=== PATIENT | female | born 1955 | race Caucasian/White ===

== ENCOUNTER → 2020-05-19 15:25 | Outpatient (CLI) | payer MEDICARE, SELFPAY ==
[2020-05-19 16:15] LABS: Alanine Aminotransferase 13 U/L (12-78); Albumin Level 3.5 g/dl (3.5-5.0); Albumin/Globulin Ratio 1.2 (1.1-1.8); Alkaline Phosphatase 172 U/L (38-126); Anion Gap 16.7 mEq/L (5-15); Aspartate Amino Transferase 24 U/L (14-36); Bilirubin,Total 0.5 mg/dl (0.2-1.3); Blood Urea Nitrogen 21 mg/dl (7-17); Carbon Dioxide 29 mmol/L (22.0-30.0); Chloride 96 mmol/L (98-107); Chol/HDL Ratio 4.9 (1-3.5); Cholesterol 202 mg/dl (140-200); Estimated Glomerular Filt Rate 63 ml/min (>60); GFR (African American) 76 ML/MIN (>60); Glucose 220 mg/dl (74-100); HDL Cholesterol 41 mg/dl (40-60); Potassium 4.7 mmoL/L (3.5-5.1); Sodium 137 mmol/L (136-145); Total Protein,Serum 6.5 g/dl (6.3-8.2); Triglycerides 362 mg/dl (30-150); VLDL Cholesterol 72 mg/dL (0-40)
[2020-05-19 16:27] LABS: Direct LDL Cholesterol 109.97 mg/dL (100-129)
[2020-05-19 16:34] LABS: T4 (Thyroxine) 10.6 ug/dl (5.53-11.0)
[2020-05-19 17:09] LABS: Hemoglobin A1C 8.4 % (4.0-6.0)
== END ==
PROVIDERS: Visit Provider Family Medicine
DX: E11.9 Type 2 diabetes mellitus without complications (principal); F39 Unspecified mood [affective] disorder; I10 Essential (primary) hypertension; Z79.4 Long term (current) use of insulin
CPT/HCPCS: 80053; 80061; 83036; 84436; 84443

== ENCOUNTER → 2021-08-26 14:24 | Outpatient (CLI) | payer MEDICARE, SELFPAY ==
[2021-08-26 15:02] LABS: Basophils # 0.1 K/mm3 (0-0.2); Eosinophils # 0.1 K/mm3 (0.0-0.4); Eosinophils % 1.1 % (0.1-12.0); Hematocrit 32.3 % (37.0-47.0); Hemoglobin 10.2 g/dL (12.2-16.2); Lymphocytes % 11.4 % (10-50); Mean Corpuscular HGB Conc 31.5 g/dL (31.8-35.4); Mean Corpuscular Hemoglobin 26.2 pg (27.0-31.2); Mean Corpuscular Volume 83.1 fl (81-99); Mean Platelet Volume 8.8 fl (7.4-10.4); Monocytes # 0.5 K/mm3 (0.1-1.0); Monocytes % 5.5 % (1.7-9.3); Neutrophils % 80.9 % (37.0-80.0); Platelet Count 307 K/mm3 (142-424); Red Blood Count 3.89 M/mm3 (4.20-5.40); Red Cell Distribution Width 16.4 % (11.5-17.5); White Blood Count 8.6 K/mm3 (4.8-10.8)
[2021-08-26 15:24] LABS: Alanine Aminotransferase 9 U/L (12-78); Albumin Level 3.5 g/dl (3.5-5.0); Albumin/Globulin Ratio 1.3 (1.1-1.8); Alkaline Phosphatase 148 U/L (38-126); Anion Gap 10.5 mEq/L (5-15); Aspartate Amino Transferase 17 U/L (14-36); Bilirubin,Total 0.4 mg/dl (0.2-1.3); Blood Urea Nitrogen 29 mg/dl (7-17); Calcium 7.9 mg/dl (8.4-10.2); Carbon Dioxide 34 mmol/L (22.0-30.0); Chloride 96 mmol/L (98-107); Chol/HDL Ratio 5.4 (1-3.5); Cholesterol 212 mg/dl (140-200); Estimated Glomerular Filt Rate 50 ml/min (>60); GFR (African American) 60 ML/MIN (>60); Globulin 2.8 g/dL (1.3-3.2); Glucose 231 mg/dl (74-100); HDL Cholesterol 39 mg/dl (40-60); Potassium 4.5 mmoL/L (3.5-5.1); Sodium 136 mmol/L (136-145); Total Protein,Serum 6.3 g/dl (6.3-8.2); Triglycerides 223 mg/dl (30-150); VLDL Cholesterol 45 mg/dL (0-40)
[2021-08-26 15:35] LABS: Direct LDL Cholesterol 140.24 mg/dL (100-129)
[2021-08-26 16:12] LABS: Hemoglobin A1C 8.9 % (4.0-6.0)
== END ==
PROVIDERS: Visit Provider Family Medicine
DX: E11.9 Type 2 diabetes mellitus without complications (principal); Z79.4 Long term (current) use of insulin
CPT/HCPCS: 80053; 80061; 83036; 85025

== ENCOUNTER → 2022-04-26 20:41 | Outpatient (CLI) | payer MEDICARE, SELFPAY ==
[2022-04-26 17:08] LABS: Basophils # 0.1 K/mm3 (0-0.2); Basophils % 0.6 % (0.1-2.0); Eosinophils # 0.1 K/mm3 (0.0-0.4); Eosinophils % 1.4 % (0.1-12.0); Hematocrit 34.3 % (37.0-47.0); Hemoglobin 10.3 g/dL (12.2-16.2); Lymphocytes % 11.7 % (10-50); Mean Corpuscular HGB Conc 30.1 g/dL (31.8-35.4); Mean Corpuscular Volume 83.1 fl (81-99); Mean Platelet Volume 8.6 fl (7.4-10.4); Monocytes # 0.7 K/mm3 (0.1-1.0); Monocytes % 7.8 % (1.7-9.3); Neutrophils # 6.8 K/mm3 (1.8-7.8); Neutrophils % 78.5 % (37.0-80.0); Platelet Count 299 K/mm3 (142-424); Red Blood Count 4.13 M/mm3 (4.20-5.40); Red Cell Distribution Width 16.3 % (11.5-17.5); White Blood Count 8.6 K/mm3 (4.8-10.8)
[2022-04-26 17:13] LABS: Alanine Aminotransferase 14 U/L (12-78); Albumin Level 3.6 g/dl (3.5-5.0); Albumin/Globulin Ratio 1.2 (1.1-1.8); Alkaline Phosphatase 139 U/L (38-126); Anion Gap 11.6 mEq/L (5-15); Aspartate Amino Transferase 19 U/L (14-36); Bilirubin,Total 0.2 mg/dl (0.2-1.3); Blood Urea Nitrogen 30 mg/dl (7-17); Calcium 8.6 mg/dl (8.4-10.2); Carbon Dioxide 31 mmol/L (22.0-30.0); Chloride 98 mmol/L (98-107); Chol/HDL Ratio 6.7 (1-3.5); Cholesterol 236 mg/dl (140-200); Estimated Glomerular Filt Rate 50 ml/min (>60); GFR (African American) 60 ML/MIN (>60); Glucose 190 mg/dl (74-100); HDL Cholesterol 35 mg/dl (40-60); Potassium 4.6 mmoL/L (3.5-5.1); Sodium 136 mmol/L (136-145); Total Protein,Serum 6.6 g/dl (6.3-8.2); Triglycerides 226 mg/dl (30-150); VLDL Cholesterol 45 mg/dL (0-40)
[2022-04-26 17:24] LABS: Direct LDL Cholesterol 141.37 mg/dL (100-129)
[2022-04-26 17:37] LABS: Hemoglobin A1C 7.5 % (4.0-6.0)
[2022-04-26 17:44] LABS: Thyroid Stimulating Hormone 2.07 uIU/mL (0.465-4.68)
== END ==
PROVIDERS: PCP Family Medicine; Visit Provider Family Medicine
DX: Z00.00 Encounter for general adult medical examination without abnormal findings (principal); I10 Essential (primary) hypertension; F39 Unspecified mood [affective] disorder; E11.9 Type 2 diabetes mellitus without complications; Z79.4 Long term (current) use of insulin
CPT/HCPCS: 80053; 80061; 83036; 84443; 85025

== ENCOUNTER 2022-09-14 08:50 | Inpatient (IN) | payer MEDICARE, SELFPAY ==
[2022-09-14] VITALS (13 sets, daily range): BP systolic 152–186; BP diastolic 63–94; PULSE 74–89; RESP 12–31; TEMP 36.4–37.4; O2SAT 93–97; BMI 45.4; BMI 48.1
--- NOTE | 2022-09-14 09:05 | ECG_ITS ---
APPROVED REPORT Exam: Resting ECG HR:74 bpm ECG Measurements Heart Rate 74 AXES NJ 129 P 86 QRSd 173 QRS -69 QT 497 T 104 QTc 524 Conclusion ELECTRONIC VENTRICULAR PACEMAKER ABNORMAL RHYTHM ECG UNCONFIRMED REPORT Electronically signed by : Jesús Vee MD 09/14/2022 21:52:41
[2022-09-14 09:09] LABS: Coronavirus 19, PCR Not Detected (NotDetected); Influenza A, PCR Not Detected (NotDetected); Influenza B, PCR Not Detected (NotDetected)
--- NOTE | 2022-09-14 09:16 | HMH.EDGENADL ---
Discharge Plan Disposition Patient Disposition: Admitted As Inpatient Condition: Good Clinical Impressions Clinical Impression: Acute exacerbation of CHF (congestive heart failure), Acute non-ST elevation myocardial infarction (NSTEMI) Discharge ED Provider: Kimberley Miller Adult HPI General Chief complaint: Weakness Stated complaint: weakness Time Seen by Provider: 09/14/22 09:00 Mode of Arrival: EMS Source of Information: Patient Limitations: No Limitations Description of Symptoms (Recalled from ER Triage Doc. by RN): c/o 2 weeks of weakness. PT states that she had covid back in july and has really been weak since then. Denies any other symptoms at this time History of Present Illness HPI narrative: Miss Mesa is a 67 yo female w/ PMH for CHF, DM, morbid obesity presenting to the ED for generalized weakness and BLE swelling. +diarrhea. Patient reports she was diagnosed w/ COVID in July and ever since she has had weakness but symptoms worsened over the last 2 weeks. She also reports increased fluid on her LE making it difficult for her to ambulate and take care of herself over the last week. She reports cough and fevers have improved. NO chest pain. No residual fevers. No abdominal pain, bowel changes or urinary sx. Appetite reduced in setting of poor mobility. MD complaint: generalized weakness and BLE swelling Onset (ago): week(s) Related Data Home Medications Medication Instructions Recorded Confirmed pantoprazole 40 mg tablet,delayed 40 mg PO DAILY GERD 08/26/22 09/14/22 release albuterol sulfate 90 mcg/actuation 2 puff inhalation Q4HP PRN 09/14/22 09/14/22 aerosol inhaler Shortness Of Breath aspirin 81 mg capsule 81 mg PO DAILY heart health 09/14/22 09/14/22 atorvastatin 80 mg tablet 80 mg PO DAILY Cholesterol 09/14/22 09/14/22 budesonide-formoterol HFA 160 2 puff inhalation BID Breathing 09/14/22 09/14/22 mcg-4.5 mcg/actuation aerosol problems inhaler (Symbicort) furosemide 40 mg tablet 40 mg PO BID Edema 09/14/22 09/14/22 hydralazine 50 mg tablet 50 mg PO TID Hypertension 09/14/22 09/14/22 insulin glargine 100 unit/mL (3 35 unit SQ HS Diabetes 09/14/22 09/14/22 mL) subcutaneous pen (Lantus Solostar U-100 Insulin) isosorbide mononitrate 30 mg 15 mg PO DAILY Hypertension 09/14/22 09/14/22 tablet,extended release 24 hr metoprolol succinate 50 mg 50 mg PO BID Hypertension 09/14/22 09/14/22 tablet,extended release 24 hr paroxetine HCl 20 mg tablet 20 mg PO DAILY mood 09/14/22 09/14/22 sitagliptin phosphate 50 1 tab PO BID Diabetes 09/14/22 09/14/22 mg-metformin 1,000 mg tablet (Janumet) Allergies Allergy/AdvReac Type Severity Reaction Status Date / Time No Known Allergies Allergy Unverified 09/14/22 12:33 [facility] Disclaimer: The information contained in this section may have been updated after the patient was seen, as this information can be updated by other users. Medical History (HFpEF) heart failure with preserved ejection fraction CHF (congestive heart failure) COPD (chronic obstructive pulmonary disease) COVID Diabetes mellitus, type II History of left heart catheterization HTN (hypertension) Hyperlipidemia Pacemaker Pneumonia Surgical History History of cholecystectomy S/P appendectomy Family History Other Cancer Heart attack Stroke Social History Smoking Status: Never smoker alcohol intake: never substance use type: denies use current occupational status: unemployed and disabled Travel in the last 8 weeks: None household members: significant other housing: house lives independently: Yes pets and animals: Yes additional social history: The patient is single and lives with her significant other Jose Luis Keenan. She reports no ch
--- NOTE | 2022-09-14 09:24 | XR_ITS ---
FINAL REPORT CLINICAL HISTORY: weakness, swelling LE FINDINGS: SINGLE VIEW CHEST There is a left subclavian pacemaker. The heart size is enlarged. The mediastinum is within normal limits. There is mild right lung base opacity.. There is no evidence of pneumothorax. The bony thorax is intact. IMPRESSION: Mild right base opacity could represent atelectasis or pneumonia.. Reviewed, Interpreted and Dictated by Kiran Woodall III, MD Transcribed by Archie Chowdary Authenticated and [facility]
--- NOTE | 2022-09-14 09:30 | PC.NURSE ---
BLOOD SENT TO LAB
--- NOTE | 2022-09-14 09:46 | PC.NURSE ---
PT updated about her sister calling to get update on pt. Pt okayed for her sister Rashida to know information about her.
[2022-09-14 10:01] LABS: Chloride 102 mmol/L (98-107); Sodium 139 mmol/L (136-145)
[2022-09-14 10:02] LABS: Alanine Aminotransferase 8 U/L (12-78); Albumin Level 3.3 g/dl (3.5-5.0); Albumin/Globulin Ratio 1.1 (1.1-1.8); Alkaline Phosphatase 160 U/L (38-126); Anion Gap 15.1 mEq/L (5-15); Aspartate Amino Transferase 19 U/L (14-36); Bilirubin,Total 0.4 mg/dl (0.2-1.3); Blood Urea Nitrogen 36 mg/dl (7-17); Carbon Dioxide 24 mmol/L (22.0-30.0); Creatinine Clearance Estimated 16 mL/min (50-200); Estimated Glomerular Filt Rate 16 ml/min (>60); GFR (African American) 19 ML/MIN (>60); Globulin 3.1 g/dL (1.3-3.2); Glucose 140 mg/dl (74-100); Total Protein,Serum 6.4 g/dl (6.3-8.2)
[2022-09-14 10:08] LABS: Calcium 4.4 mg/dl (8.4-10.2); Potassium 2.1 mmoL/L (3.5-5.1)
--- NOTE | 2022-09-14 10:09 | PC.NURSE ---
critical results called from lab reported to
[2022-09-14 10:14] LABS: Basophils % 0.4 % (0.1-2.0); Eosinophils # 0.2 K/mm3 (0.0-0.4); Eosinophils % 1.3 % (0.1-12.0); Hematocrit 29.4 % (37.0-47.0); Hemoglobin 9.5 g/dL (12.2-16.2); Lymphocytes # 0.9 K/mm3 (0.7-4.5); Lymphocytes % 7.6 % (10-50); Mean Corpuscular HGB Conc 32.2 g/dL (31.8-35.4); Mean Corpuscular Hemoglobin 25.5 pg (27.0-31.2); Mean Corpuscular Volume 79.2 fl (81-99); Mean Platelet Volume 8.6 fl (7.4-10.4); Monocytes # 0.7 K/mm3 (0.1-1.0); Monocytes % 6.3 % (1.7-9.3); Neutrophils # 9.7 K/mm3 (1.8-7.8); Neutrophils % 84.4 % (37.0-80.0); Platelet Count 323 K/mm3 (142-424); Red Blood Count 3.71 M/mm3 (4.20-5.40); Red Cell Distribution Width 17.6 % (11.5-17.5); Troponin I 0.07 ng/ml (0.00-0.034); White Blood Count 11.5 K/mm3 (4.8-10.8)
[2022-09-14 10:20] LABS: Microscopic, Urine URINE MICROSCOPIC (MICROSCOPIC)
[2022-09-14 10:22] LABS: Appearance,Urine CLEAR (Clear); Bilirubin,Urine Negative (Negative); Blood, Urine Negative (Negative); Color,Urine YELLOW (Yellow); Glucose,Urine (UA) Negative (Negative); Ketones,Urine Negative (Negative); Leukocyte Esterase,Urine Negative (Negative); Nitrate,Urine Negative (Negative); Protein,Urine 1+ (Negative); Urobilinogen,Urine 0.2 EU/dl (0.2)
[2022-09-14 10:40] LABS: Bacteria,Urine 1+ /lpf; Squamous Epithelial Cell,Urine Occasional #/hpf (0-5)
--- NOTE | 2022-09-14 11:45 | INFXCTL.NOTE ---
pulled pt up in bed
--- NOTE | 2022-09-14 12:02 | PC.NURSE ---
called care management for admit
--- NOTE | 2022-09-14 12:07 | CT_ITS ---
FINAL REPORT TECHNIQUE: Axial images were obtained from the lung apex to the mid abdomen by computed tomography. Coronal reformatted images were obtained. This study was performed with techniques to keep radiation doses as low as reasonably achievable, (ALARA). Individualized dose reduction techniques using automated exposure control or adjustment of mA and/or kV according to the patient''s size were employed. CLINICAL HISTORY: abnormal cxr FINDINGS: A left subclavian pacemaker is present. There is no axillary adenopathy. There is no hilar or mediastinal adenopathy. There is cardiomegaly. 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 There is severe coronary artery calcifications. There is no pericardial or pleural effusion. Limited images of the upper abdomen demonstrate postoperative changes. No suspicious infiltrate or nodule is identified. There is mild bibasilar atelectasis or scarring. IMPRESSION: Mild bibasilar atelectasis or scarring. 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 Reviewed, Interpreted and Dictated by Kiran Woodall III, MD Transcribed by Lillian Dwyer Authenticated and . [facility]
--- NOTE | 2022-09-14 12:32 | HMH.PHAINT1 ---
Pharmacy Intervention Comments: MEDICATION RECONCILIATION COMPLETED ON PATIENT USING EXTERNAL FILL HISTORY FROM PHARMACY AND LIST FROM DR. BRYANT' OFFICE. -PARVEZ SHEPHERDD
[2022-09-14 12:54] LABS: Iron 28 ug/dL (37-170)
[2022-09-14 13:00] LABS: Troponin I 0.06 ng/ml (0.00-0.034)
[2022-09-14 13:03] LABS: Total Iron Binding Capacity 244 ug/dL (265-497)
[2022-09-14 13:38] LABS: Vitamin B12 205 pg/mL (239-931)
--- NOTE | 2022-09-14 13:44 | PC.NURSE ---
report called to Jenifer Muñiz RN
--- NOTE | 2022-09-14 13:45 | PC.NURSE ---
report received from a pari RN at this time.
--- NOTE | 2022-09-14 13:49 | PC.NURSE ---
pt arrived to floor via stretcher
[2022-09-14 16:31] LABS: Potassium 3.3 mmoL/L (3.5-5.1)
[2022-09-14 16:47] LABS: Troponin I 0.07 ng/ml (0.00-0.034)
--- NOTE | 2022-09-14 16:59 | PC.NURSE ---
received critical lab notification of K+ 2.8 on pt. result, name and repeated and verified back to lab. 2187
[2022-09-14 17:00] LABS: Potassium 2.8 mmoL/L (3.5-5.1)
--- NOTE | 2022-09-14 18:39 | EXP.HP ---
History of Present Illness *Admission Date: 09/14/22 *Reason for visit:: Chief complaint: Diarrhea *History of present illness: This is a 67-year-old female that presents to [facility] emergency department with concerns of weakness and diarrhea for 3 weeks. Her past medical history is significant for diabetes, BMI 55, chronic hypoxic respiratory failure on home O2 3 L, HFpEF, hypertension and recent hospitalization at the [facility] for COVID?19. She reports that she was on the vent for 5 days and got extubated and completed courses of antibiotics. She was discharged home and reports intermittent brown watery diarrhea approximately 2-3 episodes per day with no associated tenesmus. She denies associated nausea and vomiting. She reports adequate p.o. intake including her loop diuretic therapy for her HFpEF. She denies melena, hematochezia or hematemesis. She has not identified any fever, chills or confusion. She reports no associated chest pain palpitations or acute dyspnea. In the ED she was evaluated and her blood pressure was 170/73. Her white blood cell count was 11.5, potassium 2.1, creatinine 3.0 and calcium 4.4. She has received fluid resuscitation with potassium supplementation and IV calcium. She reports that she is feeling a little better. [facility] Disclaimer: The information contained in this section may have been updated after the patient was seen, as this information can be updated by other users. Medical History (Updated 09/14/22 @ 19:11 by Wan Rocha MD) (HFpEF) heart failure with preserved ejection fraction History of left heart catheterization Surgical History (Updated 09/14/22 @ 18:46 by Wan Rocha MD) History of cholecystectomy S/P appendectomy Social History (Updated 09/14/22 @ 18:47 by Wan Rocha MD) Smoking Status: Never smoker alcohol intake: never substance use type: denies use current occupational status: unemployed and disabled Travel in the last 8 weeks: None household members: spouse housing: house additional social history: The patient is single and lives with her significant other Jose Luis Keenan. She reports no children. She lives in [place]. She reports smoking 1 pack of cigarettes a day for 30 years and quit several years ago. She denies routine alcohol consumption. She identifies with the Rastafarian isai. She lacks a full CODE STATUS. Review of Systems Review of Systems Review of systems:: pertinent systems reviewed and negative unless documented below ENT Ears, Nose, Mouth, and Throat: Denies dysphagia *Cardiovascular Cardiovascular: Denies chest pain and Reports dyspnea *Respiratory Respiratory: Reports dyspnea *Gastrointestinal Gastrointestinal: Reports diarrhea, Denies dysphagia, Denies hematemesis, Denies nausea and Denies vomiting Meds Home Medications and Allergies Home Medications Medication Instructions Recorded Confirmed Type pantoprazole 40 mg tablet,delayed 40 mg PO DAILY GERD 08/26/22 09/14/22 History release albuterol sulfate 90 mcg/actuation 2 puff inhalation Q4HP PRN 09/14/22 09/14/22 History aerosol inhaler Shortness Of Breath aspirin 81 mg capsule 81 mg PO DAILY heart health 09/14/22 09/14/22 History atorvastatin 80 mg tablet 80 mg PO DAILY Cholesterol 09/14/22 09/14/22 History budesonide-formoterol HFA 160 2 puff inhalation BID Breathing 09/14/22 09/14/22 History mcg-4.5 mcg/actuation aerosol problems inhaler (Symbicort) furosemide 40 mg tablet 40 mg PO BID Edema 09/14/22 09/14/22 History hydralazine 50 mg tablet 50 mg PO TID Hypertension 09/14/22 09/14/22 History insulin glargine 100 unit/mL (3 35 unit SQ HS Diabetes 09/14/22 09/14/22 History mL) subcutaneous pen (Lantus Solostar U-100 Insulin) isosorbide mononitrate 30 mg 15 mg PO DAILY Hypertension 09/14/22 09/14/22 History tablet,extended release 24 hr metoprolol succinate 50 mg 50 mg PO BID Hypertension 09/14/2209/14
[2022-09-14 18:43] LABS: POC Glucose,Bedside 303 (70-110)
[2022-09-14 19:04] LABS: Potassium 2.4 mmoL/L (3.5-5.1)
--- NOTE | 2022-09-14 19:20 | PC.NURSE ---
notified Dr Rocha of pt critical lab value received from Sae Leigh RN (k+ 2.4) 1917
[2022-09-14 20:42] LABS: Potassium 2.2 mmoL/L (3.5-5.1)
--- NOTE | 2022-09-14 21:09 | PC.NURSE ---
patient states that she has not had any diarrhea episodes since arriving at hospital. states last episode was afternoon of 09/13. she had 3 episodes that day.
[2022-09-14 21:13] LABS: POC Glucose,Bedside 153 (70-110)
[2022-09-14 21:34] LABS: Magnesium 0.6 mg/dl (1.6-2.3)
--- NOTE | 2022-09-14 22:08 | PC.NURSE ---
2040 abnormal potassium level 2.2. hospitalist/Heather PIT STEWARD notified. ,orders recieved for additional IV KCL 20 Meq:100 NS. 2nd abnormal lab Mg 0.6 reported by lab at 2132, order for Magnesium 2 gm : in50 ml ordered. 2199 #20 g a.c. placed RW x 1 stick.
[2022-09-14 22:37] LABS: Potassium 2.6 mmoL/L (3.5-5.1)
[2022-09-15] VITALS (7 sets, daily range): BP systolic 130–157; BP diastolic 52–71; PULSE 72–85; RESP 17–20; TEMP 36.9–37.2; O2SAT 93–96; BMI 47.7
--- NOTE | 2022-09-15 03:28 | PC.NURSE ---
PATIENT UNABLE TO TOLERATE BiPAP. 02 SATS 97-98 % ON ROOM AIR. IS NOT USING 02 AT 2LNC. R.T. AWARE AND HOSPITALIST NOTIFIED.
[2022-09-15 05:24] LABS: POC Glucose,Bedside 162 (70-110)
--- NOTE | 2022-09-15 06:18 | PC.NURSE ---
MEDICATED X 1 WITH NORCO 5/325MG FOR LEFT FOOT PAIN. HAS NOT REQUIRED 0XYGEN TONIGHT. F/C TO BSD, URINE CLEAR YELLOW. MEDICATED FOR LOW MAGNESIUM WITH 2 GM:50 ML NS AND FOR LOW POTASSIUJM HAS RECIEVED BOTH IV AND PO POTASSIUM. TELE MONOTORING PACED RHYTHM. LUNGS CTA. NO RESP DISTRESS. NO COUGH. NO C/O SOA.
[2022-09-15 06:53] LABS: Basophils % 0.3 % (0.1-2.0); Eosinophils # 0.2 K/mm3 (0.0-0.4); Eosinophils % 1.7 % (0.1-12.0); Hematocrit 26.9 % (37.0-47.0); Hemoglobin 9.1 g/dL (12.2-16.2); Lymphocytes % 8.3 % (10-50); Mean Corpuscular HGB Conc 33.9 g/dL (31.8-35.4); Mean Corpuscular Hemoglobin 26.5 pg (27.0-31.2); Mean Platelet Volume 8.3 fl (7.4-10.4); Monocytes % 8.5 % (1.7-9.3); Neutrophils # 9.6 K/mm3 (1.8-7.8); Neutrophils % 81.2 % (37.0-80.0); Platelet Count 319 K/mm3 (142-424); Red Blood Count 3.45 M/mm3 (4.20-5.40); Red Cell Distribution Width 17.9 % (11.5-17.5); White Blood Count 11.8 K/mm3 (4.8-10.8)
[2022-09-15 06:57] LABS: Chloride 106 mmol/L (98-107); Sodium 137 mmol/L (136-145)
[2022-09-15 07:00] LABS: Blood Urea Nitrogen 29 mg/dl (7-17); Creatinine Clearance Estimated 20 mL/min (50-200); Estimated Glomerular Filt Rate 20 ml/min (>60); GFR (African American) 24 ML/MIN (>60)
[2022-09-15 07:01] LABS: Carbon Dioxide 22 mmol/L (22.0-30.0); Glucose 131 mg/dl (74-100); Phosphorous 3.9 mg/dl (2.5-4.5)
[2022-09-15 07:03] LABS: INR 1.11 (0.9-1.1); Prothrombin Time 11.9 seconds (10.1-12.5)
[2022-09-15 07:14] LABS: Calcium 4.4 mg/dl (8.4-10.2)
--- NOTE | 2022-09-15 07:49 | PC.NURSE ---
reported critical labs to fermin hoyos-3.0, ca-4.4, mag 1.0.
[2022-09-15 12:01] LABS: POC Glucose,Bedside 235 (70-110)
--- NOTE | 2022-09-15 13:17 | SW/DCPLANNER ---
This patient currently receives home health services through [facility]. I will follow up with patient and home health at time of discharge. Discharge date is unknown at this time.
--- NOTE | 2022-09-15 16:46 | EXP.PN ---
Subjective *Date: 09/15/22 *Time: 16:46 Interval history: Date of service September 15, 2022 I am accompanied by the multidisciplinary rounds team to evaluate the patient. She reports no acute events overnight. She reports not tolerating her CPAP therapy. Nursing staff report that she remains afebrile with stable vital signs and saturating appropriately on room air. We have reviewed and discussed her morning labs including an improved creatinine and potassium. She is tolerating her replacement therapy with no adverse events. Exam Data for Last 24 hours Vital signs and Labs for Last 24 Hours: Temp Pulse Resp BP Pulse Ox FiO2 98.4 F 75 20 140/65 96 30 09/15/22 15:42 09/15/22 15:42 09/15/22 15:42 09/15/22 15:42 09/15/22 15:42 09/14/22 21:45 Laboratory Results - last 24 hr 09/14/22 15:30: Troponin I 0.07 H 09/14/22 16:22: Potassium 2.8 L* 09/14/22 18:15: Potassium 2.4 L* 09/14/22 18:15: Magnesium 0.6 L 09/14/22 18:33: POC Glucose 303 H* 09/14/22 20:00: Potassium 2.2 L* 09/14/22 21:01: POC Glucose 153 H 09/14/22 22:04: Potassium 2.6 L* 09/15/22 05:17: POC Glucose 162 H 09/15/22 06:34: WBC 11.8 H, RBC 3.45 L, Hgb 9.1 L, Hct 26.9 L, MCV 78.0 L, MCH 26.5 L, MCHC 33.9, RDW 17.9 H, Plt Count 319, MPV 8.3, Neut % (Auto) 81.2 H, Lymph % (Auto) 8.3 L, Zapata % (Auto) 8.5, Eos % (Auto) 1.7, Baso % (Auto) 0.3, Neut # (Auto) 9.6 H, Lymph # (Auto) 1.0, Zapata # (Auto) 1.0, Eos # (Auto) 0.2, Baso # (Auto) 0.0 09/15/22 06:34: PT 11.9, INR 1.11 H 09/15/22 06:34: Sodium 137, Potassium 3.0 L, Chloride 106, Carbon Dioxide 22, Anion Gap 12.0, BUN 29 H, Creatinine 2.40 H, Estimated Creat Clear 20, Estimated GFR 20 L, Est GFR ( Amer) 24 L D, Glucose 131 H, Calcium 4.4 L*, Phosphorus 3.9, Magnesium 1.0 L D 09/15/22 11:53: POC Glucose 235 H I & O for Last 24 hours: Intake & Output 09/12/22 09/13/22 09/14/22 09/15/22 23:59 23:59 23:59 23:59 Intake Total 440 / 440 1533 / 1533 Output Total 1200 / 1450 650 / 650 Balance -760 / -1010 883 / 883 Weight 127.261 kg 127 kg Constitutional Constitutional: no acute distress and cooperative *Routine HEENT Exam Head: Present normocephalic Eye: Present EOMI and PERRL ENT: Present mucous membranes moist *Routine Neck Exam Neck: Present supple; Absent lymphadenopathy *Routine Respiratory Exam Respiratory: Present rhonchi, normal respiratory effort and symmetric chest movement *Routine Cardiovascular Exam Cardiovascular: Present RRR; Absent murmur *Routine Abdominal Exam Abdominal: Present soft and normoactive bowel sounds; Absent tenderness *Routine Extremities Exam Extremities: Absent cyanosis, clubbing or edema *Routine Skin Exam Skin: Present warm; Absent rash *Routine Neurological Exam Neurological: Present alert, oriented X3, moving all extremities, vision grossly intact, hearing grossly intact and normal speech; Absent sensory deficit or motor deficit Routine Psychiatric Exam Psychiatric: Present normal affect, normal thought process, cooperative and good insight Assessment and Plan *Assessment and plan (1) Hypokalemia: Status: Acute Category: Medical Code(s): E87.6 - Hypokalemia (2) MATTHEW (acute kidney injury): Status: Acute Category: Medical Code(s): N17.9 - Acute kidney failure, unspecified (3) Diarrhea: Status: Acute Category: Medical Code(s): R19.7 - Diarrhea, unspecified (4) Diabetes: Status: Acute Qualifiers: Diabetes mellitus type: type 2 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
--- NOTE | 2022-09-15 19:29 | PC.NURSE ---
PT HAS DONE WELL THIS SHIFT. SOME IMPROVEMENT IN LABS. ALERT X4, LUNGS CLEAR, BILAT LOWER EDEMA X2 NON PITTING. CB AND PEROSNAL ITEMS WIHTIN REACH, NO CONCERNS AT THIS TIME.
[2022-09-16] VITALS (7 sets, daily range): BP systolic 140–169; BP diastolic 52–94; PULSE 60–83; RESP 18–22; TEMP 36.4–37.4; O2SAT 94–97
--- NOTE | 2022-09-16 05:07 | PC.NURSE ---
Assumed nursing care at 0100. No acute changes.
[2022-09-16 06:05] LABS: POC Glucose,Bedside 193 (70-110)
[2022-09-16 07:10] LABS: Basophils % 0.4 % (0.1-2.0); Eosinophils # 0.2 K/mm3 (0.0-0.4); Eosinophils % 1.7 % (0.1-12.0); Hematocrit 27.2 % (37.0-47.0); Hemoglobin 8.8 g/dL (12.2-16.2); Lymphocytes # 1.1 K/mm3 (0.7-4.5); Mean Corpuscular HGB Conc 32.5 g/dL (31.8-35.4); Mean Platelet Volume 8.1 fl (7.4-10.4); Monocytes # 0.7 K/mm3 (0.1-1.0); Monocytes % 6.1 % (1.7-9.3); Neutrophils # 9.9 K/mm3 (1.8-7.8); Neutrophils % 82.9 % (37.0-80.0); Platelet Count 312 K/mm3 (142-424); Red Cell Distribution Width 18.2 % (11.5-17.5); White Blood Count 11.9 K/mm3 (4.8-10.8)
[2022-09-16 07:15] LABS: Chloride 106 mmol/L (98-107); Potassium 4.5 mmoL/L (3.5-5.1); Sodium 133 mmol/L (136-145)
[2022-09-16 07:18] LABS: Anion Gap 11.5 mEq/L (5-15); Blood Urea Nitrogen 27 mg/dl (7-17); Carbon Dioxide 20 mmol/L (22.0-30.0); Creatinine Clearance Estimated 23 mL/min (50-200); Estimated Glomerular Filt Rate 24 ml/min (>60); GFR (African American) 29 ML/MIN (>60); Glucose 155 mg/dl (74-100); Phosphorous 2.9 mg/dl (2.5-4.5)
[2022-09-16 07:19] LABS: Magnesium 1.4 mg/dl (1.6-2.3)
[2022-09-16 07:25] LABS: Calcium 5.4 mg/dl (8.4-10.2)
--- NOTE | 2022-09-16 09:33 | HMH.OTEV ---
OT Inpatient Evaluation Rehab OT IP Evaluation Start: 09/15/22 16:46 Freq: ONCE Status: Complete Protocol: Document 09/16/22 09:26 [place] (Rec: 09/16/22 09:33 [facility] [id number]) Rehab OT IP Assessment Subjective History Pt oriented x 3 on arrival. Pt agreeable to engage in therapy evaluation. Pt was admitted via ED on 09/14/22 due to diarrhea. Her past medical history is significant for diabetes, BMI 55, chronic hypoxic respiratory failure on home O2 3 L, HFpEF, hypertension and recent hospitalization at the [facility] for COVID?19. Prior to being admitted to [facility], pt was living at home with her fiance. Pt claims she was independent with ADLs such as dressing, feeding, and bathing. Pt reports her and her fiance usually completed IADLs together such as cooking, cleaning, laundry, and grocery shopping. She no longer drove, but her fiance does. She does use a rolling walker during functional transfers. Subjective I do feel weak. Objective Patient Orientation Person,Place,Name Upper Extremity Gross ROM WFL Bed Mobility bed mobility-scooting,bed mobility - supine/sit,bed mobility - rolling Assist Level Minimal x 1 (25% assist) Transfer Training Sit/Stand Transfer Assist Level Minimal x 1 (25% assist) Chair Transfer Ability Minimal x 1 (25% assist) Chair Transfer Technique Sit to/from Ambulatory Rehab OT IP prob,goals,plan Problems Date of Evaluation: 09/16/22 OT IP Problems Bed Mobility,Transfers,Balance ,Self care,Safety Rehab Potential Rehab Potential Good Equipment Needs Assistive Devices Rolling / Wheeled Walker Plan OT intervention Plan Bed Mobility,Transfers,Balance ,Self care,Safety,Therapeutic Exercise OT Plan Frequency BID Duration LOS Discharge Goals
--- NOTE | 2022-09-16 09:46 | SW/DCPLANNER ---
Addendum entered by Roxanne Sandra 09/20/22 09:56: Patient has been approved for admission to [facility] today. Patient has been updated and stated that her family will transport her. Vivi Chang stated that patient does not require a COVID swab prior to discharge. Addendum entered by Roxanne Sandra 09/19/22 09:10: Per Vivi Chagn auth is still pending at this time. I will continue to follow up with [facility]. Patient is medically stable for discharge. Addendum entered by Roxanne Sandra 09/16/22 13:56: [facility] stated that they are in network with patient's insurance and precert will be started today. I will update MD and patient. Original Note: I spoke with this patient regarding discharge plans. Patient stated that she resides at home with her fiance but is interested in SNF level of care at [facility]. Patient stated that if [facility] does not have any beds available she would prefer to return home with her fiance and home health services. Patient information has been faxed to Vivi Chang at this time. Per MD patient could be medically stable for discharge tomorrow pending no setbacks.
--- NOTE | 2022-09-16 12:09 | HMH.PTEV ---
Physical Therapy Evaluation Rehab PT IP Evaluation Start: 09/15/22 16:46 Freq: ONCE Status: Active Protocol: Document 09/16/22 09:00 [place] (Rec: 09/16/22 12:09 [place] [id number]) Subjective/History History History 67 yowf adm to [facility] with MATTHEW after several days of Vomiting and diarrhea. She reports she generally uses a rolator for ambulation, she lives with , no steps to enter the home. is able to assist at home. Subjective Subjective She reports feeling some better overall, but remains weak. Rehab PT IP Eval Objective Appearance Patient Behavior Appropriate Patient Orientation Person,Place,Time Difficulty following instructions none Speech Pattern Clear Ambulation Patient Able to Ambulate Yes Ambulation Observation IP General Gait Pattern Observation Wide Based Gait Ambulation Distance (feet) 20 Ambulation Assistive Device None Ambulation Ability Minimal x 2 (25% assist) Balance Ability to Arise Able, uses arms to help Sitting Balance Steady, safe Standing Balance Steady, wide stance Dynamic Sitting Balance Ability Good Dynamic Standing Balance Ability Fair Transfers Bed Transfer Ability Minimal x 2 (25% assist) Chair Transfer Ability Minimal x 2 (25% assist) Sit to Stand Bed Transfer Ability Minimal x 2 (25% assist) Sit to Stand Chair Transfer Ability Minimal x 2 (25% assist) ROM All Extremities PT ROM Status WFL Rehab PT IP prob,goals,plan Problems Date of Evaluation: 09/16/22 PT IP Problems Bed Mobility,Transfers,Gait Rehab Potential Rehab Potential Good Plan PT Intervention Plan Bed Mobility,Transfers,Gait, Therapeutic Exercise PT Plan Frequency BID Duration LOS Discharge Goals Bed Transfer Ability Contact Guard/Hand Hold Sit to Stand Chair Transfer Ability Contact Guard/Hand Hold Ambulation Assistive Device Rolling Walker Ambulation Distance (feet) 30 Discharge Plan PT Discharge Plan Pt is currently most appropriate for rehab placement, however should her mobility improve she would be appropriate to return home with home health therapy. G -code Required No Eval Complexity Eval Charge Cod
--- NOTE | 2022-09-16 15:32 | EXP.PN ---
Subjective *Date: 09/16/22 *Time: 15:32 Interval history: Date of service September 16, 2022 The patient reports no acute events overnight. She reports that she is able to get up and get to her bedside chair. I am accompanied by several staff from the multidisciplinary rounds team including nursing, pharmacy and case management. Nursing staff report that she remains afebrile with stable vital signs and she is now saturating appropriately on room air. We have reviewed and discussed her morning labs including a downward trend creatinine low magnesium and stable hemoglobin. Case management is assisting with next site of care which is expected to be [facility] with plan discharge on Monday pending insurance authorization. Exam Data for Last 24 hours Vital signs and Labs for Last 24 Hours: Temp Pulse Resp BP Pulse Ox FiO2 98.0 F 72 22 141/52 H 96 30 09/16/22 12:00 09/16/22 14:30 09/16/22 14:30 09/16/22 12:00 09/16/22 12:00 09/14/22 21:45 Laboratory Results - last 24 hr 09/16/22 05:50: POC Glucose 193 H 09/16/22 06:44: WBC 11.9 H, RBC 3.40 L, Hgb 8.8 L, Hct 27.2 L, MCV 80.0 L, MCH 26.0 L, MCHC 32.5, RDW 18.2 H, Plt Count 312, MPV 8.1, Neut % (Auto) 82.9 H, Lymph % (Auto) 9.0 L, Nolan % (Auto) 6.1, Eos % (Auto) 1.7, Baso % (Auto) 0.4, Neut # (Auto) 9.9 H, Lymph # (Auto) 1.1, Nolan # (Auto) 0.7, Eos # (Auto) 0.2, Baso # (Auto) 0.0 09/16/22 06:44: Sodium 133 L, Potassium 4.5 D, Chloride 106, Carbon Dioxide 20 L, Anion Gap 11.5, BUN 27 H, Creatinine 2.10 H, Estimated Creat Clear 23, Estimated GFR 24 L, Est GFR ( Amer) 29 L D, Glucose 155 H, Calcium 5.4 L D, Phosphorus 2.9 D, Magnesium 1.4 L D, Procalcitonin 0.500 I & O for Last 24 hours: Intake & Output 09/13/22 09/14/22 09/15/22 09/16/22 23:59 23:59 23:59 23:59 Intake Total 440 / 440 2012 1412 / 1412 Output Total 1200 / 1450 650 / 850 500 / 500 Balance -760 / -1010 1363 / 1163 912 / 912 Weight 127.261 kg 127 kg Constitutional Constitutional: no acute distress and cooperative *Routine HEENT Exam Head: Present normocephalic Eye: Present EOMI and PERRL ENT: Present mucous membranes moist *Routine Neck Exam Neck: Present supple; Absent lymphadenopathy *Routine Respiratory Exam Respiratory: Present rhonchi, normal respiratory effort and symmetric chest movement *Routine Cardiovascular Exam Cardiovascular: Present RRR; Absent murmur *Routine Abdominal Exam Abdominal: Present soft and normoactive bowel sounds; Absent tenderness *Routine Extremities Exam Extremities: Absent cyanosis, clubbing or edema *Routine Skin Exam Skin: Present warm; Absent rash *Routine Neurological Exam Neurological: Present alert, oriented X3, moving all extremities, vision grossly intact, hearing grossly intact and normal speech; Absent sensory deficit or motor deficit Routine Psychiatric Exam Psychiatric: Present normal affect, normal thought process, cooperative and good insight Assessment and Plan *Assessment and plan (1) Hypokalemia: Status: Acute Category: Medical Code(s): E87.6 - Hypokalemia (2) MATTHEW (acute kidney injury): Status: Acute Category: Medical Code(s): N17.9 - Acute kidney failure, unspecified (3) Diarrhea: Status: Acute Category: Medical Code(s): R19.7 - Diarrhea, unspecified (4) Diabetes: Status: Acute Qualifiers: Diabetes mellitus type: type 2 Diabetes mellitus rn long term care insulin use: with rn long term care use Diabetes mellitus complication status: without complication Qualified Code(s): E11.9 - Type 2 diabetes mellitus without complications; Z79.4 - shelter (current) use of insulin Category: Medical Code(s): E11.9 - Type 2 diabetes mellitus without complications (5) Essential hypertension: Status: Acute Category: Medical Code(s): I10 - Essential (primary) hypertension (6) Pacemaker: Status: Acute Category: Medical
--- NOTE | 2022-09-16 15:45 | PC.NURSE ---
PT IS RESTING IN BED. TOLERATED SITTING UP IN THE CHAIR SEVERAL HOURS THIS SHIFT. ALERT AND ORIENTED X4. O2 SATURATION HAS MAINTAINED 90-95% ON ROOM AIR. PT IS A 2 ASSIST TO GET OOB. LUNG SOUNDS DIMINISHED. ABDOMEN SOFT/OBESE WITH HYPOACTIVE BOWEL SOUNDS. 2+ PITTING EDEMA NOTED TO RLE. 3+ PITTING EDEMA NOTED TO LLE. BATH AND LINEN CHANGED THIS SHIFT. WILL CONTINUE TO MONITOR.
[2022-09-16 18:04] LABS: Calcium, Ionized <3.0 mg/dL (4.5-5.6)
[2022-09-16 19:38] LABS: Adenovirus F 40/41, stool Not Detected (NotDetected); Astrovirus Not Detected (NotDetected); Campylobacter Not Detected (NotDetected); Clostridium Difficile A/B, PCR Not Detected (NotDetected); Cryptosporidium Not Detected (NotDetected); Cyclospora Cayetanesis Not Detected (NotDetected); Entamoeba histolytica Not Detected (NotDetected); Enteroaggregative E coli Not Detected (NotDetected); Enteropathogenic E coli Not Detected (NotDetected); Enterotoxigenic E coli Not Detected (NotDetected); Giardia lamblia Not Detected (NotDetected); Norovirus Not Detected (NotDetected); Plesimonas Shigalloides, PCR Not Detected (NotDetected); Rotavirus A Not Detected (NotDetected); Salmonella, PCR Not Detected (NotDetected); Sapovirus Not Detected (NotDetected); Shiga-like toxin E coli Not Detected (NotDetected); Shigella Enterovasive E coli Not Detected (NotDetected); Vibrio Cholerae Not Detected (NotDetected); Vibrio, PCR Not Detected (NotDetected); Yersinia Entercolitica, PCR Not Detected (NotDetected)
[2022-09-17] VITALS (7 sets, daily range): BP systolic 141–163; BP diastolic 70–77; PULSE 60–73; RESP 18–22; TEMP 36.6–37.1; O2SAT 94–97; BMI 50.6
--- NOTE | 2022-09-17 04:42 | PC.NURSE ---
Pt has had no complaints this shift. No changes since previous assessment. Continues to tolerate RA. V-Paced on telemetry. Redness and excoriation noted under right breast, under abdominal folds, and groin area. +2 pitting edema noted to RLE and +3 pitting edema noted to LLE. Lugo catheter in place draining clear/yellow urine. She has used the BSC once this shift with 2 assist, had medium size dark BM.
[2022-09-17 05:48] LABS: POC Glucose,Bedside 189 (70-110)
[2022-09-17 07:50] LABS: Basophils % 0.3 % (0.1-2.0); Eosinophils # 0.2 K/mm3 (0.0-0.4); Eosinophils % 1.7 % (0.1-12.0); Hematocrit 26.2 % (37.0-47.0); Hemoglobin 8.9 g/dL (12.2-16.2); Lymphocytes # 0.8 K/mm3 (0.7-4.5); Lymphocytes % 8.8 % (10-50); Mean Corpuscular Hemoglobin 26.6 pg (27.0-31.2); Mean Corpuscular Volume 78.1 fl (81-99); Mean Platelet Volume 8.6 fl (7.4-10.4); Monocytes # 0.6 K/mm3 (0.1-1.0); Monocytes % 5.9 % (1.7-9.3); Neutrophils % 83.3 % (37.0-80.0); Platelet Count 303 K/mm3 (142-424); Red Blood Count 3.36 M/mm3 (4.20-5.40); Red Cell Distribution Width 18.1 % (11.5-17.5); White Blood Count 9.6 K/mm3 (4.8-10.8)
[2022-09-17 07:56] LABS: Chloride 105 mmol/L (98-107); Potassium 4.5 mmoL/L (3.5-5.1); Sodium 135 mmol/L (136-145)
[2022-09-17 07:58] LABS: Blood Urea Nitrogen 25 mg/dl (7-17); Creatinine Clearance Estimated 27 mL/min (50-200); Estimated Glomerular Filt Rate 28 ml/min (>60); GFR (African American) 34 ML/MIN (>60)
[2022-09-17 07:59] LABS: Anion Gap 12.5 mEq/L (5-15); Calcium 6.3 mg/dl (8.4-10.2); Carbon Dioxide 22 mmol/L (22.0-30.0); Glucose 160 mg/dl (74-100); Phosphorous 3.4 mg/dl (2.5-4.5)
[2022-09-17 08:00] LABS: Magnesium 1.7 mg/dl (1.6-2.3)
[2022-09-17 11:32] LABS: POC Glucose,Bedside 265 (70-110)
--- NOTE | 2022-09-17 11:34 | EXP.PN ---
Subjective *Date: 09/17/22 *Time: 11:34 Interval history: Date of service 09/17/2022 The patient reports no acute events overnight. The patient reports no further diarrhea and a normal bowel movement yesterday. Nursing staff report that she remains afebrile with stable vital signs and saturating appropriately on room air. We have reviewed and discussed her morning labs including an ongoing downward trend of her creatinine which is 1.8 today (baseline 1.1). She is tolerating her therapy with no adverse events. We continue to replace her magnesium and calcium. Physical therapy has evaluated the patient. Case management is assisting with transition of care and [facility] has accepted the patient we are awaiting insurance approval. Exam Data for Last 24 hours Vital signs and Labs for Last 24 Hours: Temp Pulse Resp BP Pulse Ox FiO2 98.4 F 68 22 163/74 H 94 L 30 09/17/22 08:00 09/17/22 08:00 09/17/22 08:00 09/17/22 08:00 09/17/22 08:00 09/14/22 21:45 Laboratory Results - last 24 hr 09/14/22 18:15: Ionized Calcium <3.0 L 09/16/22 19:30: Stl Aeromonas (PCR) Not detected, Stl C. cayetanensis PCR Not detected, Stool Rotavirus (PCR) Not detected, Stl Adenov F 40/41 PCR Not detected, Stool Astrovirus (PCR) Not detected, Stool Campylobacter PCR Not detected, Stl C.difficile Tox PCR Not detected, Stool Cryptosporidium PCR Not detected, Stl E.coli Shiga Tox PCR Not detected, Stool E coli O157 PCR Not detected, Stl Enterotoxigenic E PCR Not detected, Stool EPEC (PCR) Not detected, Stool EAEC (PCR) Not detected, Stl E. histolytica PCR Not detected, Stool Giardia Lamblia PCR Not detected, Stool Salmonella PCR Not detected, Stool Sapovirus (PCR) Not detected, Stl P. shigelloides PCR Not detected, Stl Shigella/EIEC PCR Not detected, St Y.enterocolitica PCR Not detected, Stool Vibrio (PCR) Not detected, Stl Vibrio cholerae PCR Not detected, Stl Norovirus GI/GII PCR Not detected 09/17/22 05:41: POC Glucose 189 H 09/17/22 07:22: WBC 9.6, RBC 3.36 L, Hgb 8.9 L, Hct 26.2 L, MCV 78.1 L, MCH 26.6 L, MCHC 34.0, RDW 18.1 H, Plt Count 303, MPV 8.6, Neut % (Auto) 83.3 H, Lymph % (Auto) 8.8 L, York % (Auto) 5.9, Eos % (Auto) 1.7, Baso % (Auto) 0.3, Neut # (Auto) 8.0 H, Lymph # (Auto) 0.8, York # (Auto) 0.6, Eos # (Auto) 0.2, Baso # (Auto) 0.0 09/17/22 07:22: Sodium 135 L, Potassium 4.5, Chloride 105, Carbon Dioxide 22, Anion Gap 12.5, BUN 25 H, Creatinine 1.80 H, Estimated Creat Clear 27, Estimated GFR 28 L, Est GFR ( Amer) 34 L, Glucose 160 H, Calcium 6.3 L, Phosphorus 3.4, Magnesium 1.7 D 09/17/22 11:17: POC Glucose 265 H I & O for Last 24 hours: Intake & Output 09/14/22 09/15/22 09/16/22 09/17/22 23:59 23:59 23:59 23:59 Intake Total 440 / 440 2012 2611 / 2611 720 / 720 Output Total 1200 / 1450 650 / 850 1275 / 1275 450 / 450 Balance -760 / -1010 1363 / 1163 1336 / 1336 270 / 270 Weight 127.261 kg 127 kg 134.581 kg Constitutional Constitutional: no acute distress and cooperative *Routine HEENT Exam Head: Present normocephalic Eye: Present EOMI and PERRL ENT: Present mucous membranes moist *Routine Neck Exam Neck: Present supple; Absent lymphadenopathy *Routine Respiratory Exam Respiratory: Present rhonchi, normal respiratory effort and symmetric chest movement *Routine Cardiovascular Exam Cardiovascular: Present RRR; Absent murmur *Routine Abdominal Exam Abdominal: Present soft and normoactive bowel sounds; Absent tenderness *Routine Extremities Exam Extremities: Absent cyanosis, clubbing or edema *Routine Skin Exam Skin: Present warm; Absent rash *Routine Neurological Exam Neurological: Present alert, oriented X3, moving all extremities, vision grossly intact, hearing grossly intact and normal speech; Absent sensory deficit or motor deficit Routine Psychiatric Exam Psychiatric: Present normal affect, normal thought process, cooperative and good insight Assessment and Plan *Assessment and plan
--- NOTE | 2022-09-17 15:27 | PC.NURSE ---
PT IS RESTING IN BED. PT STATED SHE WOULD SIT IN THE CHAIR FOR SUPPER. 2 ASSIST TO GET UP TO THE BSC. EATING AND DRINKING WELL. REDNESS NOTED UNDER BREAST AND ABDOMINAL FOLDS. BATH AND LINEN CHANGE THIS SHIFT. SWELLING NOTED TO BLE. LUNG SOUNDS DIMINISHED. ABDOMEN SOFT/NON TENDER/OBESE WITH ACTIVE BOWEL SOUNDS. WILL CONTINUE TO MONITOR.
[2022-09-17 15:48] LABS: POC Glucose,Bedside 212 (70-110)
[2022-09-17 17:09] LABS: POC Glucose,Bedside 245 (70-110)
[2022-09-17 17:09] LABS: POC Glucose,Bedside 269 (70-110)
[2022-09-17 17:09] LABS: POC Glucose,Bedside 266 (70-110)
[2022-09-17 17:09] LABS: POC Glucose,Bedside 191 (70-110)
[2022-09-17 17:09] LABS: POC Glucose,Bedside 242 (70-110)
[2022-09-17 17:09] LABS: POC Glucose,Bedside 290 (70-110)
[2022-09-17 22:16] LABS: POC Glucose,Bedside 191 (70-110)
[2022-09-18] VITALS: BP 148/72; PULSE 69; PULSE 70; RESP 18; TEMP 36.8; O2SAT 94
[2022-09-18 04:00] VITALS: BP 149/73; PULSE 60; PULSE 93; RESP 18; TEMP 36.8; O2SAT 93
[2022-09-18 05:00] VITALS: BMI 49.8
--- NOTE | 2022-09-18 05:05 | PC.NURSE ---
No acute changes this shift. Pt c/o discomfort to feet. Medicated per mar. No additional complaints stated. F/C draining to bedside with cloudy, dark yellow to gerald urine. Pt is paced on telemetry. VSS. Has remained on RA. Call light within reach.
[2022-09-18 05:41] LABS: POC Glucose,Bedside 143 (70-110)
[2022-09-18 08:00] VITALS: BP 166/76; PULSE 72; PULSE 75; RESP 16; TEMP 36.9; O2SAT 92
[2022-09-18 10:15] LABS: Chloride 106 mmol/L (98-107); Potassium 5.3 mmoL/L (3.5-5.1); Sodium 135 mmol/L (136-145)
[2022-09-18 10:18] LABS: Anion Gap 13.3 mEq/L (5-15); Blood Urea Nitrogen 23 mg/dl (7-17); Carbon Dioxide 21 mmol/L (22.0-30.0); Creatinine Clearance Estimated 32 mL/min (50-200); Estimated Glomerular Filt Rate 35 ml/min (>60); GFR (African American) 42 ML/MIN (>60); Glucose 258 mg/dl (74-100); Magnesium 1.7 mg/dl (1.6-2.3)
[2022-09-18 11:31] LABS: POC Glucose,Bedside 245 (70-110)
[2022-09-18 12:00] VITALS: BP 167/68; PULSE 65; PULSE 66; RESP 16; TEMP 36.9; O2SAT 94
--- NOTE | 2022-09-18 15:45 | EXP.PN ---
Subjective *Date: 09/18/22 *Time: 15:45 Interval history: Date of service 09/18/2022 The patient reports no acute events overnight. Nursing staff report that she remains afebrile with stable vital signs and saturating appropriately on room air. Her morning labs have been reviewed and discussed including ongoing correction of her creatinine. Exam Data for Last 24 hours Vital signs and Labs for Last 24 Hours: Temp Pulse Resp BP Pulse Ox FiO2 98.5 F 66 16 167/68 H 94 L 30 09/18/22 12:00 09/18/22 12:00 09/18/22 12:00 09/18/22 12:00 09/18/22 12:00 09/14/22 21:45 Laboratory Results - last 24 hr 09/15/22 17:22: POC Glucose 242 H 09/15/22 21:09: POC Glucose 266 H 09/16/22 11:09: POC Glucose 245 H 09/16/22 16:45: POC Glucose 290 H 09/16/22 20:43: POC Glucose 269 H 09/17/22 03:55: POC Glucose 191 H 09/17/22 15:39: POC Glucose 212 H 09/17/22 21:18: POC Glucose 191 H 09/18/22 05:28: POC Glucose 143 H 09/18/22 09:25: Sodium 135 L, Potassium 5.3 H, Chloride 106, Carbon Dioxide 21 L, Anion Gap 13.3, BUN 23 H, Creatinine 1.50 H, Estimated Creat Clear 32, Estimated GFR 35 L, Est GFR ( Amer) 42 L D, Glucose 258 H, Calcium 7.0 L, Magnesium 1.7 09/18/22 11:13: POC Glucose 245 H I & O for Last 24 hours: Intake & Output 09/15/22 09/16/22 09/17/22 09/18/22 23:59 23:59 23:59 23:59 Intake Total 2012 2611 / 2611 1728 / 1728 840 / 840 Output Total 650 / 850 1275 / 1275 1300 / 1300 675 / 675 Balance 1363 / 1163 1336 / 1336 428 / 428 165 / 165 Weight 127 kg 134.581 kg 132.54 kg Constitutional Constitutional: no acute distress and cooperative *Routine HEENT Exam Head: Present normocephalic Eye: Present EOMI and PERRL ENT: Present mucous membranes moist *Routine Neck Exam Neck: Present supple; Absent lymphadenopathy *Routine Respiratory Exam Respiratory: Present rhonchi, normal respiratory effort and symmetric chest movement *Routine Cardiovascular Exam Cardiovascular: Present RRR; Absent murmur *Routine Abdominal Exam Abdominal: Present soft and normoactive bowel sounds; Absent tenderness *Routine Extremities Exam Extremities: Absent cyanosis, clubbing or edema *Routine Skin Exam Skin: Present warm; Absent rash *Routine Neurological Exam Neurological: Present alert, oriented X3, moving all extremities, vision grossly intact, hearing grossly intact and normal speech; Absent sensory deficit or motor deficit Routine Psychiatric Exam Psychiatric: Present normal affect, normal thought process, cooperative and good insight Assessment and Plan *Assessment and plan (1) Hypokalemia: Status: Acute Category: Medical Code(s): E87.6 - Hypokalemia (2) MATTHEW (acute kidney injury): Status: Acute Category: Medical Code(s): N17.9 - Acute kidney failure, unspecified (3) Diarrhea: Status: Acute Category: Medical Code(s): R19.7 - Diarrhea, unspecified (4) Diabetes: Status: Acute Qualifiers: Diabetes mellitus type: type 2 Diabetes mellitus terminal supervisor insulin use: with retirement use Diabetes mellitus complication status: without complication Qualified Code(s): E11.9 - Type 2 diabetes mellitus without complications; Z79.4 - long term (current) use of insulin Category: Medical Code(s): E11.9 - Type 2 diabetes mellitus without complications (5) Essential hypertension: Status: Acute Category: Medical Code(s): I10 - Essential (primary) hypertension (6) Pacemaker: Status: Acute Category: Medical Code(s): Z95.0 - Presence of cardiac pacemaker (7) BMI 50.0-59.9, adult: Status: Acute Category: Medical Code(s): Z68.43 - Body mass index [BMI] 50.0-59.9, adult Plan Severe hypokalemia?resolved, secondary to GI and renal losses from loop diuretic therapy. Oral fluid resuscitation with routine potassium evaluations and supplementation provided. Telemetry monitoring with ED ECG review
[2022-09-18 16:00] VITALS: BP 163/75; PULSE 61; RESP 18; TEMP 36.9; O2SAT 95
[2022-09-18 16:30] LABS: POC Glucose,Bedside 153 (70-110)
--- NOTE | 2022-09-18 17:11 | PC.NURSE ---
PT IS SITTING UP IN THE CHAIR. ALERT AND ORIENTED X4. EATING AND DRINKING WELL. PT PARTICIPATED WITH PHYSICAL THERAPY WELL TODAY. EDEMA NOTED TO BLE. LUNG SOUNDS DIMINISHED. ABDOMEN SOFT/NON TENDER/OBESE WITH ACTIVE BOWEL SOUNDS. LARGE BM THIS SHIFT. WILL CONTINUE TO MONITOR.
[2022-09-18 20:00] VITALS: BP 135/71; PULSE 112; RESP 18; TEMP 36.9; O2SAT 95
[2022-09-19 02:49] LABS: POC Glucose,Bedside 170 (70-110)
[2022-09-19 04:00] VITALS: BP 157/67; PULSE 65; RESP 18; TEMP 37.1; O2SAT 95
--- NOTE | 2022-09-19 04:34 | PC.NURSE ---
Pt has had no complaints, and rested well this shift. remains on RA. gupta catheter in place draining clear/yello urine. SSI admin per dec.
[2022-09-19 05:00] VITALS: BMI 49.1
[2022-09-19 05:45] LABS: POC Glucose,Bedside 145 (70-110)
[2022-09-19 07:27] LABS: Chloride 104 mmol/L (98-107); Potassium 4.4 mmoL/L (3.5-5.1); Sodium 136 mmol/L (136-145)
[2022-09-19 07:30] LABS: Anion Gap 9.4 mEq/L (5-15); Blood Urea Nitrogen 21 mg/dl (7-17); Calcium 7.8 mg/dl (8.4-10.2); Carbon Dioxide 27 mmol/L (22.0-30.0); Creatinine Clearance Estimated 32 mL/min (50-200); Estimated Glomerular Filt Rate 35 ml/min (>60); GFR (African American) 42 ML/MIN (>60); Glucose 135 mg/dl (74-100)
[2022-09-19 08:00] VITALS: BP 158/70; PULSE 68; RESP 18; TEMP 36.5; O2SAT 94
--- NOTE | 2022-09-19 09:10 | PC.NURSE ---
pt sitting up in bed watching tv at this time
--- NOTE | 2022-09-19 10:53 | PC.NURSE ---
lab called and reported ionized calcium level to be less than 3. lab was drawn on the . this was immediately reported to
[2022-09-19 12:33] LABS: POC Glucose,Bedside 224 (70-110)
--- NOTE | 2022-09-19 13:52 | PC.NURSE ---
sitting up in chair awake watching tv
--- NOTE | 2022-09-19 15:53 | EXP.PN ---
Subjective *Date: 09/19/22 *Time: 15:53 Interval history: Date of service September 19, 2022 I am accompanied by several members of the MDR team to evaluate the patient. She reports no acute events overnight. Nursing staff report that she remains afebrile with stable vital signs and saturating appropriately on room air. We have reviewed her echocardiogram identified an ejection fraction of 50 to 55% with right ventricular systolic pressure 50 to 70 mmHg. I have encouraged her to be compliant with her NIPPV therapy. We have restarted her loop diuretic therapy and we will continue to trend her electrolytes and creatinine. Exam Data for Last 24 hours Vital signs and Labs for Last 24 Hours: Temp Pulse Resp BP Pulse Ox FiO2 97.7 F 68 18 158/70 H 94 L 30 09/19/22 08:00 09/19/22 08:00 09/19/22 08:00 09/19/22 08:00 09/19/22 08:00 09/14/22 21:45 Laboratory Results - last 24 hr 09/18/22 16:22: POC Glucose 153 H 09/18/22 21:10: POC Glucose 170 H 09/19/22 05:36: POC Glucose 145 H 09/19/22 06:36: Sodium 136, Potassium 4.4, Chloride 104, Carbon Dioxide 27, Anion Gap 9.4, BUN 21 H, Creatinine 1.50 H, Estimated Creat Clear 32, Estimated GFR 35 L, Est GFR ( Amer) 42 L, Glucose 135 H D, Calcium 7.8 L 09/19/22 12:24: POC Glucose 224 H I & O for Last 24 hours: Intake & Output 09/16/22 09/17/22 09/18/22 09/19/22 23:59 23:59 23:59 23:59 Intake Total 2611 / 2611 1728 / 1728 1200 / 1200 720 / 720 Output Total 1275 / 1275 1300 / 1300 1500 / 2800 1620 / 1620 Balance 1336 / 1336 428 / 428 -300 / -1600 -900 / -900 Weight 134.581 kg 132.54 kg 130.725 kg Constitutional Constitutional: no acute distress and cooperative *Routine HEENT Exam Head: Present normocephalic Eye: Present EOMI and PERRL ENT: Present mucous membranes moist *Routine Neck Exam Neck: Present supple; Absent lymphadenopathy *Routine Respiratory Exam Respiratory: Present rhonchi, normal respiratory effort and symmetric chest movement *Routine Cardiovascular Exam Cardiovascular: Present RRR; Absent murmur *Routine Abdominal Exam Abdominal: Present soft and normoactive bowel sounds; Absent tenderness *Routine Extremities Exam Extremities: Absent cyanosis, clubbing or edema *Routine Skin Exam Skin: Present warm; Absent rash *Routine Neurological Exam Neurological: Present alert, oriented X3, moving all extremities, vision grossly intact, hearing grossly intact and normal speech; Absent sensory deficit or motor deficit Routine Psychiatric Exam Psychiatric: Present normal affect, normal thought process, cooperative and good insight Assessment and Plan *Assessment and plan (1) Hypokalemia: Status: Acute Category: Medical Code(s): E87.6 - Hypokalemia (2) MATTHEW (acute kidney injury): Status: Acute Category: Medical Code(s): N17.9 - Acute kidney failure, unspecified (3) Diarrhea: Status: Acute Category: Medical Code(s): R19.7 - Diarrhea, unspecified (4) Diabetes: Status: Acute Qualifiers: Diabetes mellitus type: type 2 Diabetes mellitus machine long goods helper insulin use: with machine long goods helper use Diabetes mellitus complication status: without complication Qualified Code(s): E11.9 - Type 2 diabetes mellitus without complications; Z79.4 - manager long term care (current) use of insulin Category: Medical Code(s): E11.9 - Type 2 diabetes mellitus without complications (5) Essential hypertension: Status: Acute Category: Medical Code(s): I10 - Essential (primary) hypertension (6) Pacemaker: Status: Acute Category: Medical Code(s): Z95.0 - Presence of cardiac pacemaker (7) BMI 50.0-59.9, adult: Status: Acute Category: Medical Code(s): Z68.43 - Body mass index [BMI] 50.0-59.9, adult Plan Severe hypokalemia?resolved, secondary to GI and renal losses from loop diuretic therapy. Oral fluid resuscitation with routine potassium evaluations an
[2022-09-19 16:00] VITALS: BP 170/69; PULSE 61; RESP 20; TEMP 36.8; O2SAT 95
[2022-09-19 16:57] LABS: POC Glucose,Bedside 195 (70-110)
--- NOTE | 2022-09-19 19:29 | PC.NURSE ---
Pt is A/Ox4. She has tolerated diet today. She has not complained of pain this shift. She was up to the chair for a few hours today. I took out candy per Dr. Rocha's order. She has been RA all day. She is waiting on placement and PA from insurance for [facility].
[2022-09-19 20:00] VITALS: BP 143/59; PULSE 69; RESP 22; TEMP 36.8; O2SAT 94
[2022-09-20 00:03] LABS: POC Glucose,Bedside 266 (70-110)
[2022-09-20 04:00] VITALS: BP 142/48; PULSE 66; RESP 18; TEMP 36.6; O2SAT 93
[2022-09-20 04:04] VITALS: BMI 48.9
--- NOTE | 2022-09-20 04:12 | PC.NURSE ---
no changes since previous assessment. Pt has had no complaints. She remains on room air. Pt has slept most of the night.
[2022-09-20 06:28] LABS: POC Glucose,Bedside 161 (70-110)
[2022-09-20 06:55] LABS: Basophils % 0.4 % (0.1-2.0); Eosinophils # 0.2 K/mm3 (0.0-0.4); Eosinophils % 3.1 % (0.1-12.0); Hemoglobin 8.6 g/dL (12.2-16.2); Lymphocytes # 0.8 K/mm3 (0.7-4.5); Lymphocytes % 14.2 % (10-50); Mean Corpuscular HGB Conc 31.9 g/dL (31.8-35.4); Mean Corpuscular Hemoglobin 25.7 pg (27.0-31.2); Mean Corpuscular Volume 80.8 fl (81-99); Monocytes # 0.5 K/mm3 (0.1-1.0); Neutrophils # 4.3 K/mm3 (1.8-7.8); Neutrophils % 73.3 % (37.0-80.0); Platelet Count 331 K/mm3 (142-424); Red Blood Count 3.34 M/mm3 (4.20-5.40); Red Cell Distribution Width 18.2 % (11.5-17.5); White Blood Count 5.9 K/mm3 (4.8-10.8)
[2022-09-20 07:33] LABS: Chloride 104 mmol/L (98-107)
[2022-09-20 07:34] LABS: Potassium 4.4 mmoL/L (3.5-5.1); Sodium 138 mmol/L (136-145)
[2022-09-20 07:36] LABS: Blood Urea Nitrogen 21 mg/dl (7-17); Creatinine Clearance Estimated 37 mL/min (50-200); Estimated Glomerular Filt Rate 41 ml/min (>60); GFR (African American) 50 ML/MIN (>60)
[2022-09-20 07:37] LABS: Anion Gap 12.4 mEq/L (5-15); Calcium 7.8 mg/dl (8.4-10.2); Carbon Dioxide 26 mmol/L (22.0-30.0); Glucose 150 mg/dl (74-100); Magnesium 1.4 mg/dl (1.6-2.3)
[2022-09-20 08:00] VITALS: BP 161/51; PULSE 63; RESP 21; TEMP 36.8; O2SAT 95
[2022-09-20 11:33] LABS: POC Glucose,Bedside 217 (70-110)
--- NOTE | 2022-09-20 12:28 | EXP.DC.SUM ---
General Admission date:: 09/14/22 Discharge date: 09/20/22 HPI HPI HPI: This is a 67-year-old female that presents to [facility] emergency department with concerns of weakness and diarrhea for 3 weeks. Her past medical history is significant for diabetes, BMI 55, chronic hypoxic respiratory failure on home O2 3 L, HFpEF, hypertension and recent hospitalization at the [facility] for COVID?19. She reports that she was on the vent for 5 days and got extubated and completed courses of antibiotics. She was discharged home and reports intermittent brown watery diarrhea approximately 2-3 episodes per day with no associated tenesmus. She denies associated nausea and vomiting. She reports adequate p.o. intake including her loop diuretic therapy for her HFpEF. She denies melena, hematochezia or hematemesis. She has not identified any fever, chills or confusion. She reports no associated chest pain palpitations or acute dyspnea. In the ED she was evaluated and her blood pressure was 170/73. Her white blood cell count was 11.5, potassium 2.1, creatinine 3.0 and calcium 4.4. She has received fluid resuscitation with potassium supplementation and IV calcium. She reports that she is feeling a little better. Hospital Course Hospital Course Hospital Course: 67-year-old female admitted for dehydration, MATTHEW, diarrhea, electrolyte disturbances. Has responded well to repletion and fluid resuscitation. Reports she had COVID over a month ago and has not felt right since. Tolerating p.o. intake. Stools normalized. Tolerating p.o. fluids. Meeting criteria for discharge to care home for further therapy and monitoring. Problems addressed during hospitalization as follows Severe hypokalemia?resolved Hypocalcemia Diarrhea -Presented with significant diarrhea. GI PCR negative for viral etiology. Had gradual improvement during hospitalization with resolution. Labs monitored through hospitalization with improvement in electrolyte levels. Electrolyte disturbances felt secondary to GI and renal losses from loop diuretic therapy.? Oral fluid resuscitation with routine potassium evaluations and supplementation provided.? Telemetry monitoring with ED ECG reviewed identifying paced rhythm. Acute kidney injury - Resolved. Baseline creatinine 1.1. Presented with prerenal status secondary to dehydration from above. - Restarted loop diuretic therapy (09/19), transitioned IV to oral fluid resuscitation with routine electrolyte and creatinine evaluation.? Avoid NSAID therapy. Diabetes - routine blood sugar monitoring, sliding scale insulin therapy, carbohydrate controlled diet Hypertension - routine blood pressure monitoring, beta-jose therapy, peripheral vasodilator therapy, long-acting nitrate therapy. Continued home therapy Patient has iron deficient anemia. Recommend continuing oral iron supplementation. Iron studies show significant deficiency. Anemia stable during admission Medically stable for discharge to nursing facility for continued rehab. Rehab complicated by her morbid obesity. Would benefit from nutrition consult at facility and continued PT/OT Exam Data for Last 24 hours Vital signs and Labs for Last 24 Hours: Temp Pulse Resp BP Pulse Ox FiO2 98.2 F 63 21 161/51 H 95 30 09/20/22 08:00 09/20/22 08:00 09/20/22 08:00 09/20/22 08:00 09/20/22 08:00 09/14/22 21:45 Laboratory Results - last 24 hr 09/19/22 12:24: POC Glucose 224 H 09/19/22 16:50: POC Glucose 195 H 09/19/22 20:25: POC Glucose 266 H 09/20/22 05:54: POC Glucose 161 H 09/20/22 06:42: WBC 5.9 D, RBC 3.34 L, Hgb 8.6 L, Hct 27.0 L, MCV 80.8 L, MCH 25.7 L, MCHC 31.9, RDW 18.2 H, Plt Count 331, MPV 9.0, Neut % (Auto) 73.3, Lymph % (Auto) 14.2, Parke % (Auto) 9.0, Eos % (Auto) 3.1, Baso % (Auto) 0.4, Neut # (Auto) 4.3, Lymph # (Auto) 0.8, Parke # (Auto) 0.5, Eos # (Auto) 0.2, Baso # (Auto) 0.0 09/20/22 06:42: Sodium 138, Potassium 4.4, Chl
--- NOTE | 2022-09-21 13:11 | CARE MANAGER ---
Spoke with patient nurse at [facility], and that the patient is doing well and has no issues at this time.
== END 2022-09-20 13:34 | DRG 641 ==
LOC: ER 09:19 → 2ND 14:34
PROVIDERS: Nurse Practitioner Acute Care; Admitting Provider Family Medicine; Emergency Provider Student in an Organized Health Care Education/Training Program; PCP Family Medicine; Visit Provider Internal Medicine Adolescent Medicine
DX: E87.6 Hypokalemia (principal); Z68.42 Body mass index [BMI] 45.0-49.9, adult; J96.11 Chronic respiratory failure with hypoxia; I50.32 Chronic diastolic (congestive) heart failure; N17.9 Acute kidney failure, unspecified; E11.9 Type 2 diabetes mellitus without complications; Z79.4 Long term (current) use of insulin; Z95.0 Presence of cardiac pacemaker; E66.01 Morbid (severe) obesity due to excess calories; I11.0 Hypertensive heart disease with heart failure; J44.9 Chronic obstructive pulmonary disease, unspecified; E78.5 Hyperlipidemia, unspecified; Z86.16 Personal history of COVID-19; Z99.81 Dependence on supplemental oxygen; Z87.891 Personal history of nicotine dependence; E83.51 Hypocalcemia; R19.7 Diarrhea, unspecified; Z91.199 Patient's noncompliance with other medical treatment and regimen due to unspecified reason; D50.9 Iron deficiency anemia, unspecified; G47.33 Obstructive sleep apnea (adult) (pediatric)
CPT/HCPCS: 36415; 51702; 71045; 71250; 80048; 80053; 81001; 82330; 82607; 82962; 83540; 83550; 83735; 84100; 84132; 84145; 84484; 85025; 85610; 87045; 87507; 93005; 93306; 94660; 97110; 97116; 97162; 97166; 97530; 99285; C9803; J0696; J3475; U0003; U0005

== ENCOUNTER → 2022-10-18 16:00 | Outpatient (CLI) | payer MEDICARE, SELFPAY ==
[2022-10-18 18:35] LABS: Alanine Aminotransferase 13 U/L (12-78); Albumin Level 3.3 g/dl (3.5-5.0); Albumin/Globulin Ratio 1.2 (1.1-1.8); Alkaline Phosphatase 137 U/L (38-126); Anion Gap 13.6 mEq/L (5-15); Aspartate Amino Transferase 20 U/L (14-36); Bilirubin,Total 0.8 mg/dl (0.2-1.3); Blood Urea Nitrogen 23 mg/dl (7-17); Calcium 7.1 mg/dl (8.4-10.2); Carbon Dioxide 30 mmol/L (22.0-30.0); Chloride 97 mmol/L (98-107); Estimated Glomerular Filt Rate 41 ml/min (>60); GFR (African American) 50 ML/MIN (>60); Globulin 2.8 g/dL (1.3-3.2); Glucose 150 mg/dl (74-100); Potassium 3.6 mmoL/L (3.5-5.1); Sodium 137 mmol/L (136-145); Total Protein,Serum 6.1 g/dl (6.3-8.2)
== END ==
PROVIDERS: PCP Family Medicine; Visit Provider Family Medicine
DX: I10 Essential (primary) hypertension (principal)
CPT/HCPCS: 80053

== ENCOUNTER → 2022-11-18 15:17 | Outpatient (CLI) | payer MEDICARE, SELFPAY ==
[2022-11-18 15:14] LABS: Anion Gap 13.2 mEq/L (5-15); Blood Urea Nitrogen 23 mg/dl (7-17); Calcium 7.8 mg/dl (8.4-10.2); Carbon Dioxide 32 mmol/L (22.0-30.0); Chloride 98 mmol/L (98-107); Estimated Glomerular Filt Rate 38 ml/min (>60); GFR (African American) 46 ML/MIN (>60); Glucose 154 mg/dl (74-100); Potassium 4.2 mmoL/L (3.5-5.1); Sodium 139 mmol/L (136-145)
[2022-11-18 16:36] LABS: Hemoglobin A1C 6.6 % (4.0-6.0)
== END ==
PROVIDERS: PCP Family Medicine; Visit Provider Family Medicine
DX: E11.9 Type 2 diabetes mellitus without complications (principal); Z79.4 Long term (current) use of insulin
CPT/HCPCS: 80048; 83036

== ENCOUNTER → 2022-12-09 23:33 | Outpatient (CLI) | payer MEDICARE, SELFPAY ==
[2022-12-09 18:38] LABS: Basophils % 0.2 % (0.1-2.0); Eosinophils # 0.1 K/mm3 (0.0-0.4); Eosinophils % 0.7 % (0.1-12.0); Hematocrit 31.2 % (37.0-47.0); Hemoglobin 9.9 g/dL (12.2-16.2); Lymphocytes # 1.3 K/mm3 (0.7-4.5); Lymphocytes % 12.2 % (10-50); Mean Corpuscular HGB Conc 31.8 g/dL (31.8-35.4); Mean Corpuscular Hemoglobin 26.3 pg (27.0-31.2); Mean Corpuscular Volume 82.7 fl (81-99); Mean Platelet Volume 9.2 fl (7.4-10.4); Monocytes # 0.7 K/mm3 (0.1-1.0); Neutrophils # 8.2 K/mm3 (1.8-7.8); Neutrophils % 79.8 % (37.0-80.0); Platelet Count 327 K/mm3 (142-424); Red Blood Count 3.78 M/mm3 (4.20-5.40); Red Cell Distribution Width 16.4 % (11.5-17.5); White Blood Count 10.3 K/mm3 (4.8-10.8)
[2022-12-09 19:42] LABS: Iron 29 ug/dL (37-170)
[2022-12-09 19:51] LABS: Total Iron Binding Capacity 356 ug/dL (265-497)
== END ==
PROVIDERS: PCP Family Medicine; Visit Provider Family Medicine
DX: Z01.89 Encounter for other specified special examinations (principal); Z86.39 Personal history of other endocrine, nutritional and metabolic disease
CPT/HCPCS: 83540; 83550; 85025

== ENCOUNTER → 2023-01-09 13:52 | Outpatient (CLI) | payer MEDICARE, SELFPAY ==
[2023-01-09 15:03] LABS: Basophils % 0.3 % (0.1-2.0); Eosinophils # 0.1 K/mm3 (0.0-0.4); Eosinophils % 0.8 % (0.1-12.0); Hematocrit 30.9 % (37.0-47.0); Hemoglobin 9.2 g/dL (12.2-16.2); Lymphocytes # 0.9 K/mm3 (0.7-4.5); Lymphocytes % 9.2 % (10-50); Mean Corpuscular HGB Conc 29.9 g/dL (31.8-35.4); Mean Corpuscular Hemoglobin 25.1 pg (27.0-31.2); Mean Corpuscular Volume 83.9 fl (81-99); Mean Platelet Volume 8.2 fl (7.4-10.4); Monocytes # 0.7 K/mm3 (0.1-1.0); Monocytes % 6.6 % (1.7-9.3); Neutrophils # 8.4 K/mm3 (1.8-7.8); Neutrophils % 83.2 % (37.0-80.0); Platelet Count 239 K/mm3 (142-424); Red Blood Count 3.68 M/mm3 (4.20-5.40); Red Cell Distribution Width 16.6 % (11.5-17.5)
== END ==
PROVIDERS: PCP Family Medicine; Visit Provider Family Medicine
DX: E11.9 Type 2 diabetes mellitus without complications (principal); Z79.4 Long term (current) use of insulin
CPT/HCPCS: 85025

== ENCOUNTER 2023-02-15 08:22 | Day surgery (SDC) | payer MEDICARE, SELFPAY ==
[2023-02-13 08:33] VITALS: BMI 102.9
[2023-02-15] VITALS (14 sets, daily range): BP systolic 155–183; BP diastolic 60–87; PULSE 60–67; RESP 18–22; TEMP 36.1–36.6; O2SAT 90–99
--- NOTE | 2023-02-15 08:53 | EXP.ANES.CKL ---
[facility] Disclaimer: The information contained in this section may have been updated after the patient was seen, as this information can be updated by other users. Medical History (HFpEF) heart failure with preserved ejection fraction CHF (congestive heart failure) COPD (chronic obstructive pulmonary disease) COVID Diabetes mellitus, type II History of left heart catheterization HTN (hypertension) Hyperlipidemia Pacemaker Pneumonia Surgical History History of cholecystectomy S/P appendectomy Family History Other Cancer Heart attack Stroke Social History Smoking Status: Former smoker alcohol intake: never substance use type: denies use current occupational status: disabled Travel in the last 8 weeks: None household members: significant other housing: house lives independently: Yes marital status: single education level: high school service: No pets and animals: Yes special isai needs: No do you feel safe at home: Yes victim of physical abuse: No victim of emotional abuse: No victim of sexual abuse: No would you like helpful sources: No [facility] Anesthesia Checklist Patient Identification Patient Identification: Arm Band and Verbal (Name & ) Structural Data Admitted From: Home Planned Operative Procedure/s: EGD/Colonoscopy Consent for Planned Operative Procedure(s) Verified: Yes NPO Status Verified Time NPO: 00:00 Airway Assessment C-Spine Mobility Assessed: Yes TMJ Mobility Assessed: Yes Dentition: Edentulous Neurological Assessment Level of Consciousness: Awake Hx Seizures: No Numbness or tingling in extremities: No Anesthesia Plan Anesthesia Risk discussed: Yes Anesthesia Plan: Verified ASA Class: III Anesthesia Type: MAC
--- NOTE | 2023-02-15 09:52 | HMH.SCOPE ---
Procedure: Date: 02/15/23 Patient Date of :: 1955 Procedure Performed:: EGD Indications:: The patient is a 67 year old who presents for EGD evaluation of anemia. She has a history of CHF and CKD Performing Provider:: Jasper Lorenz MD Referring Provider:: Boogie Burger MD Sedation:: See RN records Procedure:: The gastroscope was gently passed through the incisoral orifice into the oral cavity and under direct visualization the esophagus was intubated. The endoscope was passed down the esophagus, and into the stomach. The patient experienced persistent oxygen desaturation during the procedure and the EGD was aborted Findings:: Brief EGD with normal apearance of esophagus and stomach. Procedure was aborted Recommendations:: Will monitor the patient in PACU Recommend consultation with cardiology and pulmonology Complications:: procedure aborted due to oxygen desaturations Estimated blood obtained (mL): 0
--- NOTE | 2023-02-15 09:56 | XR_ITS ---
FINAL REPORT CLINICAL HISTORY: hypoxia post op COMPARISON: 09/14/2022 FINDINGS: Increasing bilateral airspace opacities right greater than left, favor pneumonia over edema. Cyst new small right pleural effusion. Left-sided pacemaker is noted. No pneumothorax. Mediastinum is unremarkable. Heart size is normal. IMPRESSION: Interval development bibasilar opacities likely due to pneumonia over edema. Reviewed, Interpreted and Dictated by Dennise Trammell MD Transcribed by Maddie Em Authenticated and [facility]
--- NOTE | 2023-02-15 10:03 | ECG_ITS ---
APPROVED REPORT Exam: Resting ECG HR:68 bpm ECG Measurements Heart Rate 68 AXES OR 135 P 94 QRSd 171 QRS -64 QT 488 T 106 QTc 506 Conclusion ELECTRONIC VENTRICULAR PACEMAKER ABNORMAL RHYTHM ECG UNCONFIRMED REPORT Electronically signed by : Jesús Vee MD 02/15/2023 21:15:52
[2023-02-15 10:46] LABS: POC Glucose,Bedside 124 (70-110)
--- NOTE | 2023-02-15 10:52 | SUR.PHASEI ---
1045- detailed report called to vandana deutsch in post op 1046- pt left in stable conditon at pt baseline in post op with vandana burrows. Pt VSS at baseline.
--- NOTE | 2023-02-15 10:53 | SUR.PHASEI ---
late entry 0956- pt in pacu from the scope room after O2 sats decreased during procedure. lucia Jimenez ordered pt to be observed in pacu and a CXR and EKG be obtained. requested to come check pt in pacu 1005- [facility] and 12 lead ekg. 1008- Saurabh at bedside. Dr. plata verbal order for 40mg lasix ivp once and duoneb breathing treatment. Mike said if pt returned to baseline then pt was ok to go home at this time. 1015-respiratory at bedside to give duoneb treatment.
--- NOTE | 2023-02-15 11:27 | SUR.PHASEI ---
1045- pt at baseline from preop. Pt weaned to 2L of O2 which is what is worn at home also.
--- NOTE | 2023-02-15 14:10 | SUR.PHASEII ---
Pt transported to post op via stretcher by Ayaan Stone RN. Upon assessment pt is A/Ox4, HR regular, lungs w/ fine crackles throughout, abd soft, large, non-tender. BLE w/ 3+ pitting edema. Cap refill <3 sec. No complaints voiced by pt. Pt assisted w/ ambulation to bathroom, voiding 800 mls of clear yellow urine. Pt did report that she does typically become SOA w/ exertion. Once sitting down in recliner, sat obtained and holding 80% on 2 L. After 5 minutes pt did recover to 90-91%. Pt states she does not feel this is any worse than her baseline at home where she is O2 dependent on 2L. Sig other at bedside. 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 Hsu at [facility] 1125 - spoke w/ Dr. Wiley at this time about pt's condition, made aware of pt desatting and her recovery. MD wishes for her to be seen by PCP (Anny) tomorrow and him in 2 weeks F/u's made w/ Dr. Mccormick for 02/16/23 @ [address] Wiley on 03/02/23 @ 1500. Reviewed DC instruction's w/ pt and made aware of f/u's. Pt transported to car via w/c in stable condition @ 1150.
== END 2023-02-15 11:50 | disposition home or self-care (01) ==
PROVIDERS: PCP Family Medicine; Visit Provider Internal Medicine
PROC: 0DJ08ZZ Inspection of Upper Intestinal Tract, Via Natural or Artificial Opening Endoscopic (ICD-10-PCS; CPT 43235; principal; 2023-02-15 09:30)
DX: D64.9 Anemia, unspecified (principal); Z53.09 Procedure and treatment not carried out because of other contraindication; R09.02 Hypoxemia; I50.9 Heart failure, unspecified; Z79.899 Other long term (current) drug therapy
CPT/HCPCS: 43235; 71045; 82962; 93005; 94640

== ENCOUNTER 2023-02-16 12:28 | Observation (INO) | payer MEDICARE, SELFPAY ==
[2023-02-16] VITALS (13 sets, daily range): BP systolic 124–180; BP diastolic 46–113; PULSE 59–87; RESP 17–22; TEMP 36.6–37; O2SAT 87–99; BMI 46.3
--- NOTE | 2023-02-16 12:30 | XR_ITS ---
FINAL REPORT CLINICAL HISTORY: Shortness of breath COMPARISON: 02/15/2023 FINDINGS: Lungs are severely hypoinflated. There are moderate bilateral pleural effusions, slightly worse on the right and stable on the left. There is improved pulmonary edema. Stable atelectasis is noted. Mediastinum is unremarkable. Heart size is enlarged, stable. Left-sided pacemaker is noted. IMPRESSION: Moderate bilateral pleural effusions greater on the right, mildly increased. Resolved pulmonary edema. Reviewed, Interpreted and Dictated by Dennise Trammell MD Transcribed by Maddie Em Authenticated and [facility]
[2023-02-16 12:52] LABS: Basophils % 0.1 % (0.1-2.0); Eosinophils # 0.1 K/mm3 (0.0-0.4); Eosinophils % 0.6 % (0.1-12.0); Hemoglobin 9.7 g/dL (12.2-16.2); Lymphocytes # 0.9 K/mm3 (0.7-4.5); Lymphocytes % 11.2 % (10-50); Mean Corpuscular HGB Conc 31.5 g/dL (31.8-35.4); Mean Corpuscular Hemoglobin 26.2 pg (27.0-31.2); Mean Corpuscular Volume 83.2 fl (81-99); Mean Platelet Volume 8.5 fl (7.4-10.4); Monocytes # 0.5 K/mm3 (0.1-1.0); Monocytes % 6.4 % (1.7-9.3); Neutrophils # 6.6 K/mm3 (1.8-7.8); Neutrophils % 81.7 % (37.0-80.0); Platelet Count 278 K/mm3 (142-424); Red Blood Count 3.72 M/mm3 (4.20-5.40); Red Cell Distribution Width 16.9 % (11.5-17.5); White Blood Count 8.1 K/mm3 (4.8-10.8)
[2023-02-16 12:55] LABS: Chloride 89 mmol/L (98-107); Potassium 3.5 mmoL/L (3.5-5.1); Sodium 138 mmol/L (136-145)
[2023-02-16 12:58] LABS: Alanine Aminotransferase 17 U/L (12-78); Albumin Level 3.7 g/dl (3.5-5.0); Albumin/Globulin Ratio 1.2 (1.1-1.8); Alkaline Phosphatase 113 U/L (38-126); Anion Gap 15.5 mEq/L (5-15); Aspartate Amino Transferase 24 U/L (14-36); Bilirubin,Total 0.5 mg/dl (0.2-1.3); Blood Urea Nitrogen 21 mg/dl (7-17); Calcium 8.1 mg/dl (8.4-10.2); Carbon Dioxide 37 mmol/L (22.0-30.0); Creatinine Clearance Estimated 34 mL/min (50-200); Estimated Glomerular Filt Rate 38 ml/min (>60); GFR (African American) 46 ML/MIN (>60); Globulin 3.1 g/dL (1.3-3.2); Glucose 147 mg/dl (74-100); Total Protein,Serum 6.8 g/dl (6.3-8.2)
[2023-02-16 12:59] LABS: VBG Base Excess 7.4 mmol/L (-2.4-2.3); VBG HCO3 32.2 mmol/L (23-30); VBG Oxygen Saturation 93.3 % (50-70); VBG PO2 72.3 mmol/L (28-40); VBG Total CO2 33.8 mmol/L (23-27)
[2023-02-16 13:03] LABS: VBG PCO2 53.3 mmol/L (35-51)
--- NOTE | 2023-02-16 13:06 | PC.NURSE ---
RT called with vbg results- notified ER
[2023-02-16 13:08] LABS: NT Pro Brain Natriuretic Pep. 6320 pg/mL (0-125)
--- NOTE | 2023-02-16 13:12 | HMH.EDGENADL ---
Discharge Plan Disposition Patient Disposition: Admitted As Inpatient Chief Complaint: Shortness of Breath/Dyspnea Prescriptions Prescriptions: No Action rosuvastatin 20 mg tablet 20 mg PO DAILY budesonide-formoterol [Symbicort] 160-4.5 mcg/actuation HFA aerosol inhaler 2 puff INHALATION BID Qty: 10.2 3RF Janumet 50-1,000 mg tablet 1 tab PO BID Qty: 60 3RF albuterol sulfate 90 mcg/actuation HFA aerosol inhaler 2 puff INHALATION Q4HP PRN (Reason: Shortness Of Breath) Qty: 8.5 2RF paroxetine HCl 20 mg tablet 20 mg PO DAILY Qty: 30 3RF aspirin 81 mg capsule 81 mg PO DAILY Qty: 30 3RF polysaccharide iron complex 150 mg iron capsule See Rx Instructions .ROUTE .COMPLEX Rx Instructions: TAKE 1 CAPSULE ORALLY TWICE A DAY furosemide 40 mg tablet See Rx Instructions .ROUTE .COMPLEX Rx Instructions: TAKE 1 TABLET BY MOUTH EVERY DAY metoprolol succinate 50 mg tablet extended release 24 hr See Rx Instructions .ROUTE .COMPLEX Rx Instructions: TAKE 1 TABLET ORALLY DAILY FOR HYPERTENSION isosorbide mononitrate 30 mg tablet extended release 24 hr See Rx Instructions .ROUTE .COMPLEX Rx Instructions: TAKE 1/2 TABLET BY MOUTH DAILY FOR HYPERTENSION hydralazine 25 mg tablet See Rx Instructions .ROUTE .COMPLEX Rx Instructions: TAKE 1 TABLET ORALLY THREE TIMES A DAY (DME) Advanced Gluc Meter Test Strip Strip See Rx Instructions .Route Rx Instructions: test 4x daily or as directed. magnesium oxide 400 mg (241.3 mg magnesium) tablet See Rx Instructions .ROUTE .COMPLEX Rx Instructions: TAKE 1 TABLET ORALLY TWICE A DAY pantoprazole 40 mg tablet,delayed release (DR/EC) See Rx Instructions .ROUTE .COMPLEX Rx Instructions: TAKE 1 TABLET BY MOUTH EVERY DAY calcium carbonate [Tums] 200 mg calcium (500 mg) tablet,chewable 500 mg PO QID nystatin 100,000 unit/gram powder 1 applic topical QID insulin glargine [Lantus Solostar U-100 Insulin] 100 unit/mL (3 mL) insulin pen 10 unit SQ HS Referrals Follow up/Referrals: Boogie Mccormick MD [Primary Care Provider] - See instructions Clinical Impressions Clinical Impression: Acute exacerbation of CHF (congestive heart failure) Discharge ED Provider: Mitchell Coffey General Adult HPI General Chief complaint: Shortness of Breath/Dyspnea Stated complaint: SOB Time Seen by Provider: 02/16/23 12:30 Mode of Arrival: EMS Limitations: No Limitations Description of Symptoms (Recalled from ER Triage Doc. by RN): pt to ED via [facility] with SOB on exertion for the last 24hrs. pt stated she was also supposed to have a colonoscopy and endoscopy yesterday but they canceled her procedure due to HTN. pt denies any new cough or recent fever. pt does wear 2L of oxygen at home at all times History of Present Illness HPI narrative: 67-year-old female presents with CHF COPD presents with generalized weakness and shortness of air. She says she was supposed to have a colonoscopy and endoscopy yesterday but they canceled the procedure due to hypertension. No new cough or recent fever. She is stable on her home O2. She has felt generally weak and has had worsening shortness of air. No chest pain or abdominal pain. She did do the colon prep and before that was feeling better. Related Data Home Medications Medication Instructions Recorded Confirmed rosuvastatin 20 mg tablet 20 mg PO DAILY Cholesterol 01/09/23 02/15/23 blood sugar diagnostic (Advanced 02/15/23 02/15/23 Glucose Meter Test Strips) calcium carbonate 200 mg calcium 500 mg PO QID Supplement 02/15/23 02/15/23 (500 mg) chewable tablet (Tums) furosemide 40 mg tablet See Rx Instructions .Route 02/15/23 02/15/23 .COMPLEX Fluid hydralazine 25 mg tablet See Rx Instructions .Route 02/15/23 02/15/23 .COMPLEX High blood pressure insulin glargine 100 unit/mL (3 10 unit SQ HS Diabetes
[2023-02-16 13:17] LABS: Troponin I 0.02 ng/ml (0.00-0.034)
[2023-02-16 13:20] LABS: Magnesium 1.4 mg/dl (1.6-2.3)
--- NOTE | 2023-02-16 13:57 | PC.NURSE ---
[facility]
[2023-02-16 14:06] LABS: Coronavirus 19, PCR Not Detected (NotDetected); Influenza A, PCR Not Detected (NotDetected); Influenza B, PCR Not Detected (NotDetected)
--- NOTE | 2023-02-16 15:22 | HMH.PHAINT1 ---
Pharmacy Intervention Comments: home medicaiton list verified using list from outpatient pharmacy
--- NOTE | 2023-02-16 15:29 | PC.NURSE ---
arrived to floor by stretcher from ED
--- NOTE | 2023-02-16 16:23 | EXP.HP ---
History of Present Illness *Admission Date: 02/16/23 *Reason for visit:: Chief complaint: Shortness of air *History of present illness: This is a 67-year-old female that presents to [facility] emergency department with concerns of shortness of air over the past week. Her past medical history is significant for heart failure with preserved ejection fraction, JODIE/OHS, anemia, diabetes, hypertension and BMI of 46. She reports that she was recently evaluated for her anemia and colonoscopy and EGD were recommended. She was in the process of going through the prep when she identified increasing shortness of air with no associated retrosternal chest pain, palpitations or syncopal episodes. She normally ambulates with a walker and reports no falls. She presented to the ED and her BNP was elevated and her chest ray x-ray was consistent with pulmonary edema. She received IV loop diuretic therapy with improved symptomatology and her chest x-ray identified improvement. [facility] Disclaimer: The information contained in this section may have been updated after the patient was seen, as this information can be updated by other users. Medical History (Updated 02/16/23 @ 16:31 by Wan Rocha MD) (HFpEF) heart failure with preserved ejection fraction BMI 45.0-49.9, adult Chronic anemia Diabetes mellitus, type II History of COVID-19 HTN (hypertension) Hyperlipidemia Obesity hypoventilation syndrome JODIE (obstructive sleep apnea) Pacemaker Surgical History (Updated 02/16/23 @ 16:31 by Wan Rocha MD) History of cholecystectomy History of left heart catheterization S/P appendectomy Family History Other Cancer Heart attack Stroke Social History Smoking Status: Former smoker alcohol intake: never substance use type: denies use current occupational status: disabled Travel in the last 8 weeks: None household members: significant other housing: house lives independently: Yes marital status: single education level: high school service: No pets and animals: Yes special isai needs: No do you feel safe at home: Yes victim of physical abuse: No victim of emotional abuse: No victim of sexual abuse: No would you like helpful sources: No Review of Systems Review of Systems Review of systems:: pertinent systems reviewed and negative unless documented below Constitutional Constitutional: Denies headache(s) ENT Ears, Nose, Mouth, and Throat: Denies headache(s) *Cardiovascular Cardiovascular: Denies chest pain, Denies chest pain at rest, Reports dyspnea and Reports dyspnea on exertion *Respiratory Respiratory: Reports dyspnea and Reports dyspnea on exertion *Neurologic Neurologic: Denies headache(s) Meds Home Medications and Allergies Home Medications Medication Instructions Recorded Confirmed Type aspirin 81 mg capsule 81 mg PO DAILY heart health #30 09/30/22 02/16/23 Rx caps paroxetine HCl 20 mg tablet 20 mg PO DAILY mood #30 tabs 09/30/22 02/16/23 Rx sitagliptin phosphate 50 1 tab PO BID Diabetes #60 tabs 09/30/22 02/16/23 Rx mg-metformin 1,000 mg tablet (Janumet) rosuvastatin 20 mg tablet 20 mg PO DAILY Cholesterol 01/09/23 02/16/23 History blood sugar diagnostic (Advanced 02/15/23 02/16/23 History Glucose Meter Test Strips) calcium carbonate 200 mg calcium 500 mg PO QID 02/15/23 02/16/23 History (500 mg) chewable tablet (Tums) Supplement/indigestion furosemide 40 mg tablet 40 mg PO BID Fluid 02/15/23 02/16/23 History insulin glargine 100 unit/mL (3 10 unit SQ HS Diabetes 02/15/23 02/16/23 History mL) subcutaneous pen (Lantus Solostar U-100 Insulin) isosorbide mononitrate 30 mg 15 mg PO DAILY High blood pressure 02/15/23 02/16/23 History tablet,extended release 24 hr magnesium oxide 400 mg (241.3 mg 400 mg PO BID Supplement 02/15/23
[2023-02-16 16:53] LABS: Troponin I 0.02 ng/ml (0.00-0.034)
--- NOTE | 2023-02-16 18:20 | PC.NURSE ---
pt came to floor at 1529 with c/o soa r/t CHF. left sided pacemaker. 2L NC. diabetic diet. a&o x 4. call light within reach.
[2023-02-16 19:41] LABS: Troponin I 0.02 ng/ml (0.00-0.034)
[2023-02-16 19:51] LABS: POC Glucose,Bedside 160 (70-110)
[2023-02-16 22:02] LABS: Microscopic, Urine URINE MICROSCOPIC (MICROSCOPIC)
[2023-02-16 22:55] LABS: Appearance,Urine CLEAR (Clear); Bilirubin,Urine Negative (Negative); Blood, Urine Negative (Negative); Color,Urine YELLOW (Yellow); Glucose,Urine (UA) Negative (Negative); Ketones,Urine Negative (Negative); Leukocyte Esterase,Urine 1+ (Negative); Nitrate,Urine Negative (Negative); PH,Urine 5.5 (5.0-8.5); Protein,Urine Negative (Negative); Specific Gravity, Urine 1.025 (1.005-1.030); Urobilinogen,Urine 0.2 EU/dl (0.2)
[2023-02-16 23:55] LABS: Squamous Epithelial Cell,Urine Occasional #/hpf (0-5); WBC,Urine Occasional #/hpf (0-3)
[2023-02-17] VITALS (14 sets, daily range): BP systolic 125–136; BP diastolic 50–68; PULSE 60–77; RESP 17–22; TEMP 36.6–36.9; O2SAT 91–99; BMI 43.8; BMI 43.7
[2023-02-17 00:02] LABS: POC Glucose,Bedside 114 (70-110)
[2023-02-17 05:56] LABS: POC Glucose,Bedside 117 (70-110)
[2023-02-17 06:48] LABS: Basophils % 0.5 % (0.1-2.0); Eosinophils # 0.1 K/mm3 (0.0-0.4); Eosinophils % 1.2 % (0.1-12.0); Hemoglobin 8.9 g/dL (12.2-16.2); Lymphocytes % 15.6 % (10-50); Mean Corpuscular HGB Conc 33.1 g/dL (31.8-35.4); Mean Corpuscular Hemoglobin 27.1 pg (27.0-31.2); Mean Corpuscular Volume 81.9 fl (81-99); Mean Platelet Volume 8.5 fl (7.4-10.4); Monocytes # 0.5 K/mm3 (0.1-1.0); Monocytes % 6.9 % (1.7-9.3); Neutrophils # 4.9 K/mm3 (1.8-7.8); Neutrophils % 75.7 % (37.0-80.0); Platelet Count 243 K/mm3 (142-424); Red Cell Distribution Width 16.8 % (11.5-17.5); White Blood Count 6.5 K/mm3 (4.8-10.8)
[2023-02-17 06:58] LABS: Anion Gap 13.2 mEq/L (5-15); Blood Urea Nitrogen 21 mg/dl (7-17); Calcium 7.8 mg/dl (8.4-10.2); Carbon Dioxide 39 mmol/L (22.0-30.0); Chloride 89 mmol/L (98-107); Creatinine Clearance Estimated 32 mL/min (50-200); Estimated Glomerular Filt Rate 35 ml/min (>60); GFR (African American) 42 ML/MIN (>60); Glucose 117 mg/dl (74-100); INR 1.01 (0.9-1.1); Magnesium 1.8 mg/dl (1.6-2.3); Potassium 3.2 mmoL/L (3.5-5.1); Prothrombin Time 10.9 seconds (10.1-12.5); Sodium 138 mmol/L (136-145)
--- NOTE | 2023-02-17 10:48 | HMH.OTEV ---
OT Inpatient Evaluation Rehab OT IP Evaluation Start: 02/17/23 10:11 Freq: ONCE Status: Active Protocol: Document 02/17/23 10:43 [facility] (Rec: 02/17/23 10:48 [facility] [id number]) Rehab OT IP Assessment Subjective History Pt oriented x 3 on arrival. Pt agreeable to engage in therapy evaluation. Pt admitted on 02/16/23 due to SOB and CHF. Pt reports prior to being in the hospital, she lived at home with her boyfriends. Pt claims she is normally independent with all ADLs and IADLs. She does use a rollator during functional tranfers and she has O2 at all times. She no longer drives, but her boyfriend does and he does the grocery shopping. Pt has a past medical history of: (HFpEF) heart failure with preserved ejection fraction BMI 45.0-49.9, adult Chronic anemia Diabetes mellitus, type II History of COVID-19 HTN (hypertension) Hyperlipidemia Obesity hypoventilation syndrome JODIE (obstructive sleep apnea) Pacemaker Subjective I normally do fine. Objective Patient Orientation Person,Place,Birthday Upper Extremity Gross ROM WFL Bed Mobility bed mobility-scooting,bed mobility - supine/sit,bed mobility - rolling Assist Level Supervision/Stand by Transfer Training Sit/Stand Transfer Assist Level Supervision/Stand by Chair Transfer Ability Supervision/Stand by Chair Transfer Technique Sit to/from Ambulatory Chair Transfer Assistive Devices Rolling Walker Lower Body Dressing Ability Standby Assistance Overall Commode/Toilet Transfer Ability Standby Assistance Commode/Toilet Transfer Technique Sit to/from Ambulatory Rehab OT IP prob,goals,plan Problems Date of Evaluation: 02/17/23 Rehab Potential Rehab Potential Innapropriate for Skilled Therapy Discharge Plan OT Discharge Plan Pt appears to be at her
--- NOTE | 2023-02-17 10:57 | HMH.PTEV ---
Physical Therapy Evaluation Rehab PT IP Evaluation Start: 02/17/23 10:10 Freq: ONCE Status: Active Protocol: Document 02/17/23 10:51 [facility] (Rec: 02/17/23 10:57 [facility] [id number]) Subjective/History History History Pt is a 67 year old female that presented to [facility] ED on 08/2023 with concerns of shortness of air over the past week. Pt was in the process of going through the prep for colonoscopy and EGD when she identified increasing shortness of air with no associated retrosternal chest pain, palpitations or syncopal episodes. She normally ambulates with a walker and reports no falls. While in ED , her BNP was elevated and her chest ray x-ray was consistent with pulmonary edema. She received IV loop diuretic therapy with improved symptomatology and her chest x-ray identified improvement. PMH: heart failure with preserved ejection fraction, JODIE/OHS, anemia, diabetes, hypertension and BMI of 46 Subjective Subjective Pt presents seated in bedside chair, pleasant and agreeable to therapy evaluation. Pt denies reports of pain at rest . Pt states that she lives at home with her SO in a [facility] with 1 NAY. Pt reports that she uses a rollator at baseline. Rehab PT IP Eval Objective Appearance Patient Behavior Appropriate Patient Orientation Person,Place,Name,Situation Difficulty following instructions none Speech Pattern Clear,Appropriate Ambulation Patient Able to Ambulate Yes Ambulation Observation IP General Gait Pattern Observation No Deviations/Normal Ambulation Distance (feet) 30 Ambulation Assistive Device Rolling Walker Ambulation Ability Independent Balance Ability to Arise Able, uses arms to help Sitting Balance Steady, safe Standing Balance Steady, wide stance Dynamic Sitting Balance Ability Good Dynamic Standing Balance Ability Good Transfers
--- NOTE | 2023-02-17 11:42 | PC.NURSE ---
discussed bipap with patient.. she stated she would not wear that machine. she has tried before and could not wear it.
[2023-02-17 11:48] LABS: POC Glucose,Bedside 173 (70-110)
--- NOTE | 2023-02-17 12:30 | EXP.PN ---
Subjective *Date: 02/17/23 *Time: 12:30 Interval history: Date of service February 17, 2023 The patient reports no acute events overnight. She has identified improvement. PT and OT are due to see the patient for evaluation. Nursing staff report that she remains afebrile with stable vital signs and saturating appropriately on 2 L of oxygen via nasal cannula. I have personally reviewed, discussed and personally interpreted her morning labs as follows: Her CBC identifies a normal white blood cell count with stable hemoglobin and platelet count. Her INR is normal. Her morning electrolytes identify potassium 3.2 which is being replaced. Her BUN is 21 and her creatinine is 1.5. Her glucose trend is under 175. Her magnesium is 1.8. Exam Data for Last 24 hours Vital signs and Labs for Last 24 Hours: Temp Pulse Resp BP Pulse Ox 97.9 F 66 18 125/51 L 95 02/17/23 11:39 02/17/23 11:39 02/17/23 11:39 02/17/23 11:39 02/17/23 11:39 Laboratory Results - last 24 hr 02/16/23 12:30: VBG pH 7.40, VBG pCO2 53.3 H, VBG pO2 72.3 H, VBG HCO3 32.2 H, VBG Total CO2 33.8 H, VBG O2 Saturation 93.3 H, VBG Base Excess 7.4 H 02/16/23 12:44: WBC 8.1, RBC 3.72 L, Hgb 9.7 L, Hct 31.0 L, MCV 83.2, MCH 26.2 L, MCHC 31.5 L, RDW 16.9, Plt Count 278, MPV 8.5, Neut % (Auto) 81.7 H, Lymph % (Auto) 11.2, [place] % (Auto) 6.4, Eos % (Auto) 0.6, Baso % (Auto) 0.1, Neut # (Auto) 6.6, Lymph # (Auto) 0.9, [place] # (Auto) 0.5, Eos # (Auto) 0.1, Baso # (Auto) 0.0 02/16/23 12:44: Sodium 138, Potassium 3.5, Chloride 89 L, Carbon Dioxide 37 H, Anion Gap 15.5 H, BUN 21 H, Creatinine 1.40 H, Estimated Creat Clear 34, Estimated GFR 38 L, Est GFR ( Amer) 46 L, Glucose 147 H, Calcium 8.1 L, Total Bilirubin 0.5, AST 24, ALT 17, Alkaline Phosphatase 113, Troponin I 0.02, NT-Pro-B Natriuret Pep 6320 H, Total Protein 6.8, Albumin 3.7, Globulin 3.1, Albumin/Globulin Ratio 1.2 02/16/23 12:44: Magnesium 1.4 L 02/16/23 14:01: SARS-CoV-2 (PCR) Not detected, Influenza A Untype (PCR) Not detected, Influenza Type B (PCR) Not detected 02/16/23 16:20: Troponin I 0.02 02/16/23 16:51: POC Glucose 114 H 02/16/23 18:40: Troponin I 0.02 02/16/23 19:44: POC Glucose 160 H 02/16/23 21:50: Urine Color Yellow, Urine Appearance Clear, Urine pH 5.5, Ur Specific [place] 1.025, Urine Protein Negative, Urine Glucose (UA) Negative, Urine Ketones Negative, Urine Blood Negative, Urine Nitrate Negative, Urine Bilirubin Negative, Urine Urobilinogen 0.2, Ur Leukocyte Esterase 1+ A, Urine RBC None, Urine WBC Occasional, Ur Squamous Epith Cells Occasional, Urine Bacteria None 02/17/23 05:49: POC Glucose 117 H 02/17/23 06:20: WBC 6.5, RBC 3.30 L, Hgb 8.9 L, Hct 27.0 L, MCV 81.9, MCH 27.1, MCHC 33.1, RDW 16.8, Plt Count 243, MPV 8.5, Neut % (Auto) 75.7, Lymph % (Auto) 15.6, [place] % (Auto) 6.9, Eos % (Auto) 1.2, Baso % (Auto) 0.5, Neut # (Auto) 4.9, Lymph # (Auto) 1.0, [place] # (Auto) 0.5, Eos # (Auto) 0.1, Baso # (Auto) 0.0 02/17/23 06:20: PT 10.9, INR 1.01 02/17/23 06:20: Sodium 138, Potassium 3.2 L, Chloride 89 L, Carbon Dioxide 39 H, Anion Gap 13.2, BUN 21 H, Creatinine 1.50 H, Estimated Creat Clear 32, Estimated GFR 35 L, Est GFR ( Amer) 42 L, Glucose 117 H D, Calcium 7.8 L, Magnesium 1.8 D 02/17/23 11:29: POC Glucose 173 H I & O for Last 24 hours: Intake & Output 02/14/23 02/15/23 02/16/23 02/17/23 23:59 23:59 23:59 23:59 Intake Total 120 / 120 240 / 240 Output Total 1500 / 1500 400 / 400 Balance -1380 / -1380 -160 / -160 Weight 122.47 kg 116 kg Constitutional Constitutional: no acute distress and cooperative *Routine HEENT Exam Head: Present normocephalic Eye: Present EOMI and PERRL ENT: Present mucous membranes moist *Routine Neck Exam Neck: Present supple; Absent lymphadenopathy *Routine Respiratory Exam Respiratory: Present rhonchi, normal respiratory effort and symmetric chest movement *Routine Cardiovascular Exam Cardiovascular: Present RRR; Absent murmur *Routine Abdominal Exam Abdomin
[2023-02-17 17:24] LABS: POC Glucose,Bedside 189 (70-110)
[2023-02-17 21:50] LABS: POC Glucose,Bedside 218 (70-110)
[2023-02-18] VITALS: BP 124/66; PULSE 60; PULSE 66; RESP 17; TEMP 36.8; O2SAT 94
[2023-02-18 04:00] VITALS: BP 120/53; PULSE 74; PULSE 76; RESP 19; TEMP 36.7; O2SAT 91; BMI 44.4
--- NOTE | 2023-02-18 05:10 | PC.NURSE ---
NO ACUTE CHANGES THIS SHIFT. REMAINS ON 2L NASAL CANNULA AND IS TOLERATING WELL. AMBULATING WITH X1 ASSIST WITH WALKER. FINE CRACKLES IN BILATERAL LUNGS. REMAINS PACES ON TELE. VSS. NO C/O N/V/D OR PAIN THIS SHIFT. CALL AN WITHIN REACH.
[2023-02-18 06:12] LABS: POC Glucose,Bedside 154 (70-110)
[2023-02-18 07:51] VITALS: BP 158/66; PULSE 68; RESP 18; TEMP 36.8; O2SAT 93
[2023-02-18 08:00] VITALS: PULSE 70; O2SAT 93
--- NOTE | 2023-02-18 09:21 | EXP.DC.SUM ---
General Admission date:: 02/16/23 Discharge date: 02/18/23 HPI HPI HPI: This is a 67-year-old female that presents to [facility] emergency department with concerns of shortness of air over the past week. Her past medical history is significant for heart failure with preserved ejection fraction, JODIE/OHS, anemia, diabetes, hypertension and BMI of 46. She reports that she was recently evaluated for her anemia and colonoscopy and EGD were recommended. She was in the process of going through the prep when she identified increasing shortness of air with no associated retrosternal chest pain, palpitations or syncopal episodes. She normally ambulates with a walker and reports no falls. She presented to the ED and her BNP was elevated and her chest ray x-ray was consistent with pulmonary edema. She received IV loop diuretic therapy with improved symptomatology and her chest x-ray identified improvement. Hospital Course Hospital Course Hospital Course: The patient was admitted to the medical floor with telemetry and pulse oximetry monitoring. IV diuresing was provided with routine electrolyte and creatinine evaluation. Her loop diuretic was transitioned to p.o. Potassium supplementation was provided. Nursing staff identified that she remained afebrile with improved heart rates and blood pressures and diuresed appropriately. The patient identified improvement. Physical therapy and Occupational Therapy evaluated the patient and identified encouraging results. The patient was provided education on congestive heart failure with routine weighing, diet recommendations concerning fluid and sodium restriction and encouragement on weight loss. Her laboratory studies identified improvement and stability. Her follow-up chest x-ray identified improved pulmonary edema. She will be discharged home to follow-up with her PCP in 1 week. I have recommended that she also follow-up with a local counter former. I spent 35 minutes in [id number] time with the patient and nursing staff concerning the discharge process. We discussed the admitting diagnoses and hospital course. We discussed identified improvement and the patient's desire to be discharged. We reviewed inpatient studies and imaging. The patient voiced understanding on the importance of follow-up with her primary care provider and counter former. The patient plans to be compliant with the medication regimen prescribed and follow-up appointments. She understands that she can return to the emergency department with any sudden changes or concerns. Exam Data for Last 24 hours Vital signs and Labs for Last 24 Hours: Temp Pulse Resp BP Pulse Ox 98.3 F 70 18 158/66 H 93 L 02/18/23 07:51 02/18/23 08:00 02/18/23 07:51 02/18/23 07:51 02/18/23 07:51 Laboratory Results - last 24 hr 02/17/23 11:29: POC Glucose 173 H 02/17/23 16:55: POC Glucose 189 H 02/17/23 21:35: POC Glucose 218 H 02/18/23 06:00: POC Glucose 154 H I & O for Last 24 hours: Intake & Output 02/15/23 02/16/23 02/17/23 02/18/23 23:59 23:59 23:59 23:59 Intake Total 120 / 120 840 / 840 480 / 480 Output Total 1500 / 1500 400 / 400 0 / 0 Balance -1380 / -1380 440 / 440 480 / 480 Weight 122.47 kg 116 kg 118.025 kg Microbiology Reports for the Last 24 Hours: Microbiology 02/16/23 21:50 Urine,Clean Catch Urine Culture - Preliminary NO GROWTH AFTER 24 HOURS Constitutional Constitutional: no acute distress and cooperative *Routine HEENT Exam Head: Present normocephalic Eye: Present EOMI and PERRL ENT: Present mucous membranes moist *Routine Neck Exam Neck: Present supple; Absent lymphadenopathy *Routine Respiratory Exam Respiratory: Present rhonchi, normal respiratory effort and symmetric chest movement *Routine Cardiovascular Exam Cardiovascular: Present RRR; Absent murmur *Routine Abdominal Exam Abdominal: Present soft and normoactive bowel sounds; Absent tenderne
--- NOTE | 2023-02-18 11:06 | PC.NURSE ---
pt awaiting son for d/c.
--- NOTE | 2023-02-20 13:15 | CARE MANAGER ---
Spoke with patient for post-discharge phone interview, no issues noted.
== END 2023-02-18 11:27 | disposition home or self-care (01) ==
LOC: ER 14:01 → 2ND 14:33
PROVIDERS: Admitting Provider Family Medicine; Emergency Provider Emergency Medicine; PCP Family Medicine; Visit Provider Family Medicine
DX: I50.33 Acute on chronic diastolic (congestive) heart failure (principal); D64.9 Anemia, unspecified; E11.9 Type 2 diabetes mellitus without complications; Z79.4 Long term (current) use of insulin; G47.33 Obstructive sleep apnea (adult) (pediatric); I11.0 Hypertensive heart disease with heart failure; Z86.16 Personal history of COVID-19; Z95.0 Presence of cardiac pacemaker; Z79.899 Other long term (current) drug therapy; E66.2 Morbid (severe) obesity with alveolar hypoventilation; Z68.41 Body mass index [BMI] 40.0-44.9, adult; Z20.822 Contact with and (suspected) exposure to COVID-19
CPT/HCPCS: G0378; 36415; 71045; 80048; 80053; 81001; 82803; 82962; 83735; 83880; 84484; 85025; 85610; 87086; 94640; 94760; 97161; 97165; 99285; C9803; J3475; U0003; U0005

== ENCOUNTER → 2023-03-02 23:30 | Outpatient (CLI) | payer MEDICARE, SELFPAY ==
[2023-03-02 18:20] LABS: Chloride 94 mmol/L (98-107); Potassium 5.2 mmoL/L (3.5-5.1); Sodium 136 mmol/L (136-145)
[2023-03-02 18:22] LABS: Alanine Aminotransferase 16 U/L (12-78); Aspartate Amino Transferase 24 U/L (14-36); Blood Urea Nitrogen 32 mg/dl (7-17); Estimated Glomerular Filt Rate 38 ml/min (>60); GFR (African American) 45 ML/MIN (>60)
[2023-03-02 18:23] LABS: Albumin Level 3.3 g/dl (3.5-5.0); Albumin/Globulin Ratio 1.2 (1.1-1.8); Alkaline Phosphatase 130 U/L (38-126); Anion Gap 16.2 mEq/L (5-15); Bilirubin,Total 0.3 mg/dl (0.2-1.3); Calcium 8.2 mg/dl (8.4-10.2); Carbon Dioxide 31 mmol/L (22.0-30.0); Globulin 2.7 g/dL (1.3-3.2); Glucose 189 mg/dl (74-100); Magnesium 1.8 mg/dl (1.6-2.3)
[2023-03-02 18:39] LABS: Basophils % 0.2 % (0.1-2.0); Eosinophils # 0.1 K/mm3 (0.0-0.4); Eosinophils % 0.9 % (0.1-12.0); Hematocrit 30.5 % (37.0-47.0); Hemoglobin 9.3 g/dL (12.2-16.2); Lymphocytes # 0.7 K/mm3 (0.7-4.5); Lymphocytes % 8.7 % (10-50); Mean Corpuscular HGB Conc 30.6 g/dL (31.8-35.4); Mean Corpuscular Hemoglobin 27.2 pg (27.0-31.2); Mean Platelet Volume 8.5 fl (7.4-10.4); Monocytes # 0.5 K/mm3 (0.1-1.0); Monocytes % 5.9 % (1.7-9.3); Neutrophils # 6.5 K/mm3 (1.8-7.8); Neutrophils % 84.3 % (37.0-80.0); Platelet Count 185 K/mm3 (142-424); Red Blood Count 3.43 M/mm3 (4.20-5.40); Red Cell Distribution Width 15.8 % (11.5-17.5); White Blood Count 7.7 K/mm3 (4.8-10.8)
== END ==
PROVIDERS: PCP Family Medicine; Visit Provider Family Medicine
DX: R06.89 Other abnormalities of breathing (principal)
CPT/HCPCS: 80053; 83735; 85025

== ENCOUNTER 2023-03-16 11:00 | Observation (INO) | payer MEDICARE, SELFPAY ==
[2023-03-16] VITALS (10 sets, daily range): BP systolic 147–174; BP diastolic 69–87; PULSE 60–68; RESP 18–24; TEMP 36.6–36.7; O2SAT 91–96; BMI 42.9; BMI 44.6
--- NOTE | 2023-03-16 11:00 | ECG_ITS ---
APPROVED REPORT Exam: Resting ECG HR:70 bpm ECG Measurements Heart Rate 70 AXES WI 128 P 54 QRSd 178 QRS -74 QT 491 T 109 QTc 511 Conclusion ELECTRONIC VENTRICULAR PACEMAKER ABNORMAL RHYTHM ECG UNCONFIRMED REPORT Electronically signed by : Jesús Vee MD 03/16/2023 13:29:39
--- NOTE | 2023-03-16 11:00 | PC.NURSE ---
DR CORNEJO AT BEDSIDE
--- NOTE | 2023-03-16 11:03 | HMH.EDSOB ---
Discharge Plan Disposition Patient Disposition: Admitted Condition: Fair Clinical Impressions Clinical Impression: Congestive heart failure, Pulmonary edema, Volume overload, Chronic renal insufficiency Discharge ED Provider: Blair Murphy/DONY BINGHAM General Chief Complaint: Shortness of Breath/Dyspnea Stated Complaint: SOA Time Seen by Provider: 03/16/23 11:03 Mode of Arrival: EMS Source of Information: Patient and EMS History of Present Illness The patient presents to the emergency department complaining of shortness of breath since yesterday. She has a known history of COPD. She also takes Lasix. She has a pacemaker. She is on oxygen at home at 3 L/min at baseline. She received 1 DuoNeb nebulizer in route by EMS. EMS states that her respiratory rate has improved since then. She denies any chest pain. Related Data Home Medications Medication Instructions Recorded Confirmed rosuvastatin 20 mg tablet 20 mg PO DAILY Cholesterol 01/09/23 03/02/23 blood sugar diagnostic (Advanced 02/15/23 03/02/23 Glucose Meter Test Strips) calcium carbonate 200 mg calcium 500 mg PO QID 02/15/23 03/02/23 (500 mg) chewable tablet (Tums) Supplement/indigestion furosemide 40 mg tablet 40 mg PO BID Fluid 02/15/23 03/02/23 insulin glargine 100 unit/mL (3 10 unit SQ HS Diabetes 02/15/23 03/02/23 mL) subcutaneous pen (Lantus Solostar U-100 Insulin) isosorbide mononitrate 30 mg 15 mg PO DAILY High blood pressure 02/15/23 03/02/23 tablet,extended release 24 hr magnesium oxide 400 mg (241.3 mg 400 mg PO BID Supplement 02/15/23 03/02/23 magnesium) tablet metoprolol succinate 50 mg 50 mg PO BID High blood pressure 02/15/23 03/02/23 tablet,extended release 24 hr pantoprazole 40 mg tablet,delayed 40 mg PO DAILY Acid reflux 02/15/23 03/02/23 release polysaccharide iron complex 150 mg 150 mg PO BID iron supplement 02/15/23 03/02/23 iron capsule hydralazine 50 mg tablet 50 mg PO TID High blood pressure 02/16/23 03/02/23 Previous Rx's Medication Instructions Recorded aspirin 81 mg capsule 81 mg PO DAILY heart [place] #30 12/23/22 caps paroxetine HCl 20 mg tablet 20 mg PO DAILY mood #30 tabs 09/30/22 sitagliptin phosphate 50 1 tab PO BID Diabetes #60 tabs 09/30/22 mg-metformin 1,000 mg tablet (Janumet) potassium chloride 10 mEq 10 meq PO DAILY #30 caps 03/02/23 capsule,extended release Allergies Allergy/AdvReac Type Severity Reaction Status Date / Time No Known Allergies Allergy Verified 03/02/23 11:14 [facility] Disclaimer: The information contained in this section may have been updated after the patient was seen, as this information can be updated by other users. Medical History (HFpEF) heart failure with preserved ejection fraction BMI 45.0-49.9, adult Chronic anemia Diabetes mellitus, type II History of COVID-19 HTN (hypertension) Hyperlipidemia Obesity hypoventilation syndrome JODIE (obstructive sleep apnea) Pacemaker Surgical History History of cholecystectomy History of left heart catheterization S/P appendectomy Family History Other Cancer Heart attack Stroke Social History Smoking Status: Former smoker alcohol intake: never substance use type: denies use current occupational status: disabled Travel in the last 8 weeks: None household members: significant other housing: house lives independently: Yes marital status: single education level: high school service: No pets and animals: Yes special isai needs: No do you feel safe at home: Yes victim of physical abuse: No victim of emotional abuse: No victim of sexual abuse: No would you like helpful sources: No ROS Obtained: Yes All systems revi
--- NOTE | 2023-03-16 11:09 | XR_ITS ---
FINAL REPORT CLINICAL HISTORY: Shortness of breath COMPARISON: 02/16/2023 FINDINGS: Bibasilar opacities may represent edema or pneumonia without atelectasis noted. Severe hypoinflation. Moderate right and small left pleural effusions. There is no evidence of pneumothorax. Mediastinum is unremarkable. Left-sided pacer is present. Heart size is normal. IMPRESSION: Bibasilar opacities could be due to CHF or pneumonia. Reviewed, Interpreted and Dictated by Dennise Trammell MD Transcribed by Maddie Em Authenticated and [facility]
[2023-03-16 11:15] LABS: Coronavirus 19, PCR Not Detected (NotDetected); Influenza A, PCR Not Detected (NotDetected); Influenza B, PCR Not Detected (NotDetected)
[2023-03-16 11:25] LABS: Chloride 97 mmol/L (98-107); Potassium 4.6 mmoL/L (3.5-5.1); Sodium 138 mmol/L (136-145)
[2023-03-16 11:26] LABS: Basophils % 0.2 % (0.1-2.0); Eosinophils # 0.1 K/mm3 (0.0-0.4); Eosinophils % 1.1 % (0.1-12.0); Hematocrit 30.7 % (37.0-47.0); Hemoglobin 9.5 g/dL (12.2-16.2); Lymphocytes # 1.1 K/mm3 (0.7-4.5); Lymphocytes % 15.5 % (10-50); Mean Corpuscular HGB Conc 30.8 g/dL (31.8-35.4); Mean Corpuscular Hemoglobin 25.5 pg (27.0-31.2); Mean Corpuscular Volume 82.8 fl (81-99); Mean Platelet Volume 9.5 fl (7.4-10.4); Monocytes # 0.5 K/mm3 (0.1-1.0); Monocytes % 6.5 % (1.7-9.3); Neutrophils # 5.3 K/mm3 (1.8-7.8); Neutrophils % 76.7 % (37.0-80.0); Platelet Count 206 K/mm3 (142-424); Red Cell Distribution Width 16.5 % (11.5-17.5)
[2023-03-16 11:27] LABS: Blood Urea Nitrogen 38 mg/dl (7-17); Creatinine Clearance Estimated 24 mL/min (50-200); Estimated Glomerular Filt Rate 25 ml/min (>60); GFR (African American) 30 ML/MIN (>60)
[2023-03-16 11:28] LABS: Alanine Aminotransferase 14 U/L (12-78); Albumin Level 3.8 g/dl (3.5-5.0); Albumin/Globulin Ratio 1.3 (1.1-1.8); Alkaline Phosphatase 131 U/L (38-126); Anion Gap 13.6 mEq/L (5-15); Aspartate Amino Transferase 21 U/L (14-36); Bilirubin,Total 0.6 mg/dl (0.2-1.3); Calcium 8.3 mg/dl (8.4-10.2); Carbon Dioxide 32 mmol/L (22.0-30.0); Globulin 2.9 g/dL (1.3-3.2); Glucose 216 mg/dl (74-100); Total Protein,Serum 6.7 g/dl (6.3-8.2)
[2023-03-16 11:29] LABS: Lactic Acid 1.7 mmol/L (0.7-2.1)
[2023-03-16 11:38] LABS: NT Pro Brain Natriuretic Pep. 11800 pg/mL (0-125)
[2023-03-16 11:40] LABS: Troponin I 0.07 ng/ml (0.00-0.034)
--- NOTE | 2023-03-16 12:01 | PC.NURSE ---
PATIENT PLACED ON BEDPAN, URINE SAMPLE COLLECTED AND SENT TO LAB. PATIENT REPOSITIONED IN BED AND AIR WICK IN PLACE AND EXPLAINED TO PATIENT HOW IT WORKS
--- NOTE | 2023-03-16 12:37 | PC.NURSE ---
ROUNDED ON PT, ICE CHIPS PROVIDED. CALL LIGHT WITHIN REACH, NO NEEDS AT THIS TIME
--- NOTE | 2023-03-16 13:03 | PC.NURSE ---
DR CORNEJO AT BEDSIDE TO REEVALUATE PT
--- NOTE | 2023-03-16 13:19 | PC.NURSE ---
DR CORNEJO SPEAKING WITH DR WARNER FOR ADMISSION
--- NOTE | 2023-03-16 13:23 | PC.NURSE ---
MERT WITH CARE MANAGEMENT NOTIFIED OF ADMISSION
--- NOTE | 2023-03-16 13:47 | PC.NURSE ---
report given to Caitlin APARICIO
--- NOTE | 2023-03-16 13:56 | PC.NURSE ---
pt getting echo in ER room and then transferred to the floor.
--- NOTE | 2023-03-16 14:40 | PC.NURSE ---
vascular at bedside
[2023-03-16 15:32] LABS: Troponin I 0.09 ng/ml (0.00-0.034)
--- NOTE | 2023-03-16 16:48 | PC.NURSE ---
pt arrived to the unit at 1457 from ED with c/o soa for 2 days. BNP elevated 24052. Cr elevated 2.0. troponin elevated 0.09. 20g LAC SL. 3L NC. on tele. purewic in place, but pt also uses a walker assist 1 [place] [facility] stated last BM was 03/15. a&ox4. intact redness under bilateral breast, belly fold, and sacrum.
--- NOTE | 2023-03-16 17:52 | EXP.HP ---
History of Present Illness *Admission Date: 03/16/23 *Reason for visit:: Shortness of air *History of present illness: Ms. Gonzales is a 67-year-old female that presents to [facility] emergency department with concerns of shortness of air over the past 2 to 3 days with increased swelling in her legs for the past 1 to 2 weeks. Her past medical history is significant for heart failure with preserved ejection fraction, JODIE/OHS, anemia, diabetes, hypertension and BMI of 44. She was recently admitted 1 month ago for similar symptoms. States she has been taking her diuretic daily (Lasix 20 mg) but has not seen improvement in her leg swelling or significant urine output. Denies any syncope, chest pain, nausea, vomiting. BNP elevated and chest x-ray consistent with pulmonary edema. Treated with a nebulizer and diuretics in the ER. Medicine consulted for admission. On arrival to the floor she has had 600 cc out with urine. Stable on 4 L oxygen. Denies any nausea or vomiting. Still appears in mild distress. [facility] Disclaimer: The information contained in this section may have been updated after the patient was seen, as this information can be updated by other users. Medical History (HFpEF) heart failure with preserved ejection fraction BMI 45.0-49.9, adult Chronic anemia Diabetes mellitus, type II History of COVID-19 HTN (hypertension) Hyperlipidemia Obesity hypoventilation syndrome JODIE (obstructive sleep apnea) Pacemaker Surgical History History of cholecystectomy History of left heart catheterization S/P appendectomy Family History Heart attack Cancer Stroke Social History Smoking Status: Former smoker alcohol intake: never substance use type: denies use current occupational status: disabled Travel in the last 8 weeks: None household members: significant other housing: house lives independently: Yes marital status: single education level: high school service: No pets and animals: Yes special isai needs: No do you feel safe at home: Yes victim of physical abuse: No victim of emotional abuse: No victim of sexual abuse: No would you like helpful sources: No Meds Home Medications and Allergies Home Medications Medication Instructions Recorded Confirmed Type aspirin 81 mg capsule 81 mg PO DAILY heart health #30 09/30/22 03/16/23 Rx caps paroxetine HCl 20 mg tablet 20 mg PO DAILY mood #30 tabs 09/30/22 03/16/23 Rx sitagliptin phosphate 50 1 tab PO BID Diabetes #60 tabs 09/30/22 03/16/23 Rx mg-metformin 1,000 mg tablet (Janumet) rosuvastatin 20 mg tablet 20 mg PO DAILY Cholesterol 01/09/23 03/16/23 History blood sugar diagnostic (Advanced 02/15/23 03/16/23 History Glucose Meter Test Strips) furosemide 40 mg tablet 40 mg PO BID Fluid 02/15/23 03/16/23 History insulin glargine 100 unit/mL (3 10 unit SQ HS Diabetes 02/15/23 03/16/23 History mL) subcutaneous pen (Lantus Solostar U-100 Insulin) isosorbide mononitrate 30 mg 15 mg PO DAILY High blood pressure 02/15/23 03/16/23 History tablet,extended release 24 hr magnesium oxide 400 mg (241.3 mg 400 mg PO BID Supplement 02/15/23 03/16/23 History magnesium) tablet metoprolol succinate 50 mg 50 mg PO BID High blood pressure 02/15/23 03/16/23 History tablet,extended release 24 hr pantoprazole 40 mg tablet,delayed 40 mg PO DAILY Acid reflux 02/15/23 03/16/23 History release polysaccharide iron complex 150 mg 150 mg PO BID iron supplement 02/15/23 03/16/23 History iron capsule hydralazine 50 mg tablet 50 mg PO TID High blood pressure 02/16/23 03/16/23 History potassium chloride 10 mEq 10 meq PO DAILY Supplement 03/16/23 03/16/23 History capsule,extended release New Prescr
[2023-03-16 18:25] LABS: Troponin I 0.11 ng/ml (0.00-0.034)
--- NOTE | 2023-03-16 18:47 | PC.NURSE ---
MD Benson notified of troponin level.
[2023-03-16 20:57] LABS: POC Glucose,Bedside 237 (70-110)
[2023-03-17] VITALS (7 sets, daily range): BP systolic 112–151; BP diastolic 41–73; PULSE 60–66; RESP 18–24; TEMP 36.3–36.7; O2SAT 90–96; BMI 44.5; BMI 44.2
[2023-03-17 05:34] LABS: POC Glucose,Bedside 139 (70-110)
[2023-03-17 06:43] LABS: Basophils % 0.2 % (0.1-2.0); Eosinophils # 0.1 K/mm3 (0.0-0.4); Eosinophils % 0.9 % (0.1-12.0); Hematocrit 30.9 % (37.0-47.0); Hemoglobin 9.7 g/dL (12.2-16.2); Lymphocytes # 1.1 K/mm3 (0.7-4.5); Lymphocytes % 14.9 % (10-50); Mean Corpuscular HGB Conc 31.3 g/dL (31.8-35.4); Mean Corpuscular Hemoglobin 25.7 pg (27.0-31.2); Mean Platelet Volume 9.9 fl (7.4-10.4); Monocytes # 0.6 K/mm3 (0.1-1.0); Monocytes % 8.1 % (1.7-9.3); Neutrophils # 5.4 K/mm3 (1.8-7.8); Neutrophils % 75.9 % (37.0-80.0); Platelet Count 200 K/mm3 (142-424); Red Blood Count 3.77 M/mm3 (4.20-5.40); Red Cell Distribution Width 16.5 % (11.5-17.5); White Blood Count 7.1 K/mm3 (4.8-10.8)
[2023-03-17 07:06] LABS: Chloride 94 mmol/L (98-107); Potassium 3.9 mmoL/L (3.5-5.1); Sodium 138 mmol/L (136-145)
[2023-03-17 07:08] LABS: Alanine Aminotransferase 12 U/L (12-78); Aspartate Amino Transferase 22 U/L (14-36); Blood Urea Nitrogen 39 mg/dl (7-17); Creatinine Clearance Estimated 29 mL/min (50-200); Estimated Glomerular Filt Rate 32 ml/min (>60); GFR (African American) 39 ML/MIN (>60); Magnesium 1.8 mg/dl (1.6-2.3)
[2023-03-17 07:09] LABS: Albumin Level 3.7 g/dl (3.5-5.0); Albumin/Globulin Ratio 1.2 (1.1-1.8); Alkaline Phosphatase 106 U/L (38-126); Anion Gap 14.9 mEq/L (5-15); Bilirubin,Total 0.6 mg/dl (0.2-1.3); Calcium 8.2 mg/dl (8.4-10.2); Carbon Dioxide 33 mmol/L (22.0-30.0); Glucose 138 mg/dl (74-100); Total Protein,Serum 6.7 g/dl (6.3-8.2)
--- NOTE | 2023-03-17 08:01 | HMH.PHAINT1 ---
Pharmacy Intervention Comments: home medication list verified using list from outpatient pharmacy
--- NOTE | 2023-03-17 09:10 | PC.NURSE ---
COURTESY TECH NOTE; ROUNDED ON PT 0800, PT DENIED NEED FOR DRINK AND NEED TO REPOSITION. ASSISTED PT TO BEDSIDE COMMODE X1 ASSIST. ACTIVITY TOLERATED WELL, OUTPUT OF 100 ML, SMALL BM TYPE 6. PT C/O BLEEDING IN HER NOSE, NOTIFIED NURSE. CALL LIGHT WITHIN REACH, NO FURTHER REQUESTS AT THIS TIME Sae COLES, SRNA
--- NOTE | 2023-03-17 10:15 | EXP.PN ---
Subjective *Date: 03/17/23 *Time: 17:09 Interval history: No acute events overnight. Less dyspnea Less swelling Exam Data for Last 24 hours Vital signs and Labs for Last 24 Hours: Temp Pulse Resp BP Pulse Ox 97.5 F L 64 22 148/67 H 90 L 03/17/23 08:00 03/17/23 08:00 03/17/23 08:00 03/17/23 08:00 03/17/23 08:00 Laboratory Results - last 24 hr 03/16/23 11:05: WBC 7.0, RBC 3.70 L, Hgb 9.5 L, Hct 30.7 L, MCV 82.8, MCH 25.5 L, MCHC 30.8 L, RDW 16.5, Plt Count 206, MPV 9.5, Neut % (Auto) 76.7, Lymph % (Auto) 15.5, Eaton % (Auto) 6.5, Eos % (Auto) 1.1, Baso % (Auto) 0.2, Neut # (Auto) 5.3, Lymph # (Auto) 1.1, Eaton # (Auto) 0.5, Eos # (Auto) 0.1, Baso # (Auto) 0.0 03/16/23 11:05: Sodium 138, Potassium 4.6, Chloride 97 L, Carbon Dioxide 32 H, Anion Gap 13.6, BUN 38 H, Creatinine 2.00 H, Estimated Creat Clear 24, Estimated GFR 25 L, Est GFR ( Amer) 30 L, Glucose 216 H, Calcium 8.3 L, Total Bilirubin 0.6, AST 21, ALT 14, Alkaline Phosphatase 131 H, Troponin I 0.07 H, NT-Pro-B Natriuret Pep 84027 H, Total Protein 6.7, Albumin 3.8, Globulin 2.9, Albumin/Globulin Ratio 1.3 03/16/23 11:05: Lactate 1.7 03/16/23 11:10: SARS-CoV-2 (PCR) Not detected, Influenza A Untype (PCR) Not detected, Influenza Type B (PCR) Not detected 03/16/23 14:49: Troponin I 0.09 H 03/16/23 17:55: Troponin I 0.11 H 03/16/23 20:50: POC Glucose 237 H 03/17/23 05:23: POC Glucose 139 H 03/17/23 05:34: Sodium 138, Potassium 3.9, Chloride 94 L, Carbon Dioxide 33 H, Anion Gap 14.9, BUN 39 H, Creatinine 1.60 H, Estimated Creat Clear 29, Estimated GFR 32 L, Est GFR ( Amer) 39 L D, Glucose 138 H D, Calcium 8.2 L, Total Bilirubin 0.6, AST 22, ALT 12, Alkaline Phosphatase 106, Total Protein 6.7, Albumin 3.7, Globulin 3.0, Albumin/Globulin Ratio 1.2 03/17/23 05:34: Magnesium 1.8 03/17/23 05:34: WBC 7.1, RBC 3.77 L, Hgb 9.7 L, Hct 30.9 L, MCV 82.0, MCH 25.7 L, MCHC 31.3 L, RDW 16.5, Plt Count 200, MPV 9.9, Neut % (Auto) 75.9, Lymph % (Auto) 14.9, Eaton % (Auto) 8.1, Eos % (Auto) 0.9, Baso % (Auto) 0.2, Neut # (Auto) 5.4, Lymph # (Auto) 1.1, Eaton # (Auto) 0.6, Eos # (Auto) 0.1, Baso # (Auto) 0.0 I & O for Last 24 hours: Intake & Output 03/14/23 03/15/23 03/16/23 03/17/23 23:59 23:59 23:59 23:59 Intake Total 480 / 480 60 / 60 Output Total 1450 / 2100 1750 / 1750 Balance -970 / -1620 -1690 / -1690 Weight 119.805 kg 119.805 kg Constitutional Constitutional: no acute distress *Routine HEENT Exam Head: Present normocephalic Eye: Present EOMI and PERRL ENT: Present mucous membranes moist *Routine Neck Exam Neck: Present supple; Absent lymphadenopathy *Routine Respiratory Exam Respiratory: Present accessory muscle use and symmetric chest movement; Absent wheezes *Routine Cardiovascular Exam Cardiovascular: Present RRR *Routine Abdominal Exam Abdominal: Present soft and normoactive bowel sounds; Absent tenderness *Routine Extremities Exam Extremities: Absent cyanosis, clubbing or edema *Routine Skin Exam Skin: Present warm; Absent rash *Routine Neurological Exam Neurological: Present alert and oriented X3 Assessment and Plan *Assessment and plan (1) Acute on chronic heart failure with preserved ejection fraction (HFpEF): Status: Acute Category: Medical Code(s): I50.33 - Acute on chronic diastolic (congestive) heart failure (2) BMI 45.0-49.9, adult: Status: Acute Category: Medical Code(s): Z68.42 - Body mass index [BMI] 45.0-49.9, adult (3) Pulmonary hypertension: Status: Acute Category: Medical Code(s): I27.20 - Pulmonary hypertension, unspecified (4) JODIE (obstructive sleep apnea): Status: Acute Category: Medical Code(s): G47.33 - Obstructive sleep apnea (adult) (pediatric) (5) MATTHEW (acute kidney injury): Status: Acute Category: Medical Code(s): N17.9 - Acute kidney failure, unspecified Plan Helga Gonzales is a 68 year old female with a past medic
[2023-03-17 11:04] LABS: POC Glucose,Bedside 278 (70-110)
--- NOTE | 2023-03-17 11:12 | EXP.CARD.CON ---
History of Present Illness History of Present Illness Consult date: 03/17/23 Requesting physician: Yayo Benson Consult reason: chest pain and congestive heart failure Chief complaint: chest pain, SOA, Edema Additional Medical History:: 1. Medtronic pacemaker placed approximately 10 years ago for history of syncope A. Dr. Gerardo Jha, [facility], [facility] 2. Remote history of tobacco use for less than 5 years. A. Stopped 25 years ago 3. Obesity A. BMI of greater than 45 4. CKD A. Stage IIIb with GFR 36-39, 03/2023 B. Chronic anemia (between 9-10), with iron deficiency/replacement 5. HFpEF A. Echo, 09/2022 showed inferolateral akinesis with an EF of 50-55%. RVSP estimated at 50 to 70 mmHg B. Echo, 03/16/2023 6. Diabetes mellitus A. Insulin requiring 7. Hyperlipidemia A. Statin therapy 8. CAD A. CT of the chest showed severe three-vessel disease, 09/2022 B. Non-STEMI, 03/16/2023 9. Pulmonary hypertension/right heart failure/JODIE/OHS History of present illness: Ms. Gonzales is a 67-year-old female that presents to [facility] emergency department with concerns of shortness of air over the past 2 to 3 days with increased swelling in her legs for the past 1 to 2 weeks.? Her past medical history is significant for heart failure with preserved ejection fraction, JODIE/OHS, anemia, diabetes, hypertension and BMI of 44.? She was recently admitted 1 month ago for similar symptoms.? States she has been taking her diuretic daily (Lasix 20 mg) but has not seen improvement in her leg swelling or significant urine output.? Denies any syncope, chest pain, nausea, vomiting.? BNP elevated and chest x-ray consistent with pulmonary edema.? Treated with a nebulizer and diuretics in the ER.? Medicine consulted for admission. On arrival to the floor she has had 600 cc out with urine.? Stable on 4 L oxygen.? Denies any nausea or vomiting.? Still appears in mild distress. The above per Dr. Benson Events as noted above confirmed with the patient. She has had some chest heaviness with minimal exertion. CT of the chest 09/2022 showed severe three-vessel coronary artery calcification. Patient relates seeing cardiology at [facility] in [facility] with prior stress test greater than 5 years ago. She has a pacemaker implanted about 10 years ago for history of syncope. She denies any knowledge of prior cardiac events and even relates a cardiac cath greater than 10 years ago without need for intervention. Troponins this admission are 0.07, 0.09 and 0.11 respectively. Preliminary echo is pending but does show increased right heart pressure with RVSP greater than 70 mmHg Longtime diabetic and on insulin Remote history of brief tobacco use greater than 25 years ago Long-term hypertensive Long-term treatment for hyperlipidemia [facility] Disclaimer: The information contained in this section may have been updated after the patient was seen, as this information can be updated by other users. Medical History (HFpEF) heart failure with preserved ejection fraction BMI 45.0-49.9, adult Chronic anemia Diabetes mellitus, type II History of COVID-19 HTN (hypertension) Hyperlipidemia Obesity hypoventilation syndrome JODIE (obstructive sleep apnea) Pacemaker Surgical History History of cholecystectomy History of left heart catheterization S/P appendectomy Family History Heart attack Cancer Stroke Social History Smoking Status: Former smoker alcohol intake: never substance use type: denies use current occupational status: disabled Travel in the last 8 weeks: None household members: significant other housing: house lives independently: Yes marital status: single educatio
--- NOTE | 2023-03-17 12:29 | EXP.PULM.CON ---
History of Present Illness History of present illness: Ms. Gonzales is a 68-year-old female current 5-pack-year smoking history when she was in teenage, no other significant smoke exposure history of CAD, heart failure, COVID-19 pneumonia needing mechanical ventilation discharged home on room air to rehab previously has multiple admissions recently for shortness of breath and heart failure exacerbation admitted to the hospital again with worsening respiratory distress and pulmonary was consulted to evaluate for possible pulmonary hypertension. [facility] Disclaimer: The information contained in this section may have been updated after the patient was seen, as this information can be updated by other users. Medical History (Updated 03/17/23 @ 12:29 by Ro Wiley MD) (HFpEF) heart failure with preserved ejection fraction BMI 45.0-49.9, adult Chronic anemia Chronic respiratory failure with hypoxia Diabetes mellitus, type II History of COVID-19 HTN (hypertension) Hyperlipidemia Obesity hypoventilation syndrome JODIE (obstructive sleep apnea) Pacemaker Pulmonary hypertension Surgical History History of cholecystectomy History of left heart catheterization S/P appendectomy Family History Heart attack Cancer Stroke Social History Smoking Status: Former smoker alcohol intake: never substance use type: denies use current occupational status: disabled Travel in the last 8 weeks: None household members: significant other housing: house lives independently: Yes marital status: single education level: high school service: No pets and animals: Yes special isai needs: No do you feel safe at home: Yes victim of physical abuse: No victim of emotional abuse: No victim of sexual abuse: No would you like helpful sources: No Review of Systems Constitutional Constitutional: Reports anorexia, Reports body ache(s) and Reports fatigue Eyes Eyes: Denies eye discharge, Denies dry eyes, Denies irritation and Denies itchy eyes ENT Ears, Nose, Mouth, and Throat: Reports epistaxis, Denies facial pain, Denies lip swelling and Denies throat swelling *Cardiovascular Cardiovascular: Reports dyspnea, Reports dyspnea on exertion, Reports irregular heart rhythm, Reports leg edema, Reports lightheadedness and Reports orthopnea *Respiratory Respiratory: Reports chest congestion, Reports cough, Reports dyspnea, Reports dyspnea on exertion, Denies excessive phlegm production, Denies hemoptysis, Denies pain on inspiration, Denies pain with cough and Denies wheezing *Gastrointestinal Gastrointestinal: Denies abdominal pain, Denies belching and Denies cramping *Musculoskeletal Musculoskeletal: Reports back pain, Reports myalgias and Reports other (No small joint swelling or Pain) Psychiatric Psychiatric: Denies homicidal ideation and Denies suicidal ideation Endocrine Endocrine: Reports fatigue and Denies heat intolerance Hematologic/Lymphatic Hematologic/Lymphatic: Denies easy bleeding and Denies lymphadenopathy Allergic/Immunologic Allergic/Immunologic: Denies itchy eyes, Denies lip swelling, Denies throat swelling and Denies wheezing Pulmonology Exam Inpatient Vital signs and Labs for Last 24 Hours: Temp Pulse Resp BP Pulse Ox 97.4 F L 66 18 122/54 L 90 L 03/17/23 12:00 03/17/23 12:00 03/17/23 12:00 03/17/23 12:00 03/17/23 08:00 Laboratory Results - last 24 hr 03/16/23 14:49: Troponin I 0.09 H 03/16/23 17:55: Troponin I 0.11 H 03/16/23 20:50: POC Glucose 237 H 03/17/23 05:23: POC Glucose 139 H 03/17/23 05:34: Sodium 138, Potassium 3.9, Chloride 94 L, Carbon Dioxide 33 H, Anion Gap 14.9, BUN 39 H, Creatinine 1.60 H, Estimated Creat Clear 29, Estimated GFR 32 L, Est GFR ( Amer) 39 L D, Glucose 138 H D, Calcium 8.2 L, Total Bilirubin 0.6, AST
[2023-03-17 12:37] LABS: Cholesterol 87 mg/dl (140-200); HDL Cholesterol 29 mg/dl (40-60); Triglycerides 240 mg/dl (30-150); VLDL Cholesterol 48 mg/dL (0-40)
[2023-03-17 12:47] LABS: Direct LDL Cholesterol 32.92 mg/dL (100-129)
--- NOTE | 2023-03-17 14:37 | PC.NURSE ---
COURTESY TECH NOTE; ROUNDED ON PT, PT DENIED NEED FOR ASSISTANCE WITH RESTROOM, DRINK, OR THE NEED TO REPOSITION. CALL LIGHT WITHIN REACH, NO FURTHER REQUESTS AT THIS TIME ALDO GARVIN
--- NOTE | 2023-03-17 16:25 | PC.NURSE ---
A&OX4. TOLERATING 3LNC WELL-WHICH SHE WEARS AT HOME. O2 SAT MID 90S. PT HAS BEEN UP TO CHAIR MAJORITY OF SHIFT. X1 ASSIST TO BEDSIDE COMMODE. MEASURING I&OS. PT WAS SUPPOSED TO HAVE RIGHT AND LEFT HEART CATH TODAY, HOWEVER PT REFUSED AND STATED SHE DIDN'T FEEL RIGHT DOING IT TODAY. PT NOSE WAS BLEEDING THIS AM, HUMIDIFICATION ADDED TO O2. NO OTHER NEEDS OR C/O NOTED. VSS.
[2023-03-17 16:26] LABS: POC Glucose,Bedside 224 (70-110)
[2023-03-17 20:25] LABS: POC Glucose,Bedside 197 (70-110)
[2023-03-18] VITALS (8 sets, daily range): BP systolic 118–135; BP diastolic 55–72; PULSE 60–64; RESP 18–20; TEMP 36.4–37; O2SAT 90–97; BMI 43.7
--- NOTE | 2023-03-18 01:25 | PC.NURSE ---
Spoke with Dr. Diaz concerning pt havi ng 10 beat run of V-tach. No new orders received.
--- NOTE | 2023-03-18 04:22 | ECG_ITS ---
APPROVED REPORT Exam: Resting ECG HR:64 bpm ECG Measurements Heart Rate 64 AXES ID 129 P 58 QRSd 162 QRS -67 QT 482 T 111 QTc 492 Conclusion ELECTRONIC VENTRICULAR PACEMAKER ABNORMAL RHYTHM ECG UNCONFIRMED REPORT Electronically signed by : Jesús Vee MD 03/18/2023 10:37:23
[2023-03-18 05:49] LABS: POC Glucose,Bedside 212 (70-110)
[2023-03-18 07:10] LABS: Basophils % 0.4 % (0.1-2.0); Eosinophils # 0.2 K/mm3 (0.0-0.4); Eosinophils % 1.9 % (0.1-12.0); Hemoglobin 9.3 g/dL (12.2-16.2); Lymphocytes # 0.8 K/mm3 (0.7-4.5); Lymphocytes % 10.4 % (10-50); Mean Corpuscular Hemoglobin 25.6 pg (27.0-31.2); Mean Corpuscular Volume 82.5 fl (81-99); Mean Platelet Volume 9.3 fl (7.4-10.4); Monocytes # 0.7 K/mm3 (0.1-1.0); Monocytes % 9.2 % (1.7-9.3); Neutrophils # 6.1 K/mm3 (1.8-7.8); Platelet Count 188 K/mm3 (142-424); Red Blood Count 3.64 M/mm3 (4.20-5.40); Red Cell Distribution Width 16.4 % (11.5-17.5); White Blood Count 7.8 K/mm3 (4.8-10.8)
[2023-03-18 07:24] LABS: Chloride 92 mmol/L (98-107); Potassium 3.6 mmoL/L (3.5-5.1); Sodium 139 mmol/L (136-145)
[2023-03-18 07:27] LABS: Blood Urea Nitrogen 35 mg/dl (7-17); Creatinine Clearance Estimated 26 mL/min (50-200); Estimated Glomerular Filt Rate 28 ml/min (>60); GFR (African American) 34 ML/MIN (>60)
[2023-03-18 07:28] LABS: Anion Gap 13.6 mEq/L (5-15); Calcium 8.2 mg/dl (8.4-10.2); Carbon Dioxide 37 mmol/L (22.0-30.0); Glucose 170 mg/dl (74-100)
--- NOTE | 2023-03-18 09:26 | EXP.PN ---
Subjective *Date: 03/18/23 *Time: 11:20 Interval history: This morning the patient is saturating 93% on 3L NC. I/O +720/-2350 mL. net -1630mL Cr is 1.8, increased from 1.6 (Cr was 1.4-1.5 in 02/2023). She has less dyspnea and swelling. She denies chest pain. Exam Data for Last 24 hours Vital signs and Labs for Last 24 Hours: Temp Pulse Resp BP Pulse Ox 98.0 F 63 18 131/72 93 L 03/18/23 07:31 03/18/23 07:31 03/18/23 07:31 03/18/23 07:31 03/18/23 07:31 Laboratory Results - last 24 hr 03/17/23 06:18: Triglycerides 240 H, Cholesterol 87 L, LDL Cholesterol Direct 32.92 L, VLDL Cholesterol 48 H, HDL Cholesterol 29 L, Cholesterol/HDL Ratio 3.0 03/17/23 10:54: POC Glucose 278 H 03/17/23 15:53: POC Glucose 224 H 03/17/23 20:18: POC Glucose 197 H 03/18/23 05:42: POC Glucose 212 H 03/18/23 06:55: WBC 7.8, RBC 3.64 L, Hgb 9.3 L, Hct 30.0 L, MCV 82.5, MCH 25.6 L, MCHC 31.0 L, RDW 16.4, Plt Count 188, MPV 9.3, Neut % (Auto) 78.0, Lymph % (Auto) 10.4, [place] % (Auto) 9.2, Eos % (Auto) 1.9, Baso % (Auto) 0.4, Neut # (Auto) 6.1, Lymph # (Auto) 0.8, [place] # (Auto) 0.7, Eos # (Auto) 0.2, Baso # (Auto) 0.0 03/18/23 06:55: Sodium 139, Potassium 3.6, Chloride 92 L, Carbon Dioxide 37 H, Anion Gap 13.6, BUN 35 H, Creatinine 1.80 H, Estimated Creat Clear 26, Estimated GFR 28 L, Est GFR ( Amer) 34 L, Glucose 170 H, Calcium 8.2 L I & O for Last 24 hours: Intake & Output 03/15/23 03/16/23 03/17/23 03/18/23 23:59 23:59 23:59 23:59 Intake Total 480 / 480 180 / 420 600 / 600 Output Total 1450 / 2100 3300 / 3300 800 / 800 Balance -970 / -1620 -3120 / -2880 -200 / -200 Weight 119.805 kg 119 kg 117.48 kg Constitutional Constitutional: no acute distress *Routine HEENT Exam Head: Present normocephalic Eye: Present EOMI and PERRL ENT: Present mucous membranes moist *Routine Neck Exam Neck: Present supple; Absent lymphadenopathy *Routine Respiratory Exam Respiratory: Present CTA bilaterally and symmetric chest movement; Absent wheezes *Routine Cardiovascular Exam Cardiovascular: Present RRR *Routine Abdominal Exam Abdominal: Present soft and normoactive bowel sounds; Absent tenderness *Routine Extremities Exam Extremities: Absent cyanosis, clubbing or edema *Routine Skin Exam Skin: Present warm; Absent rash *Routine Neurological Exam Neurological: Present alert and oriented X3 Assessment and Plan *Assessment and plan (1) Acute on chronic heart failure with preserved ejection fraction (HFpEF): Status: Acute Category: Medical Code(s): I50.33 - Acute on chronic diastolic (congestive) heart failure (2) BMI 45.0-49.9, adult: Status: Acute Category: Medical Code(s): Z68.42 - Body mass index [BMI] 45.0-49.9, adult (3) Pulmonary hypertension: Status: Acute Category: Medical Code(s): I27.20 - Pulmonary hypertension, unspecified (4) JODIE (obstructive sleep apnea): Status: Acute Category: Medical Code(s): G47.33 - Obstructive sleep apnea (adult) (pediatric) (5) MATTHEW (acute kidney injury): Status: Acute Category: Medical Code(s): N17.9 - Acute kidney failure, unspecified Plan Helga Gonzales is a 68 year old female with a past medical history of CAD, HFpEF, pacemaker placement for history of syncope, JODIE/OHS, chronic hypoxic respiratory failure on 2-3L NC continuously at baseline, CKD stage 3b, anemia, diabetes mellitus, hyperlipidemia, hypertension and morbid obesity. She presented with 1-2 weeks of shortness of breath and swelling and admitted on 03/16 with CHF exacerbation, matthew and acute hypoxic respiratory failure. The patient's echocardiogram from 09/2022 revealed RVSP 50-70 so Pulmonology was consulted for possible pulmonary hypertension; right heart catheterization was recommended. #CHF exacerbation #acute on chronic hypoxic respiratory failure #MATTHEW on CKD #NSTEMI The patient received a dose of Lasix IV 80mg this morning. I will
[2023-03-18 11:42] LABS: POC Glucose,Bedside 211 (70-110)
[2023-03-18 18:46] LABS: POC Glucose,Bedside 246 (70-110)
--- NOTE | 2023-03-18 18:49 | PC.NURSE ---
Per Dr Perez progress note pt is to be on fluid restriction. no orders or amount entered. clarified with at 1845. pt to be on 1500ml fluid restriction. notified xu ross and krystal barros of new orders from
[2023-03-18 20:36] LABS: POC Glucose,Bedside 193 (70-110)
[2023-03-19] VITALS (9 sets, daily range): BP systolic 124–144; BP diastolic 59–67; PULSE 60–110; RESP 18–20; TEMP 36.5–36.8; O2SAT 91–96; BMI 43.6
[2023-03-19 05:49] LABS: POC Glucose,Bedside 179 (70-110)
[2023-03-19 07:06] LABS: Chloride 91 mmol/L (98-107); Potassium 3.6 mmoL/L (3.5-5.1); Sodium 140 mmol/L (136-145)
[2023-03-19 07:08] LABS: Blood Urea Nitrogen 36 mg/dl (7-17); Creatinine Clearance Estimated 29 mL/min (50-200); Estimated Glomerular Filt Rate 32 ml/min (>60); GFR (African American) 39 ML/MIN (>60)
[2023-03-19 07:09] LABS: Anion Gap 12.6 mEq/L (5-15); Calcium 8.1 mg/dl (8.4-10.2); Carbon Dioxide 40 mmol/L (22.0-30.0); Glucose 174 mg/dl (74-100); Magnesium 1.7 mg/dl (1.6-2.3)
--- NOTE | 2023-03-19 08:25 | EXP.PN ---
Subjective *Date: 03/19/23 *Time: 09:55 Interval history: No acute events overnight. Less dyspnea. No chest pain. Less swelling. She has been ambulating within the room. Exam Data for Last 24 hours Vital signs and Labs for Last 24 Hours: Temp Pulse Resp BP Pulse Ox 97.9 F 60 18 133/59 L 92 L 03/19/23 07:19 03/19/23 07:19 03/19/23 07:19 03/19/23 07:19 03/19/23 07:19 Laboratory Results - last 24 hr 03/18/23 11:13: POC Glucose 211 H 03/18/23 16:16: POC Glucose 246 H 03/18/23 20:29: POC Glucose 193 H 03/19/23 05:42: POC Glucose 179 H 03/19/23 06:47: Sodium 140, Potassium 3.6, Chloride 91 L, Carbon Dioxide 40 H, Anion Gap 12.6, BUN 36 H, Creatinine 1.60 H, Estimated Creat Clear 29, Estimated GFR 32 L, Est GFR ( Amer) 39 L, Glucose 174 H, Calcium 8.1 L, Magnesium 1.7 I & O for Last 24 hours: Intake & Output 03/16/23 03/17/23 03/18/23 03/19/23 23:59 23:59 23:59 23:59 Intake Total 480 / 480 180 / 420 1200 / 1320 360 / 360 Output Total 1450 / 2100 3300 / 3300 3400 / 3700 550 / 550 Balance -970 / -1620 -3120 / -2880 -2200 / -2380 -190 / -190 Weight 119.805 kg 119 kg 117.48 kg 117.4 kg Constitutional Constitutional: no acute distress *Routine HEENT Exam Head: Present normocephalic Eye: Present EOMI and PERRL ENT: Present mucous membranes moist *Routine Neck Exam Neck: Present supple; Absent lymphadenopathy *Routine Respiratory Exam Respiratory: Present CTA bilaterally and symmetric chest movement; Absent wheezes *Routine Cardiovascular Exam Cardiovascular: Present RRR *Routine Abdominal Exam Abdominal: Present soft and normoactive bowel sounds; Absent tenderness *Routine Extremities Exam Extremities: Present edema (2+ up to the knees); Absent cyanosis or clubbing *Routine Skin Exam Skin: Present warm *Routine Neurological Exam Neurological: Present alert and oriented X3 Assessment and Plan *Assessment and plan (1) Acute on chronic heart failure with preserved ejection fraction (HFpEF): Status: Acute Category: Medical Code(s): I50.33 - Acute on chronic diastolic (congestive) heart failure (2) BMI 45.0-49.9, adult: Status: Acute Category: Medical Code(s): Z68.42 - Body mass index [BMI] 45.0-49.9, adult (3) Pulmonary hypertension: Status: Acute Category: Medical Code(s): I27.20 - Pulmonary hypertension, unspecified (4) JODIE (obstructive sleep apnea): Status: Acute Category: Medical Code(s): G47.33 - Obstructive sleep apnea (adult) (pediatric) (5) MATTHEW (acute kidney injury): Status: Acute Category: Medical Code(s): N17.9 - Acute kidney failure, unspecified Plan Helga Gonzales is a 68 year old female with a past medical history of CAD, HFpEF, pacemaker placement for history of syncope, JODIE/OHS, chronic hypoxic respiratory failure on 2-3L NC continuously at baseline, CKD stage 3b, anemia, diabetes mellitus, hyperlipidemia, hypertension and morbid obesity. She presented with 1-2 weeks of shortness of breath and swelling and admitted on 03/16 with CHF exacerbation, matthew and acute hypoxic respiratory failure. The patient's echocardiogram from 09/2022 revealed RVSP 50-70 so Pulmonology was consulted for possible pulmonary hypertension; right heart catheterization was recommended. #CHF exacerbation #acute on chronic hypoxic respiratory failure #MATTHEW on CKD, resolving #NSTEMI #hypomagnesemia I/O +960/ - 3150 net -2190mL. Goal daily net fluid balance of -1 to -1.5L. BMP with Cr 1.6, decreased from 1.8 yesterday. Magnesium level is 1.7. I will decrease IV lasix from 60mg BID to 40mg BID. Continue strict i/o, daily weights, 2g salt and 1.5L fluid restriction. Will give magnesium sulfate IV 2g and potassium chloride po 40meq. I will order CBC, BMP and a magnesium level for tomorrow morning. Cardiology plans to perform left and right heart catheterization. Cardiac diet. dvt ppx: heparin subcu Full code
--- NOTE | 2023-03-19 11:02 | PC.NURSE ---
courtesy tech note: pt is sitting up in chair with no further requests at this time.
[2023-03-19 14:37] LABS: POC Glucose,Bedside 264 (70-110)
[2023-03-19 20:25] LABS: POC Glucose,Bedside 199 (70-110)
[2023-03-20] VITALS (8 sets, daily range): BP systolic 130–186; BP diastolic 52–82; PULSE 60–63; RESP 18–24; TEMP 36.4–36.8; O2SAT 2–97; BMI 43.2
[2023-03-20 01:56] LABS: POC Glucose,Bedside 227 (70-110)
[2023-03-20 05:31] LABS: POC Glucose,Bedside 192 (70-110)
[2023-03-20 06:14] LABS: Basophils % 0.3 % (0.1-2.0); Eosinophils # 0.1 K/mm3 (0.0-0.4); Hematocrit 30.5 % (37.0-47.0); Hemoglobin 9.2 g/dL (12.2-16.2); Lymphocytes # 0.9 K/mm3 (0.7-4.5); Lymphocytes % 13.4 % (10-50); Mean Corpuscular HGB Conc 30.3 g/dL (31.8-35.4); Mean Corpuscular Hemoglobin 25.3 pg (27.0-31.2); Mean Corpuscular Volume 83.4 fl (81-99); Mean Platelet Volume 9.3 fl (7.4-10.4); Monocytes # 0.7 K/mm3 (0.1-1.0); Monocytes % 10.1 % (1.7-9.3); Neutrophils # 4.9 K/mm3 (1.8-7.8); Neutrophils % 74.2 % (37.0-80.0); Platelet Count 181 K/mm3 (142-424); Red Blood Count 3.66 M/mm3 (4.20-5.40); Red Cell Distribution Width 16.5 % (11.5-17.5); White Blood Count 6.6 K/mm3 (4.8-10.8)
[2023-03-20 06:18] LABS: Chloride 92 mmol/L (98-107); Potassium 3.9 mmoL/L (3.5-5.1); Sodium 139 mmol/L (136-145)
[2023-03-20 06:21] LABS: Anion Gap 12.9 mEq/L (5-15); Blood Urea Nitrogen 38 mg/dl (7-17); Calcium 8.2 mg/dl (8.4-10.2); Carbon Dioxide 38 mmol/L (22.0-30.0); Creatinine Clearance Estimated 29 mL/min (50-200); Estimated Glomerular Filt Rate 32 ml/min (>60); GFR (African American) 39 ML/MIN (>60); Glucose 171 mg/dl (74-100)
--- NOTE | 2023-03-20 07:34 | EXP.CARD.PN ---
Subjective Subjective Date: 03/20/23 Time: 07:34 Principal diagnosis: NSTEMI, CHF, Pulmonary HTN Interval history: 68-year-old white female sitting in bedside chair no acute distress. She states she is breathing much better now. I's and O's noted on the chart show a net negative of greater than 7 L. Denies chest discomfort over the weekend. Agreeable to proceed with right and left heart catheterization today. Exam Data for Last 24 hours Vital signs and Labs for Last 24 Hours: Temp Pulse Resp BP Pulse Ox 97.8 F 60 20 130/59 L 97 03/20/23 04:00 03/20/23 04:00 03/20/23 04:00 03/20/23 04:00 03/20/23 04:00 Laboratory Results - last 24 hr 03/19/23 11:24: POC Glucose 264 H 03/19/23 15:37: POC Glucose 227 H 03/19/23 20:15: POC Glucose 199 H 03/20/23 05:25: POC Glucose 192 H 03/20/23 05:33: WBC 6.6, RBC 3.66 L, Hgb 9.2 L, Hct 30.5 L, MCV 83.4, MCH 25.3 L, MCHC 30.3 L, RDW 16.5, Plt Count 181, MPV 9.3, Neut % (Auto) 74.2, Lymph % (Auto) 13.4, [place] % (Auto) 10.1 H, Eos % (Auto) 2.0, Baso % (Auto) 0.3, Neut # (Auto) 4.9, Lymph # (Auto) 0.9, [place] # (Auto) 0.7, Eos # (Auto) 0.1, Baso # (Auto) 0.0 03/20/23 05:33: Sodium 139, Potassium 3.9, Chloride 92 L, Carbon Dioxide 38 H, Anion Gap 12.9, BUN 38 H, Creatinine 1.60 H, Estimated Creat Clear 29, Estimated GFR 32 L, Est GFR ( Amer) 39 L, Glucose 171 H, Calcium 8.2 L, Magnesium 2.0 D I & O for Last 24 hours: Intake & Output 03/17/23 03/18/23 03/19/23 03/20/23 11:59 11:59 11:59 11:59 Intake Total 540 / 540 720 / 720 960 / 960 720 / 720 Output Total 3300 / 3300 3550 / 3550 2500 / 2500 1450 / 1450 Balance -2760 / -2760 -2830 / -2830 -1540 / -1540 -730 / -730 Weight 264 lb 1.997 oz 259 lb 258 lb 13.163 oz 256 lb 2 oz Constitutional Constitutional: no acute distress *Routine Respiratory Exam Respiratory: Present decreased breath sounds; Absent stridor, wheezes or crackles *Routine Cardiovascular Exam Cardiovascular: Present RRR *Routine Extremities Exam Extremities: Present edema; Absent cyanosis or clubbing *Routine Neurological Exam Neurological: Present alert, oriented X3 and CN II-XII intact Progress Note: A&P Assessment and plan (1) Acute on chronic heart failure with preserved ejection fraction (HFpEF): Status: Acute (2) BMI 45.0-49.9, adult: Status: Acute (3) Pulmonary hypertension: Status: Acute (4) JODIE (obstructive sleep apnea): Status: Acute (5) MATTHEW (acute kidney injury): Status: Acute Assessment and Plan Assessment and Plan for All Diagnoses:: 1.? Right heart failure with RVSP in the 70 mmHg range on echo JODIE/OHS Pulmonary consulted and following Right heart catheterization today LE edema improved but still present 2.? HFrEF with ejection fraction 40-50% Echo this admit, EF 40-50%, grade 2 DD, moderate RV dilatation with RVSP 73 mmHg.? No significant valve disease. Continue IV Lasix and supplemental potassium add spironolactone but watch renal functions and potassium closely. 3.? Extensive coronary artery disease noted on CT of the chest 2021 now with elevated troponins consistent with non-STEMI Proceed with left heart catheterization today Continue aspirin, statin and beta-jose therapy 4.? Morbid obesity Complicates all aspects of care 5.? 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 Diabetes mellitus Insulin requiring 7.? CKD with chronic anemia Stage IIIb with hemoglobin 9-10 Continue iron replacement Cr 1.6 with GFR 39, stable. Holding RDE/ARB/Entresto until after cath. 8.? Hypertension Continue metoprolol Discontinue hydralazine 9.? Hyperlipidemia Continue statin therapy Check lipids further recommendations pending above results.
--- NOTE | 2023-03-20 09:47 | EXP.PULM.PN ---
Subjective *Date: 03/20/23 *Time: 10:53 Interval history: No acute respiratory vents over the weekend. Patient remained on stable oxygen requirements. Denies any new respiratory complaints. Pulmonology Exam Inpatient Vital signs and Labs for Last 24 Hours: Temp Pulse Resp BP Pulse Ox 97.9 F 63 18 142/52 H 2 L 03/20/23 08:00 03/20/23 08:00 03/20/23 08:00 03/20/23 08:00 03/20/23 08:00 Laboratory Results - last 24 hr 03/19/23 11:24: POC Glucose 264 H 03/19/23 15:37: POC Glucose 227 H 03/19/23 20:15: POC Glucose 199 H 03/20/23 05:25: POC Glucose 192 H 03/20/23 05:33: WBC 6.6, RBC 3.66 L, Hgb 9.2 L, Hct 30.5 L, MCV 83.4, MCH 25.3 L, MCHC 30.3 L, RDW 16.5, Plt Count 181, MPV 9.3, Neut % (Auto) 74.2, Lymph % (Auto) 13.4, [place] % (Auto) 10.1 H, Eos % (Auto) 2.0, Baso % (Auto) 0.3, Neut # (Auto) 4.9, Lymph # (Auto) 0.9, [place] # (Auto) 0.7, Eos # (Auto) 0.1, Baso # (Auto) 0.0 03/20/23 05:33: Sodium 139, Potassium 3.9, Chloride 92 L, Carbon Dioxide 38 H, Anion Gap 12.9, BUN 38 H, Creatinine 1.60 H, Estimated Creat Clear 29, Estimated GFR 32 L, Est GFR ( Amer) 39 L, Glucose 171 H, Calcium 8.2 L, Magnesium 2.0 D I & O for Labs for Last 24 Hours: Intake & Output 03/17/23 03/18/23 03/19/23 03/20/23 23:59 23:59 23:59 23:59 Intake Total 180 / 420 1200 / 1320 840 / 840 240 / 240 Output Total 3300 / 3300 3400 / 3700 2400 / 2400 250 / 250 Balance -3120 / -2880 -2200 / -2380 -1560 / -1560 -10 / -10 Weight 262 lb 5.601 oz 259 lb 258 lb 13.163 oz 256 lb 2 oz Constitutional: Present severe distress Head: Present normocephalic and atraumatic ENT: Present normal exam, normal oropharynx and mucous membranes moist Neck: Present normal inspection and full ROM Respiratory: Present respiratory distress and crackles; Absent wheezes or able to speak in complete sentences Cardiac: Present Tachycardia and radial pulses present; Absent S1/S2 GI: Present soft and distention; Absent tenderness or guarding Rectal (female): Present deferred (female): Present deferred Skin: Present intact and rash; Absent cyanosis or jaundice Neuro: Present alert, awake and oriented x 3 Extremities: Present normal inspection and edema; Absent clubbing or cyanosis Psychiatric: Present normal affect and cooperative Assessment and Plan *Assessment and plan (1) Chronic respiratory failure with hypoxia: Status: Acute Category: Medical Code(s): J96.11 - Chronic respiratory failure with hypoxia (2) Pulmonary hypertension: Status: Acute Category: Medical Code(s): I27.20 - Pulmonary hypertension, unspecified Plan Ms. Gonzales is a 68-year-old female current 5-pack-year smoking history when she was in teenage, no other significant smoke exposure history of CAD, heart failure, COVID-19 pneumonia needing mechanical ventilation discharged home on room air to rehab previously has multiple admissions recently for shortness of breath and heart failure exacerbation admitted to the hospital again with worsening respiratory distress and pulmonary was consulted to evaluate for possible pulmonary hypertension. Her other issues during his hospital admission including CKD, nasal bleeding, NSTEMI Patient denied any other significant family history of respiratory complaints. Significant family history of CAD. Denies any personal history of allergies or asthma. CT chest from September 2020 did not show any pulmonary parenchymal abnormalities/interstitial changes. Dilated pulmonary artery noted. No suspicious pulmonary nodules. Echocardiogram September 2022 diastolic heart failure. Pulmonary hypertension with RVSP at 50-70. Elevated filling pressures. ILD review of systems negative. Patient did not have any obvious risk factors and history pointing towards either type I or type III pulmonary hypertension with pulmonary parenchymal pathology. She does have other risk factors of type III including possible chronic hypoxia and possible sleep apnea which ne
--- NOTE | 2023-03-20 11:29 | IR_ITS ---
APPROVED REPORT Patient Location: Inpatient Sales Service Assistant: ANDRY Murphy RT (R) PROCEDURES Right heart catheterization Selective coronary angiogram INDICATION Unstable angina Informed consent was obtained prior to the procedure. COMPLICATIONS None Estimated Blood Loss: Less than 10 mls TECHNIQUE One percent lidocaine was used to anesthetize the right anterior aspect of the right wrist. The right radial artery was accessed via the Seldinger technique and a 6 [place] hydrophilic sheath was placed in the right radial artery. Following this one percent lidocaine was used to anesthetize the right anterior aspect of the right neck. The right internal jugular vein was accessed via the Seldinger technique and a 7 [place] sheath was placed in the right internal jugular vein. Following this an arterial cocktail was administered using 5000U heparin, 2.5 mg verapamil, 1mg Lidocaine and 800mcg nitroglycerin into the right radial sheath. A papa catheter was used to perform left heart catheterization left ventriculogram and selective coronary angiography while a [place] catheter was used to perform right heart catheterization. Saturations were obtained in the pulmonary artery and right atrium. At the end of the procedure the arterial sheath was removed good hemostasis was achieved using Traclet band. Patient was transferred to the postop holding area in stable condition for venous sheath removal. ANGIOGRAPHIC RESULTS The left main artery Has a critical distal 90% stenosis The left anterior descending artery Has proximal tandem 90% stenosis The circumflex artery Is nondominant and has a proximal 40% followed by mid vessel concentric 90% stenosis The right coronary artery Is dominant and has proximal 40% followed by an additional proximal eccentric 80% followed by a concentric 80 to 90% stenosis Right atrial pressure 10 mmHg Pulmonary artery pressure 55/40 mmHg Pulmonary occlusion pressure 30 mmHg Right atrial saturation 51% Pulmonary saturation 38% IMPRESSION Critical coronary disease as described above Moderate pulmonary hypertension Greater than 7% disparity between atrial sat and pulmonary sat likely technical air PLAN 1. Urgent/emergent transfer to the [facility] for bypass surgery soon as possible 2. Maintain right internal jugular sheath for perioperative access 3. At this point I do not plan on repeating the right heart cath due to the critical nature of the coronary artery disease. I do not want to precipitate an arrhythmia with a right heart cath given the critical nature of the coronary artery disease 4. Continue heparin drip Electronically signed by : Kyler Diaz MD 03/20/2023 13:20:46
--- NOTE | 2023-03-20 12:52 | HMH.PTEV ---
Physical Therapy Evaluation Rehab PT IP Evaluation Start: 03/20/23 09:47 Freq: ONCE Status: Active Protocol: Document 03/20/23 12:40 [email or web address] (Rec: 03/20/23 12:52 MOISÉSADE [id number]) Subjective/History History History Pt is a 68 year old female that presented to [facility] ED on 03/16/2023 with concerns of shortness of air over the past 2-3 days as well as increased swelling in her legs over the past 1-2 weeks. Pt had a recent admission ~1 month ago with similar symptoms. Pt stated she has been taking her diuretic daily (Lasix 20 mg) but has not seen improvement in her leg swelling or significant urine output. Denies any syncope, chest pain , nausea, vomiting. BNP elevated and chest x-ray consistent with pulmonary edema. Treated with a nebulizer and diuretics in the ER. Medicine consulted for admission. Subjective Subjective Pt presents seated in bedside chair upon PT arrival, pleasant and agreeable to initial evaluation. Pt denies reports of pain at rest. Pt reports that she lives at home with SO in a [facility] with 1 NAY. Pt reports she uses a rollator at baseline. Rehab PT IP Eval Objective Appearance Patient Behavior Appropriate Patient Orientation Person,Place,Time,Situation Difficulty following instructions none Speech Pattern Clear,Appropriate Ambulation Patient Able to Ambulate Yes Ambulation Observation IP General Gait Pattern Observation Wide Based Gait Ambulation Distance (feet) 20 Ambulation Assistive Device None Ambulation Ability Contact Guard/Hand Hold Balance Ability to Arise Able, uses arms to help Sitting Balance Steady, safe Standing Balance Steady, wide stance Dynamic Sitting Balance Ability Good Dynamic Standing Balance Ability Fair Transfers Chair Transfer Ability Contact Guard/Hand Hold Sit to Stand Bed Transfer Ability Contact Guard/Hand Hold Sit to Stand Chair Transfer Ability Con
--- NOTE | 2023-03-20 13:37 | EXP.DC.SUM ---
General Admission date:: 03/16/23 Discharge date: 03/20/23 HPI HPI HPI: Ms. Gonzales is a 67-year-old female that presents to [facility] emergency department with concerns of shortness of air over the past 2 to 3 days with increased swelling in her legs for the past 1 to 2 weeks. Her past medical history is significant for heart failure with preserved ejection fraction, JODIE/OHS, anemia, diabetes, hypertension and BMI of 44. She was recently admitted 1 month ago for similar symptoms. States she has been taking her diuretic daily (Lasix 20 mg) but has not seen improvement in her leg swelling or significant urine output. Denies any syncope, chest pain, nausea, vomiting. BNP elevated and chest x-ray consistent with pulmonary edema. Treated with a nebulizer and diuretics in the ER. Medicine consulted for admission. On arrival to the floor she has had 600 cc out with urine. Stable on 4 L oxygen. Denies any nausea or vomiting. Still appears in mild distress. Hospital Course Hospital Course Hospital Course: Helga Gonzales is a 68 year old female with a past medical history of CAD, HFpEF, pacemaker placement for history of syncope, JODIE/OHS, chronic hypoxic respiratory failure on 2-3L NC continuously at baseline, CKD stage 3b, anemia, diabetes mellitus, hyperlipidemia, hypertension and morbid obesity. She presented with 1-2 weeks of shortness of breath and swelling and admitted on 03/16 with CHF exacerbation, matthew and acute hypoxic respiratory failure. The patient's echocardiogram from 09/2022 revealed RVSP 50-70 so Pulmonology was consulted for possible pulmonary hypertension; right heart catheterization was recommended. Taken for catheterization today on 03/20. Found to have critical stenoses in the left main and LAD. Recommended CABG. Patient accepted by for further management. Problems addressed as follows: #CHF exacerbation #acute on chronic hypoxic respiratory failure #MATTHEW on CKD, resolving #NSTEMI #hypomagnesemia #Pacemaker Aggressive diuresis begun after admission. Patient is -7.8 L since hospitalization. Has overall been doing well. Creatinine improved from 2.0 to 1.6. Have monitored electrolytes and replaced as needed. Stable on 3 L nasal cannula for the past 72 hours. Cardiology and pulmonology were consulted during admission. Cardiology recommended right and left heart cath. Taken today (03/20) for further evaluation. Found to have critical left main disease and critical stenoses in her LAD. Transfer was initiated to for further management as patient meets criteria for CABG. Graciously excepted by Dr. Petit at . Will transfer for further management at this time. Treated with DuoNebs and oxygen for her respiratory disease. Goal saturations were greater than 92% during hospitalization. No indication for antibiotics for respiratory illness Diabetes treated with sliding scale and basal insulin. Continued patient's home regimen of 10 units of glargine nightly. Patient in serious condition. Will transfer immediately for further management. High risk of decompensation. Exam Data for Last 24 hours Vital signs and Labs for Last 24 Hours: Temp Pulse Resp BP Pulse Ox 97.6 F 62 24 186/64 H 97 03/20/23 12:00 03/20/23 12:00 03/20/23 12:00 03/20/23 12:00 03/20/23 12:00 Laboratory Results - last 24 hr 03/19/23 11:24: POC Glucose 264 H 03/19/23 15:37: POC Glucose 227 H 03/19/23 20:15: POC Glucose 199 H 03/20/23 05:25: POC Glucose 192 H 03/20/23 05:33: WBC 6.6, RBC 3.66 L, Hgb 9.2 L, Hct 30.5 L, MCV 83.4, MCH 25.3 L, MCHC 30.3 L, RDW 16.5, Plt Count 181, MPV 9.3, Neut % (Auto) 74.2, Lymph % (Auto) 13.4, [place] % (Auto) 10.1 H, Eos % (Auto) 2.0, Baso % (Auto) 0.3, Neut # (Auto) 4.9, Lymph # (Auto) 0.9, [place] # (Auto) 0.7, Eos # (Auto) 0.1, Baso # (Auto) 0.0 03/20/23 05:33: Sodium 139, Potassium 3.9, Chloride 92 L, Carbon Dioxide 38 H, Anion Gap 12.9, BUN 38 H, Creatinine 1.60 H, Estimated Creat
--- NOTE | 2023-03-20 15:45 | PC.NURSE ---
Called report to MARKUS Kelly. Patient going to [address] [place] [address] Room 676. Patient being transferred with a #22 in Left wrist. 7 [place] IJ line. No drugs infusing at this time. Right radial TR band in place wiht stabilizer and 13ms of air.
== END 2023-03-20 15:50 | disposition short-term general hospital (02) ==
LOC: ER 13:25 → 2ND 13:35
PROVIDERS: Internal Medicine; Physician Assistant; Admitting Provider Internal Medicine Adolescent Medicine; Emergency Provider Emergency Medicine; PCP Family Medicine; Visit Provider Internal Medicine Adolescent Medicine
DX: I50.33 Acute on chronic diastolic (congestive) heart failure (principal); N17.9 Acute kidney failure, unspecified; J96.11 Chronic respiratory failure with hypoxia; D64.9 Anemia, unspecified; N18.32 Chronic kidney disease, stage 3b; E11.22 Type 2 diabetes mellitus with diabetic chronic kidney disease; I13.0 Hypertensive heart and chronic kidney disease with heart failure and stage 1 through stage 4 chronic kidney disease, or unspecified chronic kidney disease; I25.118 Atherosclerotic heart disease of native coronary artery with other forms of angina pectoris; I27.20 Pulmonary hypertension, unspecified; G47.33 Obstructive sleep apnea (adult) (pediatric); I21.4 Non-ST elevation (NSTEMI) myocardial infarction; Z79.4 Long term (current) use of insulin; Z95.0 Presence of cardiac pacemaker; Z79.899 Other long term (current) drug therapy
CPT/HCPCS: G0378; 36415; 71045; 80048; 80053; 80061; 82810; 82962; 83605; 83735; 83880; 84484; 85025; 87636; 93005; 93306; 93451; 97162; 99152; 99153; 99285; C1725; C1769; C1894; C9803; J1644; J3475; Q9967; U0003; U0005

== ENCOUNTER → 2023-05-04 23:31 | Outpatient (CLI) | payer MEDICARE, SELFPAY ==
[2023-05-04 18:33] LABS: Basophils % 0.5 % (0.1-2.0); Eosinophils # 0.1 K/mm3 (0.0-0.4); Eosinophils % 1.4 % (0.1-12.0); Hematocrit 31.9 % (37.0-47.0); Hemoglobin 9.9 g/dL (12.2-16.2); Lymphocytes # 1.1 K/mm3 (0.7-4.5); Lymphocytes % 17.3 % (10-50); Mean Corpuscular HGB Conc 31.1 g/dL (31.8-35.4); Mean Corpuscular Volume 86.6 fl (81-99); Mean Platelet Volume 9.1 fl (7.4-10.4); Monocytes # 0.7 K/mm3 (0.1-1.0); Monocytes % 10.4 % (1.7-9.3); Neutrophils # 4.5 K/mm3 (1.8-7.8); Neutrophils % 70.4 % (37.0-80.0); Platelet Count 240 K/mm3 (142-424); Red Blood Count 3.68 M/mm3 (4.20-5.40); Red Cell Distribution Width 17.7 % (11.5-17.5); White Blood Count 6.4 K/mm3 (4.8-10.8)
[2023-05-04 18:41] LABS: Alanine Aminotransferase 13 U/L (12-78); Albumin Level 3.8 g/dl (3.5-5.0); Albumin/Globulin Ratio 1.3 (1.1-1.8); Alkaline Phosphatase 153 U/L (38-126); Anion Gap 14.9 mEq/L (5-15); Aspartate Amino Transferase 23 U/L (14-36); Bilirubin,Total 0.5 mg/dl (0.2-1.3); Blood Urea Nitrogen 45 mg/dl (7-17); Carbon Dioxide 31 mmol/L (22.0-30.0); Chloride 97 mmol/L (98-107); Estimated Glomerular Filt Rate 35 ml/min (>60); GFR (African American) 42 ML/MIN (>60); Glucose 167 mg/dl (74-100); Potassium 4.9 mmoL/L (3.5-5.1); Sodium 138 mmol/L (136-145); Total Protein,Serum 6.8 g/dl (6.3-8.2)
== END ==
PROVIDERS: PCP Family Medicine; Visit Provider Family Medicine
DX: Z09 Encounter for follow-up examination after completed treatment for conditions other than malignant neoplasm (principal); I10 Essential (primary) hypertension
CPT/HCPCS: 80053; 85025

== ENCOUNTER 2023-05-30 10:24 | Observation (INO) | payer MEDICARE, SELFPAY ==
[2023-05-30] VITALS (18 sets, daily range): BP systolic 123–154; BP diastolic 50–93; PULSE 60–63; RESP 16–22; TEMP 36.7–37; O2SAT 97–100; BMI 47.8; BMI 48.1
--- NOTE | 2023-05-30 07:15 | IR_ITS ---
APPROVED REPORT Patient Location: Outpatient Emergency Doctor: ANDRY uMrphy RT (R) PROCEDURES Drug-eluting stent deployment to the ostial proximal left main artery Drug-eluting stent deployment to the distal left main artery extending into the proximal LAD Drug-eluting stent deployment to the second obtuse marginal artery Drug-eluting stent deployment to the distal left main artery extending into the proximal circumflex artery INDICATION Ischemic cardiomyopathy, Patient deemed a nonsurgical candidate due to multiple comorbidities Informed consent was obtained prior to the procedure. COMPLICATIONS NONE Estimated Blood Loss: LESS THAN 10 ML TECHNIQUE 1% lidocaine used anesthetize the right anterior aspect of the right wrist the right radial artery was accessed via the Salinger technique and a 6 Cook Islander hydrophilic sheath was placed in the right radial artery. Therapeutic heparin was administered giving a therapeutic ACT and the guide catheter was placed in the left main artery followed by choice PT extra-support wire being placed in the circumflex artery and into the LAD. 3 mm x 15 mm balloons were used to dilate the distal left main artery extending into the circumflex artery as well as predilatation of the distal left main artery extending into the proximal LAD. An additional 4 mm balloon was used to predilate the ostial LAD as well as the ostial circumflex artery and distal left main artery. A 3 mm x 15 mm balloon was used to dilate the proximal LAD and mid LAD. A 3 mm x 34 mm [place] frontier stent was deployed at 18 jeannie in the proximal to mid LAD reducing the critical stenosis. Following this a 2.5 mm x 12 mm [place] frontier stent was placed into the mid circumflex artery extending into the second obtuse marginal artery and deployed at 18 jeannie reducing the severe stenosis to 0%. A 3.5 mm x 12 mm [place] frontier stent was placed in the proximal circumflex artery and deployed at 20 jeannie reducing the severe stenosis to 0%. A 4 mm x 18 mm Robert frontier stent was placed in the distal left main artery extending into the ostial proximal circumflex artery which overlapped the 3.5 mm stent. The LAD wire was pulled back in the stent was deployed at 20 jeannie. A Choice PT extra-support wire was then placed into the distal left main artery extending back into the LAD and a 3 mm noncompliant balloon was used to open the struts going into the LAD. A 4 mm x 26 mm [place] frontier stent was then placed in the distal left main artery extending into the proximal LAD which overlapped the 3 mm proximal LAD stent and then deployed at 20 jeannie. A 3.5 x 12 mm noncompliant balloon was then deployed in the proximal portion of the 3 mm x 34 mm [place] frontier stent and deployed at 20 jeannie to post dilate. A 3 mm noncompliant balloon was then placed into the distal left main artery extending into the proximal circumflex artery and the struts were opened into the circumflex artery. A 4 mm x 15 mm noncompliant balloon was placed in the distal left main artery extending the circumflex artery and deployed at 24 jeannie. A 3.25 x 12 mm noncompliant balloon was then deployed in the mid LAD and deployed at 20 and 24 jeannie. This failed to reduce the stenosis therefore 3.5 x 8 mm noncompliant balloon was deployed at 20 jeannie which open the struts and completely reduced the mid LAD stenosis to 0%. A 5 mm x 12 mm Robert frontier stent was then placed in the ostial proximal LAD which overlapped both of the 4 mm stents and then deployed at 16 jeannie reducing the stenosis and providing excellent inline flow. After achieving excellent angiographic results the apparatus was removed the sheath was removed and hemostasis was achieved using TR banding patient was transferred to the postop putting in stable condition IMPRESSION Succes
[2023-05-30 08:40] LABS: Basophils % 0.3 % (0.1-2.0); Eosinophils # 0.1 K/mm3 (0.0-0.4); Eosinophils % 1.3 % (0.1-12.0); Hematocrit 32.6 % (37.0-47.0); Hemoglobin 10.6 g/dL (12.2-16.2); Lymphocytes # 1.2 K/mm3 (0.7-4.5); Lymphocytes % 11.8 % (10-50); Mean Corpuscular HGB Conc 32.4 g/dL (31.8-35.4); Mean Corpuscular Hemoglobin 28.1 pg (27.0-31.2); Mean Corpuscular Volume 86.8 fl (81-99); Mean Platelet Volume 9.7 fl (7.4-10.4); Monocytes # 0.7 K/mm3 (0.1-1.0); Monocytes % 6.9 % (1.7-9.3); Neutrophils % 79.6 % (37.0-80.0); Platelet Count 231 K/mm3 (142-424); Red Blood Count 3.76 M/mm3 (4.20-5.40); Red Cell Distribution Width 17.2 % (11.5-17.5)
[2023-05-30 08:48] LABS: Chloride 99 mmol/L (98-107); Potassium 4.2 mmoL/L (3.5-5.1); Sodium 138 mmol/L (136-145)
[2023-05-30 08:51] LABS: Anion Gap 14.2 mEq/L (5-15); Blood Urea Nitrogen 41 mg/dl (7-17); Carbon Dioxide 29 mmol/L (22.0-30.0); Creatinine Clearance Estimated 22 mL/min (50-200); Estimated Glomerular Filt Rate 28 ml/min (>60); GFR (African American) 34 ML/MIN (>60); Glucose 142 mg/dl (74-100)
[2023-05-30 11:45] LABS: CATHL Activated Clotting Time > 400 SEC (74-125)
[2023-05-30 11:46] LABS: CATHL Activated Clotting Time 290 SEC (74-125)
--- NOTE | 2023-05-30 12:19 | HMH.PHAINT1 ---
Pharmacy Intervention Comments: Medication history complete, medications verified with fill history, patient and rx bottles. Of note, patient should be taking a maintenance inhaler (prescribed incruse ellipta and symbicort) for COPD but cannot afford her inhaler, instead she is using her albuterol each morning. - Luz Cummins, PharmD Candidate 2023
--- NOTE | 2023-05-30 12:34 | SW/DCPLANNER ---
PT/OT evaluated patient and recommended home w/ home health services. I spoke with patient regarding home health: she is agreeable to services and has used [facility] in the past. Patient also stated that she has home O2. Patient information/[facility] once medically stable for discharge. Patient is expected to discharge tomorrow pending no setbacks.
--- NOTE | 2023-05-30 16:11 | PC.NURSE ---
in room to see Pt
--- NOTE | 2023-05-30 16:47 | PC.NURSE ---
Pt is alert and oriented x4, Pt tolerating 2 L of oxygen and continues to sat in high 90s. Pt offers no complaints and denies pain, Pt seems to rest well. Pt right radial cath insertion site is clean dry intact with small amount of blood on dressing. V/S remain stable.
--- NOTE | 2023-05-30 17:48 | EXP.HP ---
History of Present Illness *Admission Date: 05/30/23 *Reason for visit:: Atypical angina, CAD *History of present illness: Ms. Gonzales is a 67-year-old female that presented to [facility] for elective heart cath today. She had previously been having shortness of breath with recent admissions through the ER for worsening shortness of breath and increased welling in her legs. She has previously been taken for heart cath and found to have multivessel disease. Was transferred to for evaluation of CABG. Patient was deemed to not be a candidate for CABG. She was brought back electively as an outpatient today for left heart cath and stenting of her multivessel disease. Patient tolerated the procedure well with good results (see catheter report below). Additional comorbidities include medical history significant for heart failure with preserved ejection fraction, JODIE/OHS, anemia, diabetes, hypertension and BMI of 44. She is taking her medications as prescribed. Denies any side effects. Denies any syncope, chest pain, nausea, vomiting. Medicine was consulted for admission after heart cath to monitor overnight given the extent of stenting. Patient is hemodynamically stable at this time. Stable on her 2 L nasal cannula oxygen. Denies any chest pain, headache, weakness. IMPRESSION Successful reconstruction of the critically diseased distal left main artery critical greater than 90% stenosis reduced to 0% with bifurcating stents in the distal left main artery extending into the proximal LAD and proximal circumflex artery Successful stenting of a critically diseased ostial LAD reduced to 0% as described above Successful stenting of a critically diseased ostial codominant circumflex artery critical disease reduced to 0% as described above Successful stenting of the mid circumflex artery extending the second obtuse marginal artery severe disease reduced to 0% with 1 drug-eluting stent Successful stenting of the proximal to mid LAD critical disease reduced to 0% as described above Persistent severe disease throughout the codominant right coronary artery [facility] Disclaimer: The information contained in this section may have been updated after the patient was seen, as this information can be updated by other users. Medical History (HFpEF) heart failure with preserved ejection fraction Atypical angina BMI 45.0-49.9, adult Cardiomyopathy Chronic anemia Chronic respiratory failure with hypoxia Diabetes mellitus, type II History of COVID-19 HTN (hypertension) Hyperlipidemia Obesity hypoventilation syndrome JODIE (obstructive sleep apnea) Pacemaker Pulmonary hypertension Surgical History History of cholecystectomy History of left heart catheterization S/P appendectomy Family History Heart attack Cancer Stroke Social History Smoking Status: Former smoker alcohol intake: never substance use type: denies use current occupational status: disabled Travel in the last 8 weeks: None household members: significant other housing: house lives independently: Yes marital status: single education level: high school service: No pets and animals: Yes special isai needs: No do you feel safe at home: Yes victim of physical abuse: No victim of emotional abuse: No victim of sexual abuse: No would you like helpful sources: No Review of Systems Review of Systems Review of systems (narrative): 14 point review of systems performed, pertinent positives and negatives as per HPI Meds Home Medications and Allergies Home Medications Medication Instructions Recorded Confirmed Type blood sugar diagnostic (Advanced 02/15/23 05/30/23 History Glucose Meter Test Strips) insulin glargine 100
[2023-05-31] VITALS: BP 137/54; PULSE 60; RESP 19; TEMP 36.7; O2SAT 96
[2023-05-31 04:00] VITALS: BP 156/58; PULSE 61; RESP 20; TEMP 36.8; O2SAT 96; BMI 48.2
[2023-05-31 06:08] LABS: Eosinophils # 0.1 K/mm3 (0.0-0.4); Lymphocytes # 1.3 K/mm3 (0.7-4.5); Monocytes # 0.6 K/mm3 (0.1-1.0); Red Cell Distribution Width 17.4 % (11.5-17.5); White Blood Count 7.6 K/mm3 (4.8-10.8)
[2023-05-31 06:17] LABS: Chloride 101 mmol/L (98-107); Sodium 136 mmol/L (136-145)
[2023-05-31 06:18] LABS: Potassium 4.5 mmoL/L (3.5-5.1)
[2023-05-31 06:20] LABS: Alanine Aminotransferase 13 U/L (12-78); Albumin Level 2.9 g/dl (3.5-5.0); Alkaline Phosphatase 131 U/L (38-126); Anion Gap 11.5 mEq/L (5-15); Aspartate Amino Transferase 19 U/L (14-36); Bilirubin,Total 0.3 mg/dl (0.2-1.3); Blood Urea Nitrogen 38 mg/dl (7-17); Carbon Dioxide 28 mmol/L (22.0-30.0); Creatinine Clearance Estimated 22 mL/min (50-200); Estimated Glomerular Filt Rate 30 ml/min (>60); GFR (African American) 36 ML/MIN (>60); Globulin 2.9 g/dL (1.3-3.2); Total Protein,Serum 5.8 g/dl (6.3-8.2)
[2023-05-31 06:21] LABS: Calcium 8.7 mg/dl (8.4-10.2); Glucose 147 mg/dl (74-100)
[2023-05-31 06:30] LABS: Basophils % 0.4 % (0.1-2.0); Eosinophils % 1.2 % (0.1-12.0); Hematocrit 28.1 % (37.0-47.0); Lymphocytes % 17.2 % (10-50); Mean Corpuscular HGB Conc 32.2 g/dL (31.8-35.4); Mean Corpuscular Hemoglobin 28.1 pg (27.0-31.2); Mean Corpuscular Volume 87.3 fl (81-99); Mean Platelet Volume 8.6 fl (7.4-10.4); Monocytes % 7.4 % (1.7-9.3); Neutrophils # 5.6 K/mm3 (1.8-7.8); Neutrophils % 73.8 % (37.0-80.0); Platelet Count 215 K/mm3 (142-424); Red Blood Count 3.22 M/mm3 (4.20-5.40)
[2023-05-31 07:46] VITALS: BP 119/42; PULSE 60; RESP 20; TEMP 36.7; O2SAT 96
--- NOTE | 2023-05-31 08:09 | SW/DCPLANNER ---
Addendum entered by Roxanne Sandra 06/01/23 13:09: Patient is currently establish with [facility]: patient information has been faxed. Original Note: This patient does NOT currently resides at [facility] per Yvette rick/ [facility].
--- NOTE | 2023-05-31 08:12 | EXP.DC.SUM ---
General Admission date:: 05/30/23 Discharge date: 05/31/23 HPI HPI HPI: Ms. Gonzales is a 67-year-old female that presented to [facility] for elective heart cath today. She had previously been having shortness of breath with recent admissions through the ER for worsening shortness of breath and increased welling in her legs. She has previously been taken for heart cath and found to have multivessel disease. Was transferred to for evaluation of CABG. Patient was deemed to not be a candidate for CABG. She was brought back electively as an outpatient today for left heart cath and stenting of her multivessel disease. Patient tolerated the procedure well with good results (see catheter report below). Additional comorbidities include medical history significant for heart failure with preserved ejection fraction, JODIE/OHS, anemia, diabetes, hypertension and BMI of 44. She is taking her medications as prescribed. Denies any side effects. Denies any syncope, chest pain, nausea, vomiting. Medicine was consulted for admission after heart cath to monitor overnight given the extent of stenting. Patient is hemodynamically stable at this time. Stable on her 2 L nasal cannula oxygen. Denies any chest pain, headache, weakness. IMPRESSION Successful reconstruction of the critically diseased distal left main artery critical greater than 90% stenosis reduced to 0% with bifurcating stents in the distal left main artery extending into the proximal LAD and proximal circumflex artery Successful stenting of a critically diseased ostial LAD reduced to 0% as described above Successful stenting of a critically diseased ostial codominant circumflex artery critical disease reduced to 0% as described above Successful stenting of the mid circumflex artery extending the second obtuse marginal artery severe disease reduced to 0% with 1 drug-eluting stent Successful stenting of the proximal to mid LAD critical disease reduced to 0% as described above Persistent severe disease throughout the codominant right coronary artery Hospital Course Hospital Course Hospital Course: 68-year-old female brought in for elective heart cath for multivessel disease. Status post stenting. See cath report for full details. Discussed case with cardiology, requested admission for observation overnight given extent of disease and need for repeat labs to monitor kidney function. Patient stable on 2 L nasal cannula oxygen which is her baseline. Stable overnight. Remained asymptomatic. Stable for discharge home. Problems addressed as follows: Chronic heart failure with preserved ejection fraction CAD Hypertension -Status post left heart cath with multiple stents deployed. Continue with dual antiplatelet therapy, Brilinta 90 mg twice daily plus aspirin 81 mg daily. Continue home regimen for blood pressure heart for her loading carvedilol 25 mg twice daily, Lasix 40 mg twice daily, isosorbide mononitrate 30 mg daily, Crestor 20 mg nightly, spironolactone 25 mg twice daily and valsartan 40 mg daily. Patient remained stable on telemetry overnight. Plan to return to cardiology in 2 weeks for staged revascularization of right coronary artery. Diabetes -Continued home on glargine 20 units nightly. Treated with sliding scale insulin during admission. Continue Farxiga 10 mg daily. COPD Chronic hypoxemic respiratory failure -Continue breathing treatments with albuterol 2 puffs as needed. Chronically on oxygen at home. Continue supplemental oxygen at 2 L for goal saturation greater than 88% Stable for discharge home. Close follow-up with cardiology for continued care. Exam Data for Last 24 hours Vital signs and Labs for Last 24 Hours: Temp Pulse Resp BP Pulse Ox O2 Del Method O2 Flow Rate 98.2 F 61 20 156/58 H 96 Nasal Cannula 2 05/31/23 04:00 05/31/23 04:00 05/31/23 04:00 05/31/23 04:00 05/31/23 04:00 05/31/23 06:45 05/31/23 06:45 FiO2 28 05/10
[2023-05-31 09:00] VITALS: BMI 48.2
--- NOTE | 2023-05-31 11:43 | HMH.PHACL ---
PHA Instructional Technology Coach Discharge Med End Maker: Helga Gonzales has received discharge medication counseling on the following medications: -ASPIRIN -BRILINTA -VALSARTAN -CARVEDILOL -ROSUVASTATIN PATIENT VERBALIZED NO QUESTIONS AT THIS TIME.
[2023-06-01 07:19] LABS: POC Glucose,Bedside 260 (70-110)
[2023-06-01 07:19] LABS: POC Glucose,Bedside 166 (70-110)
[2023-06-01 07:19] LABS: POC Glucose,Bedside 218 (70-110)
[2023-06-01 07:19] LABS: POC Glucose,Bedside 308 (70-110)
--- NOTE | 2023-06-01 14:55 | CARE MANAGER ---
Called and spoke with patient regarding recent discharge. Patient stated that she is doing well. No questions or concerns at time of call.
== END 2023-05-31 12:30 | disposition home health service (06) ==
LOC: ICU 10:24
PROVIDERS: Internal Medicine; Admitting Provider Internal Medicine Adolescent Medicine; PCP Family Medicine; Visit Provider Internal Medicine Adolescent Medicine
DX: D64.9 Anemia, unspecified (principal); E11.9 Type 2 diabetes mellitus without complications; E87.70 Fluid overload, unspecified; G47.33 Obstructive sleep apnea (adult) (pediatric); I27.20 Pulmonary hypertension, unspecified; I50.33 Acute on chronic diastolic (congestive) heart failure; J81.1 Chronic pulmonary edema; J96.11 Chronic respiratory failure with hypoxia; N17.9 Acute kidney failure, unspecified; N18.9 Chronic kidney disease, unspecified; Z68.42 Body mass index [BMI] 45.0-49.9, adult; Z95.0 Presence of cardiac pacemaker; I25.5 Ischemic cardiomyopathy; Z79.4 Long term (current) use of insulin; I25.118 Atherosclerotic heart disease of native coronary artery with other forms of angina pectoris; E11.22 Type 2 diabetes mellitus with diabetic chronic kidney disease; I13.0 Hypertensive heart and chronic kidney disease with heart failure and stage 1 through stage 4 chronic kidney disease, or unspecified chronic kidney disease; Z79.899 Other long term (current) drug therapy
CPT/HCPCS: 36415; 80048; 80053; 82962; 83036; 83735; 85025; 85347; 92928; 94640; 94760; 99152; 99153; C1725; C1769; C1876; C9600; G0378; J1644; Q9967

== ENCOUNTER → 2023-06-08 13:01 | Outpatient (CLI) | payer MEDICARE, SELFPAY ==
[2023-06-08 13:37] LABS: Basophils % 0.4 % (0.1-2.0); Eosinophils # 0.2 K/mm3 (0.0-0.4); Eosinophils % 1.6 % (0.1-12.0); Hematocrit 34.8 % (37.0-47.0); Hemoglobin 11.3 g/dL (12.2-16.2); Lymphocytes # 1.3 K/mm3 (0.7-4.5); Lymphocytes % 13.8 % (10-50); Mean Corpuscular HGB Conc 32.4 g/dL (31.8-35.4); Mean Corpuscular Hemoglobin 28.2 pg (27.0-31.2); Mean Corpuscular Volume 87.2 fl (81-99); Mean Platelet Volume 8.8 fl (7.4-10.4); Monocytes # 0.7 K/mm3 (0.1-1.0); Monocytes % 6.9 % (1.7-9.3); Neutrophils # 7.5 K/mm3 (1.8-7.8); Neutrophils % 77.4 % (37.0-80.0); Platelet Count 274 K/mm3 (142-424); Red Blood Count 3.99 M/mm3 (4.20-5.40); Red Cell Distribution Width 16.7 % (11.5-17.5); White Blood Count 9.7 K/mm3 (4.8-10.8)
[2023-06-08 16:21] LABS: Chloride 98 mmol/L (98-107); Sodium 137 mmol/L (136-145)
[2023-06-08 16:22] LABS: Potassium 4.4 mmoL/L (3.5-5.1)
[2023-06-08 16:24] LABS: Blood Urea Nitrogen 33 mg/dl (7-17); Estimated Glomerular Filt Rate 30 ml/min (>60); GFR (African American) 36 ML/MIN (>60)
[2023-06-08 16:25] LABS: Anion Gap 14.4 mEq/L (5-15); Calcium 9.4 mg/dl (8.4-10.2); Carbon Dioxide 29 mmol/L (22.0-30.0); Glucose 113 mg/dl (74-100)
== END ==
PROVIDERS: PCP Family Medicine; Visit Provider Internal Medicine
DX: I25.10 Atherosclerotic heart disease of native coronary artery without angina pectoris (principal); Z95.5 Presence of coronary angioplasty implant and graft
CPT/HCPCS: 36415; 80048; 85025

== ENCOUNTER → 2023-06-26 09:35 | Outpatient (CLI) | payer MEDICARE, SELFPAY ==
[2023-06-26 10:20] VITALS: PULSE 60
== END ==
PROVIDERS: PCP Family Medicine; Visit Provider Family Medicine
DX: R06.09 Other forms of dyspnea (principal)
CPT/HCPCS: 94060; 94640; 94727; 94729

== ENCOUNTER 2023-06-29 11:06 | Observation (INO) | payer MEDICARE, SELFPAY ==
[2023-06-20 12:45] VITALS: BP 136/59; PULSE 60; RESP 16; TEMP 36.5; O2SAT 94
[2023-06-23 15:53] VITALS: BP 125/68; PULSE 60; RESP 16; TEMP 36.6; O2SAT 98
[2023-06-29] VITALS (20 sets, daily range): BP systolic 125–159; BP diastolic 49–110; PULSE 60–75; RESP 16–20; TEMP 36.5–36.8; O2SAT 91–98; BMI 42.0; BMI 43.1
--- NOTE | 2023-06-29 07:17 | IR_ITS ---
APPROVED REPORT Patient Location: Outpatient PROCEDURES Eluting stent deployment to the proximal mid and distal co-dominant right coronary artery in a contiguous manner INDICATION Ischemic cardiomyopathy, Nonsurgical candidate for bypass surgery, Coronary artery disease Informed consent was obtained prior to the procedure. COMPLICATIONS NONE Estimated Blood Loss: LESS THAN 10 ML TECHNIQUE One percent lidocaine used to anesthetize the right anterior aspect of the wrist. The right radial artery was accessed via the Seldinger technique. A 6 [place] sheath was placed in the right radial artery. 2.5 mg of Verapamil, 800 mcg of nitroglycerin, 1mg Lidocaine and 5000 U Heparin were given through the arterial sheath. Therapeutic heparin was administered given therapeutic ACT and the [place] catheter was used to intubate the right coronary artery. A Choice PT extra-support wire was placed distally and two 3 mm x 38 mm [place] frontier stents were deployed at 20 jeannie in the proximal and mid segment yet still overlapping 1 another reducing the stenoses. An additional 2.75 x 22 mm [place] frontier stent was placed distal to the second stent yet still overlapping it and deployed at 18 jeannie reducing the stenosis to 0%. 25 cc of contrast was used for the entire diagnostic procedure. NELY-3 flow was present before and after the procedure. At the end of procedure the apparatus was removed the sheath was removed and hemostasis achieved using TR banding patient was transferred to the postop holding in stable condition IMPRESSION Severe disease throughout the codominant right coronary Successful reconstruction of the proximal mid and distal right coronary artery severe disease reduced to 0% with 3 contiguous drug-eluting stents PLAN 1. Admit overnight due to CKD with a baseline creatinine of 2 2. Gentle IV fluids 3. Check chemistry panel in the morning given LV dysfunction and renal insufficiency Electronically signed by : Kyler Diaz MD 06/29/2023 10:58:16
[2023-06-29 08:14] LABS: Basophils % 0.4 % (0.1-2.0); Eosinophils # 0.2 K/mm3 (0.0-0.4); Eosinophils % 1.7 % (0.1-12.0); Hematocrit 37.5 % (37.0-47.0); Hemoglobin 11.6 g/dL (12.2-16.2); Lymphocytes # 1.3 K/mm3 (0.7-4.5); Lymphocytes % 15.2 % (10-50); Mean Corpuscular HGB Conc 30.9 g/dL (31.8-35.4); Mean Corpuscular Hemoglobin 26.8 pg (27.0-31.2); Mean Corpuscular Volume 86.6 fl (81-99); Mean Platelet Volume 8.4 fl (7.4-10.4); Monocytes # 0.6 K/mm3 (0.1-1.0); Monocytes % 7.4 % (1.7-9.3); Neutrophils # 6.4 K/mm3 (1.8-7.8); Neutrophils % 75.2 % (37.0-80.0); Platelet Count 242 K/mm3 (142-424); Red Blood Count 4.34 M/mm3 (4.20-5.40); Red Cell Distribution Width 15.8 % (11.5-17.5); White Blood Count 8.6 K/mm3 (4.8-10.8)
[2023-06-29 08:19] LABS: Anion Gap 17.4 mEq/L (5-15); Blood Urea Nitrogen 46 mg/dl (7-17); Calcium 8.9 mg/dl (8.4-10.2); Carbon Dioxide 25 mmol/L (22.0-30.0); Chloride 98 mmol/L (98-107); Creatinine Clearance Estimated 24 mL/min (50-200); Estimated Glomerular Filt Rate 25 ml/min (>60); GFR (African American) 30 ML/MIN (>60); Glucose 398 mg/dl (74-100); Potassium 5.4 mmoL/L (3.5-5.1); Sodium 135 mmol/L (136-145)
--- NOTE | 2023-06-29 11:15 | HMH.PHAINT1 ---
Pharmacy Intervention Comments: MEDICATION RECONCILIATION COMPLETED ON PATIENT USING EXTERNAL FILL HISTORY FROM PHARMACY. -CHAVEZ SHERWOOD, PARVEZD
--- NOTE | 2023-06-29 12:49 | EXP.HP ---
History of Present Illness *Admission Date: 06/29/23 *Reason for visit:: Atypical angina, CAD *History of present illness: Ms. Gonzales is a 67-year-old female that presented to [facility] for elective heart cath today. She had previously been having shortness of breath with recent admissions through the ER for worsening shortness of breath and increased welling in her legs. She has previously been taken for heart cath and found to have multivessel disease. Was transferred to for evaluation of CABG. Patient was deemed to not be a candidate for CABG. She was brought back electively as an outpatient today for left heart cath and stenting of her multivessel disease. Patient tolerated the procedure well with good results (see catheter report below). Additional comorbidities include medical history significant for heart failure with preserved ejection fraction, JODIE/OHS, anemia, diabetes, hypertension and BMI of 44. She is taking her medications as prescribed. Denies any side effects. Denies any syncope, chest pain, nausea, vomiting. Medicine was consulted for admission after heart cath to monitor overnight given the extent of stenting. Patient is hemodynamically stable at this time. Stable on her 2 L nasal cannula oxygen. Denies any chest pain, headache, weakness. Previous admission to go for for stage of stenting with focus on LAD and circumflex. Today's focus was right coronary artery. Patient necessitating admission for monitoring overnight given severity of disease and chronic kidney disease along with contrast load. Serial labs to monitor kidney function. IMPRESSION Severe disease throughout the codominant right coronary Successful reconstruction of the proximal mid and distal right coronary artery severe disease reduced to 0% with 3 contiguous drug-eluting stents [facility] Disclaimer: The information contained in this section may have been updated after the patient was seen, as this information can be updated by other users. Medical History (HFpEF) heart failure with preserved ejection fraction Atypical angina BMI 45.0-49.9, adult Cardiomyopathy Chronic anemia Chronic respiratory failure with hypoxia Diabetes mellitus, type II History of COVID-19 HTN (hypertension) Hyperlipidemia Obesity hypoventilation syndrome JODIE (obstructive sleep apnea) Pacemaker Pulmonary hypertension Surgical History History of cholecystectomy History of left heart catheterization S/P appendectomy Family History Heart attack Cancer Stroke Social History Smoking Status: Former smoker alcohol intake: never substance use type: denies use current occupational status: disabled Travel in the last 8 weeks: Inside the [place] household members: significant other housing: house lives independently: Yes marital status: single education level: high school service: No pets and animals: Yes special isai needs: No do you feel safe at home: Yes victim of physical abuse: No victim of emotional abuse: No victim of sexual abuse: No would you like helpful sources: No Review of Systems Review of Systems Review of systems (narrative): 14 point review of systems performed, pertinent positives and negatives as per HPI Meds Home Medications and Allergies Home Medications Medication Instructions Recorded Confirmed Type blood sugar diagnostic (Advanced 02/15/23 06/29/23 History Glucose Meter Test Strips) insulin glargine 100 unit/mL (3 20 unit SQ HS Diabetes 02/15/23 06/29/23 History mL) subcutaneous pen (Lantus Solostar U-100 Insulin) potassium chloride 10 mEq 10 meq PO DAILY potassium 03/16/23 06/29/23 History capsule,extended release replacement aspirin 81 mg
--- NOTE | 2023-06-29 13:58 | PC.NURSE ---
Some bleeding noted and 2 ml of air instilled to right wristband.
[2023-06-29 13:59] LABS: CATHL Activated Clotting Time 324 SEC (74-125)
--- NOTE | 2023-06-29 14:42 | PC.NURSE ---
right arm band removed and 2x2 tegaderm placed c/d/i.
[2023-06-29 16:30] LABS: POC Glucose,Bedside 260 (70-110)
[2023-06-29 18:23] LABS: Chloride 104 mmol/L (98-107); Potassium 4.9 mmoL/L (3.5-5.1); Sodium 136 mmol/L (136-145)
[2023-06-29 18:26] LABS: Anion Gap 13.9 mEq/L (5-15); Blood Urea Nitrogen 41 mg/dl (7-17); Carbon Dioxide 23 mmol/L (22.0-30.0); Creatinine Clearance Estimated 25 mL/min (50-200); Estimated Glomerular Filt Rate 26 ml/min (>60); GFR (African American) 32 ML/MIN (>60)
[2023-06-29 18:27] LABS: Calcium 8.3 mg/dl (8.4-10.2); Glucose 291 mg/dl (74-100)
[2023-06-29 19:55] LABS: POC Glucose,Bedside 340 (70-110)
[2023-06-30] VITALS: PULSE 60
[2023-06-30 04:00] VITALS: BP 137/65; PULSE 60; RESP 16; TEMP 36.7; O2SAT 93; BMI 43.0
[2023-06-30 05:32] LABS: POC Glucose,Bedside 186 (70-110)
--- NOTE | 2023-06-30 05:44 | PC.NURSE ---
denies soa, chest pain to shift. right radial dsg had scant amount of dried red drainage from 06/30, changed dsg with 4x4 and tegaderm. 22 g CHRIS. 2+/3+ edema to bilateral extremities.
[2023-06-30 06:28] LABS: Basophils % 0.3 % (0.1-2.0); Eosinophils # 0.2 K/mm3 (0.0-0.4); Eosinophils % 1.8 % (0.1-12.0); Hematocrit 33.3 % (37.0-47.0); Lymphocytes # 1.5 K/mm3 (0.7-4.5); Lymphocytes % 18.4 % (10-50); Mean Corpuscular HGB Conc 31.1 g/dL (31.8-35.4); Mean Platelet Volume 8.5 fl (7.4-10.4); Monocytes # 0.6 K/mm3 (0.1-1.0); Monocytes % 7.4 % (1.7-9.3); Neutrophils # 5.7 K/mm3 (1.8-7.8); Neutrophils % 72.1 % (37.0-80.0); Platelet Count 215 K/mm3 (142-424); Red Blood Count 3.83 M/mm3 (4.20-5.40); Red Cell Distribution Width 16.1 % (11.5-17.5)
[2023-06-30 06:37] LABS: Anion Gap 10.7 mEq/L (5-15); Blood Urea Nitrogen 38 mg/dl (7-17); Calcium 8.4 mg/dl (8.4-10.2); Carbon Dioxide 26 mmol/L (22.0-30.0); Chloride 104 mmol/L (98-107); Creatinine Clearance Estimated 25 mL/min (50-200); Estimated Glomerular Filt Rate 26 ml/min (>60); GFR (African American) 32 ML/MIN (>60); Glucose 188 mg/dl (74-100); Potassium 4.7 mmoL/L (3.5-5.1); Sodium 136 mmol/L (136-145)
[2023-06-30 06:39] LABS: Hemoglobin 10.4 g/dL (12.2-16.2)
[2023-06-30 07:26] VITALS: BP 138/67; PULSE 60; RESP 18; TEMP 36.8; O2SAT 97
--- NOTE | 2023-06-30 07:27 | EXP.DC.SUM ---
General Admission date:: 06/29/23 Discharge date: 06/30/23 HPI HPI HPI: Ms. Gonzales is a 67-year-old female that presented to [facility] for elective heart cath today. She had previously been having shortness of breath with recent admissions through the ER for worsening shortness of breath and increased welling in her legs. She has previously been taken for heart cath and found to have multivessel disease. Was transferred to for evaluation of CABG. Patient was deemed to not be a candidate for CABG. She was brought back electively as an outpatient today for left heart cath and stenting of her multivessel disease. Patient tolerated the procedure well with good results (see catheter report below). Additional comorbidities include medical history significant for heart failure with preserved ejection fraction, JODIE/OHS, anemia, diabetes, hypertension and BMI of 44. She is taking her medications as prescribed. Denies any side effects. Denies any syncope, chest pain, nausea, vomiting. Medicine was consulted for admission after heart cath to monitor overnight given the extent of stenting. Patient is hemodynamically stable at this time. Stable on her 2 L nasal cannula oxygen. Denies any chest pain, headache, weakness. Previous admission to go for for stage of stenting with focus on LAD and circumflex. Today's focus was right coronary artery. Patient necessitating admission for monitoring overnight given severity of disease and chronic kidney disease along with contrast load. Serial labs to monitor kidney function. IMPRESSION Severe disease throughout the codominant right coronary Successful reconstruction of the proximal mid and distal right coronary artery severe disease reduced to 0% with 3 contiguous drug-eluting stents Hospital Course Hospital Course Hospital Course: 68-year-old female brought in for elective heart cath for multivessel disease. Status post stenting. See cath report for full details. Discussed case with cardiology, requested admission for observation overnight given extent of disease and need for repeat labs to monitor kidney function. Patient stable on room air overnight. Remained asymptomatic. Stable for discharge home. Problems addressed as follows: Chronic heart failure with preserved ejection fraction CAD Hypertension -Status post left heart cath with multiple stents deployed in RCA. Continue with dual antiplatelet therapy, Brilinta 90 mg twice daily plus aspirin 81 mg daily. Continue home regimen for blood pressure carvedilol 25 mg twice daily, Lasix 40 mg twice daily, isosorbide mononitrate 30 mg daily, Crestor 20 mg nightly, spironolactone 25 mg twice daily and valsartan 40 mg daily. Patient remained stable on telemetry overnight. Diabetes -Continued home on glargine 20 units nightly. Treated with sliding scale insulin during admission. Continue Farxiga 10 mg daily. COPD Chronic hypoxemic respiratory failure -Continue breathing treatments with albuterol 2 puffs as needed. Chronically on oxygen at home. Continue supplemental oxygen as needed for goal saturation greater than 88% Stable for discharge home. Close follow-up with cardiology for continued care. Exam Data for Last 24 hours Vital signs and Labs for Last 24 Hours: Temp Pulse Resp BP Pulse Ox O2 Del Method O2 Flow Rate 98.0 F 60 16 137/65 93 L Room Air 95 06/30/23 04:00 06/30/23 04:00 06/30/23 04:00 06/30/23 04:00 06/30/23 04:00 06/30/23 06:08 06/29/23 12:02 Laboratory Results - last 24 hr 06/29/23 08:00: WBC 8.6, RBC 4.34, Hgb 11.6 L, Hct 37.5, MCV 86.6, MCH 26.8 L, MCHC 30.9 L, RDW 15.8, Plt Count 242, MPV 8.4, Neut % (Auto) 75.2, Lymph % (Auto) 15.2, Emmons % (Auto) 7.4, Eos % (Auto) 1.7, Baso % (Auto) 0.4, Neut # (Auto) 6.4, Lymph # (Auto) 1.3, Emmons # (Auto) 0.6, Eos # (Auto) 0.2, Baso # (Auto) 0.0, Sodium 135 L, Potassium 5.4 H, Chloride 98, Carbon Dioxide 25, Anion Gap 17.4 H, BUN 46 H, Creatinin
[2023-06-30 08:00] VITALS: PULSE 60
--- NOTE | 2023-06-30 09:15 | EXP.CARD.PN ---
Subjective Subjective Date: 06/30/23 Time: 09:15 Principal diagnosis: CAD, CKD Interval history: 68-year-old white female with known three-vessel coronary artery disease and staged stenting after being rejected for coronary bypass grafting was admitted post cath yesterday due to contrast use. Patient has done well overnight with a.m. creatinine 1.9 (stable). Patient has no chest pain. Exam Data for Last 24 hours Vital signs and Labs for Last 24 Hours: Temp Pulse Resp BP Pulse Ox O2 Del Method O2 Flow Rate 98.3 F 60 18 138/67 97 Room Air 95 06/30/23 07:06/30/23 07:06/30/23 07:06/30/23 07:06/30/23 07:06/30/23 07:06/29/23 12:02 Laboratory Results - last 24 hr 06/29/23 10:32: Activated Clotting Time 324 H* 06/29/23 16:23: POC Glucose 260 H 06/29/23 18:00: Sodium 136, Potassium 4.9, Chloride 104, Carbon Dioxide 23, Anion Gap 13.9, BUN 41 H, Creatinine 1.90 H, Estimated Creat Clear 25, Estimated GFR 26 L, Est GFR ( Amer) 32 L, Glucose 291 H D, Calcium 8.3 L 06/29/23 19:43: POC Glucose 340 H* 06/30/23 05:24: POC Glucose 186 H 06/30/23 06:04: WBC 8.0, RBC 3.83 L, Hgb 10.4 L D, Hct 33.3 L, MCV 87.0, MCH 27.0, MCHC 31.1 L, RDW 16.1, Plt Count 215, MPV 8.5, Neut % (Auto) 72.1, Lymph % (Auto) 18.4, Winston % (Auto) 7.4, Eos % (Auto) 1.8, Baso % (Auto) 0.3, Neut # (Auto) 5.7, Lymph # (Auto) 1.5, Winston # (Auto) 0.6, Eos # (Auto) 0.2, Baso # (Auto) 0.0, Sodium 136, Potassium 4.7, Chloride 104, Carbon Dioxide 26, Anion Gap 10.7, BUN 38 H, Creatinine 1.90 H, Estimated Creat Clear 25, Estimated GFR 26 L, Est GFR ( Amer) 32 L, Glucose 188 H D, Calcium 8.4 I & O for Last 24 hours: Intake & Output 06/27/23 06/28/23 06/29/23 06/30/23 11:59 11:59 11:59 11:59 Intake Total 1666 / 1666 Output Total 2300 / 2300 Balance -634 / -634 Weight 251 lb 6 oz 252 lb 2 oz Constitutional Constitutional: no acute distress *Routine Respiratory Exam Respiratory: Present CTA bilaterally *Routine Cardiovascular Exam Cardiovascular: Present RRR Progress Note: A&P Assessment and plan (1) CAD (coronary artery disease): Status: Acute (2) Cardiomyopathy: Status: Acute (3) Pulmonary hypertension: Status: Acute (4) Chronic respiratory failure with hypoxia: Status: Acute (5) BMI 40.0-44.9, adult: Status: Acute (6) HTN (hypertension): Status: Acute (7) Pacemaker: Status: Acute (8) Diabetes: Status: Acute (9) JODIE (obstructive sleep apnea): Status: Acute Assessment and Plan Assessment and Plan for All Diagnoses:: 1. CAD status post drug-eluting stent placement to RCA yesterday. Patient is stable and ready for discharge home. She will continue DAPT therapy with aspirin and Brilinta 2. CKD, stage III. Stable post contrast use. 3. Pulmonary hypertension 4. Hyperlipidemia, continue statin therapy 5. Hypertension, controlled Clinically stable from a cardiac standpoint for discharge home. Resume home medications: Aspirin 81 mg daily Coreg 25 mg twice daily Farxiga 10 mg daily Furosemide 40 mg twice daily Potassium 10 mill equivalents daily Isosorbide mononitrate 30 mg daily Magnesium oxide 40 mg twice daily Pantoprazole 40 mg daily Rosuvastatin for 20 milligrams daily Spironolactone 25 mg twice daily Brilinta 90 mg twice daily Valsartan 40 mg daily Follow-up in our office in 1 to 2 weeks
--- NOTE | 2023-06-30 10:31 | HMH.PHACL ---
PHA Operations Analyst Discharge Med Tile Setter Supervisor: Helga Gonzales has received discharge medication counseling on the following medications: -ASPIRIN -CARVEDILOL -ROSUVASTATIN -BRILINTA -VALSARTAN
== END 2023-06-30 11:20 | disposition home or self-care (01) ==
LOC: 2ND 11:07
PROVIDERS: Internal Medicine; Admitting Provider Internal Medicine Adolescent Medicine; PCP Family Medicine; Visit Provider Internal Medicine Adolescent Medicine
DX: E11.22 Type 2 diabetes mellitus with diabetic chronic kidney disease (principal); G47.33 Obstructive sleep apnea (adult) (pediatric); I25.118 Atherosclerotic heart disease of native coronary artery with other forms of angina pectoris; I27.20 Pulmonary hypertension, unspecified; J96.11 Chronic respiratory failure with hypoxia; R60.9 Edema, unspecified; Z68.41 Body mass index [BMI] 40.0-44.9, adult; Z95.0 Presence of cardiac pacemaker; I25.5 Ischemic cardiomyopathy; I13.0 Hypertensive heart and chronic kidney disease with heart failure and stage 1 through stage 4 chronic kidney disease, or unspecified chronic kidney disease; Z79.4 Long term (current) use of insulin; N18.9 Chronic kidney disease, unspecified; Z79.899 Other long term (current) drug therapy
CPT/HCPCS: 36415; 80048; 82962; 85025; 85347; 92928; 99152; C1725; C1760; C1769; C1874; C1876; C9600; G0378; J1644; Q9967

== ENCOUNTER → 2023-07-10 09:18 | Outpatient (CLI) | payer MEDICARE, SELFPAY ==
[2023-07-10 10:18] LABS: Blood Urea Nitrogen 51 mg/dl (7-17); Estimated Glomerular Filt Rate 26 ml/min (>60); GFR (African American) 32 ML/MIN (>60)
[2023-07-10 13:42] LABS: Hematocrit 33.8 % (37.0-47.0); Hemoglobin 10.9 g/dL (12.2-16.2)
== END ==
PROVIDERS: PCP Family Medicine; Visit Provider Internal Medicine
DX: I25.10 Atherosclerotic heart disease of native coronary artery without angina pectoris (principal); I27.20 Pulmonary hypertension, unspecified; J96.11 Chronic respiratory failure with hypoxia; Z95.0 Presence of cardiac pacemaker; E11.9 Type 2 diabetes mellitus without complications; Z79.4 Long term (current) use of insulin; Z87.891 Personal history of nicotine dependence; I10 Essential (primary) hypertension
CPT/HCPCS: 36415; 82565; 84520; 85014; 85018

== ENCOUNTER 2023-10-19 19:36 | Outpatient (CLI) | payer MEDICARE, SELFPAY ==
[2023-10-19 19:58] LABS: Basophils % 0.3 % (0.1-2.0); Eosinophils # 0.1 K/mm3 (0.0-0.4); Eosinophils % 1.1 % (0.1-12.0); Hemoglobin 11.1 g/dL (12.2-16.2); Lymphocytes # 1.4 K/mm3 (0.7-4.5); Lymphocytes % 15.1 % (10-50); Mean Corpuscular HGB Conc 32.6 g/dL (31.8-35.4); Mean Corpuscular Hemoglobin 29.1 pg (27.0-31.2); Mean Corpuscular Volume 89.2 fl (81-99); Mean Platelet Volume 9.2 fl (7.4-10.4); Monocytes # 0.7 K/mm3 (0.1-1.0); Monocytes % 7.4 % (1.7-9.3); Neutrophils # 7.1 K/mm3 (1.8-7.8); Neutrophils % 76.1 % (37.0-80.0); Platelet Count 247 K/mm3 (142-424); Red Blood Count 3.82 M/mm3 (4.20-5.40); Red Cell Distribution Width 14.7 % (11.5-17.5); White Blood Count 9.3 K/mm3 (4.8-10.8)
[2023-10-19 20:11] LABS: Chloride 99 mmol/L (98-107); Sodium 136 mmol/L (136-145)
[2023-10-19 20:13] LABS: Blood Urea Nitrogen 43 mg/dl (7-17); Estimated Glomerular Filt Rate 25 ml/min (>60); GFR (African American) 30 ML/MIN (>60)
[2023-10-19 20:14] LABS: Alanine Aminotransferase 13 U/L (12-78); Albumin Level 3.5 g/dl (3.5-5.0); Albumin/Globulin Ratio 1.3 (1.1-1.8); Alkaline Phosphatase 218 U/L (38-126); Aspartate Amino Transferase 20 U/L (14-36); Bilirubin,Total 0.5 mg/dl (0.2-1.3); Calcium 8.3 mg/dl (8.4-10.2); Carbon Dioxide 26 mmol/L (22.0-30.0); Cholesterol 154 mg/dl (140-200); Globulin 2.8 g/dL (1.3-3.2); Glucose 169 mg/dl (74-100); Total Protein,Serum 6.3 g/dl (6.3-8.2); Triglycerides 171 mg/dl (30-150); VLDL Cholesterol 34 mg/dL (0-40)
[2023-10-19 20:15] LABS: Chol/HDL Ratio 4.7 (1-3.5); HDL Cholesterol 33 mg/dl (40-60)
[2023-10-19 20:26] LABS: Direct LDL Cholesterol 83.96 mg/dL (100-129)
[2023-10-19 20:45] LABS: Thyroid Stimulating Hormone 1.57 uIU/mL (0.465-4.68)
[2023-10-19 21:23] LABS: Hemoglobin A1C 10.6 % (4.0-6.0)
== END 2023-10-19 23:59 ==
LOC: LAB.DROPOF 19:37
PROVIDERS: PCP Family Medicine; Visit Provider Family Medicine
DX: E11.9 Type 2 diabetes mellitus without complications (principal); I10 Essential (primary) hypertension; Z79.4 Long term (current) use of insulin; Z79.899 Other long term (current) drug therapy
CPT/HCPCS: 80053; 80061; 83036; 84443; 85025

== ENCOUNTER 2023-11-14 12:55 | Outpatient (CLI) | payer MEDICARE, SELFPAY ==
--- NOTE | 2023-11-14 12:58 | CA_ITS ---
APPROVED REPORT EXAM: Comprehensive 2D, Doppler, and color-flow Echocardiogram [employer] Lawyer: Hailey Cleveland RT(R) Ht: 5 ft 4 in Wt: 252lbs BSA: 2.16 BP: 130/58 mmHg Indications: CM, ex smoker, HTN, DM, hyperlipidemia, PHTN, JODIE, CAD, EF 40-50% on echo 03/16/23 2D Dimensions LVEF (Rodriguez's) 57.40 % F: 54 - 74 LV Volume 118.00 mL F: 46 - 106 LV Volume Index 54.6 mL/m2 F: 29 - 61 LA Volume 63.70 mL LA Volume Index 29.49 mL/m2 (M/F) 16-34 EF AP4 52.50 % EF AP2 61.2 % EF BP 57.4 % GL Strain -12.7 % M-Mode Dimensions RVDd 2.72 cm (0.9-2.6) LA Diam 4.44 cm (1.9-4.0) LVDd 4.91 cm (3.5-5.7) LVDs 3.66 cm (3.5-5.7) IVSd 0.89 cm (0.6-1.1) PWd 1.03 cm (0.6-1.1) EF (Teich) 50.10% FS 25.50% EDV (Teich) 113.40 mL ESV (Teich) 56.60 mL LV Diastology E Decel Time 250 (160-240 msec) E/A Ratio 1.4 Mitral Valve MV E Max Antione. 92.0 (40-130 cm/s) MV A Velocity 68.0 (40-130 cm/s) E/A Ratio 1.35 MV PHT 73.0 ms Tricuspid Valve TR P. Velocity 295.00 cm/s RAP Estimate 10.00 mmHg RVSP 44.80 mmHg Left Ventricle The left ventricle is normal size. The left ventricular systolic function is normal. The left ventricular ejection fraction is within the normal range. There is increased LV wall thickness. There is normal LV segmental wall motion. The left ventricular diastolic function is normal. LVEF is 55%. Right Ventricle The right ventricle is mildly dilated. The right ventricular systolic function is normal. There is a device lead present in the right ventricle. Atria The left atrium is mildly dilated. The right atrium size is normal. There is no Doppler evidence of interatrial shunt. Aortic Valve The aortic valve is mildly thickened. Aortic sclerosis is present, but no evidence of aortic stenosis. Trace aortic regurgitation. Mitral Valve There is mild mitral annular calcification. The mitral valve leaflets are mildly thickened. No evidence of mitral valve stenosis. Trace mitral regurgitation. Tricuspid Valve The tricuspid valve leaflets are thin and pliable. Mild tricuspid regurgitation. RVSP is 30-35 mmHg. Pulmonic Valve The pulmonary valve is normal in structure. Trace pulmonic regurgitation. Great Vessels The aortic root is normal in size. The ascending aorta is normal in size. IVC is normal in size and collapses >50% with inspiration. Pericardium There is no pericardial effusion. Other Information Study Quality: Fair Conclusion Normal biventricular systolic function. Mild RV dilation. Mild TR. RVSP 30-35 mmHg. Electronically signed by : Mayte Rodriguez MD 11/18/2023 22:40:33
[2023-11-14 13:59] LABS: Basophils % 0.5 % (0.1-2.0); Eosinophils # 0.1 K/mm3 (0.0-0.4); Eosinophils % 1.2 % (0.1-12.0); Hematocrit 38.2 % (37.0-47.0); Hemoglobin 12.3 g/dL (12.2-16.2); Lymphocytes # 1.6 K/mm3 (0.7-4.5); Lymphocytes % 19.8 % (10-50); Mean Corpuscular HGB Conc 32.2 g/dL (31.8-35.4); Mean Corpuscular Hemoglobin 28.2 pg (27.0-31.2); Mean Corpuscular Volume 87.4 fl (81-99); Mean Platelet Volume 8.8 fl (7.4-10.4); Monocytes # 0.4 K/mm3 (0.1-1.0); Monocytes % 5.6 % (1.7-9.3); Neutrophils # 5.7 K/mm3 (1.8-7.8); Neutrophils % 72.9 % (37.0-80.0); Platelet Count 244 K/mm3 (142-424); Red Blood Count 4.36 M/mm3 (4.20-5.40); White Blood Count 7.9 K/mm3 (4.8-10.8)
[2023-11-14 14:51] LABS: Chloride 97 mmol/L (98-107)
[2023-11-14 14:52] LABS: Potassium 4.5 mmoL/L (3.5-5.1); Sodium 131 mmol/L (136-145)
[2023-11-14 14:54] LABS: Alanine Aminotransferase 16 U/L (12-78); Anion Gap 11.5 mEq/L (5-15); Aspartate Amino Transferase 19 U/L (14-36); Bilirubin,Direct 0.3 mg/dl (0.0-0.4); Bilirubin,Indirect 0.3 mg/dL (0.0-0.9); Bilirubin,Total 0.6 mg/dl (0.2-1.3); Bilirubin,Unconjugated 0.3 mg/dL (0.0-1.1); Blood Urea Nitrogen 38 mg/dl (7-17); Carbon Dioxide 27 mmol/L (22.0-30.0); Cholesterol 184 mg/dl (140-200); Estimated Glomerular Filt Rate 26 ml/min (>60); GFR (African American) 32 ML/MIN (>60); Triglycerides 224 mg/dl (30-150); VLDL Cholesterol 45 mg/dL (0-40)
[2023-11-14 14:55] LABS: Albumin Level 3.7 g/dl (3.5-5.0); Alkaline Phosphatase 272 U/L (38-126); Calcium 8.6 mg/dl (8.4-10.2); Chol/HDL Ratio 5.1 (1-3.5); HDL Cholesterol 36 mg/dl (40-60); Total Protein,Serum 6.7 g/dl (6.3-8.2)
[2023-11-14 14:57] LABS: Free T4 (Free Thyroxine) 0.98 ng/dl (0.78-2.19)
[2023-11-14 15:00] LABS: Glucose 444 mg/dl (74-100)
[2023-11-14 15:06] LABS: Direct LDL Cholesterol 99.21 mg/dL (100-129)
[2023-11-14 15:25] LABS: Thyroid Stimulating Hormone 1.24 uIU/mL (0.465-4.68)
== END 2023-11-14 23:59 ==
LOC: RT 12:56
PROVIDERS: PCP Family Medicine; Visit Provider Physician Assistant
DX: E11.9 Type 2 diabetes mellitus without complications (principal); G47.33 Obstructive sleep apnea (adult) (pediatric); I27.20 Pulmonary hypertension, unspecified; J96.11 Chronic respiratory failure with hypoxia; Z68.41 Body mass index [BMI] 40.0-44.9, adult; Z95.0 Presence of cardiac pacemaker; R60.9 Edema, unspecified; I42.8 Other cardiomyopathies; I20.89 Other forms of angina pectoris; E66.9 Obesity, unspecified; Z79.4 Long term (current) use of insulin
CPT/HCPCS: 36415; 80048; 80061; 80076; 83735; 84439; 84443; 85025; 93306

== ENCOUNTER 2024-02-14 10:24 | Outpatient (CLI) | payer MEDICARE, SELFPAY ==
[2024-02-14 19:34] LABS: Alanine Aminotransferase 10 U/L (12-78); Albumin Level 3.8 g/dl (3.5-5.0); Albumin/Globulin Ratio 1.4 (1.1-1.8); Alkaline Phosphatase 223 U/L (38-126); Anion Gap 14.2 mEq/L (5-15); Aspartate Amino Transferase 18 U/L (14-36); Bilirubin,Total 0.5 mg/dl (0.2-1.3); Blood Urea Nitrogen 39 mg/dl (7-17); Carbon Dioxide 29 mmol/L (22.0-30.0); Chloride 99 mmol/L (98-107); Estimated Glomerular Filt Rate 28 ml/min (>60); GFR (African American) 34 ML/MIN (>60); Globulin 2.7 g/dL (1.3-3.2); Glucose 132 mg/dl (74-100); Potassium 4.2 mmoL/L (3.5-5.1); Sodium 138 mmol/L (136-145); Total Protein,Serum 6.5 g/dl (6.3-8.2)
[2024-02-14 19:37] LABS: Hemoglobin A1C 9.3 % (4.0-6.0)
[2024-02-14 20:02] LABS: Thyroid Stimulating Hormone 0.98 uIU/mL (0.465-4.68)
== END 2024-02-14 23:59 | disposition home or self-care (01) ==
PROVIDERS: PCP Family Medicine; Visit Provider Family Medicine
DX: Z95.0 Presence of cardiac pacemaker (principal); E11.9 Type 2 diabetes mellitus without complications; I10 Essential (primary) hypertension; Z79.4 Long term (current) use of insulin; R60.0 Localized edema; Z79.899 Other long term (current) drug therapy
CPT/HCPCS: 80053; 83036; 84443

== ENCOUNTER 2024-03-20 14:52 | Outpatient (CLI) | payer MEDICARE, SELFPAY ==
[2024-03-20 19:34] LABS: Alanine Aminotransferase 12 U/L (12-78); Albumin Level 3.8 g/dl (3.5-5.0); Albumin/Globulin Ratio 1.4 (1.1-1.8); Alkaline Phosphatase 221 U/L (38-126); Anion Gap 15.7 mEq/L (5-15); Aspartate Amino Transferase 19 U/L (14-36); Bilirubin,Total 0.9 mg/dl (0.2-1.3); Blood Urea Nitrogen 35 mg/dl (7-17); Calcium 8.5 mg/dl (8.4-10.2); Carbon Dioxide 27 mmol/L (22.0-30.0); Chloride 97 mmol/L (98-107); Estimated Glomerular Filt Rate 23 ml/min (>60); GFR (African American) 28 ML/MIN (>60); Globulin 2.8 g/dL (1.3-3.2); Glucose 334 mg/dl (74-100); Potassium 4.7 mmoL/L (3.5-5.1); Sodium 135 mmol/L (136-145); Total Protein,Serum 6.6 g/dl (6.3-8.2)
== END 2024-03-20 23:59 | disposition home or self-care (01) ==
LOC: LAB.DROPOF 03-21 14:52
PROVIDERS: PCP Family Medicine; Visit Provider Family Medicine
DX: N18.4 Chronic kidney disease, stage 4 (severe) (principal)
CPT/HCPCS: 80053

== ENCOUNTER 2024-04-19 11:20 | Outpatient (CLI) | payer MEDICARE, SELFPAY ==
[2024-04-19 18:31] LABS: Hemoglobin A1C 8.1 % (4.0-6.0)
[2024-04-19 19:14] LABS: Alanine Aminotransferase 10 U/L (12-78); Albumin/Globulin Ratio 1.4 (1.1-1.8); Alkaline Phosphatase 200 U/L (38-126); Anion Gap 11.2 mEq/L (5-15); Aspartate Amino Transferase 21 U/L (14-36); Bilirubin,Total 0.7 mg/dl (0.2-1.3); Blood Urea Nitrogen 35 mg/dl (7-17); Calcium 8.7 mg/dl (8.4-10.2); Carbon Dioxide 27 mmol/L (22.0-30.0); Chloride 105 mmol/L (98-107); Chol/HDL Ratio 4.4 (1-3.5); Cholesterol 140 mg/dl (140-200); Estimated Glomerular Filt Rate 28 ml/min (>60); GFR (African American) 34 ML/MIN (>60); Globulin 2.9 g/dL (1.3-3.2); Glucose 121 mg/dl (74-100); HDL Cholesterol 32 mg/dl (40-60); Potassium 5.2 mmoL/L (3.5-5.1); Sodium 138 mmol/L (136-145); Total Protein,Serum 6.9 g/dl (6.3-8.2); Triglycerides 229 mg/dl (30-150); VLDL Cholesterol 46 mg/dL (0-40)
[2024-04-19 19:25] LABS: Direct LDL Cholesterol 60.58 mg/dL (100-129)
== END 2024-04-19 23:59 | disposition home or self-care (01) ==
LOC: LAB.DROPOF 04-22 11:21
PROVIDERS: PCP Family Medicine; Visit Provider Family Medicine
DX: E11.9 Type 2 diabetes mellitus without complications (principal); Z79.4 Long term (current) use of insulin; Z79.85 Long-term (current) use of injectable non-insulin antidiabetic drugs
CPT/HCPCS: 80053; 80061; 83036

== ENCOUNTER 2024-11-05 07:48 | Day surgery (SDC) | payer MEDICARE, SELFPAY ==
[2024-11-01 10:52] VITALS: BMI 44.6
[2024-11-05] VITALS (7 sets, daily range): BP systolic 140–176; BP diastolic 51–79; PULSE 60–62; RESP 16–18; TEMP 36.1–36.2; O2SAT 94–98
[2024-11-05] MEDS: CYCLOPENTOLATE 2% OPHTH SOLN 2ML BOTTLE OP ×3 (09:00→09:10)
[2024-11-05] MEDS: PHENYLEPHRINE 2.5% OPHTH SOLN 2ML OP ×3 (09:00→09:10)
[2024-11-05] MEDS: TETRACAINE 0.5% OPTH SOL 15ML OP ×3 (09:00→09:10)
[2024-11-05 09:04] LABS: POC Glucose,Bedside 158 (70-110)
[2024-11-05] MEDS: MIDAZOLAM 2MG/2ML VIAL 1 MG IV (09:55)
[2024-11-05] MEDS: TIMOLOL 0.5% OPTH SOLN 5ML OP (09:55)
[2024-11-05] MEDS: TOBRAMYCIN/DEX OPTH SUSP 2.5ML OP (09:55)
[2024-11-05] MEDS: LIDOCAINE 1% PF 2ML AMPULE 2 ML IJ (09:55)
--- NOTE | 2024-11-05 11:47 | HMH.PROCNOTE ---
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 The patient reports that this interferes with ADLs such as reading, watching TV and/or driving or the vision is like looking through a foggy haze and is very troubling. The patient was examined and found to have a visually significant cataract with best corrected vision of [< or = to 20/400] by refraction and/or glare testing. Treatment options, risks and benefits were explained and the patient elected to have cataract surgery in an attempt to improve their vision. The patient had the eye anesthetized with topical tetracaine, the eye ways prepped and draped in the usual fashion for cataract surgery. A paracentesis and a temporal keratotomy were made. 0.2cc of 1% lidocaine PF was placed into the anterior chamber. And aqueous/viscoelastic exchange was done and a 360 degree capsulorexis was performed. Through hydrodissection and delineation with BSS on a cannula was done. The lens nucleus was phecoemulsified with CDE of [52.16]. Residual cortical material was removed using automated I&A The capsular bag was deepened with viscoelastica and a PCIOL was placed in the capsular bag with good centration and stability. Residual viscoelastic was removed using automated I&A. The keratotomy incision was hydrated with BSS on a cannula. The wound were checked and found to be water tight. IOP was checked digitally and adjusted as needed so as not to be too high. 1 drop of timolol 0.5%, ofloxacin, prednisolone acetate and ketorolac was instilled and eye shield taped over the eye. The patient was taken to recovery in good condition and will be seen postoperatively. Very dense cataract requiring higher energy and longer phaco time.
== END 2024-11-05 10:32 | disposition home or self-care (01) ==
PROVIDERS: PCP Family Medicine; Visit Provider Ophthalmology
PROC: (CPT 66984; principal; 2024-11-05 11:15)
DX: H25.012 Cortical age-related cataract, left eye (principal); E11.9 Type 2 diabetes mellitus without complications; Z79.4 Long term (current) use of insulin
CPT/HCPCS: 66984; 82962; J2250; V2632

== ENCOUNTER 2024-12-11 12:28 | Outpatient (CLI) | payer MEDICARE, SELFPAY ==
[2024-12-11 21:32] LABS: Basophils % 0.5 % (0.1-2.0); Eosinophils # 0.1 K/mm3 (0.0-0.4); Eosinophils % 0.7 % (0.1-12.0); Hematocrit 43.6 % (37.0-47.0); Hemoglobin 13.5 g/dL (12.2-16.2); Lymphocytes # 1.2 K/mm3 (0.7-4.5); Lymphocytes % 15.7 % (10-50); Mean Corpuscular Hemoglobin 27.5 pg (27.0-31.2); Mean Corpuscular Volume 88.8 fl (81-99); Monocytes # 0.6 K/mm3 (0.1-1.0); Monocytes % 7.2 % (1.7-9.3); Neutrophils # 5.8 K/mm3 (1.8-7.8); Neutrophils % 75.6 % (37.0-80.0); Platelet Count 207 K/mm3 (142-424); Red Blood Count 4.91 M/mm3 (4.20-5.40); White Blood Count 7.6 K/mm3 (4.8-10.8)
[2024-12-11 23:46] LABS: HIV Combo NEGATIVE (Negative)
[2024-12-11 23:53] LABS: Hepatitis C Ab Qual. W/ RFX NEGATIVE (Negative)
[2024-12-12 01:16] LABS: Albumin Level 3.9 g/dl (3.5-5.0); Chloride 101 mmol/L (98-107); Sodium 133 mmol/L (136-145)
[2024-12-12 01:19] LABS: Alanine Aminotransferase 15 U/L (12-78); Albumin/Globulin Ratio 1.4 (1.1-1.8); Alkaline Phosphatase 364 U/L (38-126); Aspartate Amino Transferase 22 U/L (14-36); Bilirubin,Total 0.8 mg/dl (0.2-1.3); Blood Urea Nitrogen 30 mg/dl (7-17); Carbon Dioxide 24 mmol/L (22.0-30.0); Estimated Glomerular Filt Rate 32 ml/min (>60); GFR (African American) 39 ML/MIN (>60); Globulin 2.8 g/dL (1.3-3.2); Total Protein,Serum 6.7 g/dl (6.3-8.2)
[2024-12-12 01:20] LABS: Calcium 8.2 mg/dl (8.4-10.2); Glucose 281 mg/dl (74-100)
== END 2024-12-11 23:59 | disposition home or self-care (01) ==
LOC: LAB.DROPOF 12-12 12:36
PROVIDERS: PCP Family Medicine; Visit Provider Family Medicine
DX: Z11.59 Encounter for screening for other viral diseases (principal); E78.5 Hyperlipidemia, unspecified; I25.10 Atherosclerotic heart disease of native coronary artery without angina pectoris; I11.0 Hypertensive heart disease with heart failure; I50.9 Heart failure, unspecified; Z87.891 Personal history of nicotine dependence
CPT/HCPCS: 80053; 85025; 86803; 87389

== ENCOUNTER 2024-12-17 11:56 | Day surgery (SDC) | payer MEDICARE, MEDICAID, SELFPAY ==
[2024-12-13 13:23] VITALS: BMI 46.3
--- NOTE | 2024-12-17 13:00 | SUR.PREOP ---
Pt. arrived approx. 2 hours past her scheduled time to be here. Attempted to call pt multiple times with no answer. Pt. states she was confused about what time to arrive and did not have her phone on her. had already left for the day so her procedure was canceled. Discussed with pt. to call office to reschedule the procedure.
== END 2024-12-17 12:40 | disposition home or self-care (01) ==
LOC: OR 11:58
PROVIDERS: PCP Family Medicine; Visit Provider Ophthalmology
DX: Z53.8 Procedure and treatment not carried out for other reasons (principal)

== ENCOUNTER 2024-12-31 07:51 | Day surgery (SDC) | payer MEDICARE, MEDICAID, SELFPAY ==
[2024-12-27 13:40] VITALS: BMI 44.1
[2024-12-31 09:05] VITALS: BP 171/80; PULSE 61; RESP 16; TEMP 36.1; O2SAT 96
[2024-12-31] MEDS: TETRACAINE 0.5% OPTH SOL 15ML OP ×3 (09:10)
[2024-12-31] MEDS: CYCLOPENTOLATE 2% OPHTH SOLN 2ML BOTTLE OP ×3 (09:11→09:12)
[2024-12-31] MEDS: PHENYLEPHRINE 2.5% OPHTH SOLN 2ML OP ×3 (09:11)
[2024-12-31 09:44] VITALS: BP 191/74; PULSE 62; RESP 18; TEMP 36.6; O2SAT 97
[2024-12-31] MEDS: MIDAZOLAM 2MG/2ML VIAL 1 MG IV (09:44)
[2024-12-31] MEDS: SODIUM CHLORIDE 0.9% 10ML FLUSH SYRINGE 10 ML IV (09:44)
[2024-12-31 09:49] VITALS: BP 169/74; PULSE 62; RESP 18; TEMP 36.6; O2SAT 97
[2024-12-31] MEDS: TIMOLOL 0.5% OPTH SOLN 5ML OP (09:51)
[2024-12-31] MEDS: TOBRAMYCIN/DEX OPTH SUSP 2.5ML OP (09:51)
[2024-12-31] MEDS: LIDOCAINE 1% PF 2ML AMPULE 2 ML IJ (09:52)
[2024-12-31 09:54] VITALS: BP 170/77; PULSE 62; RESP 18; TEMP 36.6; O2SAT 95
[2024-12-31 09:59] VITALS: BP 168/64; PULSE 62; RESP 18; TEMP 36.6; O2SAT 96
[2024-12-31 10:03] VITALS: BP 143/71; PULSE 59; RESP 17; TEMP 36.4; O2SAT 95
--- NOTE | 2024-12-31 11:41 | HMH.PROCNOTE ---
[facility] Procedure Note Date: 12/31/24 Time: 11:41 Procedure Note:: Preoperative Diagnosis: Cataract combined NS Cortical Complex [Right] Eye Postop diagnosis: same Operation: Microscopic phacoemulsification with intraocular lens implant [Right] Eye Specimen: None Blood Loss: None The patient was examined in the office with a complaint of poor vision in the [right] eye. The patient reports that this interferes with ADLs such as reading, watching TV and/or driving or the vision is like looking through a foggy haze and is very troubling. The patient was examined and found to have a visually significant cataract with best corrected vision of [20/400] by refraction and/or glare testing. Treatment options, risks and benefits were explained and the patient elected to have cataract surgery in an attempt to improve their vision. The patient had the eye anesthetized with topical tetracaine, the eye ways prepped and draped in the usual fashion for cataract surgery. A paracentesis and a temporal keratotomy were made. 0.2cc of 1% lidocaine PF was placed into the anterior chamber. And aqueous/viscoelastic exchange was done and a 360 degree capsulorexis was performed. Through hydrodissection and delineation with BSS on a cannula was done. The lens nucleus was phecoemulsified with CDE of [15.49]. Residual cortical material was removed using automated I&A The capsular bag was deepened with viscoelastica and a PCIOL was placed in the capsular bag with good centration and stability. Residual viscoelastic was removed using automated I&A. The keratotomy incision was hydrated with BSS on a cannula. The wound were checked and found to be water tight. IOP was checked digitally and adjusted as needed so as not to be too high. 1 drop of timolol 0.5%, ofloxacin, prednisolone acetate and ketorolac was instilled and eye shield taped over the eye. The patient was taken to recovery in good condition and will be seen postoperatively.
[2025-01-01 06:39] LABS: POC Glucose,Bedside 311 (70-110)
== END 2024-12-31 10:15 | disposition home or self-care (01) ==
PROVIDERS: PCP Family Medicine; Visit Provider Ophthalmology
PROC: (CPT 66984; principal; 2024-12-31 10:00)
DX: H25.011 Cortical age-related cataract, right eye (principal); E11.8 Type 2 diabetes mellitus with unspecified complications; Z79.4 Long term (current) use of insulin
CPT/HCPCS: 66984; 82962; J2250; V2632

== ENCOUNTER 2025-02-24 12:27 | Outpatient (CLI) | payer MEDICARE, MEDICAID, SELFPAY ==
[2025-02-24 18:54] LABS: Basophils % 0.4 % (0.1-2.0); Eosinophils # 0.1 Kmm3 (0.0-0.4); Eosinophils % 0.8 % (0.1-12.0); Hematocrit 44.8 % (37.0-47.0); Hemoglobin 13.9 g/dL (12.2-16.2); Immature Granulocytes # 0.04 10^3uL; Immature Granulocytes % 0.4 %; Lymphocytes # 1.4 K/mm3 (0.7-4.5); Lymphocytes % 14.9 % (10-50); Mean Corpuscular Hemoglobin 28.1 pg (27.0-31.2); Mean Corpuscular Volume 90.7 fl (81-99); Mean Platelet Volume 11.5 fl (7.4-10.4); Monocytes # 0.8 K/mm3 (0.1-1.0); Monocytes % 8.7 % (1.7-9.3); Neutrophils # 6.8 K/mm3 (1.8-7.8); Neutrophils % 74.8 % (37.0-80.0); Nucleated Red Blood Cells # 0 10^3/uL; Nucleated Red Blood Cells % 0 %; Platelet Count 217 K/mm3 (142-424); Red Blood Count 4.94 M/mm3 (4.20-5.40); Red Cell Distribution Width 14.2 % (11.5-17.5); Red Cell Distribution Width-SD 47.2 fL; White Blood Count 9.1 K/mm3 (4.8-10.8)
[2025-02-24 20:00] LABS: Creatinine,Urine Random 34 mg/dL (Not Estab.); Microalbumin/Creatinine Ratio 29.4
[2025-02-24 20:30] LABS: Albumin Level 3.8 g/dl (3.5-5.0); Chloride 102 mmol/L (98-107); Potassium 5.7 mmoL/L (3.5-5.1); Sodium 134 mmol/L (136-145)
[2025-02-24 20:32] LABS: Alanine Aminotransferase 15 U/L (12-78); Blood Urea Nitrogen 31 mg/dl (7-17); Estimated Glomerular Filt Rate 35 ml/min (>60); GFR (African American) 42 ML/MIN (>60)
[2025-02-24 20:33] LABS: Albumin/Globulin Ratio 1.3 (1.1-1.8); Alkaline Phosphatase 322 U/L (38-126); Anion Gap 12.7 mEq/L (5-15); Aspartate Amino Transferase 22 U/L (14-36); Bilirubin,Total 0.8 mg/dl (0.2-1.3); Calcium 8.7 mg/dl (8.4-10.2); Carbon Dioxide 25 mmol/L (22.0-30.0); Chol/HDL Ratio 7.1 (1-3.5); Cholesterol 268 mg/dl (140-200); Glucose 332 mg/dl (74-100); HDL Cholesterol 38 mg/dl (40-60); Iron 93 ug/dL (37-170); Total Protein,Serum 6.8 g/dl (6.3-8.2); Triglycerides 240 mg/dl (30-150); VLDL Cholesterol 48 mg/dL (0-40)
[2025-02-24 20:43] LABS: Total Iron Binding Capacity 319 ug/dL (265-497)
[2025-02-24 20:44] LABS: Direct LDL Cholesterol 170.48 mg/dL (100-129)
--- OUTSIDE RECORDS SUMMARY | 2025-02-24 20:55 | XMS_ITS ---
Author Organization Unknown Encounters Encounter Type Performer Location Encounter Date Encoun ter Notes virtual Data Migration User - [id number] no notes virtual Caitlin Ricci - [id number] no notes virtual Lia Bennett - [id number] Z no notes Patient Care team information Name Category Status Period Participants - - Proposed period not known -
== END 2025-02-24 23:59 | disposition home or self-care (01) ==
LOC: LAB.DROPOF 20:54
PROVIDERS: PCP Family Medicine; Visit Provider Family Medicine
DX: E78.5 Hyperlipidemia, unspecified (principal); I25.5 Ischemic cardiomyopathy; I10 Essential (primary) hypertension; E11.9 Type 2 diabetes mellitus without complications; Z79.4 Long term (current) use of insulin
CPT/HCPCS: 80053; 80061; 82043; 82570; 83540; 83550; 85025

== ENCOUNTER 2025-04-18 10:52 | Outpatient (CLI) | payer MEDICARE, MEDICAID, SELFPAY ==
[2025-04-18 14:23] LABS: Hematocrit 40.7 % (37.0-47.0); Hemoglobin 13.1 g/dL (12.2-16.2); Immature Granulocytes % 0.5 %; Mean Corpuscular HGB Conc 32.2 g/dL (31.8-35.4); Mean Corpuscular Hemoglobin 28.6 pg (27.0-31.2); Mean Corpuscular Volume 88.9 fl (81-99); Nucleated Red Blood Cells % 0 %; Platelet Count 191 K/mm3 (142-424); Red Blood Count 4.58 M/mm3 (4.20-5.40); Red Cell Distribution Width-SD 45.9 fL; White Blood Count 8.4 K/mm3 (4.8-10.8)
[2025-04-18 14:55] LABS: Alanine Aminotransferase 13 U/L (12-78); Albumin Level 3.7 g/dl (3.5-5.0); Albumin/Globulin Ratio 1.4 (1.1-1.8); Alkaline Phosphatase 282 U/L (38-126); Anion Gap 18.2 mEq/L (5-15); Aspartate Amino Transferase 19 U/L (14-36); Bilirubin,Total 0.8 mg/dl (0.2-1.3); Blood Urea Nitrogen 26 mg/dl (7-17); Calcium 8.1 mg/dl (8.4-10.2); Carbon Dioxide 24 mmol/L (22.0-30.0); Chloride 98 mmol/L (98-107); Creatinine,Serum 1.40 mg/dl (0.52-1.04); Estimated Glomerular Filt Rate 37 ml/min (>60); GFR (African American) 45 ML/MIN (>60); Globulin 2.7 g/dL (1.3-3.2); Glucose 347 mg/dl (74-100); Iron 86 ug/dL (37-170); Potassium 5.2 mmoL/L (3.5-5.1); Sodium 135 mmol/L (136-145); Total Protein,Serum 6.4 g/dl (6.3-8.2)
[2025-04-18 15:48] LABS: Total Iron Binding Capacity 322 ug/dL (265-497)
--- OUTSIDE RECORDS SUMMARY | 2025-04-21 10:59 | XMS_ITS | Clinical Summary ---
Author Organization [facility] Address [address] [place] [address] Care Team Providers Care Horse Race Timer Name Role Phone Kyler Diaz MD Unavailable [phone] Boogie Mccormick MD Primary Care Provider [phone] Allergies No known active allergies Medications pantoprazole (Protonix) 40 MG EC tablet Take 1 tablet (40 mg) by mouth 1 (one) time each day. Do not crush, chew, or split. Active PARoxetine (Paxil) 20 MG tablet Take 1 tablet (20 mg) by mouth 1 (one) time each day in the morning. Active rosuvastatin (Crestor) 20 MG tablet Take 1 tablet (20 mg) by mouth every night. Active albuterol 108 (90 Base) MCG/ACT inhaler Inhale 2 puffs 4 (four) times a day if needed. Active budesonide-formoter ol (Symbicort) 160-4.5 MCG/ACT inhaler Inhale 2 puffs 2 (two) times a day. Rinse mouth with water after use to reduce aftertaste and incidence of candidiasis. Do not swallow. Active furosemide (Lasix) 40 MG tablet Take 1 tablet (40 mg) by mouth 1 (one) time each day. May take an additional tablet as needed. Active nystatin (Mycostatin) cream Apply 1 Application topically 2 (two) times a day if needed (to skin folds). Active aspirin 81 MG EC tablet Take 1 tablet (81 mg) by mouth 1 (one) time each day. Active iron polysaccharides (Nu-Iron,Niferex) 150 MG capsule Take 1 capsule (150 mg) by mouth 1 (one) time each day. 04/07/20 Active carvedilol (Coreg) 25 MG tablet Take 1 tablet (25 mg) by mouth 2 (two) times a day. 60 tablet 04/07/20 Active dapagliflozin (Farxiga) 10 MG tabletIndications:L eft Diastolic Heart Failure Take 1 tablet (10 mg) by mouth 1 (one) time each day. 30 tablet 04/07/20 Active valsartan (Diovan) 40 MG tablet Take 1 tablet (40 mg) by mouth 1 (one) time each day. 30 tablet 04/07/20 Active ticagrelor (Brilinta) 90 MG tablet Take 1 tablet (90 mg) by mouth 2 (two) times a day. 60 tablet 04/07/20 Active Additional Information Patient not taking.Reported on 04/21/2023 spironolactone (Aldactone) 25 MG tablet Take 1 tablet (25 mg) by mouth 1 (one) time each day. 30 each 04/07/20 Active nitroglycerin (Nitrostat) 0.[address] 1 tablet (0.4 mg) under the tongue every 5 (five) minutes if needed for chest pain. 25 tablet 3 04/07/20 Active magnesium oxide (Mag-Ox) 400 mg tablet Take 1 tablet (400 mg) by mouth 1 (one) time each day. 04/07/20 Active insulin glargine (Lantus SoloStar, Basaglar) 100 UNIT/ML injection pen Inject 16 Units under the skin every night. 15 mL 3 04/07/20 Active Insulin Lispro (Admelog, HumaLOG) 100 UNIT/ML injection vial Inject 0.07 mL (7 Units) under the skin 3 (three) times a day with meals. 10 mL 04/07/20 Active Tiotropium [place] Monohydrate (Spiriva Respimat) 2.5 MCG/ACT inhaler Inhale 2 puffs 1 (one) time each day. 04/07/20 Active Active Problems Problem Noted Date Diagnosed Date Ischemic cardiomyopathy 04/21/2023 Volume overload 03/22/2023 Pulmonary edema 03/22/2023 Pleural effusion 03/22/2023 NSTEMI (non-ST elevated myocardial infarction) 0 03/21/2023 Family history of premature CAD 03/21/2023 Essential hypertension 03/20/2023 Morbid obesity with BMI of 40.0-44.9, adult 03/09 Arteriosclerotic heart disease (ASHD) 03/20/2023 CAD, multiple vessel 03/20/2023 Pulmonary hypertension 03/20/2023 Gastroesophageal reflux disease without esophagi tis 03/20/2023 Presence of permanent cardiac pacemaker 03/20/20 CKD (chronic kidney disease) 03/20/2023 Limited mobility 03/20/2023 Anemia 03/20/2023 Chronic obstructive pulmonary disease 08/19/2022 03/20/2023 Chronic combined systolic and diastolic hrt fail 10/09/2021 03/20/2023 Observed sleep apnea 07/12/2015 03/20/2023 Type 2 diabetes mellitus with hyperglycemia 01/201503/20/2023 Hyperlipidemia 10/06/2013 03/20/2023 Resolved Problems Problem Noted Date Diagnosed Date Resolved Date Personal history of COVID-19 08/19/2022 03/20/2023 03/20/2023 Personal history of pneumonia (recurrent) 08/19/2022 03/20/2023 03/20/2023 MATTHEW (acute kidney injury) 09/01/2019 03/20/2023 CHB (complete heart block) 07/12/2015 03/20/2023 0 03/20/2023 Ventricular tachycardia, polymorphic 07/12/201503/0903/20/2023 LV dysfunction 06/25/2015 03/20/2023 03/20/2023 Overview (03/20/2023): Jun15 - Echo shows inferior hypokinesis and EF 40-45% Coreg substituted for home atenolol Multiple lacunar infarcts 10/07/2013 03/20/2023 Immunizations Immunization Administration Dates Next Due Influenza, Unspecified 07/06/2015 Influenza, high-dose, quadrivalent 08/26/2021 Influenza, injectable, quadrivalent 09/26/2017 Influenza, injectable, quadrivalent, preservativ e free 07/22/2016 Influenza, recombinant, quad rivalent, injectable, preservative free 08/29/2019 Influenza, seasonal, injectable 08/30/2013 Influenza, seasonal, injectable, preservative fr ee 08/02/2012 Pneumococcal 20-jacquie Conj Vaccine 09/21/2022 Pneumococcal Polysaccharide PPV23 07/06/2015 Pneumococcal, Unspecified 07/06/2015 TD (adult), 2 Lf tetanus tox oid, preservative free, adsorbed 12/13/1996 Tdap 05/15/2018 Social History Tobacco Use Types Packs/Day Years Used Date Smoking Tobacco: Former Cigarettes Smokeless Tobacco: Never Tobacco Cessation:Counseling Given: Not Answered Alcohol Use Standard Drinks/Week Comments Not Currently 0 (1 standard drink = 0.6 oz pur e alcohol) CAGE ASSESSMENT Answer Date Recorded Cage unable to access Not on file 03/20/2023 Cage max number of drinks Not on file 2022 Cage Beverages a week Not on file 03/20/2023 Have you ever felt you should CUT down on your d rinking? 0 03/20/2023 Have you been ANNOYED by people criticizing your drinking? 0 03/20/2023 Have you felt GUILTY about your drinking? 0 03/20/2023 Have you had a drink first t david in the morning ([employer] WORKER) to steady your nerves or to get rid of a hangover? 0 03/20/2023 CAGE Questionnaire Score 0 023 Comments Unknown Sex and Gender Information Value Date Recorded Sex Assigned at Not on file Legal Sex Female 4:34 PM EST Gender Identity Not on file Sexual Orientation Not on file Last Filed Vital Signs Vital Sign Reading Time Taken Comments Blood Pressure 103/68 04/21/2023 11:44 AM EDT Pulse 59 04/21/2023 11:44 AM EDT Temperature 36.9 C (98.5 F) 04/07/2023 10:55 AM EDT Respiratory Rate 19 04/07/2023 10:55 AM EDT Oxygen Saturation 99% 04/21/2023 11:44 AM EDT Inhaled Oxygen Concentration - - Weight 113 kg (249 lb 12.5 oz) 04/21/2023 11:44 AM EDT Height 162.6 cm (5' 4 ) 04/21/2023 11:44 AM EDT Body Mass Index 42.87 04/21/2023 11:44 AM EDT Plan of Treatment Health Maintenance Due Date Last Done Comments [facility]-Bone Density Scan 1955 [facility]-Depression Screening 1955 [facility]-Hepatitis C Screening 1955 [facility]-Medicare Annual Wellness (AWV) 1955 [facility]-/Child/Adol SDOH Screenings 1955 Diabetes: Dental Exam 02/25/1966 [facility]- SDOH Screenings 02/25/1974 [facility]-Adult SDOH Screenings 02/25/1974 CT Colonography 02/25/2001 Colonoscopy 02/25/2001 FIT-DNA 02/25/2001 FIT 02/25/2001 FOBT 02/25/2001 Sigmoidoscopy 02/25/2001 [facility]-Colorectal Cancer Screening 02/25/2001 [facility]-Breast Cancer Screening 02/25/2006 [facility]-Zoster Vaccines (1 of 2) 02/25/2006 [facility]-RSV Vaccine: 60+ Years or (1 - Risk 60-74 years 1-dose series) 2016 [facility]-Diabetes: Hemoglobin A1C 09/17/2023 03/20/2023 [id number] Vaccine (1 - season) 2024 [facility]-Influenza Vaccine (#1) 06/09/202508/26, 08/29/2019, 09/26/2017, Additional history exists [facility]-DTaP,Tdap,and Td Vaccines (2 - Td or Tdap) 05/15/2028 05/15/2018, 12/13/1996 [facility]-Pneumococcal Vaccine: 50+ Years Completed 09/21/2022, 07/06/2015, 07/06/2015 [facility]-Obesity Intervention Completed 04/21/2023 HPV Vaccines Aged Out No longer eligi ble based on patient's age to complete this topic [facility]-HIB Vaccines Aged Out No longer e ligible based on patient's age to complete this topic [facility]-Hepatitis A Vaccines Aged Out No longer eligible based on patient's age to complete this topic [facility]-IPV Vaccines Aged Out No longer e ligible based on patient's age to complete this topic [facility]-Rotavirus Vaccines Aged Out No lo nger eligible based on patient's age to complete this topic Procedures Procedure Name Priority Date/Time Associated Diagnosis Comments HEMOGLOBIN A1C Routine 03/20/2023 5:36 PM EDT from Last 3 Months or Most Recently Relevant to Health Maintenance Results * (ABNORMAL) Hemoglobin A1c (03/20/2023 5:36 PM EDT) Hemoglobin A1c 7.0(H) <5.7 % 03/20/2023 6:18 PM EDT [facility] Blood Venous blood specimen / Unknown Venipuncture / Unknown 03/20/2023 5:36 PM EDT 03/20/2023 5:58 PM EDT Narrative [facility] - 03/20/2023 6:18 PM EDT HA1C Interpretive Data: Diagnosis of Diabetes: Diabetic > or = 6.5% Pre-diabetic 5.7 to 6.4% Non-diabetic < or = 5.6% Glycemic Targets for Type I and Type II Diabetics: Non- Adults <7.0% Adults <6.0% Children and Adolescents <7.5% Source: [place] [employer]. Standards of medical care in diabetes,2017. Diabetes Care.2017:40 (suppl 1):S1-S135. HbA1c assay performed by an ion-exchange chromatography method that is certified traceable to the DCCT. [facility] BLOOD ORDERABLES Final [facility] [address] [place] [address] from Last 3 Months or Most Recently Relevant to Health Maintenance Insurance MEDICARE Advance Directives * Full Code (Latest Code Status on File) Date Activated Date Inactivated Comments 03/31/2023 12:36 PM 04/07/2023 1:59 PM Question Answer Comments Patient has decision-making capacity? Yes * Full Code Date Activated Date Inactivated Comments 03/20/2023 5:14 PM 03/31/2023 12:36 PM Question Answer Comments Patient has decision-making capacity? Yes Care Teams Horse Race Timer Relationship Specialty Start Date End Date Boogie Mccormick MD [address] [address] PCP - General 03/21/22 Kyler Diaz MD [address] [facility] [address] [place] [address] Referring Physician Cardiology 03/20/23
--- OUTSIDE RECORDS SUMMARY | 2025-04-21 10:59 | XMS_ITS ---
Author Organization [facility] Care Team Providers Care Signals Intelligence Analyst Name Role Phone Lewis Dale Unavailable Unavailable Allergies and adverse reactions No Known Allergies Care Team Name Role Address Phone Organization Dates Lewis Dale PCP [address] [place] [address], [facility], [facility] (Office): : [facility] 04/07/2023 - 04/28/2023 Goals Section Goals Description Status Target Date Advanced Directives will be honored through next review Active 07/19/2023 Excoriation will heal by next review. Active 07/19/2023 Maintain stable weight through next review Activ e 07/19/2023 No s/s of hypo/hyperglycemia through next review Active 07/19/2023 Pain will be managed with goal range through nex t review Active 07/19/2023 Prevent wounds and prevent a voidable skin breakdown through next review Active 07/19/2023 Resident will be free from i njury related to side rail use through next review Active 07/19/2023 Resident will maintain a pat ent airway as evidenced by a functional rate and depth of respirations through next review Active 07/19/2023 Resident will remain free fr om s/sx of pacemaker malfunction or failure through the review date Active 07/19/2023 Resident will remain free of complications related to altered hematological status through the review date. Active 07/19/20 23 The resident will be able to resume normal daily activities of daily living by the review date. Active 07/19/2023 The resident will be able to return to the community through next review Active 07/19/2023 The resident will be free fr om discomfort or adverse reactions related to anticoagulant use through the review date. Active 07/19/2023 The resident will be free of any discomfort or adverse side effects of diuretic therapy through the review date. Active 1 Will achieve/maintain maximu m functional mobility through next review Active 07/19/2023 Will attend/participate in a ctivities of choice through next review Active 07/19/2023 Will benefit from medication without adverse effects through next review Active 07/19/2023 Will continue to remain free from falls through next review Active 07/19/2023 Will have needs met by assistance of staff as ngoc whittaker. Active 07/19/2023 Will have no cardiac complications through next review Active 07/19/2023 Will not exhibit an avoidable decline in mood th rough next review Active 07/19/2023 Immunizations Immunization Status Vaccine Details Vaccine Code CodeSystem Date Notes Influenza completed Influenza, high-dose, split virus, quadrivalent, injectable, preservative free 197 CVX created date: 04/08/2023 administer ed date: 08/16/2022 TB 2 Step Mantoux Skin Test completed tuberculin skin test; unspecified formulation lotNumber: [id number] expiry: 06/09/2024 Given 0.1 ml Left Forearm intradermally Step 2 of Multi-step with next step required 98 CVX created date: 04/14/2023 consent date: 04/14/2023 administer ed date: 04/14/2023 given by MARKUS gerardo TB 2 Step Mantoux Skin Test completed tuberculin skin test; unspecified formulation lotNumber: [id number] expiry: 03/08/2024 Mfg: ROMERO Given 0.1 ml Left Forearm intradermally Step 1 of Multi-step with next step required 98 CVX created date: 04/11/2023 consent date: 04/11/2023 administer ed date: 04/07/2023 Educated by MARKUS Steven on 04/07/2023 SARS-COV-2 (COVID-19) cancelled SARS-COV-2 (COVID-19) vaccine, mRNA, spike protein, LNP, bivalent, preservative free, 10 mcg/0.2 mL dose 230 CVX created date: 04/11/2023 consent date: 04/11/2023 Pneumococcal Prevnar 20 completed Pneumococcal conjugate vaccine 20-valent (PCV20), polysaccharide [id number] conjugate, adjuvant, preservative free 216 CVX created date: 04/11/2023 administer ed date: 09/21/2022 Mental Status Section Date Assessment Total Score Description 04/28/2023 BIMS 15 cognitively int act CAM 0 No delirium ind icated PHQ-9 00 04/09/2023 BIMS 15 cognitively int act CAM 0 No delirium ind icated PHQ-9 09 mild depression Problems Problem # Description Date of onset Resolved Date Code CodeSystem Concern Status 1 ACUTE AND CHRONIC RESPIRATORY FAILURE WITH HYPOXIA 04/07/[address] active 2 ACUTE PULMONARY EDEMA 04/07/[address] active 3 ATHEROSCLEROTIC HEART DISEASE OF [place] CORONARY ARTERY WITHOUT ANGINA PECTORIS 04/07/[address] active 4 BODY MASS INDEX [BMI]40.0-44.9, ADULT 04/07/[address] active 5 CHRONIC KIDNEY DISEASE, UNSPECIFIED 04/07/[address] active 6 CHRONIC OBSTRUCTIVE PULMONARY DISEASE, UNSPECIFIED 04/07/[address] active 7 CHRONIC TOTAL OCCLUSION OF CORONARY ARTERY 04/07/[address] active 8 ESSENTIAL (PRIMARY) HYPERTENSION 04/07/[address] active 9 GASTRO-ESOPHAGEAL REFLUX DISEASE WITH ESOPHAGITIS, WITHOUT BLEEDING 04/07/[address] active 10 HYPERLIPIDEMIA, UNSPECIFIED 04/07/[address] active 11 HYPOKALEMIA 04/07/[address] active 12 IRON DEFICIENCY ANEMIA, UNSPECIFIED 04/07/[address] active 13 MAJOR DEPRESSIVE DISORDER, SINGLE EPISODE, UNSPECIFIED 04/07/[address] active 14 MORBID (SEVERE) OBESITY DUE TO EXCESS CALORIES 04/07/[address] active 15 MUSCLE WASTING AND ATROPHY, NOT ELSEWHERE CLASSIFIED, UNSPECIFIED SITE 04/07/[address] active 16 MUSCLE WEAKNESS (GENERALIZED) 04/07/[address] active 17 NON-ST ELEVATION (NSTEMI) MYOCARDIAL INFARCTION 04/07/[address] active 18 OBSTRUCTIVE SLEEP APNEA (ADULT) (PEDIATRIC) 04/07/[address] active 19 PRESENCE OF CARDIAC PACEMAKER 04/07/[address] active 20 PULMONARY HYPERTENSION, UNSPECIFIED 04/07/[address] active 21 TYPE 2 DIABETES MELLITUS WITH HYPERGLYCEMIA 04/07/[address] active 22 UNSPECIFIED ABNORMALITIES OF GAIT AND MOBILITY 04/07/[address] active 23 UNSTEADINESS ON FEET 04/07/[address] active Reason for Referral No Reasons for Referral Entered Social History Social History Observation Description Start Date End Date Code Code System Current Smoking Status Tobacco smoking consumption unknown 361178113 SNOMED CT Sex Assigned At Female 1955 45518-0 [facility] Gender Identity Female 67074977468224 [address] Vital Signs Code Code System Vitals Name Values and Units Timing Information 11365-3 [facility] Pain Level Value=0.0 04/28/2023 2339-0 [facility] Blood Sugar Wcmpw=942.0 Units=mg/dL 04/28/2023 9279-1 [facility] Respiratory Rate Value=18.0 Units=/m in 04/28/2023 8462-4 [facility] Blood Pressure-Diastolic Value=68 Un its=mmHg 04/28/2023 8480-6 [facility] Blood Pressure-Systolic Ufpsi=473 Un its=mmHg 04/28/2023 8310-5 [facility] Body Temperature Value=98.0 Units= F 04/28/2023 8867-4 [facility] Heart rate Value=60.0 Units=/min 26363-4 [facility] O2 % BldC Oximetry Value=98.0 Units= % 04/28/2023 48965-8 [facility] Weight Tzpbb=801.6 Units=Lbs 8302-2 [facility] Height Value=63.0 Units=Inches 04/07/2023
--- OUTSIDE RECORDS SUMMARY | 2025-04-21 10:59 | XMS_ITS | Encounter Summary ---
Author Organization [place] [address] Care Team Providers Care Insurance Underwriter Sales Name Role Phone Boogie Mccormick MD Primary Care Provider Jean Preston MD Unavailable [phone] Estela Hsu APRN Unavailable [phone] Encounter Details Date Type Department Care Team (Late st Contact Info) Description 07/13/2015 Orders Only [facility] [address] [facility] [address] [place] [address] Jean Preston MD [address] [place], [place] [id number] Social History Tobacco Use Types Packs/Day Years Used Date Smoking Tobacco: Former Cigarettes 1 9.1 0 10/09/2000 - 11/23/2009 Smokeless Tobacco: Never Alcohol Use Standard Drinks/Week Comments No 0 (1 standard drink = 0.6 oz pur e alcohol) Comments No Sex and Gender Information Value Date Recorded Sex Assigned at Not on file Legal Sex Female 6:50 PM EDT Gender Identity Not on file Sexual Orientation Not on file documented as of this encounter Functional Status * Is the person deaf or does he/she have serious difficulty hearing? Answer Date of Assessment Author No 06/26/2015 2:21 PM EDT Haley Easley RN * Is the person blind or does he/she have serious difficulty seeing even when wearing glasses? Answer Date of Assessment Author No 06/26/2015 2:21 PM EDT Haley Easley RN * Does this person have serious difficulty walking or climbing stairs? Answer Date of Assessment Author No 06/26/2015 2:21 PM EDT Haley Easley RN * Does this person have difficulty dressing or bathing? Answer Date of Assessment Author No 06/26/2015 2:21 PM EDT Haley Easley RN * Because of a physical, mental or emotional condition, does this person have difficulty doing errands alone such as visiting a doctor's office or shopping? Answer Date of Assessment Author No 06/26/2015 2:21 PM EDT Haley Easley RN documented as of this encounter Mental Status * Because of a physical, mental or emotional condition, does this person have serious difficulty concentrating, remembering or making decisions? Answer Entry Date Author No 06/26/2015 2:21 PM EDT Haley Easley RN documented in this encounter Plan of Treatment Upcoming Encounters Date Type Department Care Team (Late st Contact Info) Description 05/12/2025 3:00 PM EDT Office Visit [facility] [address] [facility] [address] [place] [address] Estela Hsu, VIDEO GAMES STORYWRITER [address] [place], [place] [id number] documented as of this encounter Procedures Procedure Name Priority Date/Time Associated Diagnosis Comments PACEART REPORT Routine 07/13/2015 9:09 PM EDT documented in this encounter Results * PACEART REPORT (07/13/2015 9:09 PM EDT) 07/13/2015 9:09 PM EDT Narrative [facility] - 07/13/2015 1:05 PM EDT implant us Jean Preston MD [facility] CARDIAC CATH ORDERABLE S Final Result [facility] [address] [place] [address] documented in this encounter Visit Diagnoses Not on filedocumented in this encounter Care Teams Insurance Underwriter Sales Relationship Specialty Start Date End Date Boogie Mccormick MD PCP - General 11/28/10 Jean Preston MD [address] [place] [address] Internal Medicine - Clinical Cardiac Electrophysiology 10/31/16 Estela Hsu, VIDEO GAMES STORYWRITER [address] [place] [address] Nurse Practitioner 10/18/17 documented as of this encounter
--- OUTSIDE RECORDS SUMMARY | 2025-04-21 10:59 | XMS_ITS | Clinical Summary ---
Author Organization [facility] Address [address] [place] [id number] Care Team Providers Care Otologist Name Role Phone Boogie Mccormick MD Primary Care Provider [phone] Source Comments This information has been disclosed to you from confidential records protectedfrom disclosure by state law. You shall make no further disclosure of thisinformation without the specific, written, and informed release of theindividual to whom it pertains, or as otherwise permitted by law. A generalauthorization for the release of medical or other information is not sufficientfor the purposes of therelease of HIV test results or diagnoses. [id number] Allergies No known active allergies Medications PARoxetine (PAXIL) 20 MG tablet Take 20 mg by mouth every morning. Active SITagliptin-met formin (JANUMET) 50-1,000 mg per tablet Take 1 tablet by mouth 2 times a day with meals. Active hydrALAZINE (APRESOLINE) 50 MG tablet Take 50 mg by mouth 3 times a day. Active budesonide-form oteroL (SYMBICORT) 160-4.5 mcg/actuation inhaler Inhale 2 puffs into the lungs 2 times a day. 10.2 g 08/19/2022 4:33 PM EST 08/15/20 22 Active albuterol 90 mcg/actuation Inhl inhaler Inhale 2 puffs into the lungs every 6 hours as needed for Wheezing. 8.5 g 08/19/2022 4:33 PM EST 11/07/20 22 Active pantoprazole (PROTONIX) 40 MG tablet Take 1 tablet (40 mg total) by mouth daily. 30 tablet 08/19/2022 4:33 PM EST 08/19/20 Active furosemide (LASIX) 40 MG tablet Take 1 tablet (40 mg total) by mouth daily. 60 tablet 08/20/20 Active metoprolol succinate (TOPROL-XL) 50 MG 24 hr tablet Take 1 tablet (50 mg total) by mouth daily. 30 tablet 08/20/20 Active atorvastatin (LIPITOR) 80 MG tablet Take 1 tablet (80 mg total) by mouth at bedtime. 30 tablet 08/19/2022 4:33 PM EST 08/19/20 Active isosorbide mononitrate (IMDUR) 30 MG 24 hr tablet Take one-half tablet (15 mg total) by mouth daily. 30 tablet 08/19/2022 4:33 PM EST 08/20/20 Active insulin glargine (LANTUS SOLOSTAR) 100 unit/mL (3 mL) InPnIndications :type 2 diabetes mellitus Inject 40 Units subcutaneously at bedtime. 15 mL 3 08/19/2022 4:33 PM EST 08/19/20 Active pen needle, diabetic (TECHLITE PEN NEEDLE) 32 gauge x 5/32 Ndle Use as directed with Lantus pen. 35 each 3 08/19/2022 4:33 PM EST 08/19/20 Active Active Problems Problem Noted Date Diagnosed Date COVID 08/07/2022 Immunizations Immunization Administration Dates Next Due Influenza, Trivalent, Preservative-Free 08/02/2012 Influenza, high-dose, charlie valent, preservative-free 08/17/2022(Deferred: Other - order ) Influenza, high-dose, trival ent, preservative-free 08/26/2021 Influenza, quadrivalent, preservative-free 07/22/2016 Influenza, quadrivalent, wit h preservative 09/26/2017 Influenza, recombinant, quad rivalent, preservative-free 08/29/2019 Influenza, trivalent, with preservative 08/30/2013 Influenza, unspecified 07/06/2015 Pneumococcal, unspecified 07/06/2015 TD PRESERVATIVE FREE 12/13/1996 tdap 05/15/2018, 8(Deferred: Patient Refused) Social History Tobacco Use Types Packs/Day Years Used Date Smoking Tobacco: Never Smokeless Tobacco: Never AUDIT-C Answer Date Recorded Q1: How often do you have a drink containing alc ohol? Patient declined 08/07/2022 Q2: How many drinks containi ng alcohol do you have on a typical day when you are drinking? Patient declined 08/07/2022 Q3: How often do you have si x or more drinks on one occasion? Patient declined 08/07/2022 Comments Unknown Sex and Gender Information Value Date Recorded Sex Assigned at Not on file Legal Sex Female 4:19 PM EST Gender Identity Not on file Sexual Orientation Not on file Last Filed Vital Signs Vital Sign Reading Time Taken Comments Blood Pressure 125/52 08/19/2022 8:12 AM EST Pulse 70 08/19/2022 8:12 AM EST Temperature 36.8 C (98.2 F) 08/19/2022 8:12 AM EST Respiratory Rate 16 08/19/2022 9:45 AM EST Oxygen Saturation 96% 08/19/2022 9:45 AM EST Inhaled Oxygen Concentration 96% 08/19/2022 9 :45 AM EST Weight 123.5 kg (272 lb 4.8 oz) 08/17/2022 5:06 AM EST Height 162.6 cm (5' 4 ) 08/07/2022 4:39 AM EDT Body Mass Index 46.74 08/07/2022 4:39 AM EDT Plan of Treatment Health Maintenance Due Date Last Done Comments Abnormal Colonoscopy Follow Up 1956 Hepatitis C Screening (MyChart) 1955 Depression Screening 02/25/1974 Mammogram (MyChart) 1996 Cologuard (FIT-DNA) 02/25/2001 Colonoscopy 02/25/2001 Colorectal Cancer Screening (Enmotushart) 02/25/2001 Stool Testing (gFOBT) 02/25/2001 Immunization: Zoster (1 of 2) 02/25/2006 Osteoporosis Screening (DXA Scan) 02/25/2006 Immunization: Pneumococcal ( 2 of 2 - PCV) 07/06/2016 07/06/2015 Alcohol Misuse Screening 08/06/2023 08/06/2022 Immunization: COVID-19 (1 - 2024-25 season) 2024 Immunization: Influenza (MyC verdugo) (#1) 2025 08/26/2021, 08/29/2019, 09/26/2017, Additional history exists Immunization: DTaP/Tdap/Td ( 2 - Td or Tdap) 05/15/2028 05/15/2018, 12/13/1996 Immunization: RSV (Adult) (1 - 1-dose 75+ series) 02/25/2031 Insurance [employer]VANT[employer] Advance Directives For more information, please contact: [phone] * Full Code (Latest Code Status on File) Date Activated Date Inactivated Comments 08/07/2022 4:48 AM 08/19/2022 8:53 PM Care Teams Otologist Relationship Specialty Start Date End Date Boogie Mccormick MD [address] [place] [id number] PCP - General Family Medicine 08/11/22
--- OUTSIDE RECORDS SUMMARY | 2025-04-21 10:59 | XMS_ITS | Continuity of Care Document ---
Author Organization [facility] Address [address] [place] [address] Phone Care Team Providers Care Air Intercept Controller Name Role Phone Boogie Mccormick MD Primary Care Provider Jean Preston MD Unavailable [phone] Estela Hsu APRN Unavailable [phone] Encounters Date Type Department Care Team Description 03/03/2025 Orders Only [facility] [address] [facility] [address] [place] [phone] Jean Preston MD Vector Remote Device 01/27/2025 Orders Only [facility] [address] [place] [address] [place] [phone] Jean Preston MD Vector Remote Device 01/26/2025 Orders Only [facility] [address] [facility] [address] [place] [phone] Jean Preston MD Vector Remote Device 10/30/2024 Orders Only [facility] [address] [place] [address] [place] [phone] Jean Preston MD Vector Remote Device 09/23/2024 Orders Only [facility] [address] [facility] [address] [place] [phone] Jean Preston MD Vector Remote Device 04/30/2024 Orders Only [facility] [address] [facility] [address] [place] [address] Jean Preston MD Vector Remote Device 03/11/2024 11:30 AM EDT Office Visit [facility] [address] [facility] [address] [place] [address] Estela Hsu APRN CHB (complete heart block) (HCC) (Primary Dx); Ventricular tachycardia, polymorphic (HCC); LV dysfunction; Biventricular cardiac pacemaker in situ; Dilated cardiomyopathy (HCC); Chronic systolic heart failure (HCC) 01/30/2024 Telephone [facility] [address] [facility] [address] [place] [address] Brinda Eller RN Results (Carelink results) 01/29/2024 Orders Only [facility] [address] [facility] [address] [place] [phone] Jean Preston MD Vector Remote Device 10/29/2023 Orders Only [facility] [address] [facility] [address] [place] [phone] Jean Preston MD Vector Remote Device 07/30/2023 Orders Only [facility] [address] [facility] [address] [place] [address] Jean Preston MD Vector Remote Device 04/30/2023 Orders Only [facility] [address] [facility] [address] [place] [address] Jean Preston MD Vector Remote Device 03/17/2023 Orders Only [facility] [address] [facility] [address] [place] [address] Jean Preston MD Vector Remote Device 01/29/2023 Orders Only [facility] [address] [facility] [address] [place] [address] Jean Preston MD Vector Remote Device 10/30/2022 Orders Only [facility] [address] [facility] [address] [place] [address] Jean Preston MD Vector Remote Device 10/25/2022 Telephone [facility] [address] [place] [address] [address] [place] [address] Haja ChasityMARLI Reschedule 06/23/2022 Orders Only [facility] [address] [place] [address] [address] [place] [address] Jean Preston MD Vector Remote Device 02/21/2022 9:00 AM EDT Clinical Support [facility] [address] [place] [address] [address] [place] [address] Clary Yoon Biventricular cardiac pacemaker in situ (Primary Dx); CHB (complete heart block) (HCC); Ventricular tachycardia, polymorphic (HCC); Dilated cardiomyopathy (HCC); Chronic systolic congestive heart failure (HCC) 11/24/2021 Travel 11/24/2021 1:30 PM EST Office Visit [facility] [address] [place] [address] [place] [phone] Estela sHu APRN CHB (complete heart block) (HCC) (Primary Dx); Ventricular tachycardia, polymorphic (HCC); Biventricular cardiac pacemaker in situ; LV dysfunction; Dilated cardiomyopathy (HCC) 11/22/2021 9:00 AM EST Clinical Support [facility] [address] [place] [address] [place] [phone] Brinda Eller RN CHB (complete heart block) (HCC) (Primary Dx); Biventricular cardiac pacemaker in situ; Chronic systolic congestive heart failure (HCC); Cardiomyopathy, unspecified type (HCC) 08/11/2021 Telephone [facility] [address] [place] [address] [address] [place] [address] Brinda Eller RN Other (Carelink results.) 08/11/2021 Travel 08/09/2021 9:00 AM EDT Clinical Support [facility] [address] [place] [address] [address] [place] [address] Brinda Eller RN CHB (complete heart block) (HCC) (Primary Dx); Biventricular cardiac pacemaker in situ; Chronic systolic congestive heart failure (HCC); Cardiomyopathy, unspecified type (HCC) 08/05/2021 Telephone [facility] [address] [place] [address] [address] [place] [address] Jean Preston MD Other (MDT monitor is broke ) 05/18/2021 Patient Outreach [facility] [address] [place], [place] [phone] Boogie Mccormick MD Central Patient Navigator Outreach 05/06/2021 Telephone [facility] [address] [place] [address] [address] [place] [address] Brinda Eller RN Other (carelink results) 05/06/2021 Travel 05/05/2021 9:00 AM EDT Clinical Support [facility] [address] [place] [address] [address] [place] [address] Brinda Eller RN CHB (complete heart block) (HCC) (Primary Dx); Biventricular cardiac pacemaker in situ; Chronic systolic congestive heart failure (HCC); LV dysfunction 02/03/2021 Travel 02/03/2021 11:00 AM EDT Office Visit [facility] [address] [place] [address] [address] [place] [address] Estela Hsu APRN CHB (complete heart block) (HCC) (Primary Dx); Biventricular cardiac pacemaker in situ; Chronic systolic congestive heart failure (HCC); Ventricular tachycardia, polymorphic (HCC); LV dysfunction; Cardiomyopathy, unspecified type (HCC) 01/15/2021 Travel 01/15/2021 2:55 PM EDT Office Visit YOGESH YAN [address] [address] Clyde Freitas MD Epistaxis (Primary Dx) 01/11/2021 Travel 01/11/2021 Patient Outreach [facility] [address] [place], [place] [phone] Boogie Mccormick MD Central Patient Navigator Outreach (colon) 01/11/2021 3:20 PM EDT Office Visit [facility] [address] [place] [address] Clyde Freitas MD Epistaxis (Primary Dx) 01/07/2021 12:09 AM EDT - 01/07/2021 2:04 AM EDT Emergency [facility] Emergency [address] [facility] [place] [address] Marily Rodriguez MD Right-sided nosebleed (Primary Dx); Posterior epistaxis Discharge Disposition: Home or Self Care 01/06/2021 Travel 01/06/2021 1:44 PM EDT - 01/06/2021 4:37 PM EDT Emergency [facility] Emergency [address] [facility] [place] [address] Clyde Barron MD Epistaxis (Primary Dx) Discharge Disposition: Home or Self Care 10/30/2020 Telephone [facility] [address] [place] [address] [address] [place] [address] Brinda Eller RN Other (carelink results) 10/30/2020 9:00 AM EST Clinical Support [facility] [address] [place] [address] [address] [place] [address] Brinda Eller RN CHB (complete heart block) (HCC) (Primary Dx); Biventricular cardiac pacemaker in situ; Acute on chronic systolic HF (heart failure) (HCC); Syncope, unspecified syncope type; LV dysfunction; Cardiomyopathy, unspecified type (HCC) 10/30/2020 Travel 10/26/2020 Travel 10/26/2020 Telephone [facility] [address] [place] [address] [address] [place] [address] Estela Hsu APRN Other (call back to patient and told her to send transmission tomorrow.) 07/21/2020 Telephone [facility] [address] [facility] [address] [place] [address] Brinda Eller RN Other (carelink results) 07/21/2020 Travel 07/20/2020 9:00 AM EDT Clinical Support [facility] [address] [place] [address] [address] [place] [address] Brinda Eller RN CHB (complete heart block) (HCC) (Primary Dx); Ventricular tachycardia, polymorphic (HCC); Biventricular cardiac pacemaker in situ; Acute on chronic systolic HF (heart failure) (HCC); Syncope, unspecified syncope type; LV dysfunction; Cardiomyopathy, unspecified type (HCC) 04/21/2020 Telephone [facility] [address] [place] [address] [place] [phone] Brinda Eller RN Other (carelink results) 04/21/2020 Travel 04/20/2020 9:00 AM EDT Clinical Support [facility] [address] [place] [phone] Brinda Eller RN CHB (complete heart block) (HCC) (Primary Dx); Ventricular tachycardia, polymorphic (HCC); Acute on chronic systolic HF (heart failure) (HCC); Cardiomyopathy, unspecified type (HCC) 04/14/2020 Telephone [facility] [address] [place] [phone] Brinda Eller RN Other (carelink sent too early ) 01/22/2020 Telephone [facility] [address] [place] [address] [place] [phone] Estela Hsu APRN Other (re: follow up) 01/22/2020 Travel 01/22/2020 11:40 AM EDT Telemedicine [facility] [address] [place] [phone] Estela Hsu APRN Cardiomyopathy, unspecified type (HCC) (Primary Dx); Biventricular cardiac pacemaker in situ; CHB (complete heart block) (HCC); Chronic systolic congestive heart failure (HCC); Ventricular tachycardia, polymorphic (HCC); LV dysfunction 01/20/2020 9:00 AM EDT Clinical Support [facility] [address] [facility] [address] [place] [address] Zena Bustillo RN Cardiomyopathy, unspecified type (HCC) (Primary Dx); Acute on chronic systolic HF (heart failure) (HCC); CHB (complete heart block) (HCC); Biventricular cardiac pacemaker in situ 01/20/2020 Travel 01/08/2020 Telephone [facility] [facility] [address] [place] [phone] Estela Hsu APRN Schedule Appointment 11/26/2019 Travel 08/27/2019 11:40 AM EST - 09/01/2019 5:31 PM EST Hospital Encounter EDG 3C PULMONARY [facility] [address] [place] [phone] Susana Beebe MD Connelly, Kevin D, MD Hypoxia (Primary Dx); MATTHEW (acute kidney injury) Discharge Disposition: Home or Self Care 08/23/2019 Telephone [facility] [address] [place] [phone] Rogerio Ruano RN Other (remote results.) 08/22/2019 4:00 PM EST Clinical Support [facility] [address] [facility] [address] [place] [phone] Rogerio Ruano RN Biventricular cardiac pacemaker in situ (Primary Dx); Ventricular tachycardia, polymorphic (HCC); CHB (complete heart block) (HCC); Cardiomyopathy, unspecified type (HCC) 05/23/2019 Telephone [facility] [address] [place] [phone] Brinda Eller RN Other (carelink results) 05/23/2019 11:00 AM EDT Clinical Support [facility] [address] [place] [address] [place] [phone] Brinda Eller RN CHB (complete heart block) (HCC) (Primary Dx); LV dysfunction; Cardiomyopathy, unspecified type (HCC); Chronic systolic congestive heart failure (HCC) 02/21/2019 Telephone [facility] [address] [place] [address] [place] [phone] Brinda Eller RN Other (carelink results) 02/21/2019 1:00 PM EDT Clinical Support [facility] [address] [place] [phone] Brinda Eller RN CHB (complete heart block) (HCC) (Primary Dx); Ventricular tachycardia, polymorphic (HCC); LV dysfunction; Cardiomyopathy, unspecified type (HCC) 11/14/2018 10:00 AM EST Office Visit [facility] Arrhythmia Ctr Ed[address] [place] [phone] Estela Hsu APRN CHB (complete heart block) (HCC) (Primary Dx); Ventricular tachycardia, polymorphic (HCC); Biventricular cardiac pacemaker in situ; LV dysfunction; Chronic systolic congestive heart failure (HCC) 08/22/2018 Telephone [facility] [address] [place] [phone] Brinda Eller RN Other (carelink results) 08/17/2018 11:00 AM EST Clinical Support [facility] Arrhythmia Ctr [address] [place] [phone] Brinda Eller RN CHB (complete heart block) (HCC) (Primary Dx); LV dysfunction; Cardiomyopathy, unspecified type (HCC); Pacemaker 05/17/2018 Telephone [facility] [place] [phone] Brinda Eller RN Other (Carelink results) 05/16/2018 1:30 PM EDT Clinical Support [facility] [address] [place] [phone] Brinda Eller RN CHB (complete heart block) (HCC) (Primary Dx); Ventricular tachycardia, polymorphic (HCC); LV dysfunction; Cardiomyopathy, unspecified type (HCC); Presence of biventricular cardiac pacemaker 02/15/2018 Telephone [facility] [place] [phone] Brinda Eller RN Other (carelink results) 02/14/2018 3:30 PM EDT Clinical Support [facility] [place] [place] [phone] Brinda Eller RN CHB (complete heart block) (HCC) (Primary Dx); Ventricular tachycardia, polymorphic (HCC); Cardiomyopathy, unspecified type (HCC); Presence of biventricular cardiac pacemaker 11/13/2017 3:20 PM EST Office Visit [facility] Arrhythmia [place] [phone] Estela Hsu APRN CHB (complete heart block) (HCC) (Primary Dx); Biventricular cardiac pacemaker in situ; Ventricular tachycardia, polymorphic (HCC) 08/03/2017 Telephone [facility] [place] [address] Brinda Eller RN Other (results of carelink) 08/03/2017 9:00 AM EDT Clinical Support [facility] [place] [place] [phone] Brinda Eller RN CHB (complete heart block) (HCC) (Primary Dx); Cardiomyopathy, unspecified type (HCC); Presence of biventricular cardiac pacemaker 05/02/2017 Telephone [facility] Arrhythmia Ctr [address] [phone] Brinda Eller RN Other (results of care link transmission ) 05/02/2017 Telephone [facility] Arrhythmia Ctr [address] [phone] Brinda Eller RN Other (Results of carelink transmission) 05/02/2017 3:00 PM EDT Clinical Support [facility] [address] [phone] Brinda Eller RN Presence of biventricular cardiac pacemaker (Primary Dx); CHB (complete heart block) (HCC); Biventricular cardiac pacemaker in situ; Syncope, unspecified syncope type 02/06/2017 Telephone [facility] Ar[facility]tr [facility]g [address] [place] [address] [place] [address] Zena Bustillo RN Other (Results of Carelink transmission) 01/31/2017 8:55 AM EDT Clinical Support [facility] [address] [place] [address] [place], [place] [phone] Zena Bustillo RN CHB (complete heart block) (HCC) (Primary Dx); Biventricular cardiac pacemaker in situ 10/31/2016 1:00 PM EST Office Visit [facility] Arrhythmia Ctr [address] [place], [place] [phone] Estela Hsu APRN CHB (complete heart block) (HCC) (Primary Dx); Biventricular cardiac pacemaker in situ 07/28/2016 Telephone [facility] Ar[facility]hythm[facility] Ctr Edg [address] [place] [address] [place], [place] [phone] Zena Bustillo RN Other (Results of Carelink transmission) 07/28/2016 10:50 AM EDT Clinical Support [facility] Arrhythmia Ctr [address] [place], [place] [phone] Zena Bustillo RN Cardiomyopathy (HCC) (Primary Dx); CHB (complete heart block) (HCC); Biventricular cardiac pacemaker in situ 04/28/2016 Telephone [facility]hythmia [facility] [address] [place] [address] [place] [phone] Zena Bustillo RN Other (Results of Carelink transmission) 04/28/2016 3:25 PM EDT Clinical Support [facility] [address] [place] [phone] Zena Bustillo RN CHB (complete heart block) (HCC) (Primary Dx); Cardiomyopathy (HCC); Biventricular cardiac pacemaker in situ 02/01/2016 Telephone [facility] [address] [place] [address] [place] [phone] Zena Bustillo, MARKUS Other (Results of Carelink transmission) 01/27/2016 8:55 AM EDT Clinical Support [facility] [address] [place] [address] [address] [place] [address] Zena Bustillo, MARKUS CHB (complete heart block) (HCC) (Primary Dx); Biventricular cardiac pacemaker in situ 10/26/2015 12:00 PM EST Office Visit [facility] [address] [place] [address] [address] [place] [address] Estela Hsu APRN CHB (complete heart block) (HCC) (Primary Dx); Ventricular tachycardia, polymorphic (HCC); Biventricular cardiac pacemaker in situ; LV dysfunction 07/24/2015 12:00 PM EDT Office Visit [facility] [address] [place] [address] [address] [place] [address] Estela Hsu, 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 [address] Viola Calderon MD Kuper, MD Nickolas Fernandes Adam T, DO Third degree AV block (HCC) (Primary Dx); Syncope, cardiogenic Discharge Disposition: Home or Self Care 07/13/2015 Orders Only [facility] [address] [place] [address] [address] [place] [address] Jean Preston MD 07/13/2015 8:00 AM EDT - 07/13/2015 10:00 AM EDT Surgery EDG [facility] [place] [address] Jean Preston MD BIVENTRICULAR PERMANENT PACEMAKER IMPLANT 07/13/2015 10:51 AM EDT Anesthesia Event [facility] [place] [address] Maribel Fitch MD Zangrando, David D, MD 06/30/2015 Abstract [facility] [address] [place] [phone] Amy Anaya, Daisy 06/27/2015 6:18 AM EDT - 06/29/2015 4:00 PM EDT Hospital Encounter EDG 2B1 NEUROSCIENCE [facility] [place] [address] Aimee Finley MD Goetz, Kevin R, MD Altered level of consciousness (Primary Dx) Discharge Disposition: Home or Self Care 06/26/2015 9:35 AM EDT - 06/26/2015 11:05 AM EDT Surgery EDG [facility] [address] [place] [address] Lucius Fernandez MD CORONARY ANGIOGRAM / CARDIAC CATHETERIZATION 06/23/2015 5:48 PM EDT - 06/26/2015 5:07 PM EDT Hospital Encounter EDG 5D TCU [facility] [address] [facility] Derrick Willoughby MD Bankers, Bradley J, MD Goetz, Kevin R, MD Syncope, unspecified syncope type (Primary Dx); Periorbital contusion, left, initial encounter; Hypomagnesemia; Sprain of left ankle, unspecified ligament, initial encounter; Secondary hypertension, unspecified; Morbid obesity due to excess calories (HCC) Discharge Disposition: Home or Self Care 10/30/2013 11:53 AM EST - 10/30/2013 11:59 PM EST Hospital Encounter [facility] [place] [address] Mario Contreras MD Kennedy, Christine M, MD Benign neoplasm of thyroid glands Discharge Disposition: Home or Self Care 10/05/2013 7:41 PM EST - 10/07/2013 4:02 PM EST Hospital Encounter EDG TCU 1A [facility] [place] [address] Yayo Bennett MD Flanagan, Chanti H, MD Connelly, MD Yony Buckley Emily A, MD Syncope (Primary Dx); Abnormal EKG; Diabetes mellitus (HCC); Hypomagnesemia; HTN (hypertension); Hyperlipidemia; Morbid obesity (HCC); Multiple lacunar infarcts (HCC); Syncope and collapse Discharge Disposition: Home or Self Care 03/15/2013 12:53 PM EDT - 03/17/2013 11:33 AM EDT Hospital Encounter EDG 2B2 UROLOGY [facility] [place] [address] Octavia Fischer MD Pfaff, Rhonda, MD ARF (acute renal failure) (Primary Dx); Hyperkalemia; Acute renal failure; Dehydration; LANIER (dyspnea on exertion); Hypomagnesemia; Morbid obesity (HCC); Muscle cramps; Acute kidney failure, unspecified; Hyperpotassemia Discharge Disposition: Home or Self Care 11/28/2010 8:51 AM EST - 11/29/2010 11:25 AM EST Hospital Encounter FTT TCU 3S [address] [place] [address] Tejinder Velázquez MD Banks, David, MD COPD exacerbation (HCC) Discharge Disposition: Home or Self Care 05/29/2000 8:31 PM EDT - 06/01/2000 3:31 PM EDT Hospital Encounter HST E4S FTT Generic, Historical Provider Allergies No known active allergies Medications aspirin 81 mg Oral Tablet, Delayed Release (E.C.) Take 1 Tab by mouth daily. 07/14/20 15 Active PARoxetine (PAXIL) 20 mg Oral Tablet Take 20 mg by mouth daily. Active ens/octin/oct moustapha/tit alf/znox (EUCERIN DAILY PROTECTION TOP)Indications:Pr evention Apply topically nightly. (Under Both Breasts) Indications: Prevention Active insulin glargine U-100 (LANTUS) 100 unit/mL SubQ SolutionIndication s:type 2 diabetes mellitus Subcutaneous (Inject under the skin) 45 Units every morning. Indications: type 2 diabetes mellitus 10 mL 12 09/01/20 19 Active insulin lispro (HUMALOG KWIKPEN INSULIN) 100 unit/mL SubQ Insulin Pen Subcutaneous (Inject under the skin) 15 Units 3 times daily (before meals). 10 Syringe 09/01/20 19 Active hydrALAZINE (APRESOLINE) 100 mg Oral TabletIndications: hypertension Take 1 Tab by mouth 3 times daily. Indications: high blood pressure 90 Tab 09/01/20 19 Active potassium chloride 20 mEq Oral Tablet Sustained Release Take 20 mEq by mouth daily. 30 Tab 09/01/20 19 Active Additional Information Patient taking differently: 10 mEqOral DAILY, Reason: Advised by Physician, Reported on 03/11/2024 fUROsemide (LASIX) 40 mg Oral Tablet Take 1 Tab by mouth every 12 hours. 60 Tab 09/01/20 19 Active valsartan (DIOVAN) 40 mg Oral Tablet Take 40 mg by mouth daily. Active MOUNJARO 2.5 mg/0.5 mL SubQ Pen Injector INJECT 2.5 MG (0.5 ML) SUBCUTANEOUSLY WEEKLY FOR 4 WEEKS 11/20/19 24 Active ticagrelor (BRILINTA) 90 mg Oral Tablet 90 mg. 04/07/20 23 Active tiotropium bromide (SPIRIVA RESPIMAT) 2.5 mcg/actuation Inhl Mist Inhale 2 Puffs into the lungs daily. 04/07/20 23 Active spironolactone (ALDACTONE) 25 mg Oral Tablet Take 25 mg by mouth 2 times daily. Active rosuvastatin (CRESTOR) 20 mg Oral Tablet TAKE 1 TABLET BY MOUTH EVERY DAY AT BEDTIME FOR CHOLESTEROL Active pantoprazole (PROTONIX) 40 mg Oral Tablet, Delayed Release (E.C.) Take 40 mg by mouth daily. Active BD IRMA 2ND GEN PEN NEEDLE 32 gauge x /32 Misc Needle USE TO INJECT INSULIN 4 TIMES DAILY Active nystatin-triamcino lone (MYCOLOG II) Top Cream APPLY TO AFFECTED AREA DAILY Active magnesium oxide (MAG-OX) 400 mg (241.3 mg magnesium) Oral Tablet TAKE 1 TABLET BY MOUTH TWICE A DAY FOR SUPPLEMENT 02/08/20 24 Active nitroGLYCERIN (NITROSTAT) 0.4 mg SL Tablet, Sublingual 0.4 mg. 04/07/20 23 Active isosorbide mononitrate (IMDUR) 30 mg Oral Tablet Sustained Release 24 hr 30 mg. 08/20/20 22 Active iron polysaccharides (NIFEREX) 150 mg iron Oral Capsule Take 150 mg by mouth 2 times daily. Active fluconazole (DIFLUCAN) 150 mg Oral Tablet TAKE 1 TABLET ORALLY DAILY FOR 1 DOSE ADMINISTER ON DAY 1 OF THERAPY 02/15/20 24 Active FARXIGA 10 mg Oral Tablet Take 10 mg by mouth daily. Active carvediloL (COREG) 25 mg Oral Tablet Take 25 mg by mouth 2 times daily (with meals). Active Active Problems Patient Care Coordination No te Formatting of this note migh t be different from the original. Care gap audit completed by Aundrea Ford RN on 06/15/2021. ATTRIBUTION HCC audit completed by Kelsi Beth, Compliance Review on 11/24/2021. Problem Noted Date Diagnosed Date Acute on chronic heart failu re with preserved ejection fraction (HFpEF) 03/11/2024 Atypical angina 03/11/2024 Congestive heart failure 03/11/2024 Diabetes 03/11/2024 Episodic mood disorder 03/11/2024 History of COVID-19 03/11/2024 Pneumonia due to COVID-19 virus 03/11/2024 Edema 03/11/2024 Encntr for surgical aftcr following surgery on t he circ sys 05/30/2023 Acute diastolic (congestive) heart failure 05/15 Hypertensive heart and chron ic kidney disease with heart failure and stage 1 through stage 4 chronic kidney disease, or unspecified chronic kidney disease 05/15/2023 Chronic respiratory failure with hypoxia 023 Chronic total occlusion of coronary artery 04/07 Gastro-esophageal reflux dis ease with esophagitis, without bleeding 04/07/2023 Iron deficiency anemia, unspecified 04/07/2023 Major depressive disorder, single episode, unspe cified 04/07/2023 BMI 40.0-44.9, adult 04/07/2023 Muscle wasting and atrophy, not elsewhere classified, unspecified site 04/07/2023 Muscle weakness (generalized) 04/07/2023 Unspecified abnormalities of gait and mobility 0 04/07/2023 Unsteadiness on feet 04/07/2023 Pleural effusion 03/22/2023 Pulmonary edema 03/22/2023 Family history of premature CAD 03/21/2023 Non-ST elevation (NSTEMI) myocardial infarction 03/21/2023 Gastroesophageal reflux disease without esophagi tis 03/20/2023 Limited mobility 03/20/2023 Chronic anemia 10/09/2022 Chronic kidney disease, unspecified 10/09/2022 skilled nursing (current) use of antithrombotics/antip latelets 10/09/2022 supervisor intermediates (current) use of oral hypoglycemic idris gs 10/09/2022 Presence of aortocoronary bypass graft 3 Pulmonary hypertension 10/09/2022 Chronic obstructive pulmonary disease 08/19/2022 COVID 08/07/2022 Personal history of nicotine dependence 10/09/19 MATTHEW (acute kidney injury) 09/01/2019 Acute on chronic systolic HF (heart failure) Biventricular cardiac pacemaker in situ 07/14/20 Overview (07/14/2015): 07/13/2015 Medtronic BIVPM CHB (complete heart block) 07/12/2015 Overview (07/14/2015): MDT Bi-V PPM Implant 07/13/15-Dr. Preston Ventricular tachycardia, polymorphic 07/12/2015 Observed sleep apnea 07/12/2015 Type 2 diabetes mellitus with hyperglycemia 01/2015 Transient alteration of awareness 06/27/2015 Coronary artery disease invo [place]ving [place] coronary artery of [place] heart without angina pectoris 06/26/2015 Overview (06/26/2015): Jun Cath Moderate diffuse Three vessel CAD 50 tp 60 % Mid left circumflex. 65 % Proximal RCA Preserved LV function. Normal LV Filling pressures. LV dysfunction 06/25/2015 Overview (06/26/2015): Jun - Echo shows inferior hypokinesis and EF 40-45% Coreg substituted for home atenolol Multiple lacunar infarcts 10/07/2013 Overview (10/07/2013): On CT head 10/06/2013. Started on ASA 325mg. Syncope 10/06/2013 Abnormal EKG 10/06/2013 Overview (10/07/2013): T wave inversions are new from 11/2010 despite old RBBB Hyperlipidemia 10/06/2013 Hypomagnesemia 03/16/2013 Overview (06/24/2015): 1.4 this admission. Resume mag oxide supplement. Essential hypertension Morbid obesity due to excess calories Cardiomyopathy Resolved Problems Problem Noted Date Diagnosed Date Resolved Date Hyperkalemia 03/16/2013 10/07/2013 Acute renal failure 03/16/2013 10/26/19 16 Overview (10/07/2013): 03/2013. Resolved. Dehydration 03/16/2013 10/07/2013 LANIER (dyspnea on exertion) 03/16/2013 Muscle cramps 03/16/2013 10/07/2013 Elevated troponin 10/26/2015 Immunizations Immunization Administration Dates Next Due Influenza Patient Reported 07/06/2015 Influenza Virus Vaccine Quadrivalant, Flublok Pneumococcal Polysaccharide 23 Valent 07/06/2015 Family History Medical History Relation Name Comments Heart Disease Father Cancer Maternal Grandmother colon Diabetes Mother Relation Name Status Comments Father Maternal Grandmother Mother Alive Social History Smoking Status as of 04/21/2025 Tobacco Use Types Packs/Day Years Used Date Smoking Tobacco: Never Assessed Sex and Gender Information Value Date Recorded Sex Assigned at Not on file Legal Sex Female 6:50 PM EDT Gender Identity Not on file Sexual Orientation Not on file Last Filed Vital Signs Vital Sign Reading Time Taken Comments Blood Pressure 122/60 03/11/2024 11:29 AM EDT Pulse 62 03/11/2024 11:29 AM EDT Temperature 36.2 C (97.2 F) 02/03/2021 11:11 AM EDT Respiratory Rate 18 01/07/2021 12:04 AM EDT Oxygen Saturation 98% 03/11/2024 11:29 AM EDT Inhaled Oxygen Concentration - - Weight 115.7 kg (255 lb) 03/11/2024 11:29 AM EDT Height 165.1 cm (5' 5 ) 11/24/2021 1:39 PM EST Body Mass Index 42.43 11/24/2021 1:39 PM EST Plan of Treatment Upcoming Encounters Date Type Department Care Team (Late st Contact Info) Description 05/12/2025 3:00 PM EDT Office Visit [facility] [address] [place] [address] Estela Hsu, MECHANICAL FACILITIES TECHNICIAN [address] [place] [address] Medical Devices Implanted Type Area Gelatin Dynamite Packing Operator Device Identifier Shelf Expiration Date Model / Serial / Lot Lead Capsurefix Mri 5086 Is-I Bi Artrial 52cm - [id number] Implanted:Qty: 1 on 07/13/2015 by Jean Preston MD at [facility] Lead [employer]:PACING SYS [id number] / [id number] / Description:R wave: pt. depe ndent Lead Attain Ability 88cm - [id number] Implanted:Qty: 1 on 07/13/2015 by Jean Preston MD at [facility] Lead [employer]:PACING SYS [id number] / [id number] / Lead Capsurefix Mri 5086 Is-I Bi Artrial 45cm - [id number] Implanted:Qty: 1 on 07/13/2015 by Jean Preston MD at [facility] Lead [employer] [id number] / [id number] / Pacemaker Consulta-P - [id number] Implanted:Qty: 1 on 07/13/2015 by Jean Preston MD at [facility] Pacemaker MEDTRON[employer]:PACING SYS [id number] / [id number] / Procedures Procedure Name Priority Date/Time Associated Diagnosis Comments VT REM INTERROG ICPMS <30 D PHYS/QHP Routine 03/03/2025 12:00 AM EDT Vector Remote Device VT REM INTERROG ICPMS <30 D PHYS/QHP Routine 01/27/2025 12:00 AM EDT Vector Remote Device VT REM INTERROG PM/LDLS PM <90 D PHYS/QHP Routine 01/26/2025 12:00 AM EDT Vector Remote Device VT REM INTERROG ICPMS <30 D PHYS/QHP Routine 10/30/2024 12:00 AM EST Vector Remote Device VT REM INTERROG PM/LDLS PM <90 D PHYS/QHP Routine 09/23/2024 12:00 AM EST Vector Remote Device VT REM INTERROG PM/LDLS PM <90 D PHYS/QHP Routine 04/30/2024 12:00 AM EDT Vector Remote Device PACEART REPORT Routine 03/11/2024 3:29 PM EDT VT REM INTERROG PM/LDLS PM <90 D PHYS/QHP Routine 01/29/2024 12:00 AM EDT Vector Remote Device VT REM INTERROG PM/LDLS PM <90 D PHYS/QHP Routine 10/29/2023 12:00 AM EST Vector Remote Device VT REM INTERROG PM/LDLS PM <90 D PHYS/QHP Routine 07/30/2023 12:00 AM EDT Vector Remote Device VT REM INTERROG PM/LDLS PM <90 D PHYS/QHP Routine 04/30/2023 12:00 AM EDT Vector Remote Device VECTOR REMOTE DEVICE Routine 03/17/2023 12:00 AM EDT Vector Remote Device VT REM INTERROG PM/LDLS PM <90 D PHYS/QHP Routine 01/29/2023 12:00 AM EDT Vector Remote Device VT REM INTERROG PM/LDLS PM <90 D PHYS/QHP Routine 10/30/2022 12:00 AM EST Vector Remote Device VT REM INTERROG PM/LDLS PM <90 D PHYS/QHP Routine 06/23/2022 12:00 AM EDT Vector Remote Device PACEART REPORT Routine 02/21/2022 2:28 PM EDT PACEART REPORT Routine 11/24/2021 7:34 PM EST PACEART REPORT Routine 11/22/2021 6:57 PM EST PACEART REPORT Routine 08/09/2021 4:12 PM EDT PACEART REPORT Routine 05/06/2021 12:41 AM EDT PACEART REPORT Routine 05/06/2021 12:41 AM EDT PACEART REPORT Routine 02/03/2021 3:05 PM EDT PACEART REPORT Routine 10/30/2020 3:26 PM EST PACEART REPORT Routine 07/20/2020 2:08 PM EDT PACEART REPORT Routine 04/20/2020 3:38 PM EDT PACEART REPORT Routine 01/20/2020 2:09 PM EDT GLUCOSE METER POC Routine 09/01/2019 11:33 AM EST GLUCOSE METER POC Routine 09/01/2019 8:29 AM EST ECG AND WAVEFORMS - TELEMETRY Routine 09/01/2019 7:06 AM EST ECG AND WAVEFORMS - TELEMETRY Routine 09/01/2019 7:01 AM EST BASIC METABOLIC PANEL Early AM 09/01/2019 5:34 AM EST GLUCOSE METER POC Routine 08/31/2019 8:37 PM EST ECG AND WAVEFORMS - TELEMETRY Routine 08/31/2019 7:17 PM EST ECG AND WAVEFORMS - TELEMETRY Routine 08/31/2019 6:49 PM EST GLUCOSE METER POC Routine 08/31/2019 5:23 PM EST GLUCOSE METER POC Routine 08/31/2019 12:28 PM EST GLUCOSE METER POC Routine 08/31/2019 8:28 AM EST ECG AND WAVEFORMS - TELEMETRY Routine 08/31/2019 7:24 AM EST ECG AND WAVEFORMS - TELEMETRY Routine 08/31/2019 7:05 AM EST CBC Timed 08/31/2019 4:08 AM EST BASIC METABOLIC PANEL Routine 08/31/2019 4:08 AM EST GLUCOSE METER POC Routine 08/30/2019 8:49 PM EST ECG AND WAVEFORMS - TELEMETRY Routine 08/30/2019 7:35 PM EST ECG AND WAVEFORMS - TELEMETRY Routine 08/30/2019 7:00 PM EST GLUCOSE METER POC Routine 08/30/2019 5:36 PM EST GLUCOSE METER POC Routine 08/30/2019 12:39 PM EST CBC Timed 08/30/2019 11:58 AM EST MAGNESIUM LEVEL Routine 08/30/2019 11:58 AM EST BASIC METABOLIC PANEL Routine 08/30/2019 11:58 AM EST DME ORDERS Routine 08/30/2019 10:54 AM EST HOME HEALTH ORDERS (FACE TO FACE ENCOUNTER) Routine 08/30/2019 10:53 AM EST GLUCOSE METER POC Routine 08/30/2019 9:41 AM EST ECG AND WAVEFORMS - TELEMETRY Routine 08/30/2019 7:16 AM EST GLUCOSE METER POC Routine 08/30/2019 1:21 AM EST ECG AND WAVEFORMS - TELEMETRY Routine 08/29/2019 7:32 PM EST ECG AND WAVEFORMS - TELEMETRY Routine 08/29/2019 7:32 PM EST GLUCOSE METER POC Routine 08/29/2019 5:42 PM EST GLUCOSE METER POC Routine 08/29/2019 12:32 PM EST GLUCOSE METER POC Routine 08/29/2019 8:51 AM EST ECG AND WAVEFORMS - TELEMETRY Routine 08/29/2019 8:49 AM EST ECG AND WAVEFORMS - TELEMETRY Routine 08/29/2019 8:45 AM EST EC ECHOCARDIOGRAM COMPLETE W DOPPLER AND COLOR FLOW MAPPING SHIVAM 08/29/2019 8:25 AM EST CBC Timed 08/29/2019 7:11 AM EST PHOSPHORUS LEVEL Routine 08/29/2019 7:11 AM EST MAGNESIUM LEVEL Routine 08/29/2019 7:11 AM EST BASIC METABOLIC PANEL Routine 08/29/2019 7:11 AM EST GLUCOSE METER POC Routine 08/28/2019 9:03 PM EST ECG AND WAVEFORMS - TELEMETRY Routine 08/28/2019 7:31 PM EST GLUCOSE METER POC Routine 08/28/2019 5:50 PM EST GLUCOSE METER POC Routine 08/28/2019 1:30 PM EST SCANNED EKG 08/28/2019 12:55 PM EST GLUCOSE METER POC Routine 08/28/2019 9:56 AM EST ECG AND WAVEFORMS - TELEMETRY Routine 08/28/2019 6:59 AM EST CBC Timed 08/28/2019 5:59 AM EST LIPID SCREEN Routine 08/28/2019 5:59 AM EST PHOSPHORUS LEVEL Routine 08/28/2019 5:59 AM EST MAGNESIUM LEVEL Routine 08/28/2019 5:59 AM EST BASIC METABOLIC PANEL Routine 08/28/2019 5:59 AM EST ECG AND WAVEFORMS - TELEMETRY Routine 08/27/2019 11:09 PM EST GLUCOSE METER POC Routine 08/27/2019 10:40 PM EST MICROALBUMIN/CREATINI NE RATIO URINE Routine 08/27/2019 8:22 PM EST URINALYSIS Routine 08/27/2019 8:22 PM EST GLUCOSE METER POC Routine 08/27/2019 7:27 PM EST HEMOGLOBIN A1C Routine 08/27/2019 6:53 PM EST VITAMIN B12/ FOLIC ACID Routine 08/27/2019 6:53 PM EST TSH REFLEX TO FT4 Routine 08/27/2019 6:53 PM EST TROPONIN-T HIGH SENSITIVITY BASELINE W/ REFLEX Timed 08/27/2019 6:53 PM EST ADMIT STAT 08/27/2019 3:22 PM EST HEPATIC FUNCTION PANEL Add-On 08/27/2019 2:47 PM EST NT PROBNP STAT 08/27/2019 2:47 PM EST TROPONIN-T HIGH SENSITIVITY BASELINE W/ REFLEX Timed 08/27/2019 2:[address] ANGIOGRAM PULMONARY W CONTRAST STAT 08/27/2019 2:33 PM EST XR CHEST PA AND LATERAL SHIVAM 08/27/2019 1:04 PM EST BLOOD GAS, VENOUS STAT 08/27/2019 12:43 PM EST D-DIMER STAT 08/27/2019 12:43 PM EST TROPONIN-T HIGH SENSITIVITY BASELINE W/ REFLEX STAT 08/27/2019 12:43 PM EST BASIC METABOLIC PANEL STAT 08/27/2019 12:43 PM EST CBC STAT 08/27/2019 12:43 PM EST EK EKG 12 LEAD STAT 08/27/2019 11:44 AM EST PACEART REPORT Routine 08/23/2019 2:08 AM EST PACEART REPORT Routine 05/23/2019 4:13 PM EDT PACEART REPORT Routine 02/21/2019 2:05 PM EDT PACEART REPORT Routine 11/14/2018 8:15 PM EST SCANNED EKG 11/14/2018 3:18 PM EST PACEART REPORT Routine 08/17/2018 5:52 PM EST PACEART REPORT Routine 05/16/2018 10:52 PM EDT PACEART REPORT Routine 02/14/2018 7:30 PM EDT PACEART REPORT Routine 11/13/2017 8:29 PM EST Biventricular cardiac pacemaker in situ SCANNED EKG 11/13/2017 4:01 PM EST PACEART REPORT Routine 08/03/2017 2:05 PM EDT PACEART REPORT Routine 05/02/2017 1:18 PM EDT PACEART REPORT Routine 01/31/2017 1:06 PM EDT SCANNED EKG 11/01/2016 8:39 AM EST PACEART REPORT Routine 10/31/2016 7:13 PM EST PACEART REPORT Routine 07/28/2016 12:11 PM EDT PACEART REPORT Routine 04/28/2016 11:25 AM EDT PACEART REPORT Routine 01/27/2016 12:05 PM EDT SCANNED EKG 10/27/2015 11:41 AM EST PACEART REPORT Routine 10/26/2015 6:16 PM EST PACEART REPORT Routine 07/24/2015 4:30 PM EDT SCANNED EKG 07/24/2015 2:30 PM EDT SCANNED RHYTHM STRIPS 07/16/2015 4:21 PM EDT GLUCOSE METER POC Routine 07/14/2015 5:05 PM EDT GLUCOSE METER POC Routine 07/14/2015 12:54 PM EDT GLUCOSE METER POC Routine 07/14/2015 9:55 AM EDT GLUCOSE METER POC Routine 07/13/2015 9:46 PM EDT PACEART REPORT Routine 07/13/2015 9:09 PM EDT URINALYSIS Routine 07/13/2015 9:00 PM EDT URINE CULTURE (NO STAIN) Routine 07/13/2015 9:00 PM EDT GLUCOSE METER POC Routine 07/13/2015 3:55 PM EDT XR CHEST AP PORTABLE STAT 07/13/2015 1:35 PM EDT EK EKG 12 LEAD Routine 07/13/2015 1:04 PM EDT ELECTROPHYSIOLOGY PROCEDURE Routine 07/13/2015 12:53 PM EDT EC ECHOCARDIOGRAM LIMITED W CONTRAST STAT 07/13/2015 8:15 AM EDT GLUCOSE METER POC Routine 07/13/2015 6:06 AM EDT DIFFERENTIAL Routine 07/13/2015 4:30 AM EDT PT / INR Routine 07/13/2015 4:30 AM EDT BASIC METABOLIC PANEL Routine 07/13/2015 4:30 AM EDT CBC WITH DIFF Routine 07/13/2015 4:30 AM EDT GLUCOSE METER POC Routine 07/13/2015 12:02 AM EDT GLUCOSE METER POC Routine 07/12/2015 6:00 PM EDT SCANNED RHYTHM STRIPS 07/12/2015 5:36 PM EDT SCANNED EKG 07/12/2015 5:36 PM EDT XR CHEST AP PORTABLE STAT 07/12/2015 1:50 PM EDT TROPONIN-T Timed 07/12/2015 1:44 PM EDT BLOOD GAS ARTERIAL Routine 07/12/2015 1:43 PM EDT GLUCOSE METER POC Routine 07/12/2015 11:46 AM EDT GLUCOSE METER POC Routine 07/12/2015 8:31 AM EDT IP CONSULT TO ELECTROPHYSIOLOGY Routine 07/12/2015 8:16 AM EDT Procedure Note - Jean Preston MD - 07/12/2015 8:59 AM EDTThis note is in progress. ADMISSION: 07/12/2015 PATIENT: Helga Hernandez [id number] PCP: Boogie Mccormick MD I would like to thank Jany Brito MD for requesting me to seeyour patient, Helga Hernandez in consultation for Syncope. 60 yo obese woman with multiple recent admission for syncope last nightpatient was brought in with syncope and with documented TdP. CHB ispresent . Past Medical History Past Medical History Diagnosis Date Tubal Hypertension Diverticulosis Heartburn Pneumonia Arthritis Syncope and collapse Diabetes mellitus (HCC) CAD (coronary artery disease) Medication No current facility-administered medications on file prior to encounter. Current Outpatient Prescriptions on File Prior to Encounter Medication Sig Dispense Refill carvedilol (COREG) 6.25 mg Oral Tablet Take 1 Tab by mouth 2 times daily(with meals). 60 Tab 1 losartan (COZAAR) 25 mg tablet Take 100 mg by mouth daily. Indications:DIABETIC NEPHROPATHY, HYPERTENSION Aspirin 325 mg tablet Take 1 Tab by mouth daily. magnesium oxide (MAG-OX) 400 mg tablet Take 1 Tab by mouth 2 timesdaily. 60 Tab 3 simvastatin (ZOCOR) 40 mg Take 40 mg by mouth nightly. LIRAGLUTIDE (VICTOZA 3-CRISITNE SUBQ) Subcutaneous (Inject under the skin)1.8 mg daily. insulin NPH-insulin regular (NOVOLIN 70/30) 100 unit/mL (70-30)injection Subcutaneous (Inject under the skin) 50 Units every morning. insulin NPH-insulin regular (NOVOLIN 70/30) 100 unit/mL (70-30)injection Subcutaneous (Inject under the skin) 70 Units nightly. Scheduled Meds: sodium chloride 0.9% Intravenous 3 times per day atorvastatin 20 mg Oral Nightly magnesium oxide 400 mg Oral BID Aspirin 325 mg Oral Daily losartan 50 mg Oral Daily magnesium sulfate in dextrose 1 g Intravenous Q1H MEGHANA Continuous Infusions: DOPamine Stopped (07/12/15 0828) Past Surgical History Past Surgical History Procedure Laterality Date Cholecystectomy Dilation and curettage of uterus Abdomen surgery stomach stabling for weight loss Allergy No Known Allergies Family History Family History Problem Relation Age of Onset Diabetes Mother Heart Disease Father Cancer Maternal Grandmother colon Social History History Substance Use Topics Smoking status: Former Smoker -- 1.00 packs/day for 9 years Types: Cigarettes Start date: 10/09/2000 Quit date: 11/23/2009 Smokeless tobacco: Never Used Alcohol Use: No Review of Systems palpitations, tachycardia, syncopal episodes lastingseveral seconds, allother systems have been reviewed and are negative. Objective: BP 128/50 mmHg Pulse 43 Temp(Src) 98.5 F (36.9 C) (Oral) Resp 20 Ht 5' 4.5 (1.638 m) Wt 362 lb 14 oz (164.6 kg) BMI 61.35 kg/m2 CjW230% ? No General: alert, appears older than stated age and cooperative Oropharynx: normal Neck: nontender Lung: clear to auscultation bilaterally Heart: S1S2 heart block Abdomen: soft, non-tender; bowel sounds normal; no masses, noorganomegaly and soft, non-tender. Bowel sounds normal. No masses, noorganomegaly Extremities: extremities normal, atraumatic, no cyanosis or edema Pulses: 2+ and symmetric 2+ and symmetric bilaterally,brachial, radial, inquinal, popliteal,posterior tibial and dorsalis pedis Skin: warm and dry, no hyperpigmentation, vitiligo, or suspicious lesionsand Warm and dry. no hyperpigmentation, vitiligo, or suspicious lesions Neuro: normal without focal findings, RICARDO, reflexes normal and symmetricand mental status, speech normal, alert and oriented x iii Diagnostic tests Lab Results Component Value Date WBC 8.3 07/12/2015 HGB 14.1 07/12/2015 HCT 42.6 07/12/2015 PLT 190 07/12/2015 Lab Results Component Value Date CREATININE 1.09 07/12/2015 BUN 15 07/12/2015 NA 137 07/12/2015 K 4.2 07/12/2015 CL 99 07/12/2015 CO2 20* 07/12/2015 Lab Results Component Value Date CHOLESTEROL 145 06/25/2015 TRIG 142 06/25/2015 HDL 30* 06/25/2015 LDLCALC 87 06/25/2015 Lab Results Component Value Date ALT 31 07/12/2015 AST 47* 07/12/2015 Lab Results Component Value Date TSH 1.4754 10/06/2013 Lab Results Component Value Date INR 1.03 10/06/2013 Lab Results Component Value Date TROPONINI <0.01 10/06/2013 TROPONINI <0.01 10/06/2013 TROPONINI <0.01 11/28/2010 Chest X-Ray: normal ECG: bradycardia With CHB Telemetry: CHB with Frequent ectopy The most recent cardiovascular imaging studies [facility] EMR werereviewed at time of consultation Assessment: Active Problems: Syncope Hyperlipidemia Morbid obesity due to excess calories (HCC) CHB (complete heart block) (HCC) Ventricular tachycardia, polymorphic (HCC) Plan: PPM in AM Continue dopamine Magnesium sulfate Morbid obesity with likely severe JODIE Thank you for the opportunity to participate in the care of this patient.If you have questions of please contact me . BASIC METABOLIC PANEL Routine 07/12/2015 6:52 AM EDT MAGNESIUM LEVEL Routine 07/12/2015 6:52 AM EDT THYROID STIMULATING HORMONE Routine 07/12/2015 6:52 AM EDT TROPONIN-T STAT 07/12/2015 6:52 AM EDT EK EKG 12 LEAD STAT 07/12/2015 5:58 AM EDT TROPONIN-T STAT 07/12/2015 2:42 AM EDT XR CHEST AP PORTABLE SHIVAM 07/12/2015 12:47 AM EDT SMEAR REVIEW STAT 07/12/2015 12:43 AM EDT DIFFERENTIAL STAT 07/12/2015 12:43 AM EDT COMPREHENSIVE METABOLIC PANEL STAT 07/12/2015 12:43 AM EDT MAGNESIUM LEVEL STAT 07/12/2015 12:43 AM EDT TROPONIN-T STAT 07/12/2015 12:43 AM EDT CBC WITH DIFF STAT 07/12/2015 12:43 AM EDT EK EKG 12 LEAD Routine 07/12/2015 12:36 AM EDT SALINE LOCK IV Routine 07/12/2015 12:34 AM EDT SCANNED EKG 07/06/2015 6:47 AM EDT SCANNED RHYTHM STRIPS 07/01/2015 5:09 PM EDT SCANNED EKG 06/29/2015 4:08 PM EDT EEG AWAKE AND DROWSY Routine 06/29/2015 1:50 PM EDT GLUCOSE METER POC Routine 06/29/2015 12:05 PM EDT SCANNED RHYTHM STRIPS 06/29/2015 11:35 AM EDT GLUCOSE METER POC Routine 06/29/2015 7:51 AM EDT GLUCOSE METER POC Routine 06/29/2015 3:02 AM EDT SCANNED RHYTHM STRIPS 06/28/2015 10:34 PM EDT GLUCOSE METER POC Routine 06/28/2015 9:46 PM EDT GLUCOSE METER POC Routine 06/28/2015 5:40 PM EDT GLUCOSE METER POC Routine 06/28/2015 12:01 PM EDT SCANNED RHYTHM STRIPS 06/28/2015 8:07 AM EDT GLUCOSE METER POC Routine 06/28/2015 7:51 AM EDT GLUCOSE METER POC Routine 06/28/2015 3:29 AM EDT GLUCOSE METER POC Routine 06/27/2015 9:36 PM EDT GLUCOSE METER POC Routine 06/27/2015 6:01 PM EDT GLUCOSE METER POC Routine 06/27/2015 3:23 PM EDT URINALYSIS STAT 06/27/2015 10:15 AM EDT BLOOD GAS ARTERIAL STAT 06/27/2015 7:35 AM EDT DIFFERENTIAL STAT 06/27/2015 6:59 AM EDT BASIC METABOLIC PANEL STAT 06/27/2015 6:59 AM EDT CBC WITH DIFF STAT 06/27/2015 6:59 AM EDT EK EKG 12 LEAD STAT 06/27/2015 6:37 AM EDT SCANNED RHYTHM STRIPS 06/26/2015 8:26 PM EDT GLUCOSE METER POC Routine 06/26/2015 12:55 PM EDT LEFT VENTRICULOGRAM Routine 06/26/2015 10:24 AM EDT CARDIAC PROCEDURE Routine 06/26/2015 10:24 AM EDT BUTTON TUFTER HEMODYNAMIC WAVEFORMS Routine 06/26/2015 9:27 AM EDT GLUCOSE METER POC Routine 06/25/2015 9:04 PM EDT GLUCOSE METER POC Routine 06/25/2015 5:04 PM EDT GLUCOSE METER POC Routine 06/25/2015 12:43 PM EDT GLUCOSE METER POC Routine 06/25/2015 8:15 AM EDT LIPID SCREEN Routine 06/25/2015 5:24 AM EDT GLUCOSE METER POC Routine 06/24/2015 9:45 PM EDT GLUCOSE METER POC Routine 06/24/2015 5:47 PM EDT GLUCOSE METER POC Routine 06/24/2015 2:06 PM EDT VA US CAROTID DUPLEX BILATERAL Routine 06/24/2015 12:30 PM EDT EC ECHOCARDIOGRAM COMPLETE W DOPPLER AND COLOR FLOW MAPPING Routine 06/24/2015 12:13 PM EDT EK EKG 12 LEAD Routine 06/24/2015 8:28 AM EDT IP CONSULT TO CARDIOLOGY Routine 06/24/2015 8:22 AM EDT Procedure Note - Lucius Fernandez MD - 06/24/2015 10:28 AM EDTThis note is in progress. Cardiology Note Helga Hernandez Today's Date: 06/24/2015 Date of Admission: 06/23/2015 Primary Care Provider: Boogie Mccormick MD Field Service Representative: None Chief Complaint: Syncope History of Present Illness: Patient is a 60 y.o. female who presented to the ER after blacking outmultiple times through the day on Monday. She had a hot sensation beforethe episode would occur and she would have a LOC for about 2-3 seconds.Upon awaking she was alert and oriented, no residual symptoms. EMS wascalled and checked her vitals which were stable and she did not go to thehospital. She had another episode after that and decided to come beevaluated. She had similar episodes to this in September of 2013 - stresstest and echo at the time were unremarkable. Denies chest pain,palpitations, SOB, orthopnea. Leg swelling during the day but subsidesduring the night. Pt has a history of HTN, HLD, DM, obesity. GXT 09/2013: Negative for ischemia Echo 09/2013: EF 40-45%, + WMAs, Mild MR Review of Systems: Gen: denies fever, chills, myalgias HENT: Negative for headaches. Cardiovascular: Negative for chest pain, dyspnea on exertion, legswelling, weight changes, near-syncope, orthopnea, palpitations,paroxysmal nocturnal dyspnea Respiratory: Negative for shortness of breath, cough. Gastrointestinal: Negative for hematochezia, N/V/D Neurological: Negative for dizziness and light-headedness. Complains of: hot flashes, syncope Medical History: Past Medical History Diagnosis Date Tubal Hypertension Diverticulosis Heartburn Pneumonia Arthritis Syncope and collapse Diabetes mellitus (HCC) Surgical History: Past Surgical History Procedure Laterality Date Cholecystectomy Dilation and curettage of uterus Abdomen surgery stomach stabling for weight loss Allergies: No Known Allergies Prior To Admission Medications: Prescriptions prior to admission Medication Sig Dispense Refill Last Dose losartan (COZAAR) 25 mg tablet Take 100 mg by mouth daily. Indications:DIABETIC NEPHROPATHY, HYPERTENSION 06/23/2015 at Unknown time Aspirin 325 mg tablet Take 1 Tab by mouth daily. 06/23/2015 at Unknowntime simvastatin (ZOCOR) 40 mg Take 40 mg by mouth nightly. 06/22/2015 atUnknown time LIRAGLUTIDE (VICTOZA 3-CRISTINE SUBQ) Subcutaneous (Inject under the skin)0.6 mg daily. Indications: .6 mg SQ daily for 7 days, then 1.2 mg SQ dailyfor 7 days then 1.8 mg SQ daily. 06/23/2015 at Unknown time atenolol (TENORMIN) 25 mg tablet Take 50 mg by mouth daily. 06/23/2015t Unknown time insulin NPH-insulin regular (NOVOLIN 70/30) 100 unit/mL (70-30)injection Subcutaneous (Inject under the skin) 50 Units every morning.06/23/2015 at Unknown time insulin NPH-insulin regular (NOVOLIN 70/30) 100 unit/mL (70-30)injection Subcutaneous (Inject under the skin) 70 Units nightly.06/22/2015 at Unknown time magnesium oxide (MAG-OX) 400 mg tablet Take 1 Tab by mouth 2 timesdaily. 60 Tab 3 Not Taking at Unknown time Social History: Nonsmoker, no ETOH/illicit drug use Family History: Mother and father of heart attacks Physical Exam: General: A&O, NAD HEENT: NC, sclerae anicteric Neck: supple, decreased JVP Heart: RRR, no murmur, gallop, rub Lungs: CTA Chest: nontender Abdomen: soft, NT, + bowel sounds Extremities: +1 BLE edema, +3 radial, PT, DP pulses Neuro: no focal abnormalities Alternative Dispute Resolution Mediator: SR rate 80s Vitals: Filed Vitals: 06/24/15 0023 06/24/15 0549 06/24/15 0631 06/24/15 0734 BP: 145/54 178/80 155/82 Pulse: 86 83 80 Temp: 98.3 F (36.8 C) 98.1 F (36.7 C) 97.9 F (36.6 C) TempSrc: Oral Oral Oral Resp: 20 18 18 Height: Weight: 375 lb (170.099 kg) SpO2: 94% 94% 94% Weight: Weight: (!) 375 lb (170.099 kg) Intake and Output: Intake/Output Summary (Last 24 hours) at 06/24/15 1028 Last data filed at 06/24/15 1012 Gross per 24 hour Intake 240 ml Output 650 ml Net -410 ml Labs: Lab Results Component Value Date TROPT <0.01 x3 06/23/2015 Lab Results Component Value Date HGB 14.1 06/23/2015 HCT 43.3 06/23/2015 PLT 216 06/23/2015 NA 139 06/23/2015 K 4.2 06/23/2015 CREATININE 1.02 06/23/2015 BUN 14 06/23/2015 CO2 27 06/23/2015 GLU 131* 06/23/2015 Diagnostics: Chest xray: No acute disease EKG:SR, NSSTTWA, no acute changes Assessment Syncope -no arrhythmias noted on monitor -Echo 09/2013: EF 40-45%, + WMAs, Mild MR -CT head with chronic ischemic changes - appear stable from CT in 2013 -Echo and carotid u/s pending Cardiomyopathy -EF 40-45% per echo 09/2013 with + WMAs -appears compensated Hypomagnesemia -replaced HTN -elevated but improving HLD DM Obesity Family history of CAD Plan -Continue ASA, atenolol, lipitor, losartan, magnesium -Echo and carotid u/s pending -May need further ischemic evaluation with LV dysfunction and WMAs notedon echo in 2012 -further input to follow from Dr. Fernandez / Dr. Loren Sharma, MECHANICAL FACILITIES TECHNICIAN Physician Documentation: I have reviewed the chief complaint, history of present illness, review ofsystems as well as the past medical/social/family history sections forthis patient. I have examined this patient, and participated in the careof this patient. I have reviewed the pertinent clinical informationincluding physical exam, labs, radiographic studies and the impression andplan, and I agree with the assessment and plan as documented. This patientwas seen in coordination with Yue Sharma EDUCATIONAL RECRUITER Plan of care was discussed . 60 yrs old diabetic woman presenting with syncope , Mild LV dysfunction onECHO. Has Hypertension. No chest pain. ECG unremarkable. EXAM: Alert and oriented. VSS Neck: Supple no JVP CVS: RRR no murmur no rub. RESP: B/L clear no wheezing or crackles Abdo: Soft non tender sounds heard normally. RUBBER CUTTER AND SHAPE CARVER: Intact. No focal defecit Extremities: Pulses well palpable, no cyanosis no edema. A/P Syncope by history appears to be Vaso Vagal. Mild LV dysfunction with Inferior wall Hypokinesis. Hypertension Obesity. Plan: Coronary Angio for further work up. Change Atenolol to Coreg. Keep Hydrated. Will need Sleep study also ? Obesity Hypovetilation syndrome. Lucius Fernandez MD Interventional Cardiology. [facility] View. GLUCOSE METER POC Routine 06/24/2015 7:46 AM EDT MAGNESIUM LEVEL Routine 06/24/2015 5:21 AM EDT TROPONIN-T Timed 06/23/2015 11:40 PM EDT GLUCOSE METER POC Routine 06/23/2015 8:46 PM EDT TROPONIN-T STAT 06/23/2015 7:[address] FACIAL BONES WO CONTRAST STAT 06/23/2015 7:[address] HEAD WO CONTRAST STAT 06/23/2015 7:01 PM EDT XR ANKLE LEFT AP LATERAL AND OBLIQUE SHIVAM 06/23/2015 6:55 PM EDT XR CHEST AP PORTABLE STAT 06/23/2015 6:54 PM EDT SALINE LOCK Routine 06/23/2015 6:44 PM EDT DIFFERENTIAL STAT 06/23/2015 5:35 PM EDT MAGNESIUM LEVEL STAT 06/23/2015 5:35 PM EDT TROPONIN-T STAT 06/23/2015 5:35 PM EDT BASIC METABOLIC PANEL STAT 06/23/2015 5:35 PM EDT CBC WITH DIFF STAT 06/23/2015 5:35 PM EDT EK EKG 12 LEAD STAT 06/23/2015 3:54 PM EDT NON-K 9 POLICE OFFICER CYTOLOGY REPORT Routine 10/30/2013 3:35 PM EST US GUIDED THYROID BIOPSY Routine 10/30/2013 1:24 PM EST Benign neoplasm of thyroid glands SCANNED RADIOLOGY REPORT 10/07/2013 12:19 PM EST GLUCOSE METER POC Routine 10/07/2013 10:22 AM EST NM MYOCARDIAL PERFUSION SPECT STRESS AND REST SHIVAM 10/07/2013 10:[address] STRESS TEST LEXISCAN Routine 10/07/2013 9:03 AM EST SCANNED RHYTHM STRIPS 10/07/2013 8:52 AM EST SCANNED RHYTHM STRIPS 10/07/2013 8:51 AM EST LIPID SCREEN Routine 10/07/2013 5:39 AM EST GLUCOSE METER POC Routine 10/06/2013 8:46 PM EST GLUCOSE METER POC Routine 10/06/2013 5:44 PM EST EK EKG 12 LEAD Routine 10/06/2013 4:05 PM EST EC ECHOCARDIOGRAM COMPLETE W DOPPLER AND COLOR FLOW MAPPING Routine 10/06/2013 2:34 PM EST VA US CAROTID DUPLEX BILATERAL Routine 10/06/2013 1:30 PM EST GLUCOSE METER POC Routine 10/06/2013 11:[address] HEAD WO CONTRAST SHIVAM 10/06/2013 11:07 AM EST DIFFERENTIAL Routine 10/06/2013 9:24 AM EST TROPONIN-I Timed 10/06/2013 9:24 AM EST BASIC METABOLIC PANEL Routine 10/06/2013 9:24 AM EST LIPID SCREEN Routine 10/06/2013 9:24 AM EST HEPATIC FUNCTION PANEL Routine 10/06/2013 9:24 AM EST THYROID STIMULATING HORMONE Routine 10/06/2013 9:24 AM EST PARTIAL THROMBOPLASTIN TIME Routine 10/06/2013 9:24 AM EST PT / INR Routine 10/06/2013 9:24 AM EST CBC WITH DIFF Routine 10/06/2013 9:24 AM EST GLUCOSE METER POC Routine 10/06/2013 8:03 AM EST SCANNED RHYTHM STRIPS 10/06/2013 7:58 AM EST SCANNED RHYTHM STRIPS 10/06/2013 7:58 AM EST TROPONIN-I Timed 10/06/2013 1:48 AM EST GLUCOSE METER POC Routine 10/05/2013 10:39 PM EST GLUCOSE METER POC Routine 10/05/2013 8:13 PM EST EK EKG 12 LEAD STAT 10/05/2013 8:08 PM EST XR CHEST AP PORTABLE STAT 10/05/2013 8:07 PM EST DIFFERENTIAL STAT 10/05/2013 7:57 PM EST MAGNESIUM LEVEL STAT 10/05/2013 7:57 PM EST ED TROPONIN STAT 10/05/2013 7:57 PM EST BASIC METABOLIC PANEL STAT 10/05/2013 7:57 PM EST CBC WITH DIFF STAT 10/05/2013 7:57 PM EST SALINE LOCK IV STAT 10/05/2013 7:48 PM EST US NECK Routine 09/09/2013 11:20 AM EST Fullness of neck BASIC METABOLIC PANEL Early AM 03/17/2013 5:40 AM EDT MAGNESIUM LEVEL Routine 03/16/2013 6:58 AM EDT BASIC METABOLIC PANEL Early AM 03/16/2013 6:58 AM EDT XR CHEST PA AND LATERAL Routine 03/15/2013 8:12 PM EDT IP CONSULT TO NUTRITION Routine 03/15/2013 7:29 PM EDT POTASSIUM LEVEL Routine 03/15/2013 5:04 PM EDT HEPATIC FUNCTION PANEL Routine 03/15/2013 5:04 PM EDT THYROID STIMULATING HORMONE Routine 03/15/2013 5:04 PM EDT HEMOGLOBIN A1C Routine 03/15/2013 5:04 PM EDT NT PROBNP Routine 03/15/2013 5:04 PM EDT EC ECHOCARDIOGRAM COMPLETE W DOPPLER AND COLOR FLOW MAPPING STAT 03/15/2013 4:54 PM EDT DIFFERENTIAL STAT 03/15/2013 1:34 PM EDT MAGNESIUM LEVEL STAT 03/15/2013 1:34 PM EDT COMPREHENSIVE METABOLIC PANEL STAT 03/15/2013 1:34 PM EDT CBC WITH DIFF STAT 03/15/2013 1:34 PM EDT DIFFERENTIAL Early AM 11/29/2010 5:41 AM EST LACTIC ACID Timed 11/29/2010 5:41 AM EST BASIC METABOLIC PANEL Timed 11/29/2010 5:41 AM EST CBC WITH DIFF Early AM 11/29/2010 5:41 AM EST THEOPHYLLINE LEVEL Routine 11/28/2010 1:49 PM EST BLOOD GAS ARTERIAL Routine 11/28/2010 1:05 PM EST EK EKG 12 LEAD STAT 11/28/2010 9:30 AM EST DIFFERENTIAL STAT 11/28/2010 9:30 AM EST FTT/ASPEN BRAIN NATRIURETIC PEPTIDE STAT 11/28/2010 9:30 AM EST TROPONIN-I STAT 11/28/2010 9:30 AM EST BASIC METABOLIC PANEL STAT 11/28/2010 9:30 AM EST CBC WITH DIFF STAT 11/28/2010 9:30 AM EST XR CHEST PA AND LATERAL SHIVAM 11/28/2010 9:16 AM EST Results * VECTOR REMOTE HEART FAILURE DEVICE (03/03/2025 12:00 AM EDT) Only the most recent of3 resultswithin the time period is included. 03/03/[address] [facility] - 03/03/2025 12:00 AM EDT Stable trend. Jean Preston MD [facility] CARDIAC CATH ORDERABLE S Final Result Performing Organization Address [facility] de Phone Number [facility] [address] [place] [address] * VECTOR REMOTE DEVICE (01/26/2025 12:00 AM EDT) Only the most recent of11 resultswithin the time period is included. 01/26/[address] [facility] - 01/26/2025 12:00 AM EDT No episodes. Mode: DDD. AP: 50%. FIRE BEHAVIOR ANALYST: 100%. Normal device function. Jean Preston MD [facility] CARDIAC CATH ORDERABLE S Final Result Performing Organization Address [facility] de Phone Number [facility] [address] [place] [address] * PACEART REPORT (03/11/2024 3:29 PM EDT) Only the most recent of30 resultswithin the time period is included. 03/11/2024 3:29 PM EDT Jean Preston MD [facility] CARDIAC CATH ORDERABLE S Final Result Performing Organization Address [facility] Phone Number [facility] [address] [place] [address] * (ABNORMAL) GLUCOSE METER POC (09/01/2019 11:33 AM EST) Only the most recent of58 resultswithin the time period is included. [facility] Glucose Meter POC 216(H) 70 - 100 mg/dL 09/01/2019 11:34 AM EST [facility] Sample Type Capillary 09/01/2019 11:34 AM EST [facility] Patient Status Non-Critical Patient 09/01/2019 11:34 AM EST [facility] Blood BLOOD SPECIMEN / Unknown 09/01/2019 11:33 AM EST 09/01/2019 11:34 AM EST us Ramirez Love MD POINT OF CARE TEST ORDERABLE S Final Result Performing Organization Address [facility]/ZIP Co de Phone Number [facility] [address] [place] [address] * ECG AND WAVEFORMS - TELEMETRY (09/01/2019 7:06 AM EST) Only the most recent of16 resultswithin the time period is included. [facility] ECG INTERPRET AV Paced [facility] CRANE ASSEMBLER APPROVED Yes [facility] 09/01/2019 7:[address] [facility] - 09/01/2019 7:15 AM EST DF/AICU ROUTINE STRI VT 0.18 QRS 0.13 QT 0.46 See Clinical Report link for waveform capture us Unknown Provider POINT OF CARE CARDIOLOGY Final Result Performing Organization Address [facility] Co de Phone Number [facility] [address] [place] [address] * (ABNORMAL) BASIC METABOLIC PANEL (09/01/2019 5:34 AM EST) Only the most recent of16 resultswithin the time period is included. [facility] Sodium 138 136 - 145 mmol/L 09/01/2019 6:10 AM EST [facility] Potassium 4.5 3.5 - 5.0 mmol/L 09/01/2019 6:10 AM EST [facility] Chloride 94(L) 98 - 107 mmol/L 09/01/2019 6:10 AM EST [facility] Total CO2 32(H) 22 - 29 mmol/L 09/01/2019 6:10 AM EST [facility] Anion Gap 12 7 - 16 mmol/L 09/01/2019 6:10 AM EST [facility] Calcium 8.2(L) 8.8 - 10.4 mg/dL 09/01/2019 6:10 AM EST [facility] Glucose Lvl 165(H) 82 - 100 mg/dL 09/01/2019 6:10 AM EST [facility] BUN 39(H) 8 - 23 mg/dL 09/01/2019 6:10 AM EST [facility] [place] Creatinine 1.33(H) 0.51 - 1.30 mg/dL 09/01/2019 6:10 AM EST [facility] [place] GFR Afr Am 49(L) >=60 mL/min/1.7 3 m2 09/01/2019 6:10 AM EST [facility] GFR Non Afr Am 43(L) >=60 mL/min/1.7 3 m2 09/01/2019 6:10 AM EST [facility] Comment: This estimated GFR was calculated using CKD-EPI equation which is modified based on ethnicity for Non Americans and Americans. Both results are reported since it is not always possible to determine the patient's ethnicity. This equation should only be used for individuals 18 and older. It has not been validated for use with the elderly (>70 years), women, or in some racial or ethnic subgroups, such as Hispanics. The equation will be less accurate in people with differences in nutritional status or muscle mass. Blood VENOUS BLOOD / Unknown Venipuncture / Unknown 09/01/2019 5:34 AM EST 09/01/2019 5:42 AM EST us Antonio Wallace MD CHEMISTRY ORDERABLES Final Res ult [facility] [place], [address], [place] [address] [facility] [address] [place] [address] * (ABNORMAL) CBC (08/31/2019 4:08 AM EST) Only the most recent of5 resultswithin the time period is included. WBC 7.5 3.7 - 10.3 x10(3)/mcL 08/31/2019 4:34 AM EST [facility] RBC 3.81(L) 3.90 - 5.20 x10(6)/mcL 08/31/2019 4:34 AM EST [facility] [place] Hgb 12.2 11.2 - 15.7 g/dL 08/31/2019 4:34 AM EST [facility] [place] Hct 38.4 34.0 - 45.0 % 08/31/2019 4:34 AM EST [facility] MCV 100.8(H) 80.0 - 100.0 fL 08/31/2019 4:34 AM EST [facility] MCH 32.0 26.0 - 34.0 pg 08/31/2019 4:34 AM EST [facility] MCHC 31.8 30.7 - 35.5 g/dL 08/31/2019 4:34 AM EST [facility] RDW 16.8(H) <=14.9 % 08/31/2019 4:34 AM EST [facility] Platelet 198 155 - 369 x10(3)/mcL 08/31/2019 4:34 AM EST [facility] MPV 10.7 8.8 - 12.5 fL 08/31/2019 4:34 AM EST [facility] Blood VENOUS BLOOD / Unknown Venipuncture / Unknown 08/31/2019 4:08 AM EST 08/31/2019 4:25 AM EST us Ramirez Love MD HEMATOLOGY ORDERABLES Final Result Performing Organization Address [facility] Co de Phone Number [facility] [place], [address] , [place] [address] * MAGNESIUM LEVEL (08/30/2019 11:58 AM EST) Only the most recent of10 resultswithin the time period is included. Magnesium 1.6 1.6 - 2.4 mg/dL 08/30/2019 1:19 PM EST [facility] [place] Blood VENOUS BLOOD / Unknown Venipuncture / Unknown 08/30/2019 11:58 AM EST 08/30/2019 12:48 PM EST us Ramirez Love MD CHEMISTRY ORDERABLES Final R esult Performing Organization Address [facility] Co de Phone Number [facility] [place] [address] [facility] , [place] [address] * EC ECHOCARDIOGRAM COMPLETE W DOPPLER AND COLOR FLOW MAPPING (08/29/2019 8:25 AM EST) Only the most recent of4 resultswithin the time period is included. Ejection Fraction 50-55 % PYRAMIS Anatomical Region Laterality Modality Electrocardiogra phy 08/29/2019 7:48 AM EST Impressions 08/29/2019 11:07 AM EST CONCLUSIONS Left ventricular cavity size normal. Left ventricular wall thickness mildly increased. Normal left ventricular systolic function. Grade 2 diastolic dysfunction with elevated LV filling pressure. Moderate left atrial dilatation. Left atrial volume index is estimated to be 46 ml/m2. Mild mitral regurgitation. Trace aortic regurgitation. Mild tricuspid regurgitation. Tricuspid regurgitation regurgitant velocity is 3.6 m/sec. Right ventricular systolic pressure estimated at 52 mmHg + JVP. Trace pulmonic regurgitation. Narrative Procedure Note Sanjay Lagos MD - 08/29/2019 IMPRESSION CONCLUSIONS Left ventricular cavity size normal. Left ventricular wall thickness mildly increased. Normal left ventricular systolic function. Grade 2 diastolic dysfunction with elevated LV filling pressure. Moderate left atrial dilatation. Left atrial volume index is estimated to be 46 ml/m2. Mild mitral regurgitation. Trace aortic regurgitation. Mild tricuspid regurgitation. Tricuspid regurgitation regurgitant velocity is 3.6 m/sec. Right ventricular systolic pressure estimated at 52 mmHg + JVP. Trace pulmonic regurgitation. Ramirez Love MD IMG ECHO ORDERABLES Final Re sult * PHOSPHORUS LEVEL (08/29/2019 7:11 AM EST) Only the most recent of2 resultswithin the time period is included. Pathologist [facility] Phosphorus 4.0 2.5 - 4.5 mg/dL 08/29/2019 7:47 AM EST [facility] Blood Butterfly / Unknown 08/29/2019 7:11 AM EST 08/29/2019 7:14 AM EST Ramirez Loev MD CHEMISTRY ORDERABLES Final R esult [facility] [address] [facility] , [place] [address] * SCANNED EKG (08/28/2019 12:55 PM EST) Only the most recent of9 resultswithin the time period is included. Anatomical Region Laterality Modality Other 08/28/2019 12:5 5 PM EST us Unknown Unknown IMG ECG ORDERABLES Final Result * (ABNORMAL) LIPID SCREEN (08/28/2019 5:59 AM EST) Only the most recent of4 resultswithin the time period is included. Cholesterol 166 <=200 mg/dL 08/28/2019 6:47 AM EST [facility] Comment: < 200 Desirable 200 - 239 Borderline High >= 240 High Triglyceride 132 <=150 mg/dL 08/28/2019 6:47 AM EST [facility] Comment: < 150 Normal 150 - 199 Borderline High 200 - 499 High >= 500 Very High HDL 38(L) >=40 mg/dL 08/28/2019 6:47 AM EST [facility] Comment: > 60 Optimal 40 - 60 Acceptable < 40 Low LDL Calculated 102(H) <=100 mg/dL 08/28/2019 6:47 AM EST [facility] Comment: < 100 Optimal 100 - 129 Near or above optimal 130 - 159 Borderline High 160 - 189 High >= 190 Very High Non-HDL-C Calculated 128 <=129 mg/dL 08/28/2019 6:47 AM EST [facility] Comment: <130 Desirable 130-159 Above Desirable 160-189 Borderline High 190-219 High >= 220 Very High Fasting Specimen? Yes None 019 6:47 AM EST [facility] Blood Venipuncture / Unknown 08/28/2019 5:59 AM EST 08/28/2019 6:12 AM EST us Ramirez Love MD CHEMISTRY ORDERABLES Final R esult [facility] [address] [facility] , [place] [address] * (ABNORMAL) MICROALBUMIN/CREATININE RATIO URINE (08/27/2019 8:22 PM EST) Urine Microalb 220.4 mg/L 08/27/2019 9:03 PM EST [facility] Urine Creatinine 45.3 mg/dL 08/27/2019 9:03 PM EST [facility] Ur Microalb/Creat 487(H) 0 - 30 mg/g 08/27/2019 9:03 PM EST [facility] Urine STRUCTURE OF URINARY TRACT PROPER / Unknown 08/27/2019 8:22 PM EST 08/27/2019 8:30 PM EST us Ramirez Love MD URINE ORDERABLES Final Resul t [facility] [address] [facility] , [address] [place] [id number] * (ABNORMAL) URINALYSIS (08/27/2019 8:22 PM EST) Only the most recent of3 resultswithin the time period is included. UA Color Yellow 08/27/2019 9:28 PM EST [facility] UA Appear Clear Clear 08/27/2019 9:28 PM EST [facility] UA Glucose Negative Negative mg/dL 08/27/2019 9:28 PM EST [facility] UA Ketones Negative Negative mg/dL 08/27/2019 9:28 PM EST [facility] UA Blood Small(A) Negative 08/27/2019 9:28 PM EST [facility] UA pH 5.0 5.0 - 8.0 pH 08/27/2019 9:28 PM EST [facility] UA Protein 30(A) Negative mg/dL 08/27/2019 9:28 PM EST [facility] UA Urobilinogen Normal <=1 mg/dL 9 9:28 PM EST [facility] UA Bili Negative Negative 08/27/2019 9:28 PM EST [facility] UA Nitrite Negative Negative 08/27/2019 9:28 PM EST [facility] UA Leuk Est Negative Negative 08/27/2019 9:28 PM EST [facility] UA Spec Grav 1.023 1.001 - 1.035 no units 08/27/2019 9:28 PM EST [facility] Comment:Reference range chele d for random specimens only. UA WBC <1 0 - 4 /HPF 08/27/2019 9:28 PM EST [facility] UA RBC 2 0 - 3 /HPF 08/27/2019 9:28 PM EST [facility] UA Squam Epi 1+ /LPF 08/27/2019 9:28 PM EST [facility] UA Mucus Trace /LPF 08/27/2019 9:28 PM EST [facility] UA Uric Ac Sujata Rare /LPF 9 9:28 PM EST [facility] Urine URINE SPECIMEN COLLECTION, CLEAN CATCH / Unknown 08/27/2019 8:22 PM EST 08/27/2019 8:27 PM EST us Ramirez Love MD URINE ORDERABLES Final Resul t Performing Organization Address [facility] Co de Phone Number [facility] [place], [facility] [address] [facility], [place] [address] * (ABNORMAL) TROPONIN-T HIGH SENSITIVITY (08/27/2019 6:53 PM EST) Only the most recent of3 resultswithin the time period is included. dq-qSwucfaez-G 14(H) <14 ng/L 08/27/2019 7:[address] [facility] Comment:See the website [facility] for rule out [place] care pathway, conditions other than AMI that can cause elevated hs cTnT, and comparison of values from the 4th and 5th generation [employer] tests. [email or web address]/topic/clinical-answers/[email or web address] Blood VENOUS BLOOD / Unknown Butterfly / Unknown 08/27/2019 6:53 PM EST 08/27/2019 7:[address] [facility] - 08/27/2019 7:23 PM EST Ingestion of yusuf doses of biotin (>5 mg/day) taken within 8 hours of drawing blood sample can interfere with this immunoassay test. us Susana Beebe MD CHEMISTRY ORDERABLES Final Result [facility] [address] [place] [phone] * (ABNORMAL) VITAMIN B12/ FOLIC ACID (08/27/2019 6:53 PM EST) Vitamin B12 174(L) 211 - 946 pg/mL 08/27/2019 7:45 PM EST [facility] [place] Folate 8.69 4.50 - 16.00 ng/mL 08/27/2019 7:45 PM EST [facility] Blood VENOUS BLOOD / Unknown Butterfly / Unknown 08/27/2019 6:53 PM EST 08/27/2019 6:58 PM EST Narrative [facility] - 08/27/2019 7:45 PM EST Ingestion of yusuf doses of biotin (>5 mg/day) taken within 8 hours of drawing blood sample can interfere with this immunoassay test. us Ramirez Love MD CHEMISTRY ORDERABLES Final R esult Performing Organization Address [facility] Co de Phone Number [facility] [address] [place] [address] , [address] [place] [phone] * TSH REFLEX (08/27/2019 6:53 PM EST) TSH Reflex 1.090 0.270 - 4.200 mcIU/mL 08/27/2019 7:33 PM EST [facility] Blood VENOUS BLOOD / Unknown Butterfly / Unknown 08/27/2019 6:53 PM EST 08/27/2019 6:58 PM EST Narrative [facility] - 08/27/2019 7:33 PM EST Ingestion of yusuf doses of biotin (>5 mg/day) taken within 8 hours of drawing blood sample can interfere with this immunoassay test. us Ramirez Love MD CHEMISTRY ORDERABLES Final R esult Performing Organization Address [facility] Co de Phone Number [facility] [address] , [address] [phone] * (ABNORMAL) HEMOGLOBIN A1C (08/27/2019 6:53 PM EST) Only the most recent of2 resultswithin the time period is included. Hgb A1C 9.0(H) 4.2 - 5.6 % 08/27/2019 7:21 PM EST [facility] Est. Avg Glucose 212 mg/dL 08/27/2019 7:21 PM EST [facility] Blood VENOUS BLOOD / Unknown Butterfly / Unknown 08/27/2019 6:53 PM EST 08/27/2019 6:58 PM EST Narrative [facility] - 08/27/2019 7:21 PM EST REFERENCE RANGE: Normal: 4.0-5.6% Pre-diabetes: 5.7-6.4% Provisional diagnosis of diabetes: >6.4% Hgb F>10% and anything which shortens red cell survival, such as hemolytic anemia, or unstable hemoglobin variants such as HbSS, HbSC, or HbCC, will lower the HbA1c value associated with a given level of glycemic control. us Ramirez Love MD CHEMISTRY ORDERABLES Final R esult Performing Organization Address City/[facility]/ZIP Co de Phone Number [facility] [address] [place] [address], [place] [address] * (ABNORMAL) NT PROBNP (08/27/2019 2:47 PM EST) Only the most recent of2 resultswithin the time period is included. NT Pro-BNP 2,207(H) <=319 pg/mL 08/27/2019 6:53 PM EST [facility] Blood VENOUS BLOOD / Unknown Venipuncture / Unknown 08/27/2019 2:47 PM EST 08/27/2019 2:[address] [facility] - 08/27/2019 6:53 PM EST An NT pro-BNP level less than 300 pg/mL in any patient, regardless of age, effectively rules out acute CHF with a 99% negative predictive value. us Susana Beebe MD CHEMISTRY ORDERABLES Final Result Performing Organization Address [facility]/ZIP Co de Phone Number [facility] [address] [place] [address] * HEPATIC FUNCTION PANEL (08/27/2019 2:47 PM EST) Only the most recent of3 resultswithin the time period is included. Total Protein 7.0 6.4 - 8.3 gm/dL 08/27/2019 7:07 PM EST [facility] Albumin 3.7 3.2 - 4.6 gm/dL 08/27/2019 7:07 PM EST [facility] Bili Direct <0.2 0.0 - 0.3 mg/dL 08/27/2019 7:07 PM EST [facility] Bili Total 0.7 0.1 - 1.3 mg/dL 08/27/2019 7:07 PM EST [facility] AST 14 <=40 IU/L 08/27/2019 7:07 PM EST [facility] ALT 9 <=41 IU/L 08/27/2019 7:07 PM EST [facility] Alk Phos 115 36 - 123 IU/L 08/27/2019 7:07 PM EST [facility] Blood VENOUS BLOOD / Unknown Venipuncture / Unknown 08/27/2019 2:47 PM EST 08/27/2019 2:49 PM EST us Ramirez Love MD CHEMISTRY ORDERABLES Final R esult [facility] [address] [place] [address] * CT ANGIOGRAM PULMONARY W CONTRAST (08/27/2019 2:33 PM EST) Anatomical Region Laterality Modality Chest Computed Tomogra phy 08/27/2019 2:33 PM EST Impressions 08/27/2019 2:54 PM EST There is no pulmonary embolus. There are small to moderate bilateral pleural effusions, greater on the right side. There is dependent atelectasis in both lower lobes. - Narrative 08/27/2019 2:[address] PULMONARY ANGIOGRAM, 08/27/2019 2:33 PM CLINICAL HISTORY: -PE suspected, intermediate prob, positive D-dimer COMPARISON: PA and lateral chest x-ray, dated 08/27/2019. TECHNIQUE: PE protocol CT angiogram of the chest with 75 mL Isovue 370 intravenous contrast material with 2-D multiplanar reconstructions and 3-D MIP reconstructions. Automated exposure control for dose reduction was used. CTDIvol: 1.4 - 39.3 mGy. DLP: 1284 mGy-cm. FINDINGS: The trachea and central airways are patent. There is no pneumothorax. There is a calcified granuloma in the right upper lobe. There is marked respiratory motion artifact, limiting the sensitivity of the study. There is moderate right pleural effusion and a small left pleural effusion. There is dependent atelectasis in both lower lobes. Thyroid gland is normal. The esophagus is normal. There is no pericardial effusion. There is no axillary, mediastinal or hilar lymphadenopathy. There are no filling defects in the pulmonary arteries to the subsegmental pulmonary arterial level. There is no free fluid in the upper abdomen. Bone windows demonstrate no suspicious osteoblastic or osteolytic lesions. Procedure Note Pattie Ewing MD - 08/27/2019 CT PULMONARY ANGIOGRAM, 08/27/2019 2:33 PM CLINICAL HISTORY: -PE suspected, intermediate prob, positive D-dimer COMPARISON: PA and lateral chest x-ray, dated 08/27/2019. TECHNIQUE: PE protocol CT angiogram of the chest with 75 mL Isovue 370 intravenous contrast material with 2-D multiplanar reconstructions and 3-DMIP reconstructions. Automated exposure control for dose reduction wasused. CTDIvol: 1.4 - 39.3 mGy. DLP: 1284 mGy-cm. FINDINGS: The trachea and central airways are patent. There is no pneumothorax.There is a calcified granuloma in the right upper lobe. There is marked respiratorymotion artifact, limiting the sensitivity of the study. There is moderate right pleural effusion and a small left pleuraleffusion. There is dependent atelectasis in both lower lobes. Thyroid gland is normal. The esophagus is normal. There is nopericardial effusion. There is no axillary, mediastinal or hilar lymphadenopathy.There are no filling defects in the pulmonary arteries to the subsegmentalpulmonary arterial level. There is no free fluid in the upper abdomen. Bone windows demonstrate no suspicious osteoblastic or osteolytic lesions. IMPRESSION: There is no pulmonary embolus. There are small to moderate bilateral pleural effusions, greater on theright side. There is dependent atelectasis in both lower lobes. - Susana Beebe MD [facility] CT ORDERABLES Final Res ult * XR CHEST PA AND LATERAL (08/27/2019 1:04 PM EST) Only the most recent of3 resultswithin the time period is included. Anatomical Region Laterality Modality Chest Radiographic Hannah ging 08/27/2019 1:04 PM EST Impressions 08/27/2019 1:15 PM EST Development of right pleural effusion with concomitant right basilar lung disease not excluded. Narrative 08/27/2019 1:15 PM EST PA AND LATERAL CHEST X-RAY, 08/27/2019 1:04 PM CLINICAL HISTORY: -Chest Pain -Chest Pain COMPARISON: 07/13/2015. Moderate size right pleural effusion. Concomitant right basilar lung disease suspected. Calcified granuloma in the right lung apex. Left lung is clear. Cardiomegaly, stable. Biventricular transvenous pacemaker is noted. Procedure Note Derrick Clifford MD - 08/27/2019 PA AND LATERAL CHEST X-RAY, 08/27/2019 1:04 PM CLINICAL HISTORY: -Chest Pain -Chest Pain COMPARISON: 07/13/2015. Moderate size right pleural effusion. Concomitant right basilar lungdisease suspected. Calcified granuloma in the right lung apex. Left lung isclear. Cardiomegaly, stable. Biventricular transvenous pacemaker is noted. IMPRESSION: Development of right pleural effusion with concomitant right basilar lung disease not excluded. Susana Beebe MD [facility] DIAGNOSTIC IMAGING ORDShagufta WARNER Final Result * (ABNORMAL) BLOOD GAS, VENOUS (08/27/2019 12:43 PM EST) pH Venous 7.30(L) 7.32 - 7.42 pH 08/27/2019 12:56 PM EST [facility] pCO2 Venous 58(H) 41 - 51 mmHg 08/27/2019 12:56 PM EST [facility] pO2 Venous 46(H) 25 - 40 mmHg 08/27/2019 12:56 PM EST [facility] Comment:The peripheral venou s blood gas oxygen level (PvO2) is not clinically useful and PvO2 levels <42 mmHg in venous blood gases are below the analytical measuring range for our blood gas instrumentation. Base Excess Roly 0.7 mmol/L 9 12:56 PM EST [facility] Hco3 Venous 27.8 24.0 - 28.0 mmol/L 08/27/2019 12:56 PM EST [facility] CO2 Total Roly 25 25 - 29 mmol/L 08/27/2019 12:56 PM EST [facility] O2 Sat. Venous 75.6(H) 40.0 - 70.0 % 08/27/2019 12:56 PM EST [facility] Blood VENOUS BLOOD / Unknown Venipuncture / Unknown 08/27/2019 12:43 PM EST 08/27/2019 12:52 PM EST us Susana Beebe MD CHEMISTRY ORDERABLES Final Result Performing Organization Address [facility] Co de Phone Number [facility] [address] [place] [address] * (ABNORMAL) D-DIMER (08/27/2019 12:43 PM EST) D-Dimer 550(H) <=230 ng/mL D-DU 08/27/2019 1:06 PM EST [facility] Comment: This test has been clinically validated by the product safety expert and approved by the FDA for exclusion of pulmonary embolism (PE) or deep vein thrombosis (DVT) in patients with a low clinical risk assessment. The cutoff for exclusion of PE and DVT is < 230 ng/mL D-Dimer Units. Increased levels of D-dimer are associated with PE, DVT, disseminated intravascular coagulation, malignancies, inflammation, sepsis, surgery, trauma, , and advanced patient age. Blood VENOUS BLOOD / Unknown Venipuncture / Unknown 08/27/2019 12:43 PM EST 08/27/2019 12:52 PM EST us Susana Beebe MD HEMATOLOGY ORDERABLES Final Result Performing Organization Address [facility]/ZIP Co de Phone Number [facility] [address] , [address] [place] [id number] * EK EKG 12 LEAD (08/27/2019 11:44 AM EST) Only the most recent of10 resultswithin the time period is included. Anatomical Region Laterality Modality Electrocardiogra phy 08/27/2019 11:4 8 AM EST Impressions 08/27/2019 4:[address] [facility] Test Date: 2019-08-27 Pat Name: HELGA HERNANDEZ Department: DEPID Room: 38 Gender: Female Clinical Specialist Vascular: Ap : 1955 Requested By: [facility] Order Number: [id number] Reading MD: Vazquez Wyatt MD Measurements Intervals [place] Rate: 62 P: 60 VT: 120 QRS: -61 QRSD: 162 T: 107 QT: 467 QTc: 478 Interpretive Statements NORMAL SINUS RHYTHM WITH ATRIAL TRACKING ELECTRONIC VENTRICULAR PACEMAKER WI9TH 100% CAPTURE Electronically Signed On 08-27-2019 16:49:19 EST by Vazquez yWatt MD Narrative Procedure Note Vazquez Wyatt MD - 08/27/[address] [facility] Test Date: 2019-08-27 Pat Name: HELGA HERNANDEZ Department: DEPID Room: 38 Gender: Female Clinical Specialist Vascular: Ap : 1955 Requested By: [facility] Order Number: [id number] Reading MD: Vazquez Wyatt MD Measurements Intervals [place] Rate: 62 P: 60 VT: 120 QRS: -61 QRSD: 162 T: 107 QT: 467 QTc: 478 Interpretive Statements NORMAL SINUS RHYTHM WITH ATRIAL TRACKING ELECTRONIC VENTRICULAR PACEMAKER WI9TH 100% CAPTURE Electronically Signed On 08-27-2019 16:49:19 EST by Vazquez Wyatt MD us Susana Beebe MD IMG ECG ORDERABLES Final Re sult * SCANNED RHYTHM STRIPS (07/16/2015 4:21 PM EDT) Only the most recent of11 resultswithin the time period is included. Anatomical Region Laterality Modality Other 07/16/2015 4:21 PM EDT us Unknown Unknown IMG ECG ORDERABLES Final Result * URINE CULTURE (07/13/2015 9:00 PM EDT) Final No growth at [address] [facility] Urine specimen (specimen) STRUCTURE OF URINARY TRACT PROPER / Unknown 07/13/2015 9:00 PM EDT 07/13/2015 9:09 PM EDT Katy Barker MD MICROBIOLOGY - GENERAL ORDER KM Final Result [facility] [address] [place] [address] * XR CHEST AP PORTABLE (07/13/2015 1:35 PM EDT) Only the most recent of5 resultswithin the time period is included. Anatomical Region Laterality Modality Chest Radio Fluoroscop y 07/13/2015 1:35 PM EDT Impressions 07/13/2015 2:42 PM EDT IMPRESSION: Uncomplicated pacemaker placement Narrative 07/13/2015 2:42 PM EDT AP portable chest July 13, 2015 COMPARE: July 12, 2015 CLINICAL HISTORY: Pacemaker placement FINDINGS: Interval placement of a left subclavian pacemaker with dual leads present. No pneumothorax. PICC line unchanged. Cardiomegaly unchanged. Procedure Note Yayo Porter MD - 07/13/2015 AP portable chest July 13, 2015 COMPARE: July 12, 2015 CLINICAL HISTORY: Pacemaker placement FINDINGS: Interval placement of a left subclavian pacemaker with dual leads present.No pneumothorax. PICC line unchanged. Cardiomegaly unchanged. IMPRESSION: Uncomplicated pacemaker placement Jean Preston MD IMG DIAGNOSTIC IMAGING ORD ERABLES Final Result * BIVENTRICULAR PPM IMPLANT (07/13/2015 12:53 PM EDT) Jean Preston MD ELECTROPHYSIOLOGY ORDERABL ES Final Result [facility] * EC ECHOCARDIOGRAM LIMITED W CONTRAST (07/13/2015 8:15 AM EDT) Ejection Fraction 45-50 % [place] Anatomical Region Laterality Modality Electrocardiogra phy 07/13/2015 7:49 AM EDT Impressions 07/13/2015 11:26 AM EDT CONCLUSIONS Limited echo performed to evaluate for left ventricular ejection fraction prior to pacemaker placement. Left ventricular ejection fraction is low normal to mildly reduced. Narrative Procedure Note Ramirez Peacock MD - 07/13/2015 IMPRESSION CONCLUSIONS Limited echo performed to evaluate for left ventricular ejectionfraction prior to pacemaker placement. Left ventricular ejection fraction is low normal to mildly reduced. Jean Preston MD IMG ECHO ORDERABLES Final Result * DIFFERENTIAL (07/13/2015 4:30 AM EDT) Only the most recent of9 resultswithin the time period is included. Pathologist [facility] Neut Percent 67.9 % [facility] Lymph Percent 21.1 % [facility] [place] Percent 9.7 % [facility] Eos Percent 0.5 % [facility] Baso Percent 0.8 % [facility] Neut# 4.8 1.8 - 7.7 x10(3)/mcL [facility] Lymph# 1.5 0.6 - 4.8 x10(3)/mcL [facility] [place]# 0.7 0.0 - 1.3 x10(3)/mcL [facility] Eos# 0.0 0.0 - 0.5 x10(3)/mcL [facility] Baso# 0.1 0.0 - 0.2 x10(3)/[facility] Blood specimen (specimen) 07/13/2015 4:30 AM EDT 07/13/2015 4:50 AM EDT Jean Preston MD HEMATOLOGY ORDERABLES Tianna l Result [facility] [address] [place] [address] * PT / INR (07/13/2015 4:30 AM EDT) Only the most recent of2 resultswithin the time period is included. Pathologist [facility] PT 11.4 9.3 - 12.3 second(s) [facility] INR 1.06 0.87 - 1.15 [facility] Comment: Level of Therapy Indications Target INR Range Standard Dose Treatment and prophylaxis of venous 2.0 - 3.0 thrombosis, pulmonary embolism High Dose High risk patients with mechanical 2.5 - 3.5 heart valves Blood specimen (specimen) UPPER LIMB STRUCTURE / Unknown 07/13/2015 4:30 AM EDT 07/13/2015 4:[address] [facility] - 07/13/2015 5:10 AM EDT PT/INR only if patient is on Coumadin. Notify client services coordinator if INR is 1.8 or greater us Jean Preston MD HEMATOLOGY ORDERABLES Tianna drake Result [facility] [address] [place] [address] * CBC WITH AUTO DIFF (07/13/2015 4:30 AM EDT) Only the most recent of9 resultswithin the time period is included. [facility] WBC 7.0 4.0 - 11.0 x10(3)/mcL [facility] RBC 4.55 3.80 - 5.10 x10(6)/mcL [facility] Hgb 13.9 12.0 - 15.6 gm/dL [facility] Hct 41.5 35.7 - 45.9 % [facility] MCV 91.2 82.5 - 99.[address] [facility] MCH 30.6 27.0 - 34.[address] [facility] MCHC 33.5 32.1 - 35.3 gm/dL [facility] RDW 13.8 11.5 - 15.0 % [facility] Platelet 179 144 - 423 x10(3)/mcL [facility] MPV 9.0 6.8 - 10.[address] [facility] Blood specimen (specimen) UPPER LIMB STRUCTURE / Unknown 07/13/2015 4:30 AM EDT 07/13/2015 4:[address] [facility] - 07/13/2015 5:03 AM EDT Do not repeat if done in the past 10 days. us Jean Preston MD HEMATOLOGY ORDERABLES Tianna l Result Performing Organization Address [facility] Co de Phone Number [facility] [address] [place] [address] * TROPONIN-T (07/12/2015 1:44 PM EDT) Only the most recent of7 resultswithin the time period is included. Troponin-T <0.01 <=0.02 ng/mL [facility] Comment: < 0.03 No detectable myocardial injury 0.03 - 0.10 Possible myocardial injury > 0.10 Indicative of myocardial injury Blood specimen (specimen) 07/12/2015 1:44 PM EDT 07/12/2015 1:50 PM EDT us Jany Brito MD CHEMISTRY ORDERABLES Final Result Performing Organization Address [facility] de Phone Number [facility] [address] [place] [address] * (ABNORMAL) BLOOD GAS ARTERIAL (07/12/2015 1:43 PM EDT) Only the most recent of3 resultswithin the time period is included. pH 7.400 7.370 - 7.440 [facility] pCO2 38 32 - [address] [facility] pO2 71(L) 80 - [address] [facility] HCO3 24 20 - 29 mmol/L [facility] TCO2 25 21 - 30 mmol/L [facility] Base Excess -1.1 -2.8 - 2.3 mEq/L [facility] O2 Sat 97 95 - 97 % [facility] Inspired O2 [address]L [facility] Specimen Type Arterial [facility] Blood specimen (specimen) UPPER LIMB STRUCTURE / Unknown 07/12/2015 1:43 PM EDT 07/12/2015 1:48 PM EDT us Ramirez Peacock MD CHEMISTRY ORDERABLES Final Res ult Performing Organization Address [facility] Co de Phone Number [facility] [address] [place] [address] * THYROID STIMULATING HORMONE (07/12/2015 6:52 AM EDT) Only the most recent of3 resultswithin the time period is included. Pathologist [facility] TSH 1.770 0.270 - 4.200 mcIU/mL [facility] Blood specimen (specimen) UPPER LIMB STRUCTURE / Unknown 07/12/2015 6:52 AM EDT 07/12/2015 8:14 AM EDT Ramirez Peacock MD CHEMISTRY ORDERABLES Final Res ult Performing Organization Address [facility] Co de Phone Number [facility] [address] [place] [address] * SMEAR REVIEW (07/12/2015 12:43 AM EDT) [facility] RBC Morph Normal [facility] Polychrom Slight [facility] Ovalocyte Rare [facility] Blood specimen (specimen) 07/12/2015 12:43 AM EDT 07/12/2015 12:46 AM EDT Viola Calderon MD HEMATOLOGY ORDERABLES Final Re sult Performing Organization Address [facility] de Phone Number [facility] [address] [place] [address] * (ABNORMAL) COMPREHENSIVE METABOLIC PANEL (07/12/2015 12:43 AM EDT) Only the most recent of2 resultswithin the time period is included. [facility] Sodium 137 136 - 145 mmol/L [facility] Potassium 4.2 3.5 - 5.0 mmol/L [facility] Chloride 99 98 - 107 mmol/L [facility] Total CO2 20(L) 22 - 29 mmol/L [facility] Anion Gap 18(H) 7 - 16 mmol/L [facility] Calcium 8.8 8.6 - 10.2 mg/dL [facility] Glucose Lvl 331(H) 74 - 100 mg/dL [facility] BUN 15 6 - 20 mg/dL [facility] Creatinine 1.09 0.51 - 1.30 mg/dL [facility] Albumin 3.5 3.5 - 5.2 gm/dL [facility] Total Protein 6.3(L) 6.4 - 8.3 gm/dL [facility] Bili Total 0.8 0.1 - 1.3 mg/dL [facility] AST 47(H) <=40 IU/L [facility] ALT 31 <=41 IU/L [facility] Alk Phos 127(H) 35 - 104 IU/L [facility] GFR Afr Am >60 [facility] GFR Non Afr Am 51 [facility] Blood specimen (specimen) UPPER LIMB STRUCTURE / Unknown 07/12/2015 12:43 AM EDT 07/12/2015 12:46 AM EDT us Viola Calderon MD CHEMISTRY ORDERABLES Edited Re sult - Final [facility] [address] [place] [address] * EEG AWAKE AND DROWSY (06/29/2015 1:50 PM EDT) Anatomical Region Laterality Modality Electroencephalo graphy Impressions 08/10/2015 10:40 AM EST : Normal awake and drowsy EEG. No definite epileptiform activity was seen. Yayo Hernandez MD By: Job ID: [id number] Doc ID: [id number] CC: Narrative 08/10/2015 10:40 AM EST DATE OF PROCEDURE: 06/29/2015 IDENTIFICATION: A 60-year-old referred by Dr. Baez for evaluation of possible seizure. REPORT: This digital EEG is carried out with the patient in the awake and drowsy state. At the start of the tracing, the background is difficult to ascertain and is quite variable, at best, 10 to 11 Hz. The activity to eye opening and eye closure is not well established. Photic stimulation fails to elicit any abnormalities. Hyperventilation is likewise unremarkable, although there is artifact with hyperventilation due to movement. The patient may drowse, but does not appear to fall asleep during the tracing. An irregular low amplitude theta is noted in the left temporal region, but this is not convincingly present on referential montages. us Ramirez Baez MD IMG EEG ORDERABLES Final Result * CORONARY ANGIOGRAM (COR/LHC/LV GRAM, CARDIAC CATHETERIZATION), LEFT VENTRICULOGRAM (06/26/2015 10:24 AM EDT) Narrative [facility] - 06/26/2015 11:40 AM EDT Dist LAD lesion 70% stenosed. Mid Cx lesion 50% stenosed. Prox RCA lesion 65% stenosed. Mid RCA lesion 40% stenosed. Three vessel Moderate diffuse CAD Borderline lesion in Proximal RCA best treated medically. Normal LV function. Normal LV filling pressure. Coronary Findings Diagnostic Dominance: Right Left Main: The vessel was visualized by angiography and is moderate in size. There is mild diffuse disease throughout the vessel. Left Anterior Descending: The vessel was visualized by angiography and is large. There is moderate diffuse disease throughout the vessel. Dist LAD lesion 70% stenosed. The lesion is discrete. Distal LAD as it wraps aroung LV apex has 70 % lesion vessel is small and best treated mediaclly. First Diagonal Branch: The vessel is moderate in size. There is mild diffuse disease throughout the vessel. Second Diagonal Branch: The vessel is moderate in size. There is mild diffuse disease throughout the vessel. Left Circumflex: The vessel was visualized by angiography and is moderate in size. Mid Cx lesion 50% stenosed. The lesion is discrete. First Obtuse Marginal Branch: The vessel was not injected and is large. There is mild diffuse disease throughout the vessel. First Left Posterolateral Branch: The vessel is moderate in size. There is mild diffuse disease throughout the vessel. Right Coronary Artery: The vessel was visualized by angiography and is large. Prox RCA lesion 65% stenosed. The lesion is segmental and calcified. Mid RCA lesion 40% stenosed. The lesion is segmental. Right Posterior Descending Artery: The vessel is moderate in size. There is moderate diffuse disease throughout the vessel. Right Posterior Atrioventricular Artery: The vessel is moderate in size. There is moderate diffuse disease throughout the vessel. Intervention No interventions have been documented. Left Ventricle LVEDP /post-A wave : 5 mmHg Complication There were no immediate complications Wall Motion The following segments are normal: basal anterior, basal inferior, mid anterior, mid inferior, apical anterior and apical inferior. Other segments could not be evaluated. us Christine Sharma APRN CARDIAC CATH ORDERABLES Final Result [facility] * BUTTON TUFTER HEMODYNAMIC WAVEFORMS (06/26/2015 9:27 AM EDT) 06/26/2015 9:27 AM EDT us Christine Radha Sharma APRN CARDIAC CATH ORDERABLES Final Result [facility] [address] [place] [address] * IN US CAROTID DUPLEX BILATERAL (06/24/2015 12:30 PM EDT) Only the most recent of2 resultswithin the time period is included. Anatomical Region Laterality Modality Vascular, Head, Neck Vascular Im aging 06/24/2015 11:5 2 AM EDT Impressions 06/24/2015 4:45 PM EDT CONCLUSIONS Stenosis in Right Proximal ICA at 1-39%. Stenosis in Left Proximal ICA at 1-39%. Bilateral antegrade vertebral flow. Narrative Procedure Note Ramirez Barker MD - 06/24/2015 IMPRESSION CONCLUSIONS Stenosis in Right Proximal ICA at 1-39%. Stenosis in Left Proximal ICA at 1-39%. Bilateral antegrade vertebral flow. Ramirez Baez MD [facility] VASCULAR ORDERABLES Final R esult * CT FACIAL BONES WO CONTRAST (06/23/2015 7:01 PM EDT) Anatomical Region Laterality Modality Head Computed Tomogra phy 06/23/2015 7:01 PM EDT Impressions 06/23/2015 7:29 PM EDT Impression: No CT evidence of significant soft tissue injury or midfacial fracture deformity. Please see above detailed report. Narrative 06/23/2015 7:29 PM EDT 06/23/[address] facial bones with multiplanar reconstructions: History: Recent syncopal episode with apparent trauma. Rule out fracture. No comparison CT imaging studies. Prelim report provided to ER department, 7:25 PM. Direct [address] imaging of the facial bones performed with multiplanar reconstruction images reviewed separately. No significant sinus inflammatory change or mastoid fluid. The nasal bones are intact. No focal bony orbital injury. The nasal septum is midline. No evidence of mandibular fracture. Multilevel degenerative change involves the upper/mid cervical spine. Procedure Note Jesús Bernard DO - 06/23/2015 06/23/[address] facial bones with multiplanar reconstructions: History: Recent syncopal episode with apparent trauma. Rule out fracture.No comparison CT imaging studies. Prelim report provided to ER department,7:25 PM. Direct [address] imaging of the facial bones performed with multiplanar reconstruction images reviewed separately. No significantsinus inflammatory change or mastoid fluid. The nasal bones are intact. No focalbony orbital injury. The nasal septum is midline. No evidence of mandibularfracture. Multilevel degenerative change involves the upper/mid cervical spine. Impression: No CT evidence of significant soft tissue injury or midfacial fracture deformity. Please see above detailed report. us Derrick Willoughby MD IMG CT ORDERABLES Final Result * CT HEAD WO CONTRAST (06/23/2015 7:01 PM EDT) Only the most recent of2 resultswithin the time period is included. Anatomical Region Laterality Modality Head Computed Tomogra phy 06/23/2015 7:01 PM EDT Impressions 06/23/2015 7:19 PM EDT Impression: Stable noncontrast head CT exam with chronic scattered lacunar and deep white matter small vessel ischemic changes. No acute intracranial findings. Narrative 06/23/2015 7:19 PM EDT 06/23/[address]: History: Follow-up syncopal episode. Headache. Confusion. Prior 10/06/[address] study. Prelim report provided to the ER department, 7:17 PM. Direct 5 mm axial imaging. No visualized mastoid fluid or significant sinus inflammatory change. Stable ventricles. Stable posterior fossa structures. Minimal chronic bilateral scattered lacunar and deep white matter small vessel ischemic changes again noted. No evidence of acute bleed, cortical infarct or subdural collection. If the patient has progressive clinical symptoms, follow-up MR imaging advised. Procedure Note Jesús Bernard, - 06/23/2015 06/23/[address]: History: Follow-up syncopal episode. Headache. Confusion. Prior10/06/[address] study[address] Prelim report provided to the ER department, 7:17PM. Direct 5 mm axial imaging. No visualized mastoid fluid or significantsinus inflammatory change. Stable ventricles. Stable posterior fossastructures. Minimal chronic bilateral scattered lacunar and deep white matter smallvessel ischemic changes again noted. No evidence of acute bleed, cortical infarctor subdural collection. If the patient has progressive clinical symptoms,follow-up MR imaging advised. Impression: Stable noncontrast head CT exam with chronic scattered lacunar and deepwhite matter small vessel ischemic changes. No acute intracranial findings. Derrick Willoughby MD [facility] CT ORDERABLES Final Result * XR ANKLE LEFT AP LATERAL AND OBLIQUE (06/23/2015 6:55 PM EDT) Anatomical Region Laterality Modality Ankle Radiographic Hannah ging 06/23/2015 6:55 PM EDT Impressions 06/23/2015 7:20 PM EDT IMPRESSION: Soft tissue swelling only. No bony or joint space abnormality. Narrative 06/23/2015 7:20 PM EDT XR ANKLE LEFT AP LATERAL AND OBLIQUE 06/23/2015 6:55 PM HISTORY: -LOSS OF CONSCIOUSNESS Marked soft tissue swelling noted. Soft tissue edema noted. Dystrophic soft tissue calcification probably venous noted. Calcaneal spur identified. No fracture detected. Joint space maintained. Procedure Note Fracisco Mayer MD - 06/23/2015 XR ANKLE LEFT AP LATERAL AND OBLIQUE 06/23/2015 6:55 PM HISTORY: -LOSS OF CONSCIOUSNESS Marked soft tissue swelling noted. Soft tissue edema noted. Dystrophicsoft tissue calcification probably venous noted. Calcaneal spur identified.No fracture detected. Joint space maintained. IMPRESSION: Soft tissue swelling only. No bony or joint spaceabnormality. Derrick Willoughby MD [facility] DIAGNOSTIC IMAGING ORDERABL ES Final Result * NON-K 9 POLICE OFFICER CYTOLOGY REPORT (10/30/2013 3:35 PM EST) Non-Dcs Engineer Cytology Report PATIENT NAME:HELGA HERNANDEZ Non-Dcs Engineer Cytology Report Accession Number Collected Date/Time Received Date/Time [id number] 10/30/13 15:35 EST 10/30/13 15:41 EST Specimen Source Fine Needle Aspiration, Right Thyroid Lobe Diagnosis Negative for Malignancy. Comment Specimen Adequacy: Satisfactory The specimen is composed of uniform, cytologically bland-appearing follicular epithelial cells with a predominantly macrofollicular arrangement, hemosiderin macrophages and extracellular colloid, consistent with a benign cystic nodule. COMMENT: Clinical and radiographic correlation is recommended. Primary Care Nurse Practitioner: DO CHRISTINA 10/31/2013 Completed by: FABIOLA HODGSON (Electronically signed by) 10/31/2013 [facility] Laboratory Gross Description 4 direct smears made [address] [facility] 10/30/2013 3:35 PM EST us Mario Contreras MD CYTOLOGY ORDERABLES Final Resul t [facility] [address] [place] [address] * US GUIDED THYROID BIOPSY (10/30/2013 1:24 PM EST) Anatomical Region Laterality Modality Neck Ultrasound 10/30/2013 11:5 3 AM EST Impressions 10/30/2013 2:17 PM EST IMPRESSION: Pathology results pending. Technically successful core needle biopsy of thyroid nodule. Narrative 10/30/2013 2:17 PM EST ULTRASOUND-GUIDED BIOPSY OF THE THYROID Oct 30, 2013 01:26:19 PM PROCEDURE NOTE: Predominantly cystic nodule in the mid right thyroid lobe was localized with ultrasound. Informed consent was obtained from the patient. Skin was prepped and draped in sterile fashion. Lidocaine was used for local anesthesia. 3 mL of fluid was withdrawn. The fluid was dark red to brownish in color. A single pass was made with 20-gauge core needle biopsy device of the remaining hypoechoic material. Digital images of the ultrasound-guided procedure were saved to the archive. Procedure Note Jessa Alvarez MD - 10/30/2013 ULTRASOUND-GUIDED BIOPSY OF THE THYROID Oct 30, 2013 01:26:19 PM PROCEDURE NOTE: Predominantly cystic nodule in the mid right thyroid lobe was localizedwith ultrasound. Informed consent was obtained from the patient. Skin was prepped anddraped in sterile fashion. Lidocaine was used for local anesthesia. 3 mL of fluid was withdrawn.The fluid was dark red to brownish in color. A single pass was made with 20-gauge core needlebiopsy device of the remaining hypoechoic material. Digital images of the ultrasound-guidedprocedure were saved to the archive. IMPRESSION: Pathology results pending. Technically successful core needle biopsy ofthyroid nodule. us Mario Contreras MD IM US ORDERABLES Final Result * SCANNED RADIOLOGY REPORT (10/07/2013 12:19 PM EST) Anatomical Region Laterality Modality Other us Unknown Unknown IMG DIAGNOSTIC IMAGING ORDERABLE S Final Result * NM MYOCARDIAL PERFUSION SPECT STRESS AND REST (10/07/2013 10:08 AM EST) Anatomical Region Laterality Modality Nuclear Medicine 10/06/2013 1:30 PM EST Impressions 10/07/2013 3:19 PM EST SPECT RESULTS Technical Quality: Technically adequate study Raw Data Analysis: No clinically relevant artifact Perfusion: Fixed inferior wall defect with abnormal wall motion likely secondary to prior infarction. No definite reversible perfusion defect. FUNCTION (calculated via Gated SPECT) Post Stress LV EF:65 % TID: 1.01 EDV: 183 ml (70-100 ml) ESV: 65 ml (30-50 ml) EDVI: 67 ml/m? (30-50 ml/m?) ESVI: 24 ml/m? (15-30 ml/m?) Technical Quality: Gated SPECT appears to be visually accurate LV Size & Function: Dilated left ventricle. Normal left ventricular systolic function. LV Regional Function: Inferor and infero-apical hypokinesis. EF 65%. Right Ventricle: The right ventricle was not well visualized. IMPRESSIONS Abnormal LV perfusion study suggesting prior inferior myocardial infarction. There is no pharmacologically provoked ischemia. Mild left ventricular dilatation with overall preserved systolic function. Narrative Procedure Note Vazquez Wyatt MD - 10/07/2013 IMPRESSION SPECT RESULTS Technical Quality: Technically adequate study Raw Data Analysis: No clinically relevant artifact Perfusion: Fixed inferior wall defect with abnormal wallmotion likely secondary to prior infarction. No definite reversible perfusion defect. FUNCTION (calculated via Gated SPECT) Post Stress LV EF:65 %TID: 1.01 EDV: 183 ml (70-100 ml) ESV: 65 ml(30-50 ml) EDVI: 67 ml/m? (30-50 ml/m?) ESVI: 24ml/m? (15-30 ml/m?) Technical Quality: Gated SPECT appears to be visually accurate LV Size & Function: Dilated left ventricle. Normal left ventricular systolic function. LV Regional Function: Inferor and infero-apical hypokinesis. EF 65%. Right Ventricle: The right ventricle was not well visualized. IMPRESSIONS Abnormal LV perfusion study suggesting prior inferior myocardialinfarction. There is no pharmacologically provoked ischemia. Mild left ventricular dilatation with overall preserved systolicfunction. Carlos Camarillo MD [facility] NM CARDIAC ORDERABLES F inal Result * ST STRESS TEST LEXISCAN (10/07/2013 9:03 AM EST) Anatomical Region Laterality Modality Cardiac Stress T esting 10/07/2013 8:51 AM EST Carlos Camarillo MD [facility] STRESS ORDERABLES Final Result * TROPONIN-I (10/06/2013 9:24 AM EST) Only the most recent of3 resultswithin the time period is included. Pathologist [facility] Troponin-I <0.01 <=0.06 ng/mL [facility] Blood specimen (specimen) UPPER LIMB STRUCTURE / Unknown 10/06/2013 9:24 AM EST 10/06/2013 9:39 AM EST Carlos Camarillo MD CHEMISTRY ORDERABLES Final Result Performing Organization Address City/State/[facility] Co de Phone Number [facility] [address] [place] [address] * PARTIAL THROMBOPLASTIN TIME (10/06/2013 9:24 AM EST) PTT 30.5 24.4 - 35.0 second(s) [facility] Comment: Therapeutic range for direct thrombin inhibitors: Argatroban is 1.5 to 3 times the aPTT baseline. Lepirudin is 1.5 to 2 times the aPTT baseline. The aPTT should not exceed 100 seconds. The dosage of Argatroban should be decreased in patients with hepatic impairment. The dosage of Lepirudin should be decreased in renal insufficiency. The aPTT is no longer the appropriate test to monitor unfractionated heparin anticoagulation. Blood specimen (specimen) UPPER LIMB STRUCTURE / Unknown 10/06/2013 9:24 AM EST 10/06/2013 9:39 AM EST us Alicia Terry MECHANICAL FACILITIES TECHNICIAN HEMATOLOGY ORDERABLE S Final Result Performing Organization Address [facility] Co de Phone Number [facility] [address] [place] [address] * ED TROPONIN (10/05/2013 7:57 PM EST) ED TNI 0.00 <=0.06 ng/mL [facility] Blood specimen (specimen) UPPER LIMB STRUCTURE / Unknown 10/05/2013 7:57 PM EST 10/05/2013 8:10 PM EST us Yayo Bennett MD CHEMISTRY ORDERABLES Final Resu lt Performing Organization Address [facility] Co de Phone Number [facility] [address] [place] [address] * US NECK (09/09/2013 11:20 AM EST) Anatomical Region Laterality Modality Neck Ultrasound Impressions 09/10/2013 10:09 PM EST : 1. Asymmetric enlargement of the thyroid gland right lobe. 3.2-cm complex solid and cystic nodule of the right lobe. Given the large size, biopsy is suggested. Will Peguero M.D. Narrative 09/10/2013 10:09 PM EST EXAMINATION: Thyroid Ultrasound Dated111/10/2012. CLINICAL HISTORY: 58-year-old female with right thyromegaly. COMPARISON: No prior studies are available for comparison. FINDINGS: The thyroid gland right lobe is asymmetrically enlarged. The right lobe measured 5.0-cm in length x 1.9 x 2.8-cm in cross-section. The left lobe is at the upper limits of normal in size, measuring 4.0-cm in length x 1.4 x 0.9-cm in cross-section. The isthmus measures 0.5-cm in thickness. Complex solid and cystic nodule of the right lobe. Measures 3.2 x 2.3 x 1.9-cm. A 0.8-cm mildly complex cyst of the right lobe inferiorly. Coarse calcification of the left lobe anteriorly. Measures 0.6-cm in largest dimension. A 0.9-cm cyst of the left lobe lower pole. Procedure Note Heather Giang MD - 09/10/2013 EXAMINATION: Thyroid Ultrasound Dated111/10/2012. CLINICAL HISTORY: 58-year-old female with right thyromegaly. COMPARISON: No prior studies are available for comparison. FINDINGS: The thyroid gland right lobe is asymmetrically enlarged.The right lobe measured 5.0-cm in length x 1.9 x 2.8-cm in cross-section.The left lobe is at the upper limits of normal in size, measuring 4.0-cmin length x 1.4 x 0.9-cm in cross-section. The isthmus measures 0.5-cm inthickness. Complex solid and cystic nodule of the right lobe. Measures3.2 x 2.3 x 1.9-cm. A 0.8-cm mildly complex cyst of the right lobeinferiorly. Coarse calcification of the left lobe anteriorly. Measures0.6-cm in largest dimension. A 0.9-cm cyst of the left lobe lower pole. IMPRESSION: 1. Asymmetric enlargement of the thyroid gland right lobe. 3.2-cm complexsolid and cystic nodule of the right lobe. Given the large size, biopsyis suggested. Will Peguero M.D. us Boogie Mccormick MD [facility] US ORDERABLES Final Result * (ABNORMAL) POTASSIUM LEVEL (03/15/2013 5:04 PM EDT) Potassium 5.4(H) 3.5 - 5.0 mmol/L [facility] Blood specimen (specimen) UPPER LIMB STRUCTURE / Unknown 03/15/2013 5:04 PM EDT 03/15/2013 7:07 PM EDT us Racheal Lundy MD CHEMISTRY ORDERABLES Final Resul t [facility] [address] [place] [address] * LACTIC ACID (11/29/2010 5:41 AM EST) Lactic Acid 1.4 0.5 - 2.2 mmol/L [facility] Blood specimen (specimen) UPPER LIMB STRUCTURE / Unknown 11/29/2010 5:41 AM EST 11/29/2010 6:[address] [facility] - 11/29/2010 6:55 AM EST Most Recent Flowsheet Value for Specimen Collection Status (read-only)->Lab=Lab Collect Derrick Lipscomb MD CHEMISTRY ORDERABLES Final Resul t Performing Organization Address City/[facility]/ZIP Co de Phone Number [facility] [address] [place] [address] * (ABNORMAL) THEOPHYLLINE LEVEL (11/28/2010 1:49 PM EST) Toñito <2.5(L) 10.0 - 20.0 mg/L [facility] Blood specimen (specimen) UPPER LIMB STRUCTURE / Unknown 11/28/2010 1:49 PM EST 11/28/2010 2:19 PM EST Derrick Lipscomb MD CHEMISTRY ORDERABLES Final Resul t Performing Organization Address City/[facility]/ZIP Co de Phone Number [facility] [address] [place] [address] * FTT/ASPEN BRAIN NATRIURETIC PEPTIDE (11/28/2010 9:30 AM EST) BNP 61 0 - 100 pg/mL [facility] Blood specimen (specimen) 11/28/2010 9:30 AM EST 11/28/2010 9:35 AM EST us Tejinder Velázquez MD CHEMISTRY ORDERABLES Final Re sult Performing Organization Address City/[facility]/ZIP Co de Phone Number [facility] [address] [place] [address] Visit Diagnoses Diagnosis Start Date COPD exacerbation (HCC) Obstructive chronic bronchitis with exacerbation 11/28/2010 ARF (acute renal failure) Acute kidney failure, unspecified 03/15/2013 Hyperkalemia Hyperpotassemia 03/15/2013 Acute renal failure Acute kidney failure, unspecified 03/15/2013 Dehydration 03/15/2013 LANIER (dyspnea on exertion) Other dyspnea and respiratory abnormality 03/15/2013 Hypomagnesemia Disorders of magnesium metabolism 03/15/2013 Morbid obesity (HCC) Morbid obesity 03/15/2013 Muscle cramps Cramp of limb 03/15/2013 Acute kidney failure, unspecified 03/15/2013 Hyperpotassemia 03/15/2013 Syncope Syncope and collapse 10/05/2013 Abnormal EKG Nonspecific abnormal electrocardiogram (ECG) (EKG) 10/05/2013 Diabetes mellitus (HCC) Type II or unspecified type diabetes mellitus without mention of complication, not stated as uncontrolled 10/05/2013 Hypomagnesemia Disorders of magnesium metabolism 10/05/2013 HTN (hypertension) Unspecified essential hypertension 10/05/2013 Hyperlipidemia Other and unspecified hyperlipidemia 10/05/2013 Morbid obesity (HCC) Morbid obesity 10/05/2013 Multiple lacunar infarcts (HCC) 10/05/2013 Syncope and collapse 10/05/2013 Benign neoplasm of thyroid glands 10/30/2013 Syncope, unspecified syncope type 06/23/2015 Periorbital contusion, left, initial encounter 06/23/2015 Hypomagnesemia Disorders of magnesium metabolism 06/23/2015 Sprain of left ankle, unspecified ligament, initial encounter 06/23/2015 Secondary hypertension, unspecified 06/23/2015 Morbid obesity due to excess calories ([facility]) 06/23/2015 Altered level of consciousness Other alteration of consciousness 06/27/2015 CHB (complete heart block) ([facility]) Atrioventricular block, complete 07/13/2015 Torsades de pointes ([facility]) 07/13/2015 Cardiomyopathy, hypertensive, with heart failure ([facility]) 07/13/2015 NYHA class 3 heart failure with borderline preserved ejection fraction ([facility]) 07/13/2015 Third degree AV block ([facility]) Atrioventricular block, complete 07/12/2015 Syncope, cardiogenic Syncope and collapse 07/12/2015 CHB (complete heart block) ([facility]) Atrioventricular block, complete 07/24/2015 Biventricular cardiac pacemaker in situ Cardiac pacemaker in situ 07/24/2015 CHB (complete heart block) ([facility]) Atrioventricular block, complete 10/26/2015 Ventricular tachycardia, polymorphic ([facility]) Paroxysmal ventricular tachycardia 10/26/2015 Biventricular cardiac pacemaker in situ Cardiac pacemaker in situ 10/26/2015 LV dysfunction Heart disease, unspecified 10/26/2015 CHB (complete heart block) ([facility]) Atrioventricular block, complete 01/27/2016 Biventricular cardiac pacemaker in situ Cardiac pacemaker in situ 01/27/2016 CHB (complete heart block) (HCC) Atrioventricular block, complete 04/28/2016 Cardiomyopathy (HCC) Other primary cardiomyopathies 04/28/2016 Biventricular cardiac pacemaker in situ Cardiac pacemaker in situ 04/28/2016 Cardiomyopathy (HCC) Other primary cardiomyopathies 07/28/2016 CHB (complete heart block) (HCC) Atrioventricular block, complete 07/28/2016 Biventricular cardiac pacemaker in situ Cardiac pacemaker in situ 07/28/2016 CHB (complete heart block) (HCC) Atrioventricular block, complete 10/31/2016 Biventricular cardiac pacemaker in situ Cardiac pacemaker in situ 10/31/2016 CHB (complete heart block) (HCC) Atrioventricular block, complete 01/31/2017 Biventricular cardiac pacemaker in situ Cardiac pacemaker in situ 01/31/2017 Cardiac pacemaker in situ 05/02/2017 Presence of biventricular cardiac pacemaker Cardiac pacemaker in situ 05/02/2017 CHB (complete heart block) (HCC) Atrioventricular block, complete 05/02/2017 Biventricular cardiac pacemaker in situ Cardiac pacemaker in situ 05/02/2017 Syncope, unspecified syncope type 05/02/2017 CHB (complete heart block) (HCC) Atrioventricular block, complete 08/03/2017 Cardiomyopathy, unspecified type (HCC) 08/03/2017 Presence of biventricular cardiac pacemaker Cardiac pacemaker in situ 08/03/2017 CHB (complete heart block) (HCC) Atrioventricular block, complete 11/13/2017 Biventricular cardiac pacemaker in situ Cardiac pacemaker in situ 11/13/2017 Ventricular tachycardia, polymorphic (HCC) Paroxysmal ventricular tachycardia 11/13/2017 CHB (complete heart block) (HCC) Atrioventricular block, complete 02/14/2018 Ventricular tachycardia, polymorphic (HCC) Paroxysmal ventricular tachycardia 02/14/2018 Cardiomyopathy, unspecified type (HCC) 02/14/2018 Presence of biventricular cardiac pacemaker Cardiac pacemaker in situ 02/14/2018 CHB (complete heart block) (HCC) Atrioventricular block, complete 05/16/2018 Ventricular tachycardia, polymorphic (HCC) Paroxysmal ventricular tachycardia 05/16/2018 LV dysfunction Heart disease, unspecified 05/16/2018 Cardiomyopathy, unspecified type (HCC) 05/16/2018 Presence of biventricular cardiac pacemaker Cardiac pacemaker in situ 05/16/2018 CHB (complete heart block) (HCC) Atrioventricular block, complete 08/17/2018 LV dysfunction Heart disease, unspecified 08/17/2018 Cardiomyopathy, unspecified type (HCC) 08/17/2018 Pacemaker Cardiac pacemaker in situ 08/17/2018 CHB (complete heart block) (HCC) Atrioventricular block, complete 11/14/2018 Ventricular tachycardia, polymorphic (HCC) Paroxysmal ventricular tachycardia 11/14/2018 Biventricular cardiac pacemaker in situ Cardiac pacemaker in situ 11/14/2018 LV dysfunction Heart disease, unspecified 11/14/2018 Chronic systolic congestive heart failure (HCC) Chronic systolic heart failure 11/14/2018 CHB (complete heart block) (HCC) Atrioventricular block, complete 02/21/2019 Ventricular tachycardia, polymorphic (HCC) Paroxysmal ventricular tachycardia 02/21/2019 LV dysfunction Heart disease, unspecified 02/21/2019 Cardiomyopathy, unspecified type (HCC) 02/21/2019 CHB (complete heart block) (HCC) Atrioventricular block, complete 05/23/2019 LV dysfunction Heart disease, unspecified 05/23/2019 Cardiomyopathy, unspecified type (HCC) 05/23/2019 Chronic systolic congestive heart failure (HCC) Chronic systolic heart failure 05/23/2019 Biventricular cardiac pacemaker in situ Cardiac pacemaker in situ 08/22/2019 Ventricular tachycardia, polymorphic (HCC) Paroxysmal ventricular tachycardia 08/22/2019 CHB (complete heart block) (HCC) Atrioventricular block, complete 08/22/2019 Cardiomyopathy, unspecified type (HCC) 08/22/2019 Hypoxia Hypoxemia 08/27/2019 MATTHEW (acute kidney injury) Acute kidney failure, unspecified 08/27/2019 Cardiomyopathy, unspecified type (HCC) 01/20/2020 Acute on chronic systolic HF (heart failure) (HCC) Acute on chronic systolic heart failure 01/20/2020 CHB (complete heart block) (HCC) Atrioventricular block, complete 01/20/2020 Biventricular cardiac pacemaker in situ Cardiac pacemaker in situ 01/20/2020 Cardiomyopathy, unspecified type (HCC) 01/22/2020 Biventricular cardiac pacemaker in situ Cardiac pacemaker in situ 01/22/2020 CHB (complete heart block) (HCC) Atrioventricular block, complete 01/22/2020 Chronic systolic congestive heart failure (HCC) Chronic systolic heart failure 01/22/2020 Ventricular tachycardia, polymorphic (HCC) Paroxysmal ventricular tachycardia 01/22/2020 LV dysfunction Heart disease, unspecified 01/22/2020 CHB (complete heart block) (HCC) Atrioventricular block, complete 04/20/2020 Ventricular tachycardia, polymorphic (HCC) Paroxysmal ventricular tachycardia 04/20/2020 Acute on chronic systolic HF (heart failure) (HCC) Acute on chronic systolic heart failure 04/20/2020 Cardiomyopathy, unspecified type (HCC) 04/20/2020 CHB (complete heart block) (HCC) Atrioventricular block, complete 07/20/2020 Ventricular tachycardia, polymorphic (HCC) Paroxysmal ventricular tachycardia 07/20/2020 Biventricular cardiac pacemaker in situ Cardiac pacemaker in situ 07/20/2020 Acute on chronic systolic HF (heart failure) (HCC) Acute on chronic systolic heart failure 07/20/2020 Syncope, unspecified syncope type 07/20/2020 LV dysfunction Heart disease, unspecified 07/20/2020 Cardiomyopathy, unspecified type (HCC) 07/20/2020 CHB (complete heart block) (HCC) Atrioventricular block, complete 10/30/2020 Biventricular cardiac pacemaker in situ Cardiac pacemaker in situ 10/30/2020 Acute on chronic systolic HF (heart failure) (HCC) Acute on chronic systolic heart failure 10/30/2020 Syncope, unspecified syncope type 10/30/2020 LV dysfunction Heart disease, unspecified 10/30/2020 Cardiomyopathy, unspecified type (HCC) 10/30/2020 Epistaxis 01/06/2021 Right-sided nosebleed Epistaxis 01/07/2021 Posterior epistaxis 01/07/2021 Epistaxis 01/11/2021 Epistaxis 01/15/2021 CHB (complete heart block) (HCC) Atrioventricular block, complete 02/03/2021 Biventricular cardiac pacemaker in situ Cardiac pacemaker in situ 02/03/2021 Chronic systolic congestive heart failure (HCC) Chronic systolic heart failure 02/03/2021 Ventricular tachycardia, polymorphic (HCC) Paroxysmal ventricular tachycardia 02/03/2021 LV dysfunction Heart disease, unspecified 02/03/2021 Cardiomyopathy, unspecified type (HCC) 02/03/2021 CHB (complete heart block) (HCC) Atrioventricular block, complete 05/05/2021 Biventricular cardiac pacemaker in situ Cardiac pacemaker in situ 05/05/2021 Chronic systolic congestive heart failure (HCC) Chronic systolic heart failure 05/05/2021 LV dysfunction Heart disease, unspecified 05/05/2021 CHB (complete heart block) (HCC) Atrioventricular block, complete 08/09/2021 Biventricular cardiac pacemaker in situ Cardiac pacemaker in situ 08/09/2021 Chronic systolic congestive heart failure (HCC) Chronic systolic heart failure 08/09/2021 Cardiomyopathy, unspecified type (HCC) 08/09/2021 CHB (complete heart block) (HCC) Atrioventricular block, complete 11/22/2021 Biventricular cardiac pacemaker in situ Cardiac pacemaker in situ 11/22/2021 Chronic systolic congestive heart failure (HCC) Chronic systolic heart failure 11/22/2021 Cardiomyopathy, unspecified type (HCC) 11/22/2021 CHB (complete heart block) (HCC) Atrioventricular block, complete 11/24/2021 Ventricular tachycardia, polymorphic (HCC) Paroxysmal ventricular tachycardia 11/24/2021 Biventricular cardiac pacemaker in situ Cardiac pacemaker in situ 11/24/2021 LV dysfunction Heart disease, unspecified 11/24/2021 Dilated cardiomyopathy (HCC) Other primary cardiomyopathies 11/24/2021 Biventricular cardiac pacemaker in situ Cardiac pacemaker in situ 02/21/2022 CHB (complete heart block) (HCC) Atrioventricular block, complete 02/21/2022 Ventricular tachycardia, polymorphic (HCC) Paroxysmal ventricular tachycardia 02/21/2022 Dilated cardiomyopathy (HCC) Other primary cardiomyopathies 02/21/2022 Chronic systolic congestive heart failure (HCC) Chronic systolic heart failure 02/21/2022 Vector Remote Device 06/23/2022 Vector Remote Device 10/30/2022 Vector Remote Device 01/29/2023 Vector Remote Device 03/17/2023 Vector Remote Device 04/30/2023 Vector Remote Device 07/30/2023 Vector Remote Device 10/29/2023 Vector Remote Device 01/29/2024 CHB (complete heart block) (HCC) Atrioventricular block, complete 03/11/2024 Ventricular tachycardia, polymorphic (HCC) Paroxysmal ventricular tachycardia 03/11/2024 LV dysfunction Heart disease, unspecified 03/11/2024 Biventricular cardiac pacemaker in situ Cardiac pacemaker in situ 03/11/2024 Dilated cardiomyopathy (HCC) Other primary cardiomyopathies 03/11/2024 Chronic systolic heart failure (HCC) Chronic systolic heart failure 03/11/2024 Vector Remote Device 04/30/2024 Vector Remote Device 09/23/2024 Vector Remote Device 10/30/2024 Vector Remote Device 01/26/2025 Vector Remote Device 01/27/2025 Vector Remote Device 03/03/2025 Hyperkalemia Hyperpotassemia 03/15/2013 Acute renal failure Acute kidney failure, unspecified 03/15/2013 Dehydration 03/15/2013 LANIER (dyspnea on exertion) Other dyspnea and respiratory abnormality 03/15/2013 Morbid obesity (HCC) Morbid obesity 03/15/2013 Muscle cramps Cramp of limb 03/15/2013 Hypomagnesemia Disorders of magnesium metabolism 03/15/2013 Syncope Syncope and collapse 10/05/2013 Hypomagnesemia Disorders of magnesium metabolism 10/05/2013 Diabetes mellitus (HCC) Type II or unspecified type diabetes mellitus without mention of complication, not stated as uncontrolled 10/05/2013 Abnormal EKG Nonspecific abnormal electrocardiogram (ECG) (EKG) 10/05/2013 Hyperlipidemia Other and unspecified hyperlipidemia 10/05/2013 Morbid obesity (HCC) Morbid obesity 10/05/2013 HTN (hypertension) Unspecified essential hypertension 10/05/2013 Multiple lacunar infarcts (HCC) 10/05/2013 Morbid obesity (HCC) Morbid obesity 06/23/2015 Multiple lacunar infarcts (HCC) 06/23/2015 Syncope Syncope and collapse 06/23/2015 HTN (hypertension) Unspecified essential hypertension 06/23/2015 Hypomagnesemia Disorders of magnesium metabolism 06/23/2015 LV dysfunction Heart disease, unspecified 06/23/2015 Essential hypertension Unspecified essential hypertension 06/23/2015 Morbid obesity due to excess calories (HCC) 06/23/2015 Coronary artery disease involving [place] coronary artery of [place] heart without angina pectoris 06/23/2015 Multiple lacunar infarcts (HCC) 06/27/2015 Diabetes mellitus (HCC) Type II or unspecified type diabetes mellitus without mention of complication, not stated as uncontrolled 06/27/2015 Syncope Syncope and collapse 06/27/2015 Coronary artery disease involving [place] coronary artery of [place] heart without angina pectoris 06/27/2015 Morbid obesity due to excess calories (HCC) 06/27/2015 Transient alteration of awareness 06/27/2015 Hyperlipidemia Other and unspecified hyperlipidemia 07/12/2015 Syncope Syncope and collapse 07/12/2015 Ventricular tachycardia, polymorphic (HCC) Paroxysmal ventricular tachycardia 07/12/2015 Morbid obesity due to excess calories (HCC) 07/12/2015 Observed sleep apnea Unspecified sleep apnea 07/12/2015 Type 2 diabetes mellitus with hyperglycemia (HCC) Type II or unspecified type diabetes mellitus without mention of complication, not stated as uncontrolled 07/12/2015 Elevated troponin Other abnormal blood chemistry 07/12/2015 Cardiomyopathy (HCC) Other primary cardiomyopathies 07/12/2015 Biventricular cardiac pacemaker in situ Cardiac pacemaker in situ 07/12/2015 Type 2 diabetes mellitus with hyperglycemia (HCC) Type II or unspecified type diabetes mellitus without mention of complication, not stated as uncontrolled 08/27/2019 Essential hypertension Unspecified essential hypertension 08/27/2019 Coronary artery disease involving [place] coronary artery of [place] heart without angina pectoris 08/27/2019 Morbid obesity due to excess calories (HCC) 08/27/2019 Acute on chronic systolic HF (heart failure) (HCC) Acute on chronic systolic heart failure 08/27/2019 MATTHEW (acute kidney injury) Acute kidney failure, unspecified 08/27/2019 Care Teams Air Intercept Controller Relationship Specialty Start Date End Date Boogie Mccormick MD PCP - General 11/28/10 Jean Preston MD [address] [place] [address] [place] [address] Internal Medicine - Clinical Cardiac Electrophysiology 10/31/16 Estela Hsu, MECHANICAL FACILITIES TECHNICIAN [address] [place] [address] [place] [address] Nurse Practitioner 10/18/17
--- OUTSIDE RECORDS SUMMARY | 2025-04-21 10:59 | XMS_ITS | Encounter Summary ---
Author Organization [place] [address] Care Team Providers Care Lead Generation Specialist Name Role Phone Boogie Mccormick MD Primary Care Provider [phone] Jean Preston MD Unavailable [phone] Estela Hsu APRN Unavailable [phone] Encounter Details Date Type Department Care Team (Late st Contact Info) Description 03/03/2025 Orders Only [facility] [address] [facility] [address] [place] [address] Jean Preston MD [address] [place], [place] [id number] Vector Remote Device Social History Tobacco Use Types Packs/Day Years [...] Author No 06/26/2015 2:21 PM EDT Haley Easley, RN * Is the person blind or [...] Author No 06/26/2015 2:21 PM EDT Haley Méndez RN * Because of a physical, mental [...] Office Visit [facility] [address] [facility] [address] [place] [address] Estela Hsu, LEGAL [employer] [address] [place] [address] documented as of this encounter Procedures Procedure Name Priority Date/Time Associated Diagnosis Comments OK REM INTERROG ICPMS <30 D PHYS/QHP Routine 03/03/2025 12:00 AM EDT Vector Remote Device documented in this encounter Results * VECTOR REMOTE HEART FAILURE DEVICE (03/03/2025 12:00 AM EDT) 03/03/2025 Narrative [facility] - 03/03/2025 12:00 AM EDT Stable trend. us Jean Preston MD [facility] CARDIAC CATH ORDERABLE S Final Result [facility] [address] [place] [address] documented in this encounter Visit Diagnoses Diagnosis Vector Remote Device documented in this encounter Additional Health Concerns Assessment Noted Time A fall risk assessment has been complete d for the patient 03/11/2024 11:38 AM EDT documented as of this encounter Care Teams Lead Generation Specialist Relationship Specialty Start Date End Date Boogie Mccormick MD PCP - General 11/28/10 Jean Preston MD [address] [place] [id number] Internal Medicine - Clinical Cardiac Electrophysiology 10/31/16 Estela Hsu APRN [address] [place] [id number] Nurse Practitioner 10/18/17 documented as of this encounter
--- OUTSIDE RECORDS SUMMARY | 2025-04-21 11:59 | XMS_ITS | CCD ---
Author Organization Unknown Care Team Providers Care Traffic Director Name Role Phone Unavailable Primary Care Provider Unavailabl e Unavailable Chronic Care Management Unavaila ble Summary Purpose DataExchange Insurance Providers Payer name Policy type / Coverage type Covered libertarian ID Effective Begin Date Effective End Date [facility] [id number] Unknown Unknown Family History Family History data not found Medication Administered No Medication Administered data Reason For Visit No Reason For Visit data Medical Equipment No Medical Equipment data Advance Directives No Advance Directive data
== END 2025-04-18 23:59 | disposition home or self-care (01) ==
LOC: LAB.DROPOF 04-21 10:57
PROVIDERS: PCP Family Medicine; Visit Provider Family Medicine
DX: E11.9 Type 2 diabetes mellitus without complications (principal); E66.9 Obesity, unspecified; R60.9 Edema, unspecified; E78.2 Mixed hyperlipidemia; I10 Essential (primary) hypertension; Z79.4 Long term (current) use of insulin
CPT/HCPCS: 80053; 83540; 83550; 85025